=== PATIENT | female | born 1945 | race Caucasian/White ===

== ENCOUNTER → 2019-02-15 | Outpatient (CLI) | payer MEDICARE, OTHER ==
[~2019-02-15] MED LIST: ALLP300T PO; ALPR.5T PO; ASP81TEC PO; CHOL231P PO; CYCL10TA9 PO; FISH1CAP15 PO; IRB150T PO; LOSA1TAB20 PO; METO-272 PO; MULT-608 PO; NAPR-243 PO; OXYC-12 PO; PARO20TA4 PO; SIMV40TA4 PO; [UNRECOGNIZED DRUG - CODE] NSEACH
--- NOTE | 2019-02-15 09:51 | Diagnostic Imaging Report ---
INDICATION: Abdominal pain. COMPARISON: None. FINDINGS: KUB and upright views of the abdomen demonstrate moderate constipation without obstruction, ileus or free air. Osseous structures are age-appropriate. IMPRESSION: Moderate constipation. Dictated by: Dictated on workstation # [id number]
[2019-02-15 10:06] LABS: HEMATOCRIT 42 % (35-52); HEMOGLOBIN 13.5 G/DL (11.5-16.0); MEAN CORPUSCULAR HEMOGLOBIN 31 PG (25-34); MEAN CORPUSCULAR VOLUME 97 FL (80-99); WHITE BLOOD COUNT 6.9 10^3/uL (4.3-11.0)
[2019-02-15 10:07] LABS: BASOPHILS % (AUTO) 0 % (0-10); EOSINOPHILS # (AUTO) 0.2 10^3/uL (0.0-0.3); EOSINOPHILS % (AUTO) 2 % (0-10); LYMPHOCYTES # (AUTO) 1.6 X 10^3 (1.0-4.0); LYMPHOCYTES % (AUTO) 22 % (12-44); MEAN CORPUSCULAR HGB CONC 32 G/DL (32-36); MEAN PLATELET VOLUME 8.2 FL (7.4-10.4); MONOCYTES # (AUTO) 0.4 X 10^3 (0.0-1.0); MONOCYTES % (AUTO) 6 % (0-12); NEUTROPHILS # (AUTO) 4.7 X 10^3 (1.8-7.8); NEUTROPHILS % (AUTO) 68 % (42-75); PLATELET COUNT 221 10^3/uL (130-400); RED CELL DISTRIBUTION WIDTH 14.7 % (10.0-14.5)
[2019-02-15 10:27] LABS: BAND NEUTROPHILS 0 %; BASOPHILS % (MANUAL) 0 %; CHLORIDE 102 MMOL/L (98-107); EOSINOPHILS % (MANUAL) 2 %; LYMPHOCYTES % (MANUAL) 29 %; MONOCYTES % (MANUAL) 5 %; NEUTROPHILS % (MANUAL) 64 %; POTASSIUM 4.8 MMOL/L (3.6-5.0); SODIUM 142 MMOL/L (135-145)
[2019-02-15 10:28] LABS: ALANINE AMINOTRANSFERASE 20 U/L (0-55); ALKALINE PHOSPHATASE 104 U/L (40-136); BILIRUBIN,TOTAL 0.7 MG/DL (0.1-1.0); BUN/CREATININE RATIO 38; CALCIUM 9.1 MG/DL (8.5-10.1); CARBON DIOXIDE 26 MMOL/L (21-32); CREATININE SERUM 0.58 MG/DL (0.60-1.30); GFR ESTIMATED > 60; GLUCOSE 101 MG/DL (70-105); TOTAL PROTEIN 7.2 GM/DL (6.4-8.2)
== END ==
LOC: RAD FS 09:28
PROVIDERS: ATTEND Nurse Practitioner Family
DX: K59.00 Constipation, unspecified (principal)
CPT/HCPCS: 36415; 74019; 80053; 85007; 85027

== ENCOUNTER → 2019-10-06 | Outpatient (CLI) | payer MEDICARE, OTHER ==
[2019-10-06 14:57] LABS: BASOPHILS % (AUTO) 0 % (0-10); EOSINOPHILS # (AUTO) 0.1 10^3/uL (0.0-0.3); EOSINOPHILS % (AUTO) 2 % (0-10); HEMATOCRIT 42 % (35-52); HEMOGLOBIN 13.3 G/DL (11.5-16.0); LYMPHOCYTES # (AUTO) 1.7 X 10^3 (1.0-4.0); LYMPHOCYTES % (AUTO) 30 % (12-44); MEAN CORPUSCULAR HEMOGLOBIN 31 PG (25-34); MEAN CORPUSCULAR HGB CONC 32 G/DL (32-36); MEAN CORPUSCULAR VOLUME 98 FL (80-99); MEAN PLATELET VOLUME 8.2 FL (7.4-10.4); MONOCYTES # (AUTO) 0.4 X 10^3 (0.0-1.0); MONOCYTES % (AUTO) 6 % (0-12); NEUTROPHILS # (AUTO) 3.6 X 10^3 (1.8-7.8); NEUTROPHILS % (AUTO) 62 % (42-75); PLATELET COUNT 182 10^3/uL (130-400); RED CELL DISTRIBUTION WIDTH 15.2 % (10.0-14.5); WHITE BLOOD COUNT 5.8 10^3/uL (4.3-11.0)
== END ==
LOC: LAB FS 14:39
PROVIDERS: ATTEND Nurse Practitioner Family
DX: C56.9 Malignant neoplasm of unspecified ovary (principal)
CPT/HCPCS: 36415; 85025

== ENCOUNTER 2019-11-08 08:50 | Outpatient (CLI) | payer MEDICARE, OTHER ==
[~2019-11-08] VITALS: Ht 167.7 cm; Wt 127.3 kg
[2019-11-08] MEDS ORDERED: ASPI-983 PO (13:58)
[2019-11-08] MEDS ORDERED: DOCU100C37 PO (13:58)
[2019-11-08] MEDS ORDERED: SIMV40TA25 PO (13:58)
[2019-11-08] MEDS ORDERED: FISH1CAP15 PO (13:58)
[2019-11-08] MEDS ORDERED: CHOL239. PO (13:58)
[2019-11-08] MEDS ORDERED: MULT1TAB69 PO (13:58)
[2019-11-08] MEDS ORDERED: PARO20TA5 PO (13:58)
[2019-11-08] MEDS ORDERED: DILT120C88 PO (13:58)
[2019-11-08] MEDS ORDERED: RT-ALBUINH IH (13:58)
[2019-11-08] MEDS ORDERED: APIX5TAB PO (13:58)
[2019-11-08] MEDS ORDERED: CYCL10TA9 PO (13:58)
[2019-11-08] MEDS ORDERED: IRBE150T26 PO (13:58)
[2019-11-08] MEDS ORDERED: ALLO300T2 PO (13:58)
[2019-11-08] MEDS ORDERED: FAMO20TA3 PO (13:58)
[2019-11-08] MEDS ORDERED: ROPI1TAB2 PO (13:59)
[2019-11-08] MEDS ORDERED: POLY119P5 PO (13:59)
== END 2019-11-08 14:04 | disposition home or self-care (01) ==
LOC: PREOP 08:50
PROVIDERS: ATTEND Surgery
DX: Z01.818 Encounter for other preprocedural examination (principal)

== ENCOUNTER → 2019-12-01 | Outpatient (CLI) | payer MEDICARE, OTHER ==
[~2019-12-01] MED LIST changes: +ALLO300T2 PO; +APIX5TAB PO; +ASPI-983 PO; +CHOL239. PO; +DILT120C88 PO; +DOCU100C37 PO; +FAMO20TA3 PO; +HYDR-34 PO; +IRBE150T23 PO; +MULT1TAB69 PO; +PARO20TA5 PO; +POLY119P5 PO; +ROPI1TAB PO; +RT-ALBUINH IH; +SIMV40TA25 PO
[2019-12-01 11:03] LABS: BASOPHILS % (AUTO) 1 % (0-10); EOSINOPHILS # (AUTO) 0.1 10^3/uL (0.0-0.3); EOSINOPHILS % (AUTO) 4 % (0-10); HEMATOCRIT 34 % (35-52); HEMOGLOBIN 10.5 G/DL (11.5-16.0); LYMPHOCYTES # (AUTO) 1.1 X 10^3 (1.0-4.0); LYMPHOCYTES % (AUTO) 55 % (12-44); MEAN CORPUSCULAR HEMOGLOBIN 31 PG (25-34); MEAN CORPUSCULAR HGB CONC 31 G/DL (32-36); MEAN CORPUSCULAR VOLUME 99 FL (80-99); MEAN PLATELET VOLUME 8.6 FL (7.4-10.4); MONOCYTES # (AUTO) 0.6 X 10^3 (0.0-1.0); MONOCYTES % (AUTO) 28 % (0-12); NEUTROPHILS # (AUTO) 0.3 X 10^3 (1.8-7.8); NEUTROPHILS % (AUTO) 13 % (42-75); PLATELET COUNT 198 10^3/uL (130-400); RED CELL DISTRIBUTION WIDTH 15.4 % (10.0-14.5)
[2019-12-01 11:30] LABS: CHLORIDE 102 MMOL/L (98-107); POTASSIUM 4.5 MMOL/L (3.6-5.0); SODIUM 139 MMOL/L (135-145)
[2019-12-01 11:31] LABS: ALANINE AMINOTRANSFERASE 25 U/L (0-55); ALBUMIN 3.9 GM/DL (3.2-4.5); ALKALINE PHOSPHATASE 94 U/L (40-136); BILIRUBIN,TOTAL 0.6 MG/DL (0.1-1.0); BUN/CREATININE RATIO 27; CALCIUM 8.9 MG/DL (8.5-10.1); CARBON DIOXIDE 27 MMOL/L (21-32); CREATININE SERUM 0.59 MG/DL (0.60-1.30); GFR ESTIMATED > 60; GLUCOSE 102 MG/DL (70-105); TOTAL PROTEIN 6.6 GM/DL (6.4-8.2)
[2019-12-01 14:57] LABS: CHOLESTEROL 120 MG/DL (< 200); HDL CHOLESTEROL 53 MG/DL (40-60); TRIGLYCERIDES 57 MG/DL (<150); VLDL CHOLESTEROL 11 MG/DL (5-40)
== END ==
LOC: LAB FS 09:59
PROVIDERS: ATTEND Nurse Practitioner Family
DX: E78.2 Mixed hyperlipidemia (principal); I10 Essential (primary) hypertension; C56.9 Malignant neoplasm of unspecified ovary
CPT/HCPCS: 36415; 80053; 80061; 85025

== ENCOUNTER 2019-12-08 08:49 | Outpatient (RCR) | payer MEDICARE, OTHER ==
--- NOTE | 2019-11-03 11:16 | HISTORY AND PHYSICAL ---
DATE OF SERVICE: 11/03/2019 PROCEDURE DATE: 11/11/2019 ATTENDING PHYSICIAN: Dr. Knight and . HISTORY OF PRESENT ILLNESS: The patient is a 74-year-old female who was diagnosed with ovarian cancer back in 2017 and at that time did undergo completion of her hysterectomy. She reports that she then had a [place] port placed to undergo chemotherapy and reports that she did well and eventually her port removed. She reports that approximately one to two months ago, she did have some abnormal lab work at her regular oncology visit and reports that a CT scan was performed, which did show recurrence and metastasis of the ovarian cancer. She reports that she was then referred over to us in need of a [place] port to undergo chemotherapy once again. PAST MEDICAL HISTORY: Ovarian cancer in 2017, degenerative joint disease, obstructive sleep apnea, atrial fibrillation, asthma, gout, diarrhea, restless leg syndrome, hypercholesterolemia, gastroesophageal reflux disease, hypertension, anxiety, depression. PAST SURGICAL HISTORY: Partial hysterectomy with completion of hysterectomy in 2017, ventral abdominal hernia repair, right breast biopsy, which was negative, bilateral total knee replacement, open cholecystectomy. ALLERGIES: TAPE. MEDICATIONS: Albuterol sulfate 90 mcg, allopurinol 300 mg, Eliquis 5 mg, aspirin 81 mg, Debrox 6.5% Otic solution, cholestyramine p.r.n., cyclobenzaprine 10 mg, diltiazem 120 mg, docusate 100 mg, famotidine 20 mg, fish oil 1000 mg, fluticasone 50 mcg nasal spray, irbesartan 150 mg, nystatin 1000 mg, paroxetine 20 mg, MiraLax 17 grams, Requip 1 mg, simvastatin 40 mg, tramadol 50 mg and multivitamin. SOCIAL HISTORY: Negative for smoking, negative for alcohol. FAMILY HISTORY: Father, lung cancer. Sister, bladder cancer. Son, type 2 diabetes, hypertension and leukemia. VITAL SIGNS: Blood pressure is 156/106. Current weight is 285.2 at 5 feet 6 inches. REVIEW OF SYSTEMS: Well-nourished female, in no acute distress. She is not experiencing any shortness of breath or difficulty breathing. No chest pain, palpitations or diaphoresis. No nausea, vomiting or abdominal pain. She does report episodes of chronic diarrhea as well as occasional constipation. No red blood per rectum. No dark tarry stools. No fever or chills. No recent weight loss. All other review of systems negative. PHYSICAL EXAMINATION: CHEST: Clear. Good breath sounds bilaterally. HEART: Regular, no murmurs. EXTREMITIES: No lower extremity edema. Negative Homans sign. HEENT: No scleral icterus. NECK: No cervical lymphadenopathy. ABDOMEN: Soft, nontender, nondistended. No palpable masses. No organomegaly. SKIN: Warm, dry and pink. NEUROLOGIC: Awake, alert and oriented x3. ASSESSMENT AND PLAN: A 74-year-old female with a recurrent metastatic ovarian cancer. At this time, she will need a Gro[place] port to undergo chemotherapy. The risks and benefits of the procedure as well as the procedure and home care instructions were explained to the patient. The patient verbalized understanding of instructions and agrees to proceed as planned. At this time, we will proceed with scheduling the patient for placement of a [place] port. Job ID: [id number] DocumentID: [id number] Dictated Date: 11/03/2019 09:15:25 Film Mounter Date: 11/03/2019 11:16:11 Dictated By: CLARENCE CALLOWAY APRN
[2019-11-18 09:16] LABS: BASOPHILS % (AUTO) 0 % (0-10); EOSINOPHILS % (AUTO) 0 % (0-10); HEMATOCRIT 38 % (35-52); HEMOGLOBIN 12.1 G/DL (11.5-16.0); LYMPHOCYTES # (AUTO) 0.8 X 10^3 (1.0-4.0); LYMPHOCYTES % (AUTO) 14 % (12-44); MEAN CORPUSCULAR HEMOGLOBIN 31 PG (25-34); MEAN CORPUSCULAR HGB CONC 32 G/DL (32-36); MEAN CORPUSCULAR VOLUME 98 FL (80-99); MONOCYTES % (AUTO) 1 % (0-12); NEUTROPHILS # (AUTO) 4.9 X 10^3 (1.8-7.8); NEUTROPHILS % (AUTO) 85 % (42-75); PLATELET COUNT 234 10^3/uL (130-400); RED CELL DISTRIBUTION WIDTH 15.8 % (10.0-14.5); WHITE BLOOD COUNT 5.8 10^3/uL (4.3-11.0)
[2019-11-18 09:36] LABS: ALANINE AMINOTRANSFERASE 17 U/L (0-55); ALBUMIN 4.1 GM/DL (3.2-4.5); ALKALINE PHOSPHATASE 106 U/L (40-136); BILIRUBIN,TOTAL 0.5 MG/DL (0.1-1.0); BUN/CREATININE RATIO 21; CALCIUM 9.3 MG/DL (8.5-10.1); CARBON DIOXIDE 23 MMOL/L (21-32); CHLORIDE 105 MMOL/L (98-107); CREATININE SERUM 0.72 MG/DL (0.60-1.30); GFR ESTIMATED > 60; GLUCOSE 149 MG/DL (70-105); POTASSIUM 4.4 MMOL/L (3.6-5.0); SODIUM 139 MMOL/L (135-145); TOTAL PROTEIN 7.4 GM/DL (6.4-8.2)
[~2019-12-08] VITALS: Ht 167.6 cm; Wt 129.7 kg
[~2019-12-08 08:49] MED LIST changes: +CARBOPLATIN IV SCH; +D5W IV SCH; +FAMOTIDINE 20MG/2ML IV (CANCER CTR) IV SCH; +FOSAPREPITANT DIMEGLUMINE 150 MG in NS (IVPB) CANCER CENTER ONLY 150 ML IV SCH; +NORMAL SALINE IV SCH; +NS IV 1000 ML (CANCER CTR) IV SCH; +PACLITAXEL IV SCH; +PALONOSETRON HCL 0.25 MG, DEXAMETHASONE INJECTION 10 MG in NS (IVPB) CANCER CENTER 50 ML IV SCH; +diphenhydrAMINE 50 MG/ML INJ (CANCER CENTER) IV PRN
[2019-12-08 09:10] LABS: BASOPHILS % (AUTO) 0 % (0-10); EOSINOPHILS # (AUTO) 0.1 10^3/uL (0.0-0.3); EOSINOPHILS % (AUTO) 1 % (0-10); HEMATOCRIT 33 % (35-52); HEMOGLOBIN 10.4 G/DL (11.5-16.0); LYMPHOCYTES # (AUTO) 1.3 X 10^3 (1.0-4.0); LYMPHOCYTES % (AUTO) 21 % (12-44); MEAN CORPUSCULAR HEMOGLOBIN 31 PG (25-34); MEAN CORPUSCULAR HGB CONC 31 G/DL (32-36); MEAN CORPUSCULAR VOLUME 98 FL (80-99); MONOCYTES # (AUTO) 0.5 X 10^3 (0.0-1.0); MONOCYTES % (AUTO) 9 % (0-12); NEUTROPHILS # (AUTO) 4.3 X 10^3 (1.8-7.8); NEUTROPHILS % (AUTO) 70 % (42-75); PLATELET COUNT 207 10^3/uL (130-400); RED CELL DISTRIBUTION WIDTH 15.5 % (10.0-14.5); WHITE BLOOD COUNT 6.2 10^3/uL (4.3-11.0)
[2019-12-08] MEDS ORDERED: diphenhydrAMINE 25 MG TAB (BENADRYL) CANCER CENTER PO ONE (09:44)
[2019-12-08 09:46] LABS: ALANINE AMINOTRANSFERASE 22 U/L (0-55); ALBUMIN 3.6 GM/DL (3.2-4.5); ALKALINE PHOSPHATASE 102 U/L (40-136); BILIRUBIN,TOTAL 0.5 MG/DL (0.1-1.0); BUN/CREATININE RATIO 20; CARBON DIOXIDE 23 MMOL/L (21-32); CHLORIDE 106 MMOL/L (98-107); CREATININE SERUM 0.66 MG/DL (0.60-1.30); GFR ESTIMATED > 60; GLUCOSE 106 MG/DL (70-105); MAGNESIUM 1.7 MG/DL (1.6-2.4); POTASSIUM 3.9 MMOL/L (3.6-5.0); SODIUM 140 MMOL/L (135-145); TOTAL PROTEIN 6.4 GM/DL (6.4-8.2)
[2019-12-08] MEDS ORDERED: PALONOSETRON HCL 0.25 MG, DEXAMETHASONE INJECTION 20 MG in NS (IVPB) CANCER CENTER 50 ML IV ONE (10:11)
[2019-12-29 09:39] LABS: BASOPHILS % (AUTO) 0 % (0-10); EOSINOPHILS % (AUTO) 0 % (0-10); HEMATOCRIT 38 % (35-52); HEMOGLOBIN 11.8 G/DL (11.5-16.0); LYMPHOCYTES % (AUTO) 12 % (12-44); MEAN CORPUSCULAR HEMOGLOBIN 30 PG (25-34); MEAN CORPUSCULAR HGB CONC 31 G/DL (32-36); MEAN CORPUSCULAR VOLUME 96 FL (80-99); MEAN PLATELET VOLUME 8.2 FL (7.4-10.4); MONOCYTES # (AUTO) 0.1 X 10^3 (0.0-1.0); MONOCYTES % (AUTO) 1 % (0-12); NEUTROPHILS # (AUTO) 7.3 X 10^3 (1.8-7.8); NEUTROPHILS % (AUTO) 87 % (42-75); PLATELET COUNT 232 10^3/uL (130-400); RED CELL DISTRIBUTION WIDTH 16.1 % (10.0-14.5); WHITE BLOOD COUNT 8.4 10^3/uL (4.3-11.0)
[2019-12-29 09:58] LABS: ALANINE AMINOTRANSFERASE 24 U/L (0-55); ALKALINE PHOSPHATASE 98 U/L (40-136); BILIRUBIN,TOTAL 0.4 MG/DL (0.1-1.0); BUN/CREATININE RATIO 26; CALCIUM 9.1 MG/DL (8.5-10.1); CARBON DIOXIDE 18 MMOL/L (21-32); CHLORIDE 107 MMOL/L (98-107); CREATININE SERUM 0.77 MG/DL (0.60-1.30); GFR ESTIMATED > 60; GLUCOSE 172 MG/DL (70-105); MAGNESIUM 1.7 MG/DL (1.6-2.4); POTASSIUM 4.3 MMOL/L (3.6-5.0); SODIUM 140 MMOL/L (135-145); TOTAL PROTEIN 7.4 GM/DL (6.4-8.2)
== END 2019-12-29 09:23 | disposition home or self-care (01) ==
LOC: ONC 08:49
PROVIDERS: ATTEND Internal Medicine Hematology & Oncology
DX: Z51.11 Encounter for antineoplastic chemotherapy (principal); C56.1 Malignant neoplasm of right ovary; C77.2 Secondary and unspecified malignant neoplasm of intra-abdominal lymph nodes; I10 Essential (primary) hypertension; M19.91 Primary osteoarthritis, unspecified site; R17 Unspecified jaundice; Z87.01 Personal history of pneumonia (recurrent); Z87.442 Personal history of urinary calculi; Z80.3 Family history of malignant neoplasm of breast; Z80.1 Family history of malignant neoplasm of trachea, bronchus and lung; Z80.41 Family history of malignant neoplasm of ovary; Z80.52 Family history of malignant neoplasm of bladder
CPT/HCPCS: 36591; 80053; 83735; 85025; 96367; 96375; 96413; 96415; 96417; 99214

== ENCOUNTER 2020-01-26 09:50 | Outpatient (RCR) | payer MEDICARE, OTHER ==
[2019-11-24 11:56] LABS: BUN/CREATININE RATIO 24; CALCIUM 9.3 MG/DL (8.5-10.1); CARBON DIOXIDE 30 MMOL/L (21-32); CHLORIDE 99 MMOL/L (98-107); CREATININE SERUM 0.62 MG/DL (0.60-1.30); GFR ESTIMATED > 60; GLUCOSE 109 MG/DL (70-105); POTASSIUM 4.7 MMOL/L (3.6-5.0); SODIUM 140 MMOL/L (135-145)
[2019-11-24 11:57] LABS: HEMATOCRIT 36 % (35-52); HEMOGLOBIN 11.6 G/DL (11.5-16.0); LYMPHOCYTES % (AUTO) 26 % (12-44); MEAN CORPUSCULAR HEMOGLOBIN 31 PG (25-34); MEAN CORPUSCULAR HGB CONC 32 G/DL (32-36); MEAN CORPUSCULAR VOLUME 98 FL (80-99); MEAN PLATELET VOLUME 9.1 FL (7.4-10.4); MONOCYTES % (AUTO) 2 % (0-12); NEUTROPHILS % (AUTO) 69 % (42-75); PLATELET COUNT 210 10^3/uL (130-400); RED CELL DISTRIBUTION WIDTH 14.7 % (10.0-14.5); WHITE BLOOD COUNT 5.8 10^3/uL (4.3-11.0)
[2019-11-24 12:07] LABS: BASOPHILS % (AUTO) 1 % (0-10); EOSINOPHILS # (AUTO) 0.2 10^3/uL (0.0-0.3); EOSINOPHILS % (AUTO) 3 % (0-10); LYMPHOCYTES # (AUTO) 1.5 X 10^3 (1.0-4.0); MONOCYTES # (AUTO) 0.1 X 10^3 (0.0-1.0)
[2019-12-15 12:06] LABS: BUN/CREATININE RATIO 32; CALCIUM 8.9 MG/DL (8.5-10.1); CARBON DIOXIDE 28 MMOL/L (21-32); CHLORIDE 103 MMOL/L (98-107); GFR ESTIMATED > 60; GLUCOSE 101 MG/DL (70-105); POTASSIUM 4.5 MMOL/L (3.6-5.0); SODIUM 142 MMOL/L (135-145)
[2019-12-15 12:07] LABS: BASOPHILS % (AUTO) 1 % (0-10); EOSINOPHILS # (AUTO) 0.1 10^3/uL (0.0-0.3); EOSINOPHILS % (AUTO) 3 % (0-10); HEMATOCRIT 34 % (35-52); HEMOGLOBIN 10.7 G/DL (11.5-16.0); LYMPHOCYTES # (AUTO) 1.2 X 10^3 (1.0-4.0); LYMPHOCYTES % (AUTO) 28 % (12-44); MEAN CORPUSCULAR HEMOGLOBIN 31 PG (25-34); MEAN CORPUSCULAR HGB CONC 32 G/DL (32-36); MEAN CORPUSCULAR VOLUME 97 FL (80-99); MEAN PLATELET VOLUME 9.1 FL (7.4-10.4); MONOCYTES # (AUTO) 0.2 X 10^3 (0.0-1.0); MONOCYTES % (AUTO) 4 % (0-12); NEUTROPHILS # (AUTO) 2.8 X 10^3 (1.8-7.8); NEUTROPHILS % (AUTO) 64 % (42-75); PLATELET COUNT 188 10^3/uL (130-400); RED CELL DISTRIBUTION WIDTH 15.1 % (10.0-14.5); WHITE BLOOD COUNT 4.4 10^3/uL (4.3-11.0)
[2019-12-22 10:46] LABS: BASOPHILS % (AUTO) 1 % (0-10); EOSINOPHILS # (AUTO) 0.1 10^3/uL (0.0-0.3); EOSINOPHILS % (AUTO) 3 % (0-10); HEMATOCRIT 34 % (35-52); HEMOGLOBIN 10.7 G/DL (11.5-16.0); LYMPHOCYTES # (AUTO) 0.9 X 10^3 (1.0-4.0); LYMPHOCYTES % (AUTO) 45 % (12-44); MEAN CORPUSCULAR HEMOGLOBIN 31 PG (25-34); MEAN CORPUSCULAR HGB CONC 31 G/DL (32-36); MEAN CORPUSCULAR VOLUME 98 FL (80-99); MEAN PLATELET VOLUME 8.8 FL (7.4-10.4); MONOCYTES # (AUTO) 0.5 X 10^3 (0.0-1.0); MONOCYTES % (AUTO) 22 % (0-12); NEUTROPHILS # (AUTO) 0.6 X 10^3 (1.8-7.8); NEUTROPHILS % (AUTO) 28 % (42-75); PLATELET COUNT 207 10^3/uL (130-400); RED CELL DISTRIBUTION WIDTH 15.8 % (10.0-14.5); WHITE BLOOD COUNT 2.1 10^3/uL (4.3-11.0)
[2019-12-22 11:05] LABS: BUN/CREATININE RATIO 34; CALCIUM 8.9 MG/DL (8.5-10.1); CARBON DIOXIDE 24 MMOL/L (21-32); CHLORIDE 101 MMOL/L (98-107); CREATININE SERUM 0.61 MG/DL (0.60-1.30); GFR ESTIMATED > 60; GLUCOSE 107 MG/DL (70-105); POTASSIUM 4.5 MMOL/L (3.6-5.0); SODIUM 138 MMOL/L (135-145)
[2020-01-05 10:04] LABS: HEMATOCRIT 32 % (35-52); HEMOGLOBIN 9.9 G/DL (11.5-16.0); MEAN CORPUSCULAR HEMOGLOBIN 30 PG (25-34); MEAN CORPUSCULAR HGB CONC 31 G/DL (32-36); MEAN CORPUSCULAR VOLUME 97 FL (80-99); MEAN PLATELET VOLUME 9.1 FL (7.4-10.4); PLATELET COUNT 172 10^3/uL (130-400); RED CELL DISTRIBUTION WIDTH 15.5 % (10.0-14.5); WHITE BLOOD COUNT 3.3 10^3/uL (4.3-11.0)
[2020-01-05 10:05] LABS: BASOPHILS % (AUTO) 1 % (0-10); EOSINOPHILS # (AUTO) 0.1 10^3/uL (0.0-0.3); EOSINOPHILS % (AUTO) 3 % (0-10); LYMPHOCYTES # (AUTO) 0.9 X 10^3 (1.0-4.0); LYMPHOCYTES % (AUTO) 28 % (12-44); MONOCYTES # (AUTO) 0.1 X 10^3 (0.0-1.0); MONOCYTES % (AUTO) 3 % (0-12); NEUTROPHILS # (AUTO) 2.1 X 10^3 (1.8-7.8); NEUTROPHILS % (AUTO) 65 % (42-75)
[2020-01-05 10:37] LABS: CARBON DIOXIDE 28 MMOL/L (21-32); CHLORIDE 104 MMOL/L (98-107); POTASSIUM 4.6 MMOL/L (3.6-5.0); SODIUM 141 MMOL/L (135-145)
[2020-01-05 10:38] LABS: BUN/CREATININE RATIO 35; CALCIUM 8.7 MG/DL (8.5-10.1); CREATININE SERUM 0.54 MG/DL (0.60-1.30); GFR ESTIMATED > 60; GLUCOSE 99 MG/DL (70-105)
[2020-01-12 10:20] LABS: HEMATOCRIT 32 % (35-52); HEMOGLOBIN 9.9 G/DL (11.5-16.0); MEAN CORPUSCULAR HEMOGLOBIN 30 PG (25-34); MEAN CORPUSCULAR VOLUME 97 FL (80-99); WHITE BLOOD COUNT 1.7 10^3/uL (4.3-11.0)
[2020-01-12 10:21] LABS: BASOPHILS % (AUTO) 1 % (0-10); EOSINOPHILS # (AUTO) 0.1 10^3/uL (0.0-0.3); EOSINOPHILS % (AUTO) 3 % (0-10); LYMPHOCYTES # (AUTO) 0.9 X 10^3 (1.0-4.0); LYMPHOCYTES % (AUTO) 52 % (12-44); MEAN CORPUSCULAR HGB CONC 31 G/DL (32-36); MONOCYTES # (AUTO) 0.4 X 10^3 (0.0-1.0); MONOCYTES % (AUTO) 24 % (0-12); NEUTROPHILS # (AUTO) 0.3 X 10^3 (1.8-7.8); NEUTROPHILS % (AUTO) 19 % (42-75); PLATELET COUNT 189 10^3/uL (130-400); RED CELL DISTRIBUTION WIDTH 16.6 % (10.0-14.5)
[2020-01-12 10:53] LABS: CARBON DIOXIDE 28 MMOL/L (21-32); CHLORIDE 102 MMOL/L (98-107); POTASSIUM 4.2 MMOL/L (3.6-5.0); SODIUM 139 MMOL/L (135-145)
[2020-01-12 10:54] LABS: BUN/CREATININE RATIO 23; CALCIUM 8.9 MG/DL (8.5-10.1); CREATININE SERUM 0.57 MG/DL (0.60-1.30); GFR ESTIMATED > 60; GLUCOSE 100 MG/DL (70-105)
[~2020-01-26 09:50] MED LIST changes: -CARBOPLATIN IV SCH; -D5W IV SCH; -FAMOTIDINE 20MG/2ML IV (CANCER CTR) IV SCH; -FOSAPREPITANT DIMEGLUMINE 150 MG in NS (IVPB) CANCER CENTER ONLY 150 ML IV SCH; -NORMAL SALINE IV SCH; -NS IV 1000 ML (CANCER CTR) IV SCH; -PACLITAXEL IV SCH; -PALONOSETRON HCL 0.25 MG, DEXAMETHASONE INJECTION 10 MG in NS (IVPB) CANCER CENTER 50 ML IV SCH; -diphenhydrAMINE 50 MG/ML INJ (CANCER CENTER) IV PRN
[2020-01-26 10:45] LABS: BASOPHILS % (AUTO) 1 % (0-10); EOSINOPHILS % (AUTO) 3 % (0-10); HEMATOCRIT 33 % (35-52); HEMOGLOBIN 10.2 G/DL (11.5-16.0); MEAN CORPUSCULAR HEMOGLOBIN 30 PG (25-34); MEAN CORPUSCULAR HGB CONC 31 G/DL (32-36); MEAN CORPUSCULAR VOLUME 97 FL (80-99); MEAN PLATELET VOLUME 9.6 FL (7.4-10.4); MONOCYTES % (AUTO) 1 % (0-12); NEUTROPHILS % (AUTO) 68 % (42-75); PLATELET COUNT 166 10^3/uL (130-400); RED CELL DISTRIBUTION WIDTH 16.3 % (10.0-14.5); WHITE BLOOD COUNT 3.7 10^3/uL (4.3-11.0)
[2020-01-26 10:46] LABS: EOSINOPHILS # (AUTO) 0.1 10^3/uL (0.0-0.3); LYMPHOCYTES % (AUTO) 27 % (12-44); NEUTROPHILS # (AUTO) 2.5 X 10^3 (1.8-7.8)
[2020-01-26 10:51] LABS: BUN/CREATININE RATIO 36; CARBON DIOXIDE 28 MMOL/L (21-32); CHLORIDE 103 MMOL/L (98-107); CREATININE SERUM 0.61 MG/DL (0.60-1.30); GFR ESTIMATED > 60; GLUCOSE 115 MG/DL (70-105); POTASSIUM 4.1 MMOL/L (3.6-5.0); SODIUM 140 MMOL/L (135-145)
[2020-02-16 10:59] LABS: BUN/CREATININE RATIO 24; CALCIUM 9.3 MG/DL (8.5-10.1); CARBON DIOXIDE 31 MMOL/L (21-32); CHLORIDE 102 MMOL/L (98-107); CREATININE SERUM 0.55 MG/DL (0.60-1.30); GFR ESTIMATED > 60; GLUCOSE 111 MG/DL (70-105); POTASSIUM 4.7 MMOL/L (3.6-5.0); SODIUM 142 MMOL/L (135-145)
[2020-02-16 11:00] LABS: BASOPHILS % (AUTO) 0 % (0-10); EOSINOPHILS # (AUTO) 0.1 10^3/uL (0.0-0.3); EOSINOPHILS % (AUTO) 1 % (0-10); HEMATOCRIT 32 % (35-52); HEMOGLOBIN 9.8 G/DL (11.5-16.0); LYMPHOCYTES # (AUTO) 0.9 X 10^3 (1.0-4.0); LYMPHOCYTES % (AUTO) 20 % (12-44); MEAN CORPUSCULAR HEMOGLOBIN 30 PG (25-34); MEAN CORPUSCULAR HGB CONC 31 G/DL (32-36); MEAN CORPUSCULAR VOLUME 96 FL (80-99); MEAN PLATELET VOLUME 9.4 FL (7.4-10.4); MONOCYTES # (AUTO) 0.1 X 10^3 (0.0-1.0); MONOCYTES % (AUTO) 1 % (0-12); NEUTROPHILS # (AUTO) 3.3 X 10^3 (1.8-7.8); NEUTROPHILS % (AUTO) 78 % (42-75); PLATELET COUNT 144 10^3/uL (130-400); RED CELL DISTRIBUTION WIDTH 16.6 % (10.0-14.5); WHITE BLOOD COUNT 4.2 10^3/uL (4.3-11.0)
== END 2020-02-22 | disposition home or self-care (01) ==
LOC: LAB FS 09:50
PROVIDERS: ATTEND Internal Medicine Hematology & Oncology
DX: C56.1 Malignant neoplasm of right ovary (principal); I10 Essential (primary) hypertension; C77.2 Secondary and unspecified malignant neoplasm of intra-abdominal lymph nodes; Z80.3 Family history of malignant neoplasm of breast; Z80.1 Family history of malignant neoplasm of trachea, bronchus and lung; Z80.41 Family history of malignant neoplasm of ovary; Z80.52 Family history of malignant neoplasm of bladder
CPT/HCPCS: 36415; 80048; 85025

== ENCOUNTER 2020-02-10 09:49 | Outpatient (RCR) | payer MEDICARE, OTHER ==
[2020-01-19 09:04] LABS: BASOPHILS % (AUTO) 0 % (0-10); EOSINOPHILS % (AUTO) 0 % (0-10); HEMATOCRIT 38 % (35-52); HEMOGLOBIN 11.9 G/DL (11.5-16.0); LYMPHOCYTES % (AUTO) 13 % (12-44); MEAN CORPUSCULAR HEMOGLOBIN 30 PG (25-34); MEAN CORPUSCULAR HGB CONC 31 G/DL (32-36); MEAN CORPUSCULAR VOLUME 96 FL (80-99); MEAN PLATELET VOLUME 8.3 FL (7.4-10.4); MONOCYTES # (AUTO) 0.1 X 10^3 (0.0-1.0); MONOCYTES % (AUTO) 1 % (0-12); NEUTROPHILS # (AUTO) 6.5 X 10^3 (1.8-7.8); NEUTROPHILS % (AUTO) 86 % (42-75); PLATELET COUNT 219 10^3/uL (130-400); WHITE BLOOD COUNT 7.5 10^3/uL (4.3-11.0)
[2020-01-19 09:17] LABS: ALBUMIN 3.9 GM/DL (3.2-4.5)
[2020-01-19 09:18] LABS: CHLORIDE 106 MMOL/L (98-107); POTASSIUM 4.1 MMOL/L (3.6-5.0); SODIUM 140 MMOL/L (135-145)
[2020-01-19 09:19] LABS: CALCIUM 9.4 MG/DL (8.5-10.1)
[2020-01-19 09:20] LABS: GLUCOSE 158 MG/DL (70-105); TOTAL PROTEIN 7.4 GM/DL (6.4-8.2)
[2020-01-19 09:21] LABS: CARBON DIOXIDE 19 MMOL/L (21-32)
[2020-01-19 09:22] LABS: BILIRUBIN,TOTAL 0.4 MG/DL (0.1-1.0)
[2020-01-19 09:24] LABS: ALKALINE PHOSPHATASE 115 U/L (40-136); CREATININE SERUM 0.75 MG/DL (0.60-1.30); GFR ESTIMATED > 60
[2020-01-19 09:25] LABS: BUN/CREATININE RATIO 36
[2020-01-19 09:27] LABS: ALANINE AMINOTRANSFERASE 25 U/L (0-55)
[2020-01-19 09:28] LABS: MAGNESIUM 1.5 MG/DL (1.6-2.4)
[2020-02-02 10:35] LABS: BUN/CREATININE RATIO 22; CARBON DIOXIDE 28 MMOL/L (21-32); CHLORIDE 105 MMOL/L (98-107); CREATININE SERUM 0.58 MG/DL (0.60-1.30); GFR ESTIMATED > 60; GLUCOSE 108 MG/DL (70-105); POTASSIUM 4.2 MMOL/L (3.6-5.0); SODIUM 144 MMOL/L (135-145); WHITE BLOOD COUNT 1.7 10^3/uL (4.3-11.0)
[2020-02-02 10:36] LABS: BASOPHILS % (AUTO) 1 % (0-10); EOSINOPHILS # (AUTO) 0.1 10^3/uL (0.0-0.3); EOSINOPHILS % (AUTO) 3 % (0-10); HEMATOCRIT 32 % (35-52); HEMOGLOBIN 10.1 G/DL (11.5-16.0); LYMPHOCYTES # (AUTO) 0.8 X 10^3 (1.0-4.0); LYMPHOCYTES % (AUTO) 47 % (12-44); MEAN CORPUSCULAR HEMOGLOBIN 30 PG (25-34); MEAN CORPUSCULAR HGB CONC 31 G/DL (32-36); MEAN CORPUSCULAR VOLUME 96 FL (80-99); MEAN PLATELET VOLUME 8.5 FL (7.4-10.4); MONOCYTES # (AUTO) 0.4 X 10^3 (0.0-1.0); MONOCYTES % (AUTO) 26 % (0-12); NEUTROPHILS # (AUTO) 0.4 X 10^3 (1.8-7.8); NEUTROPHILS % (AUTO) 24 % (42-75); PLATELET COUNT 146 10^3/uL (130-400); RED CELL DISTRIBUTION WIDTH 16.9 % (10.0-14.5)
[~2020-02-10 09:49] MED LIST changes: +CARBOPLATIN IV SCH; +D5W IV SCH; +FAMOTIDINE 20MG/2ML IV (CANCER CTR) IV SCH; +FOSAPREPITANT (CANCER CENTER) 150 MG in NS (IVPB) CANCER CENTER ONLY 150 ML IV SCH; +MAGNESIUM SULFATE (CANCER CTR) 2 GM in NS (IVPB) CANCER CENTER 100 ML IV SCH; +NORMAL SALINE IV SCH; +NS IV 1000 ML (CANCER CTR) IV SCH; +PACLITAXEL IV SCH; +PALONOSETRON HCL 0.25 MG, DEXAMETHASONE INJECTION 10 MG in NS (IVPB) CANCER CENTER 50 ML IV SCH; +diphenhydrAMINE 25 MG TAB (BENADRYL) CANCER CENTER PO ONE; +diphenhydrAMINE 50 MG/ML INJ (CANCER CENTER) IV PRN
[2020-02-10 10:10] LABS: BASOPHILS % (AUTO) 0 % (0-10); EOSINOPHILS % (AUTO) 0 % (0-10); HEMATOCRIT 37 % (35-52); HEMOGLOBIN 11.9 G/DL (11.5-16.0); LYMPHOCYTES % (AUTO) 15 % (12-44); MEAN CORPUSCULAR HEMOGLOBIN 30 PG (25-34); MEAN CORPUSCULAR HGB CONC 32 G/DL (32-36); MEAN CORPUSCULAR VOLUME 95 FL (80-99); MEAN PLATELET VOLUME 8.2 FL (7.4-10.4); MONOCYTES % (AUTO) 1 % (0-12); NEUTROPHILS # (AUTO) 5.9 X 10^3 (1.8-7.8); NEUTROPHILS % (AUTO) 85 % (42-75); PLATELET COUNT 243 10^3/uL (130-400); RED CELL DISTRIBUTION WIDTH 17.6 % (10.0-14.5); WHITE BLOOD COUNT 6.9 10^3/uL (4.3-11.0)
[2020-02-10] MEDS ORDERED: diphenhydrAMINE 25 MG TAB (BENADRYL) CANCER CENTER PO ONE (10:27)
[2020-02-10 10:31] LABS: ALANINE AMINOTRANSFERASE 14 U/L (0-55); ALBUMIN 3.9 GM/DL (3.2-4.5); ALKALINE PHOSPHATASE 104 U/L (40-136); BILIRUBIN,TOTAL 0.5 MG/DL (0.1-1.0); BUN/CREATININE RATIO 22; CALCIUM 9.3 MG/DL (8.5-10.1); CARBON DIOXIDE 23 MMOL/L (21-32); CHLORIDE 106 MMOL/L (98-107); CREATININE SERUM 0.72 MG/DL (0.60-1.30); GFR ESTIMATED > 60; GLUCOSE 158 MG/DL (70-105); MAGNESIUM 1.4 MG/DL (1.6-2.4); POTASSIUM 4.2 MMOL/L (3.6-5.0); SODIUM 141 MMOL/L (135-145); TOTAL PROTEIN 7.2 GM/DL (6.4-8.2)
[2020-02-10] MEDS ORDERED: MAGNESIUM SULFATE (CANCER CTR) 2 GM in NS (IVPB) CANCER CENTER 100 ML IV ONE (10:51)
== END 2020-03-01 16:15 | disposition home or self-care (01) ==
LOC: ONC 09:49
PROVIDERS: ATTEND Internal Medicine Hematology & Oncology
DX: Z51.11 Encounter for antineoplastic chemotherapy (principal); C56.1 Malignant neoplasm of right ovary; C77.2 Secondary and unspecified malignant neoplasm of intra-abdominal lymph nodes; I10 Essential (primary) hypertension; M19.91 Primary osteoarthritis, unspecified site; R17 Unspecified jaundice; Z87.01 Personal history of pneumonia (recurrent); Z87.442 Personal history of urinary calculi; Z80.3 Family history of malignant neoplasm of breast; Z80.1 Family history of malignant neoplasm of trachea, bronchus and lung; Z80.41 Family history of malignant neoplasm of ovary; Z80.52 Family history of malignant neoplasm of bladder
CPT/HCPCS: 36591; 80048; 80053; 83735; 85025; 96367; 96375; 96413; 96415; 96417

== ENCOUNTER → 2020-02-14 | Outpatient (CLI) | payer MEDICARE, OTHER ==
[~2020-02-14] MED LIST changes: +BARIUM SUSPENSION 2.1% (VANILLA SILQ) 450 ML PO ONE; -CARBOPLATIN IV SCH; +CATHETER FLUSH 10 ML SYR IV PRN; -D5W IV SCH; -FAMOTIDINE 20MG/2ML IV (CANCER CTR) IV SCH; -FOSAPREPITANT (CANCER CENTER) 150 MG in NS (IVPB) CANCER CENTER ONLY 150 ML IV SCH; +HOLD METFORMIN - RECEIVED CONTRAST 20 ML VIAL IV SCH; +IOHEXOL 350 MG/ML 100 ML (OMNIPAQUE 350) VIAL IV ONE; -MAGNESIUM SULFATE (CANCER CTR) 2 GM in NS (IVPB) CANCER CENTER 100 ML IV SCH; -NORMAL SALINE IV SCH; +NS 100 ML (IVPB) BAG IV ONE; -NS IV 1000 ML (CANCER CTR) IV SCH; -PACLITAXEL IV SCH; -PALONOSETRON HCL 0.25 MG, DEXAMETHASONE INJECTION 10 MG in NS (IVPB) CANCER CENTER 50 ML IV SCH; -diphenhydrAMINE 25 MG TAB (BENADRYL) CANCER CENTER PO ONE; -diphenhydrAMINE 50 MG/ML INJ (CANCER CENTER) IV PRN
--- NOTE | 2020-02-14 14:26 | Diagnostic Imaging Report ---
PROCEDURE: CT chest, abdomen, and pelvis with contrast. TECHNIQUE: Multiple contiguous axial images were obtained through the chest, abdomen, and pelvis after the administration of intravenous contrast. Auto Exposure Controls were utilized during the CT exam to meet ALARA standards for radiation dose reduction. INDICATION: Shortness of breath and ovarian cancer. Past surgical history includes hysterectomy, cholecystectomy, appendectomy and hernia repair. FINDINGS: There are no discrete pulmonary nodules, masses or infiltrates. There is no pleural or pericardial fluid. There is no pneumothorax. There are coronary artery calcifications. There is no pathologically enlarged adenopathy in the chest. There are degenerative changes in the spine. Liver is normal in size. Gallbladder is surgically absent. There appears to be some mild biliary ductal dilatation. The spleen is normal. Pancreas and adrenal glands are unremarkable. There are cysts in both kidneys. Aorta is nonaneurysmal. Bowel gas pattern is nonspecific. There is no free air. There is no ascites. Bladder is normal. There is no obvious pelvic mass or adenopathy. The uterus is surgically absent. There are degenerative changes in the spine. IMPRESSION: Coronary artery calcification. Mild nonspecific biliary duct dilatation. Bilateral renal cysts. No obvious residual or recurrent mass in the pelvis. Dictated by: Dictated on workstation # [id number]
== END ==
LOC: RAD 12:39
PROVIDERS: ATTEND Internal Medicine Hematology & Oncology
DX: C78.6 Secondary malignant neoplasm of retroperitoneum and peritoneum (principal); C77.2 Secondary and unspecified malignant neoplasm of intra-abdominal lymph nodes; I25.10 Atherosclerotic heart disease of native coronary artery without angina pectoris; N28.1 Cyst of kidney, acquired
CPT/HCPCS: 71260; 74177

== ENCOUNTER → 2020-02-22 | Outpatient (CLI) | payer MEDICARE, OTHER ==
[~2020-02-22] MED LIST changes: -BARIUM SUSPENSION 2.1% (VANILLA SILQ) 450 ML PO ONE; -CATHETER FLUSH 10 ML SYR IV PRN; -HOLD METFORMIN - RECEIVED CONTRAST 20 ML VIAL IV SCH; -IOHEXOL 350 MG/ML 100 ML (OMNIPAQUE 350) VIAL IV ONE; -NS 100 ML (IVPB) BAG IV ONE
--- NOTE | 2020-02-22 12:17 | Diagnostic Imaging Report ---
INDICATION: Back pain with shortness of breath. COMPARISON: 11/11/2019. FINDINGS: Central line on the left remains unchanged in position with tip at the cavoatrial junction. The lungs remain well-aerated. No infiltrates have developed. No pneumothorax or pleural effusion. Heart is not enlarged. Atherosclerotic aortic changes are again noted. IMPRESSION: No acute changes have developed when compared with previous exam. Dictated by: Dictated on workstation # [id number]
== END ==
LOC: RAD FS 11:54
PROVIDERS: ATTEND Nurse Practitioner Family
DX: M54.9 Dorsalgia, unspecified (principal); R10.9 Unspecified abdominal pain; R06.02 Shortness of breath
CPT/HCPCS: 71046

== ENCOUNTER 2020-02-23 09:58 | Outpatient (RCR) | payer MEDICARE, OTHER ==
[~2020-02-23 09:58] MED LIST changes: +MULT-567 PO; -MULT1TAB69 PO
[2020-02-23 10:32] LABS: HEMATOCRIT 32 % (35-52); MEAN CORPUSCULAR HEMOGLOBIN 30 PG (25-34); MEAN CORPUSCULAR HGB CONC 32 G/DL (32-36); MEAN CORPUSCULAR VOLUME 96 FL (80-99)
[2020-02-23 10:33] LABS: BASOPHILS % (AUTO) 0 % (0-10); EOSINOPHILS % (AUTO) 0 % (0-10); LYMPHOCYTES # (AUTO) 0.6 X 10^3 (1.0-4.0); LYMPHOCYTES % (AUTO) 50 % (12-44); MEAN PLATELET VOLUME 8.7 FL (7.4-10.4); MONOCYTES # (AUTO) 0.3 X 10^3 (0.0-1.0); MONOCYTES % (AUTO) 24 % (0-12); NEUTROPHILS # (AUTO) 0.3 X 10^3 (1.8-7.8); NEUTROPHILS % (AUTO) 26 % (42-75); PLATELET COUNT 185 10^3/uL (130-400); RED CELL DISTRIBUTION WIDTH 16.8 % (10.0-14.5)
[2020-02-23 10:38] LABS: WHITE BLOOD COUNT 1.2 10^3/uL (4.3-11.0)
[2020-02-23 11:39] LABS: BUN/CREATININE RATIO 33; CARBON DIOXIDE 28 MMOL/L (21-32); CHLORIDE 105 MMOL/L (98-107); CREATININE SERUM 0.43 MG/DL (0.60-1.30); GFR ESTIMATED > 60; POTASSIUM 4.3 MMOL/L (3.6-5.0); SODIUM 142 MMOL/L (135-145)
[2020-02-23 11:40] LABS: CALCIUM 8.9 MG/DL (8.5-10.1); GLUCOSE 138 MG/DL (70-105)
[2020-03-01 11:04] LABS: EOSINOPHILS % (AUTO) 0 % (0-10); HEMATOCRIT 37 % (35-52); HEMOGLOBIN 11.3 G/DL (11.5-16.0); LYMPHOCYTES % (AUTO) 17 % (12-44); MEAN CORPUSCULAR HEMOGLOBIN 30 PG (25-34); MEAN CORPUSCULAR HGB CONC 31 G/DL (32-36); MEAN CORPUSCULAR VOLUME 97 FL (80-99); MEAN PLATELET VOLUME 8.4 FL (7.4-10.4); MONOCYTES % (AUTO) 8 % (0-12); PLATELET COUNT 184 10^3/uL (130-400); RED CELL DISTRIBUTION WIDTH 18.6 % (10.0-14.5); WHITE BLOOD COUNT 7.8 10^3/uL (4.3-11.0)
[2020-03-01 11:05] LABS: BASOPHILS % (AUTO) 0 % (0-10); LYMPHOCYTES # (AUTO) 1.3 X 10^3 (1.0-4.0); MONOCYTES # (AUTO) 0.6 X 10^3 (0.0-1.0); NEUTROPHILS # (AUTO) 5.7 X 10^3 (1.8-7.8); NEUTROPHILS % (AUTO) 74 % (42-75)
[2020-03-01 11:21] LABS: CHLORIDE 106 MMOL/L (98-107); POTASSIUM 4.4 MMOL/L (3.6-5.0); SODIUM 144 MMOL/L (135-145)
[2020-03-01 11:22] LABS: BUN/CREATININE RATIO 33; CALCIUM 9.1 MG/DL (8.5-10.1); CARBON DIOXIDE 30 MMOL/L (21-32); CREATININE SERUM 0.61 MG/DL (0.60-1.30); GFR ESTIMATED > 60; GLUCOSE 106 MG/DL (70-105)
[2020-03-15 11:02] LABS: BUN/CREATININE RATIO 24; CARBON DIOXIDE 28 MMOL/L (21-32); CHLORIDE 102 MMOL/L (98-107); CREATININE SERUM 0.54 MG/DL (0.60-1.30); GFR ESTIMATED > 60; GLUCOSE 106 MG/DL (70-105); POTASSIUM 4.3 MMOL/L (3.6-5.0); SODIUM 141 MMOL/L (135-145)
[2020-03-15 11:03] LABS: HEMATOCRIT 32 % (35-52); HEMOGLOBIN 10.2 G/DL (11.5-16.0); MEAN CORPUSCULAR HEMOGLOBIN 30 PG (25-34); MEAN CORPUSCULAR HGB CONC 32 G/DL (32-36); MEAN CORPUSCULAR VOLUME 96 FL (80-99); WHITE BLOOD COUNT 1.2 10^3/uL (4.3-11.0)
[2020-03-15 11:04] LABS: BASOPHILS % (AUTO) 1 % (0-10); EOSINOPHILS # (AUTO) 0.1 10^3/uL (0.0-0.3); EOSINOPHILS % (AUTO) 4 % (0-10); LYMPHOCYTES # (AUTO) 0.7 X 10^3 (1.0-4.0); LYMPHOCYTES % (AUTO) 58 % (12-44); MEAN PLATELET VOLUME 9.3 FL (7.4-10.4); MONOCYTES # (AUTO) 0.3 X 10^3 (0.0-1.0); MONOCYTES % (AUTO) 27 % (0-12); NEUTROPHILS # (AUTO) 0.1 X 10^3 (1.8-7.8); NEUTROPHILS % (AUTO) 10 % (42-75); PLATELET COUNT 166 10^3/uL (130-400); RED CELL DISTRIBUTION WIDTH 18.1 % (10.0-14.5)
[2020-04-20] MEDS ORDERED: IRBE150T50 PO (12:09)
[2020-05-03] MEDS ORDERED: CEFU250T80 PO (15:21)
[2020-05-03] MEDS ORDERED: HYDR-3870 PO (15:21)
== END 2020-05-23 | disposition home or self-care (01) ==
LOC: LAB FS 09:58
PROVIDERS: ATTEND Internal Medicine Hematology & Oncology
DX: C56.9 Malignant neoplasm of unspecified ovary (principal); I10 Essential (primary) hypertension
CPT/HCPCS: 36415; 80048; 85025

== ENCOUNTER 2020-04-12 10:11 | Outpatient (RCR) | payer MEDICARE, OTHER ==
[~2020-04-12 10:11] MED LIST changes: +ASPI-1238 PO; -ASPI-983 PO
[2020-04-12 10:26] LABS: BASOPHILS % (AUTO) 0 % (0-10); EOSINOPHILS # (AUTO) 0.1 10^3/uL (0.0-0.3); EOSINOPHILS % (AUTO) 1 % (0-10); HEMATOCRIT 34 % (35-52); HEMOGLOBIN 10.5 G/DL (11.5-16.0); LYMPHOCYTES # (AUTO) 0.9 X 10^3 (1.0-4.0); LYMPHOCYTES % (AUTO) 13 % (12-44); MEAN CORPUSCULAR HEMOGLOBIN 30 PG (25-34); MEAN CORPUSCULAR HGB CONC 31 G/DL (32-36); MEAN CORPUSCULAR VOLUME 96 FL (80-99); MEAN PLATELET VOLUME 8.3 FL (7.4-10.4); MONOCYTES # (AUTO) 0.5 X 10^3 (0.0-1.0); MONOCYTES % (AUTO) 7 % (0-12); NEUTROPHILS # (AUTO) 5.6 X 10^3 (1.8-7.8); NEUTROPHILS % (AUTO) 78 % (42-75); PLATELET COUNT 298 10^3/uL (130-400); WHITE BLOOD COUNT 7.2 10^3/uL (4.3-11.0)
[2020-04-12 10:49] LABS: BUN/CREATININE RATIO 22; CALCIUM 9.2 MG/DL (8.5-10.1); CARBON DIOXIDE 27 MMOL/L (21-32); CHLORIDE 104 MMOL/L (98-107); CREATININE SERUM 0.55 MG/DL (0.60-1.30); GFR ESTIMATED > 60; GLUCOSE 113 MG/DL (70-105); POTASSIUM 3.9 MMOL/L (3.6-5.0); SODIUM 142 MMOL/L (135-145)
[2020-04-20] MEDS ORDERED: IRBE150T50 PO (12:09)
[2020-05-03] MEDS ORDERED: HYDR-3870 PO (15:21)
[2020-05-03] MEDS ORDERED: CEFU250T80 PO (15:21)
== END 2020-07-11 | disposition home or self-care (01) ==
LOC: LAB FS 10:11
PROVIDERS: ATTEND Nurse Practitioner Family
DX: C56.9 Malignant neoplasm of unspecified ovary (principal); I10 Essential (primary) hypertension
CPT/HCPCS: 36415; 80048; 85025

== ENCOUNTER 2020-04-24 05:30 | Outpatient (RCR) | payer MEDICARE, OTHER ==
[~2020-04-24] VITALS: Ht 170 cm; Wt 129.0 kg
[~2020-04-24 05:30] MED LIST changes: -ASPI-1238 PO; +ASPI-983 PO; +IRBE150T50 PO
== END 2020-04-24 10:20 | disposition home or self-care (01) ==
LOC: PREOP 05:30
PROVIDERS: ATTEND Surgery
DX: Z01.812 Encounter for preprocedural laboratory examination (principal); R19.4 Change in bowel habit; Z20.828 Contact with and (suspected) exposure to other viral communicable diseases
CPT/HCPCS: 87635

== ENCOUNTER 2020-04-24 08:41 | Emergency (ER) | payer MEDICARE, OTHER ==
[~2020-04-24] VITALS: Ht 170 cm; Wt 129.0 kg
--- OUTSIDE RECORDS SUMMARY | 2020-04-24 08:56 | XMS REPORT | Continuity of Care Document ---
Author Organization Unknown Address Unknown Phone Unavailable Allergies Active Description Code Type Severity Reaction Onset Reported/Identified Relationship to Patient Clinical Status Yes adhesive tape [id number] Rock g Allergy Mild BLISTERS 04/20/2020 Yes No Known Allergies [id number] Drug Allergy Unknown N/A 04/20/2020 Medications There is no data. Problems Date Dx Coded Attending Type Code Diagnosis Diagnosed By MARIA D PADILLA MD, Ot 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 MARIA D PADILLA MD Ot C77.2 SECONDARY AND UNSP MALIGNANT NEOPLASM OF MARIA D PADILLA MD Ot I10 ESSENTIAL (PRIMARY) HYPERTENSION MARIA D PADILLA MD Ot M19.91 PRIMARY OSTEOARTHRITIS, UNSPECIFIED SITE MARIA D PADILLA MD Ot R17 UNSPECIFIED JAUNDICE MARIA D PADILLA MD Ot Z51.11 ENCOUNTER FOR ANTINEOPLASTIC CHEMOTHERAP MARIA D PADILLA MD Ot Z80.1 FAMILY HISTORY OF MALIG NEOPLASM OF [place] MARIA D PADILLA MD Ot Z80.3 FAMILY HISTORY OF MALIGNANT NEOPLASM OF MARIA D PADILLA MD Ot Z80.41 FAMILY HISTORY OF MALIGNANT NEOPLASM OF MARIA D PADILLA MD Ot Z80.52 FAMILY HISTORY OF MALIGNANT NEOPLASM OF MARIA D PADILLA MD Ot Z87.01 PERSONAL HISTORY OF PNEUMONIA (RECURRENT MARIA D PADILLA MD Ot Z87.442 PERSONAL HISTORY OF URINARY CALCULI 03/09/2019 STEPHEN JENSEN APRN Ot K59.00 CONSTIPATION, UNSPECIFIED 10/08/2019 HUY BALLESTEROS Ot C56.9 MALIGNANT NEOPLASM OF UNSPECIFIED OVARY 10/26/2019 HUY BALLESTEROS Ot C56.9 MALIGNANT NEOPLASM OF UNSPECIFIED OVARY 11/08/2019 CORINNE RDOAS MD Ot Z01.81 8 ENCOUNTER FOR OTHER PREPROCEDURAL EXAMIN 11/10/2019 STEPHEN JENSEN 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 Ot K59.00 CONSTIPATION, UNSPECIFIED 11/10/2019 HUY BALLESTEROS CHRISTIANO Ot C56.9 MALIGNANT NEOPLASM OF UNSPECIFIED OVARY 11/10/2019 MARIA D PADILLA MD Ot 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 11/10/2019 MARIA D PADILLA MD Ot C77.2 SECONDARY AND UNSP MALIGNANT NEOPLASM OF 11/10/2019 MARIA D PADILLA MD Ot I10 ESSENTIAL (PRIMARY) HYPERTENSION 11/10/2019 MARIA D PADILLA MD Ot M19.91 PRIMARY OSTEOARTHRITIS, UNSPECIFIED SITE 11/10/2019 MARIA D PADILLA MD Ot R17 UNSPECIFIED JAUNDICE 11/10/2019 MARIA D PADILLA MD Ot Z80.1 FAMILY HISTORY OF MALIG NEOPLASM OF [place] 11/10/2019 MARIA D PADILLA MD Ot Z80.3 FAMILY HISTORY OF MALIGNANT NEOPLASM OF 11/10/2019 MARIA D PADILLA MD Ot Z80.41 FAMILY HISTORY OF MALIGNANT NEOPLASM OF 11/10/2019 MARIA D PADILLA MD Ot Z80.52 FAMILY HISTORY OF MALIGNANT NEOPLASM OF 11/10/2019 MARIA D PADILLA MD Ot Z87.01 PERSONAL HISTORY OF PNEUMONIA (RECURRENT 11/10/2019 MARIA D PADILLA MD Ot Z87.442 PERSONAL HISTORY OF URINARY CALCULI 11/11/2019 CORINNE RODAS MD Ot C56.9 MALIGNANT NEOPLASM OF UNSPECIFIED OVARY 11/11/2019 CORINNE RODAS MD Ot E78.00 PURE HYPERCHOLESTEROLEMIA, UNSPECIFIED 11/11/2019 CORINNE RODAS MD, Ot E78.5 HYPERLIPIDEMIA, UNSPECIFIED 11/11/2019 CORINNE RODAS MD Ot F32.9 MAJOR DEPRESSIVE DISORDER, SINGLE EPISOD 11/11/2019 CORINNE RODAS MD, Ot F41.9 ANXIETY DISORDER, UNSPECIFIED 11/11/2019 CORINNE RODAS MD Ot G25.81 RESTLESS LEGS SYNDROME 11/11/2019 CORINNE RODAS MD, Ot G47.33 OBSTRUCTIVE SLEEP APNEA (ADULT) (PEDIATR 11/11/2019 CORINNE RODAS MD Ot I10 ESSENTIAL (PRIMARY) HYPERTENSION 11/11/2019 CORINNE RODAS MD Ot I48.91 UNSPECIFIED ATRIAL FIBRILLATION 11/11/2019 CORINNE RODAS MD, Ot J44.9 CHRONIC OBSTRUCTIVE PULMONARY DISEASE, U 11/11/2019 CORINNE RODAS MD, Ot K21.9 GASTRO-ESOPHAGEAL REFLUX DISEASE WITHOUT 11/11/2019 CORINNE RODAS MD, Ot M10.9 GOUT, UNSPECIFIED 11/11/2019 CORINNE RODAS MD, Ot M19.91 PRIMARY OSTEOARTHRITIS, UNSPECIFIED SITE 11/11/2019 CORINNE RODAS MD, Ot Z11.2 ENCOUNTER FOR SCREENING FOR OTHER BACTER 11/11/2019 CORINNE RODAS MD, Ot Z79.01 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 TAILLIGHT ASSEMBLER (CURRENT) USE OF ANTICOAGULANT 11/11/2019 CORINNE RODAS MD, Ot Z79.89 9 OTHER LONGTERM (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 THERAPY 11/11/2019 CORINNE RODAS MD, Ot Z92.21 PERSONAL HISTORY OF ANTINEOPLASTIC CHEMO 11/11/2019 CORINNE RODAS MD, Ot 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, BILAT 11/18/2019 MARIA D PADILLA MD Ot 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 11/18/2019 MARIA D PADILLA MD Ot C77.2 SECONDARY AND UNSP MALIGNANT NEOPLASM OF 11/18/2019 MARIA D PADILLA MD Ot I10 ESSENTIAL (PRIMARY) HYPERTENSION 11/18/2019 MARIA D PADILLA MD Ot M19.91 PRIMARY OSTEOARTHRITIS, UNSPECIFIED SITE 11/18/2019 MARIA D PADILLA MD Ot R17 UNSPECIFIED JAUNDICE 11/18/2019 MARIA D PADILLA MD Ot Z80.1 FAMILY HISTORY OF MALIG NEOPLASM OF [place] 11/18/2019 MARIA D PADILLA MD Ot Z80.3 FAMILY HISTORY OF MALIGNANT NEOPLASM OF 11/18/2019 MARIA D PADILLA MD Ot Z80.41 FAMILY HISTORY OF MALIGNANT NEOPLASM OF 11/18/2019 MARIA D PADILLA MD Ot Z80.52 FAMILY HISTORY OF MALIGNANT NEOPLASM OF 11/18/2019 MARIA D PADILLA MD Ot Z87.01 PERSONAL HISTORY OF PNEUMONIA (RECURRENT 11/18/2019 MARIA D PADILLA MD Ot Z87.442 PERSONAL HISTORY OF URINARY CALCULI 11/18/2019 CORINNE RODAS MD, Ot C56.9 MALIGNANT NEOPLASM OF UNSPECIFIED OVARY 11/18/2019 CORINNE RODAS MD Ot E78.00 PURE HYPERCHOLESTEROLEMIA, UNSPECIFIED 11/18/2019 CORINNE RODAS MD Ot E78.5 HYPERLIPIDEMIA, UNSPECIFIED 11/18/2019 CORINNE RODAS MD Ot F32.9 MAJOR DEPRESSIVE DISORDER, SINGLE EPISOD 11/18/2019 CORINNE RODAS MD, Ot F41.9 ANXIETY DISORDER, UNSPECIFIED 11/18/2019 CORINNE RODAS MD, Ot G25.81 RESTLESS LEGS SYNDROME 11/18/2019 CORINNE RODAS MD, Ot G47.33 OBSTRUCTIVE SLEEP APNEA (ADULT) (PEDIATR 11/18/2019 CORINNE RODAS MD, Ot I10 ESSENTIAL (PRIMARY) HYPERTENSION 11/18/2019 CORINNE RODAS MD, Ot I48.91 UNSPECIFIED ATRIAL FIBRILLATION 11/18/2019 CORINNE RODAS MD, Ot J44.9 CHRONIC OBSTRUCTIVE PULMONARY DISEASE, U 11/18/2019 CORINNE RODAS MD, Ot K21.9 GASTRO-ESOPHAGEAL REFLUX DISEASE WITHOUT 11/18/2019 CORINNE RODAS MD, Ot M10.9 GOUT, UNSPECIFIED 11/18/2019 CORINNE RODAS MD, Ot M19.91 PRIMARY OSTEOARTHRITIS, UNSPECIFIED SITE 11/18/2019 CORINNE RODAS MD, Ot Z11.2 ENCOUNTER FOR SCREENING FOR OTHER BACTER 11/18/2019 CORINNE RODAS MD, Ot Z79.01 LONGTERM (CURRENT) USE OF ANTICOAGULANT 11/18/2019 CORINNE RODAS MD, Ot Z79.89 9 OTHER AUTOMOBILE TAILLIGHT ASSEMBLER (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 THERAPY 11/18/2019 CORINNE RODSA MD, Ot Z92.21 PERSONAL HISTORY OF ANTINEOPLASTIC CHEMO 11/18/2019 CORINNE RODAS MD, Ot 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, BILAT 11/23/2019 MARIA D PADILLA MD Ot 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 11/23/2019 MARIA D PADILLA MD, Ot C77.2 SECONDARY AND UNSP MALIGNANT NEOPLASM OF 11/23/2019 MARIA D PADILLA MD, Ot I10 ESSENTIAL (PRIMARY) HYPERTENSION 11/23/2019 MARIA D PADILLA MD Ot M19.91 PRIMARY OSTEOARTHRITIS, UNSPECIFIED SITE 11/23/2019 MARIA D PADILLA MD Ot R17 UNSPECIFIED JAUNDICE 11/23/2019 MARIA D PADILLA MD Ot Z80.1 FAMILY HISTORY OF MALIG NEOPLASM OF [place] 11/23/2019 MARIA D PADILLA MD Ot Z80.3 FAMILY HISTORY OF MALIGNANT NEOPLASM OF 11/23/2019 MARIA D PADILLA MD Ot Z80.41 FAMILY HISTORY OF MALIGNANT NEOPLASM OF 11/23/2019 MARIA D PADILLA MD, Ot Z80.52 FAMILY HISTORY OF MALIGNANT NEOPLASM OF 11/23/2019 MARIA D PADILLA MD Ot Z87.01 PERSONAL HISTORY OF PNEUMONIA (RECURRENT 11/23/2019 MARIA D PADILLA MD Ot Z87.442 PERSONAL HISTORY OF URINARY CALCULI 11/24/2019 STEPHEN JENSEN S 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 Ot K59.00 CONSTIPATION, UNSPECIFIED 11/24/2019 FAVIAN, HUY FLIGHT KITCHEN MANAGER Ot C56.9 MALIGNANT NEOPLASM OF UNSPECIFIED OVARY 11/24/2019 MARIA D PADILLA MD Ot 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 11/24/2019 MARIA D PADILLA MD Ot C77.2 SECONDARY AND UNSP MALIGNANT NEOPLASM OF 11/24/2019 MARIA D PADILLA MD Ot I10 ESSENTIAL (PRIMARY) HYPERTENSION 11/24/2019 MARIA D PADILLA MD Ot M19.91 PRIMARY OSTEOARTHRITIS, UNSPECIFIED SITE 11/24/2019 MARIA D PADILLA MD Ot R17 UNSPECIFIED JAUNDICE 11/24/2019 MARIA D PADILLA MD Ot Z80.1 FAMILY HISTORY OF MALIG NEOPLASM OF [place]AC 11/24/2019 MARIA D PADILLA MD Ot Z80.3 FAMILY HISTORY OF MALIGNANT NEOPLASM OF 11/24/2019 MARIA D PADILLA MD Ot Z80.41 FAMILY HISTORY OF MALIGNANT NEOPLASM OF 11/24/2019 MARIA D PADILLA MD Ot Z80.52 FAMILY HISTORY OF MALIGNANT NEOPLASM OF 11/24/2019 MARAI D PADILLA MD Ot Z87.01 PERSONAL HISTORY OF PNEUMONIA (RECURRENT 11/24/2019 MARIA D PADILLA MD Ot Z87.442 PERSONAL HISTORY OF URINARY CALCULI 11/26/2019 CAMILASTEPHEN Carcamo 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 Ot K59.00 CONSTIPATION, UNSPECIFIED 11/26/2019 FAVIAN, HUY FLIGHT KITCHEN MANAGER Ot C56.9 MALIGNANT NEOPLASM OF UNSPECIFIED OVARY 11/26/2019 MARIA D PADILLA MD Ot 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 11/26/2019 MARIA D PADILLA MD Ot C77.2 SECONDARY AND UNSP MALIGNANT NEOPLASM OF 11/26/2019 MARIA D PADILLA MD Ot I10 ESSENTIAL (PRIMARY) HYPERTENSION 11/26/2019 MARIA D PADILLA MD Ot M19.91 PRIMARY OSTEOARTHRITIS, UNSPECIFIED SITE 11/26/2019 MARIA D PADILLA MD Ot R17 UNSPECIFIED JAUNDICE 11/26/2019 MARIA D PADILLA MD Ot Z80.1 FAMILY HISTORY OF MALIG NEOPLASM OF [place] 11/26/2019 MARIA D PADILLA MD Ot Z80.3 FAMILY HISTORY OF MALIGNANT NEOPLASM OF 11/26/2019 MARIA D PADILLA MD Ot Z80.41 FAMILY HISTORY OF MALIGNANT NEOPLASM OF 11/26/2019 MARIA D PADILLA MD Ot Z80.52 FAMILY HISTORY OF MALIGNANT NEOPLASM OF 11/26/2019 MARIA D PADILLA MD Ot Z87.01 PERSONAL HISTORY OF PNEUMONIA (RECURRENT 11/26/2019 MARIA D PADILLA MD Ot Z87.442 PERSONAL HISTORY OF URINARY CALCULI 11/26/2019 MARIA D PADILLA MD Ot C56.9 MALIGNANT NEOPLASM OF UNSPECIFIED OVARY 11/26/2019 MARIA D PADILLA MD Ot I10 ESSENTIAL (PRIMARY) HYPERTENSION 12/01/2019 CAMILA, STEPHEN S 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 Ot K59.00 CONSTIPATION, UNSPECIFIED 12/01/2019 HUY BALLESTEROS FLIGHT KITCHEN MANAGER Ot C56.9 MALIGNANT NEOPLASM OF UNSPECIFIED OVARY 12/01/2019 MARIA D PADILLA MD Ot 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 12/01/2019 MARIA D PADILLA MD Ot C77.2 SECONDARY AND UNSP MALIGNANT NEOPLASM OF 12/01/2019 MARIA D PADILLA MD Ot I10 ESSENTIAL (PRIMARY) HYPERTENSION 12/01/2019 MARIA D PADILLA MD Ot M19.91 PRIMARY OSTEOARTHRITIS, UNSPECIFIED SITE 12/01/2019 MARIA D PADILLA MD Ot R17 UNSPECIFIED JAUNDICE 12/01/2019 MARIA D PADILLA MD Ot Z80.1 FAMILY HISTORY OF MALIG NEOPLASM OF [place]AC 12/01/2019 MARIA D PADILLA MD Ot Z80.3 FAMILY HISTORY OF MALIGNANT NEOPLASM OF 12/01/2019 MARIA D PADILLA MD Ot Z80.41 FAMILY HISTORY OF MALIGNANT NEOPLASM OF 12/01/2019 MARIA D PADILLA MD Ot Z80.52 FAMILY HISTORY OF MALIGNANT NEOPLASM OF 12/01/2019 MARIA D PADILLA MD Ot Z87.01 PERSONAL HISTORY OF PNEUMONIA (RECURRENT 12/01/2019 MARIA D PADILLA MD Ot Z87.442 PERSONAL HISTORY OF URINARY CALCULI 12/01/2019 MARIA D PADILLA MD Ot C56.9 MALIGNANT NEOPLASM OF UNSPECIFIED OVARY 12/01/2019 MARIA D PADILLA MD Ot I10 ESSENTIAL (PRIMARY) HYPERTENSION 12/03/2019 CAMILA, STEPHEN S 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 Ot C56.9 MALIGNANT NEOPLASM OF UNSPECIFIED OVARY 12/03/2019 CAMILA STEPHEN S 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 Ot E78.2 MIXED HYPERLIPIDEMIA 12/03/2019 CAMILA, STEPHEN S 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 Ot I1 0 ESSENTIAL (PRIMARY) HYPERTENSION 12/17/2019 MARIA D PADILLA MD Ot C56.9 MALIGNANT NEOPLASM OF UNSPECIFIED OVARY 12/17/2019 MARIA D PADILLA MD Ot I10 ESSENTIAL (PRIMARY) HYPERTENSION 12/17/2019 CAMILA, STEPHEN S 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 Ot K59.00 CONSTIPATION, UNSPECIFIED 12/17/2019 FAVIAN, HUY FLIGHT KITCHEN MANAGER Ot C56.9 MALIGNANT NEOPLASM OF UNSPECIFIED OVARY 12/17/2019 MARIA D PADILLA MD Ot 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 12/17/2019 MARIA D PADILLA MD Ot C77.2 SECONDARY AND UNSP MALIGNANT NEOPLASM OF 12/17/2019 MARIA D PADILLA MD Ot I10 ESSENTIAL (PRIMARY) HYPERTENSION 12/17/2019 MARIA D PADILLA MD Ot M19.91 PRIMARY OSTEOARTHRITIS, UNSPECIFIED SITE 12/17/2019 MARIA D PADILLA MD Ot R17 UNSPECIFIED JAUNDICE 12/17/2019 MARIA D PADILLA MD Ot Z80.1 FAMILY HISTORY OF MALIG NEOPLASM OF [place] 12/17/2019 MARIA D PADILLA MD Ot Z80.3 FAMILY HISTORY OF MALIGNANT NEOPLASM OF 12/17/2019 MARIA D PADILLA MD Ot Z80.41 FAMILY HISTORY OF MALIGNANT NEOPLASM OF 12/17/2019 MARIA D PADILLA MD Ot Z80.52 FAMILY HISTORY OF MALIGNANT NEOPLASM OF 12/17/2019 MARIA D PADILLA MD Ot Z87.01 PERSONAL HISTORY OF PNEUMONIA (RECURRENT 12/17/2019 AMRIA D PADILLA MD Ot Z87.442 PERSONAL HISTORY OF URINARY CALCULI 12/17/2019 MARIA D PADILLA MD Ot C56.9 MALIGNANT NEOPLASM OF UNSPECIFIED OVARY 12/17/2019 MARIA D PADILLA MD Ot I10 ESSENTIAL (PRIMARY) HYPERTENSION 12/17/2019 CAMILA, STEPHEN S 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 Ot C56.9 MALIGNANT NEOPLASM OF UNSPECIFIED OVARY 12/17/2019 CAMILA, STEPHEN S 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 Ot E78.2 MIXED HYPERLIPIDEMIA 12/17/2019 CAMILA, STEPHEN S 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 Ot I1 0 ESSENTIAL (PRIMARY) HYPERTENSION 12/23/2019 CAMILA, STEPHEN S 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 Ot C56.9 MALIGNANT NEOPLASM OF UNSPECIFIED OVARY 12/23/2019 CAMILA, STEPHEN S 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 Ot E78.2 MIXED HYPERLIPIDEMIA 12/23/2019 CAMILA, STEPHEN S 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 Ot I1 0 ESSENTIAL (PRIMARY) HYPERTENSION 12/28/2019 MARIA D PADILLA MD Ot C56.9 MALIGNANT NEOPLASM OF UNSPECIFIED OVARY 12/28/2019 MARIA D PADILLA MD Ot I10 ESSENTIAL (PRIMARY) HYPERTENSION 12/28/2019 CAMILA, STEPHEN S 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 Ot K59.00 CONSTIPATION, UNSPECIFIED 12/28/2019 HUY BALLESTEROS FLIGHT KITCHEN MANAGER Ot C56.9 MALIGNANT NEOPLASM OF UNSPECIFIED OVARY 12/28/2019 MARIA D PADILLA MD Ot 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 12/28/2019 MARIA D PADILLA MD Ot C77.2 SECONDARY AND UNSP MALIGNANT NEOPLASM OF 12/28/2019 MARIA D PADILLA MD Ot I10 ESSENTIAL (PRIMARY) HYPERTENSION 12/28/2019 MARIA D PADILLA MD Ot M19.91 PRIMARY OSTEOARTHRITIS, UNSPECIFIED SITE 12/28/2019 MARIA D PADILLA MD Ot R17 UNSPECIFIED JAUNDICE 12/28/2019 MARIA D PADILLA MD Ot Z80.1 FAMILY HISTORY OF MALIG NEOPLASM OF [place]AC 12/28/2019 MARIA D PADILLA MD Ot Z80.3 FAMILY HISTORY OF MALIGNANT NEOPLASM OF 12/28/2019 MARIA D PADILLA MD Ot Z80.41 FAMILY HISTORY OF MALIGNANT NEOPLASM OF 12/28/2019 MARIA D PADILLA MD Ot Z80.52 FAMILY HISTORY OF MALIGNANT NEOPLASM OF 12/28/2019 MARIA D PADILLA MD Ot Z87.01 PERSONAL HISTORY OF PNEUMONIA (RECURRENT 12/28/2019 MARIA D PADILLA MD Ot Z87.442 PERSONAL HISTORY OF URINARY CALCULI 12/28/2019 MARIA D PADLILA MD Ot C56.9 MALIGNANT NEOPLASM OF UNSPECIFIED OVARY 12/28/2019 MARIA D PADILLA MD Ot I10 ESSENTIAL (PRIMARY) HYPERTENSION 12/28/2019 CAMILA, STEPHEN S 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 Ot C56.9 MALIGNANT NEOPLASM OF UNSPECIFIED OVARY 12/28/2019 CAMILA, STEPHEN S 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 Ot E78.2 MIXED HYPERLIPIDEMIA 12/28/2019 CAMILA, STEPHEN S 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 Ot I1 0 ESSENTIAL (PRIMARY) HYPERTENSION 12/29/2019 MARIA D PADILLA MD Ot 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 12/29/2019 MARIA D PADILLA MD Ot C77.2 SECONDARY AND UNSP MALIGNANT NEOPLASM OF 12/29/2019 MARIA D PADILLA MD Ot I10 ESSENTIAL (PRIMARY) HYPERTENSION 12/29/2019 MARIA D PADILLA MD Ot M19.91 PRIMARY OSTEOARTHRITIS, UNSPECIFIED SITE 12/29/2019 MARAI D PADILLA MD Ot R17 UNSPECIFIED JAUNDICE 12/29/2019 MARIA D PADILLA MD Ot Z51.11 ENCOUNTER FOR ANTINEOPLASTIC CHEMOTHERAP 12/29/2019 MARIA D PADILLA MD Ot Z80.1 FAMILY HISTORY OF MALIG NEOPLASM OF [place]AC 12/29/2019 MARIA D PADILLA MD Ot Z80.3 FAMILY HISTORY OF MALIGNANT NEOPLASM OF 12/29/2019 MARIA D PADILLA MD Ot Z80.41 FAMILY HISTORY OF MALIGNANT NEOPLASM OF 12/29/2019 MARIA D PADILLA MD Ot Z80.52 FAMILY HISTORY OF MALIGNANT NEOPLASM OF 12/29/2019 MARIA D PADILLA MD Ot Z87.01 PERSONAL HISTORY OF PNEUMONIA (RECURRENT 12/29/2019 MARIA D PADILLA MD Ot Z87.442 PERSONAL HISTORY OF URINARY CALCULI 12/29/2019 CAMILA STEPHEN S 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 Ot K59.00 CONSTIPATION, UNSPECIFIED 12/29/2019 HUY BALLESTEROS FLIGHT KITCHEN MANAGER Ot C56.9 MALIGNANT NEOPLASM OF UNSPECIFIED OVARY 12/29/2019 MARIA D PADILLA MD Ot C56.9 MALIGNANT NEOPLASM OF UNSPECIFIED OVARY 12/29/2019 MARIA D PADILLA MD Ot I10 ESSENTIAL (PRIMARY) HYPERTENSION 12/29/2019 CAMILA, STEPHEN S 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 Ot C56.9 MALIGNANT NEOPLASM OF UNSPECIFIED OVARY 12/29/2019 CAMILA STEPHEN S 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 Ot E78.2 MIXED HYPERLIPIDEMIA 12/29/2019 CAMILA, STEPHEN S 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 Ot I1 0 ESSENTIAL (PRIMARY) HYPERTENSION 12/29/2019 MARIA D PADILLA MD Ot 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 12/29/2019 MARIA D PADILLA MD Ot C77.2 SECONDARY AND UNSP MALIGNANT NEOPLASM OF 12/29/2019 MARIA D PADILLA MD Ot I10 ESSENTIAL (PRIMARY) HYPERTENSION 12/29/2019 MARIA D PADILLA MD Ot M19.91 PRIMARY OSTEOARTHRITIS, UNSPECIFIED SITE 12/29/2019 MARIA D PADILLA MD Ot R17 UNSPECIFIED JAUNDICE 12/29/2019 MARIA D PADILLA MD Ot Z80.1 FAMILY HISTORY OF MALIG NEOPLASM OF [place] 12/29/2019 MARIA D PADILLA MD Ot Z80.3 FAMILY HISTORY OF MALIGNANT NEOPLASM OF 12/29/2019 MARIA D PADILLA MD Ot Z80.41 FAMILY HISTORY OF MALIGNANT NEOPLASM OF 12/29/2019 MARIA D PADILLA MD Ot Z80.52 FAMILY HISTORY OF MALIGNANT NEOPLASM OF 12/29/2019 MARIA D PADILLA MD Ot Z87.01 PERSONAL HISTORY OF PNEUMONIA (RECURRENT 12/29/2019 MARIA D PADILLA MD Ot Z87.442 PERSONAL HISTORY OF URINARY CALCULI 12/29/2019 CAMILA, STEPHEN S 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 Ot K59.00 CONSTIPATION, UNSPECIFIED 12/29/2019 HUY BALLESTEROS FLIGHT KITCHEN MANAGER Ot C56.9 MALIGNANT NEOPLASM OF UNSPECIFIED OVARY 12/29/2019 MARIA D PADILLA MD Ot C56.9 MALIGNANT NEOPLASM OF UNSPECIFIED OVARY 12/29/2019 MARIA D PADILLA MD Ot I10 ESSENTIAL (PRIMARY) HYPERTENSION 12/29/2019 CAMILA, STEPHEN S 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 Ot C56.9 MALIGNANT NEOPLASM OF UNSPECIFIED OVARY 12/29/2019 CAMILA, STEPHEN S 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 Ot E78.2 MIXED HYPERLIPIDEMIA 12/29/2019 CAMILA, STEPHEN S 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 Ot I1 0 ESSENTIAL (PRIMARY) HYPERTENSION 12/29/2019 MARIA D PADILLA MD Ot 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 12/29/2019 MARIA D PADILLA MD Ot C77.2 SECONDARY AND UNSP MALIGNANT NEOPLASM OF 12/29/2019 MARIA D PADILLA MD Ot I10 ESSENTIAL (PRIMARY) HYPERTENSION 12/29/2019 MARIA D PADILLA MD Ot M19.91 PRIMARY OSTEOARTHRITIS, UNSPECIFIED SITE 12/29/2019 MARIA D PADILLA MD Ot R17 UNSPECIFIED JAUNDICE 12/29/2019 MARIA D PADILLA MD Ot Z80.1 FAMILY HISTORY OF MALIG NEOPLASM OF [place]AC 12/29/2019 MARIA D PADILLA MD Ot Z80.3 FAMILY HISTORY OF MALIGNANT NEOPLASM OF 12/29/2019 MARIA D PADILLA MD Ot Z80.41 FAMILY HISTORY OF MALIGNANT NEOPLASM OF 12/29/2019 MARIA D PADILLA MD Ot Z80.52 FAMILY HISTORY OF MALIGNANT NEOPLASM OF 12/29/2019 MARIA D PADILLA MD Ot Z87.01 PERSONAL HISTORY OF PNEUMONIA (RECURRENT 12/29/2019 MARIA D PADILLA MD Ot Z87.442 PERSONAL HISTORY OF URINARY CALCULI 12/29/2019 CAMILA, STEPHEN S 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 Ot K59.00 CONSTIPATION, UNSPECIFIED 12/29/2019 FAVIANHUY RAMIREZ FLIGHT KITCHEN MANAGER Ot C56.9 MALIGNANT NEOPLASM OF UNSPECIFIED OVARY 12/29/2019 MARIA D PADILLA MD Ot C56.9 MALIGNANT NEOPLASM OF UNSPECIFIED OVARY 12/29/2019 MARIA D PADILLA MD Ot I10 ESSENTIAL (PRIMARY) HYPERTENSION 12/29/2019 CAMILASTEPHEN Carcamo 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 Ot C56.9 MALIGNANT NEOPLASM OF UNSPECIFIED OVARY 12/29/2019 CAMILASTEPHEN Carcamo S 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 Ot E78.2 MIXED HYPERLIPIDEMIA 12/29/2019 CAMILASTEPHEN Carcamo S 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 Ot I1 0 ESSENTIAL (PRIMARY) HYPERTENSION 12/29/2019 MARIA D PADILLA MD Ot 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 12/29/2019 MARIA D PADILLA MD Ot C77.2 SECONDARY AND UNSP MALIGNANT NEOPLASM OF 12/29/2019 MARIA D PADILLA MD Ot I10 ESSENTIAL (PRIMARY) HYPERTENSION 12/29/2019 MARIA D PADILLA MD Ot M19.91 PRIMARY OSTEOARTHRITIS, UNSPECIFIED SITE 12/29/2019 MARIA D PADILLA MD Ot R17 UNSPECIFIED JAUNDICE 12/29/2019 MARIA D PADILLA MD Ot Z80.1 FAMILY HISTORY OF MALIG NEOPLASM OF TRAC 12/29/2019 MARIA D PADILLA MD Ot Z80.3 FAMILY HISTORY OF MALIGNANT NEOPLASM OF 12/29/2019 MARIA D PADILLA MD Ot Z80.41 FAMILY HISTORY OF MALIGNANT NEOPLASM OF 12/29/2019 MARIA D PADILLA MD Ot Z80.52 FAMILY HISTORY OF MALIGNANT NEOPLASM OF 12/29/2019 MARIA D PADILLA MD Ot Z87.01 PERSONAL HISTORY OF PNEUMONIA (RECURRENT 12/29/2019 MARIA D PADILLA MD Ot Z87.442 PERSONAL HISTORY OF URINARY CALCULI 01/05/2020 MARIA D PADILLA MD Ot C56.9 MALIGNANT NEOPLASM OF UNSPECIFIED OVARY 01/05/2020 MARIA D PADILLA MD Ot I10 ESSENTIAL (PRIMARY) HYPERTENSION 01/05/2020 MARIA D PADILLA MD Ot C56.9 MALIGNANT NEOPLASM OF UNSPECIFIED OVARY 01/05/2020 MARIA D PADILLA MD Ot I10 ESSENTIAL (PRIMARY) HYPERTENSION 01/05/2020 MARIA D PADILLA MD Ot 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 01/05/2020 MARIA D PADILLA MD Ot C77.2 SECONDARY AND UNSP MALIGNANT NEOPLASM OF 01/05/2020 MARIA D PADILLA MD Ot I10 ESSENTIAL (PRIMARY) HYPERTENSION 01/05/2020 MARIA D PADILLA MD Ot M19.91 PRIMARY OSTEOARTHRITIS, UNSPECIFIED SITE 01/05/2020 MARIA D PADILLA MD Ot R17 UNSPECIFIED JAUNDICE 01/05/2020 MARIA D PADILLA MD Ot Z80.1 FAMILY HISTORY OF MALIG NEOPLASM OF TRAC 01/05/2020 MARIA D PADILLA MD Ot Z80.3 FAMILY HISTORY OF MALIGNANT NEOPLASM OF 01/05/2020 MARIA D PADILLA MD Ot Z80.41 FAMILY HISTORY OF MALIGNANT NEOPLASM OF 01/05/2020 MARIA D PADILLA MD Ot Z80.52 FAMILY HISTORY OF MALIGNANT NEOPLASM OF 01/05/2020 MARIA D PADILLA MD Ot Z87.01 PERSONAL HISTORY OF PNEUMONIA (RECURRENT 01/05/2020 MARIA D PADILLA MD Ot Z87.442 PERSONAL HISTORY OF URINARY CALCULI 01/19/2020 CAMILA, STEPHEN S 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 Ot K59.00 CONSTIPATION, UNSPECIFIED 01/19/2020 FAVIAN, HUY FLIGHT KITCHEN MANAGER Ot C56.9 MALIGNANT NEOPLASM OF UNSPECIFIED OVARY 01/19/2020 MARIA D PADILLA MD Ot C56.9 MALIGNANT NEOPLASM OF UNSPECIFIED OVARY 01/19/2020 MARIA D PADILLA MD Ot I10 ESSENTIAL (PRIMARY) HYPERTENSION 01/19/2020 CAMILA, STEPHEN S 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 Ot C56.9 MALIGNANT NEOPLASM OF UNSPECIFIED OVARY 01/19/2020 CAMILA, STEPHEN S 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 Ot E78.2 MIXED HYPERLIPIDEMIA 01/19/2020 CAMILA, STEPHEN S 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 Ot I1 0 ESSENTIAL (PRIMARY) HYPERTENSION 01/19/2020 MARIA D PADILLA MD Ot 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 01/19/2020 MARIA D PADILLA MD Ot C77.2 SECONDARY AND UNSP MALIGNANT NEOPLASM OF 01/19/2020 MARIA D PADILLA MD Ot I10 ESSENTIAL (PRIMARY) HYPERTENSION 01/19/2020 MARIA D PADILLA MD Ot M19.91 PRIMARY OSTEOARTHRITIS, UNSPECIFIED SITE 01/19/2020 MARIA D PADILLA MD Ot R17 UNSPECIFIED JAUNDICE 01/19/2020 MARIA D PADILLA MD Ot Z51.11 ENCOUNTER FOR ANTINEOPLASTIC CHEMOTHERAP 01/19/2020 MARIA D PADILLA MD Ot Z80.1 FAMILY HISTORY OF MALIG NEOPLASM OF TRAC 01/19/2020 MARIA D PADILLA MD Ot Z80.3 FAMILY HISTORY OF MALIGNANT NEOPLASM OF 01/19/2020 MARIA D PADILLA MD Ot Z80.41 FAMILY HISTORY OF MALIGNANT NEOPLASM OF 01/19/2020 MARIA D PADILLA MD Ot Z80.52 FAMILY HISTORY OF MALIGNANT NEOPLASM OF 01/19/2020 MARIA D PADILLA MD Ot Z87.01 PERSONAL HISTORY OF PNEUMONIA (RECURRENT 01/19/2020 MARIA D PADILLA MD Ot Z87.442 PERSONAL HISTORY OF URINARY CALCULI 01/19/2020 MARIA D PADILLA MD Ot 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 01/19/2020 MARIA D PADILLA MD Ot C77.2 SECONDARY AND UNSP MALIGNANT NEOPLASM OF 01/19/2020 MARIA D PADILLA MD Ot I10 ESSENTIAL (PRIMARY) HYPERTENSION 01/19/2020 MARIA D PADILLA MD Ot M19.91 PRIMARY OSTEOARTHRITIS, UNSPECIFIED SITE 01/19/2020 MARIA D PADILLA MD Ot R17 UNSPECIFIED JAUNDICE 01/19/2020 MARIA D PADILLA MD Ot Z51.11 ENCOUNTER FOR ANTINEOPLASTIC CHEMOTHERAP 01/19/2020 MARIA D PADILLA MD Ot Z80.1 FAMILY HISTORY OF MALIG NEOPLASM OF TRAC 01/19/2020 MARIA D PADILLA MD Ot Z80.3 FAMILY HISTORY OF MALIGNANT NEOPLASM OF 01/19/2020 MARIA D PADILLA MD Ot Z80.41 FAMILY HISTORY OF MALIGNANT NEOPLASM OF 01/19/2020 MARIA D PADILLA MD Ot Z80.52 FAMILY HISTORY OF MALIGNANT NEOPLASM OF 01/19/2020 MARIA D PADILLA MD Ot Z87.01 PERSONAL HISTORY OF PNEUMONIA (RECURRENT 01/19/2020 MARIA D PADILLA MD Ot Z87.442 PERSONAL HISTORY OF URINARY CALCULI 01/20/2020 MARIA D PADILLA MD Ot C56.9 MALIGNANT NEOPLASM OF UNSPECIFIED OVARY 01/20/2020 MARIA D PADILLA MD Ot I10 ESSENTIAL (PRIMARY) HYPERTENSION 01/26/2020 MARIA D PADILLA MD Ot C56.9 MALIGNANT NEOPLASM OF UNSPECIFIED OVARY 01/26/2020 MARIA D PADILLA MD Ot I10 ESSENTIAL (PRIMARY) HYPERTENSION 01/26/2020 CAMILA, STEPHEN S 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 Ot K59.00 CONSTIPATION, UNSPECIFIED 01/26/2020 HUY BALLESTEROS Ot C56.9 MALIGNANT NEOPLASM OF UNSPECIFIED OVARY 01/26/2020 MARIA D PADILLA MD Ot C56.9 MALIGNANT NEOPLASM OF UNSPECIFIED OVARY 01/26/2020 MARIA D PADILLA MD Ot I10 ESSENTIAL (PRIMARY) HYPERTENSION 01/26/2020 CAMILA, STEPHEN S 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 Ot C56.9 MALIGNANT NEOPLASM OF UNSPECIFIED OVARY 01/26/2020 CAMILA, STEPHEN S 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 Ot E78.2 MIXED HYPERLIPIDEMIA 01/26/2020 CAMILA, STEPHEN S 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 Ot I1 0 ESSENTIAL (PRIMARY) HYPERTENSION 01/26/2020 MARIA D PADILLA MD Ot 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 01/26/2020 MARIA D PADILLA MD Ot C77.2 SECONDARY AND UNSP MALIGNANT NEOPLASM OF 01/26/2020 MARIA D PADILLA MD Ot I10 ESSENTIAL (PRIMARY) HYPERTENSION 01/26/2020 MARIA D PADILLA MD Ot M19.91 PRIMARY OSTEOARTHRITIS, UNSPECIFIED SITE 01/26/2020 MARIA D PADILLA MD Ot R17 UNSPECIFIED JAUNDICE 01/26/2020 MARIA D PADILLA MD Ot Z51.11 ENCOUNTER FOR ANTINEOPLASTIC CHEMOTHERAP 01/26/2020 MARIA D PADILLA MD Ot Z80.1 FAMILY HISTORY OF MALIG NEOPLASM OF [place] 01/26/2020 MARIA D PADILLA MD Ot Z80.3 FAMILY HISTORY OF MALIGNANT NEOPLASM OF 01/26/2020 MARIA D PADILLA MD Ot Z80.41 FAMILY HISTORY OF MALIGNANT NEOPLASM OF 01/26/2020 MARIA D PADILLA MD Ot Z80.52 FAMILY HISTORY OF MALIGNANT NEOPLASM OF 01/26/2020 MARIA D PADILLA MD Ot Z87.01 PERSONAL HISTORY OF PNEUMONIA (RECURRENT 01/26/2020 MARIA D PADILLA MD Ot Z87.442 PERSONAL HISTORY OF URINARY CALCULI 01/26/2020 CAMILA STEPHEN S 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 Ot K59.00 CONSTIPATION, UNSPECIFIED 01/26/2020 HUY BALLESTEROS FLIGHT KITCHEN MANAGER Ot C56.9 MALIGNANT NEOPLASM OF UNSPECIFIED OVARY 01/26/2020 MARIA D PADILLA MD Ot C56.9 MALIGNANT NEOPLASM OF UNSPECIFIED OVARY 01/26/2020 MARIA D PADILLA MD Ot I10 ESSENTIAL (PRIMARY) HYPERTENSION 01/26/2020 CAMILA STEPHEN S 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 Ot C56.9 MALIGNANT NEOPLASM OF UNSPECIFIED OVARY 01/26/2020 CAMILA STEPHEN S 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 Ot E78.2 MIXED HYPERLIPIDEMIA 01/26/2020 CAMILA, STEPHEN S 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 Ot I1 0 ESSENTIAL (PRIMARY) HYPERTENSION 01/26/2020 MARIA D PADILLA MD Ot 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 01/26/2020 MARIA D PADILLA MD Ot C77.2 SECONDARY AND UNSP MALIGNANT NEOPLASM OF 01/26/2020 MARIA D PADILLA MD Ot I10 ESSENTIAL (PRIMARY) HYPERTENSION 01/26/2020 MARIA D PADILLA MD Ot M19.91 PRIMARY OSTEOARTHRITIS, UNSPECIFIED SITE 01/26/2020 MARIA D PADILLA MD Ot R17 UNSPECIFIED JAUNDICE 01/26/2020 MARIA D PADILLA MD Ot Z51.11 ENCOUNTER FOR ANTINEOPLASTIC CHEMOTHERAP 01/26/2020 MARIA D PADILLA MD Ot Z80.1 FAMILY HISTORY OF MALIG NEOPLASM OF [place] 01/26/2020 MARIA D PADILLA MD Ot Z80.3 FAMILY HISTORY OF MALIGNANT NEOPLASM OF 01/26/2020 MARIA D PADILLA MD Ot Z80.41 FAMILY HISTORY OF MALIGNANT NEOPLASM OF 01/26/2020 MARIA D PADILLA MD Ot Z80.52 FAMILY HISTORY OF MALIGNANT NEOPLASM OF 01/26/2020 MARIA D PADILLA MD Ot Z87.01 PERSONAL HISTORY OF PNEUMONIA (RECURRENT 01/26/2020 MARIA D PADILLA MD Ot Z87.442 PERSONAL HISTORY OF URINARY CALCULI 01/27/2020 MARIA D PADILLA MD Ot C56.9 MALIGNANT NEOPLASM OF UNSPECIFIED OVARY 01/27/2020 MARIA D PADILLA MD Ot I10 ESSENTIAL (PRIMARY) HYPERTENSION 01/27/2020 CAMILA, STEPHEN S 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 Ot K59.00 CONSTIPATION, UNSPECIFIED 01/27/2020 FAVIAN, HUY FLIGHT KITCHEN MANAGER Ot C56.9 MALIGNANT NEOPLASM OF UNSPECIFIED OVARY 01/27/2020 MARIA D PADILLA MD Ot C56.9 MALIGNANT NEOPLASM OF UNSPECIFIED OVARY 01/27/2020 MARIA D PADILLA MD Ot I10 ESSENTIAL (PRIMARY) HYPERTENSION 01/27/2020 CAMILA, STEPHEN S 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 Ot C56.9 MALIGNANT NEOPLASM OF UNSPECIFIED OVARY 01/27/2020 CAMILA, STEPHEN S 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 Ot E78.2 MIXED HYPERLIPIDEMIA 01/27/2020 CAMILA, STEPHEN S 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 Ot I1 0 ESSENTIAL (PRIMARY) HYPERTENSION 01/27/2020 MARIA D PADILLA MD Ot 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 01/27/2020 MARIA D PADILLA MD Ot C77.2 SECONDARY AND UNSP MALIGNANT NEOPLASM OF 01/27/2020 MARIA D PADILLA MD Ot I10 ESSENTIAL (PRIMARY) HYPERTENSION 01/27/2020 MARIA D PADILLA MD Ot M19.91 PRIMARY OSTEOARTHRITIS, UNSPECIFIED SITE 01/27/2020 MARIA D PADILLA MD Ot R17 UNSPECIFIED JAUNDICE 01/27/2020 MARIA D PADILLA MD Ot Z51.11 ENCOUNTER FOR ANTINEOPLASTIC CHEMOTHERAP 01/27/2020 MARIA D PADILLA MD Ot Z80.1 FAMILY HISTORY OF MALIG NEOPLASM OF [place] 01/27/2020 MARIA D PADILLA MD Ot Z80.3 FAMILY HISTORY OF MALIGNANT NEOPLASM OF 01/27/2020 MARIA D PADLILA MD Ot Z80.41 FAMILY HISTORY OF MALIGNANT NEOPLASM OF 01/27/2020 MARIA D PADILLA MD Ot Z80.52 FAMILY HISTORY OF MALIGNANT NEOPLASM OF 01/27/2020 MARIA D PADILLA MD Ot Z87.01 PERSONAL HISTORY OF PNEUMONIA (RECURRENT 01/27/2020 MARIA D PADILLA MD Ot Z87.442 PERSONAL HISTORY OF URINARY CALCULI 01/31/2020 CAMILA, STEPHEN S 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 Ot K59.00 CONSTIPATION, UNSPECIFIED 01/31/2020 FAVIANHUY FLIGHT KITCHEN MANAGER Ot C56.9 MALIGNANT NEOPLASM OF UNSPECIFIED OVARY 01/31/2020 MARIA D PADILLA MD Ot C56.9 MALIGNANT NEOPLASM OF UNSPECIFIED OVARY 01/31/2020 MARIA D PADILLA MD Ot I10 ESSENTIAL (PRIMARY) HYPERTENSION 01/31/2020 CAMILA, STEPHEN S 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 Ot C56.9 MALIGNANT NEOPLASM OF UNSPECIFIED OVARY 01/31/2020 CAMILA, STEPHEN S 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 Ot E78.2 MIXED HYPERLIPIDEMIA 01/31/2020 CAMILA, STEPHEN S 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 Ot I1 0 ESSENTIAL (PRIMARY) HYPERTENSION 01/31/2020 MARIA D PADILLA MD Ot 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 01/31/2020 MARIA D PADILLA MD Ot C77.2 SECONDARY AND UNSP MALIGNANT NEOPLASM OF 01/31/2020 MARIA D PADILLA MD Ot I10 ESSENTIAL (PRIMARY) HYPERTENSION 01/31/2020 MARIA D PADILLA MD Ot M19.91 PRIMARY OSTEOARTHRITIS, UNSPECIFIED SITE 01/31/2020 MARIA D PADILLA MD Ot R17 UNSPECIFIED JAUNDICE 01/31/2020 MARIA D PADILLA MD Ot Z51.11 ENCOUNTER FOR ANTINEOPLASTIC CHEMOTHERAP 01/31/2020 MARIA D PADILLA MD Ot Z80.1 FAMILY HISTORY OF MALIG NEOPLASM OF [place] 01/31/2020 MARIA D PADILLA MD Ot Z80.3 FAMILY HISTORY OF MALIGNANT NEOPLASM OF 01/31/2020 MARIA D PADILLA MD Ot Z80.41 FAMILY HISTORY OF MALIGNANT NEOPLASM OF 01/31/2020 MARIA D PADILLA MD Ot Z80.52 FAMILY HISTORY OF MALIGNANT NEOPLASM OF 01/31/2020 MARIA D PADILLA MD Ot Z87.01 PERSONAL HISTORY OF PNEUMONIA (RECURRENT 01/31/2020 MARIA D PADILLA MD Ot Z87.442 PERSONAL HISTORY OF URINARY CALCULI 02/14/2020 CAMILA, STEPHEN S 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 Ot K59.00 CONSTIPATION, UNSPECIFIED 02/14/2020 FAVIANHUY FLIGHT KITCHEN MANAGER Ot C56.9 MALIGNANT NEOPLASM OF UNSPECIFIED OVARY 02/14/2020 MARIA D PADILLA MD Ot C56.9 MALIGNANT NEOPLASM OF UNSPECIFIED OVARY 02/14/2020 MARIA D PADILLA MD Ot I10 ESSENTIAL (PRIMARY) HYPERTENSION 02/14/2020 CAMILA, STEPHEN S 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 Ot C56.9 MALIGNANT NEOPLASM OF UNSPECIFIED OVARY 02/14/2020 CAMILA, STEPHEN S 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 Ot E78.2 MIXED HYPERLIPIDEMIA 02/14/2020 CAMILA, STEPHEN S 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 Ot I1 0 ESSENTIAL (PRIMARY) HYPERTENSION 02/14/2020 MARIA D PADILLA MD Ot 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 02/14/2020 MARIA D PADILLA MD Ot C77.2 SECONDARY AND UNSP MALIGNANT NEOPLASM OF 02/14/2020 MARIA D PADILLA MD Ot I10 ESSENTIAL (PRIMARY) HYPERTENSION 02/14/2020 MARIA D PADILLA MD Ot M19.91 PRIMARY OSTEOARTHRITIS, UNSPECIFIED SITE 02/14/2020 MARIA D PADILLA MD Ot R17 UNSPECIFIED JAUNDICE 02/14/2020 MARIA D PADILLA MD Ot Z51.11 ENCOUNTER FOR ANTINEOPLASTIC CHEMOTHERAP 02/14/2020 MARIA D PADILLA MD Ot Z80.1 FAMILY HISTORY OF MALIG NEOPLASM OF [place] 02/14/2020 MARIA D PADILLA MD Ot Z80.3 FAMILY HISTORY OF MALIGNANT NEOPLASM OF 02/14/2020 MARIA D PADILLA MD Ot Z80.41 FAMILY HISTORY OF MALIGNANT NEOPLASM OF 02/14/2020 MARIA D PADILLA MD Ot Z80.52 FAMILY HISTORY OF MALIGNANT NEOPLASM OF 02/14/2020 MARIA D PADILLA MD Ot Z87.01 PERSONAL HISTORY OF PNEUMONIA (RECURRENT 02/14/2020 MARIA D PADILLA MD Ot Z87.442 PERSONAL HISTORY OF URINARY CALCULI 02/15/2020 MARIA D PADILLA MD Ot C77.2 SECONDARY AND UNSP MALIGNANT NEOPLASM OF 02/15/2020 MARIA D PADILLA MD Ot 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 02/15/2020 MARIA D PADILLA MD Ot I25.10 ATHSCL HEART DISEASE OF [place] CORONARY 02/15/2020 MARIA D PADILLA MD Ot N28.1 CYST OF KIDNEY, ACQUIRED 02/16/2020 MARIA D PADILLA MD Ot C56.9 MALIGNANT NEOPLASM OF UNSPECIFIED OVARY 02/16/2020 MARIA D PADILLA MD Ot I10 ESSENTIAL (PRIMARY) HYPERTENSION 02/17/2020 MARIA D PADILLA MD Ot 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 02/17/2020 MARIA D PADILLA MD Ot C77.2 SECONDARY AND UNSP MALIGNANT NEOPLASM OF 02/17/2020 MARIA D PADILLA MD Ot I10 ESSENTIAL (PRIMARY) HYPERTENSION 02/17/2020 MARIA D PADILLA MD Ot M19.91 PRIMARY OSTEOARTHRITIS, UNSPECIFIED SITE 02/17/2020 MARIA D PADILLA MD Ot R17 UNSPECIFIED JAUNDICE 02/17/2020 MARIA D PADILLA MD Ot Z51.11 ENCOUNTER FOR ANTINEOPLASTIC CHEMOTHERAP 02/17/2020 MARIA D PADILLA MD Ot Z80.1 FAMILY HISTORY OF MALIG NEOPLASM OF [place] 02/17/2020 MARIA D PADILLA MD Ot Z80.3 FAMILY HISTORY OF MALIGNANT NEOPLASM OF 02/17/2020 MARIA D PADILLA MD Ot Z80.41 FAMILY HISTORY OF MALIGNANT NEOPLASM OF 02/17/2020 MARIA D PADILLA MD Ot Z80.52 FAMILY HISTORY OF MALIGNANT NEOPLASM OF 02/17/2020 MARIA D PADILLA MD Ot Z87.01 PERSONAL HISTORY OF PNEUMONIA (RECURRENT 02/17/2020 MARIA D PADILLA MD Ot Z87.442 PERSONAL HISTORY OF URINARY CALCULI 02/22/2020 MARIA D PADILLA MD Ot 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 02/22/2020 MARIA D PADILLA MD Ot C56.9 MALIGNANT NEOPLASM OF UNSPECIFIED OVARY 02/22/2020 MARIA D PADILLA MD Ot C77.2 SECONDARY AND UNSP MALIGNANT NEOPLASM OF 02/22/2020 MARIA D PADILLA MD Ot I10 ESSENTIAL (PRIMARY) HYPERTENSION 02/22/2020 MARIA D PADILLA MD Ot Z80.1 FAMILY HISTORY OF MALIG NEOPLASM OF [place] 02/22/2020 MARIA D PADILLA MD Ot Z80.3 FAMILY HISTORY OF MALIGNANT NEOPLASM OF 02/22/2020 MARIA D PADILLA MD Ot Z80.41 FAMILY HISTORY OF MALIGNANT NEOPLASM OF 02/22/2020 MARIA D PADILLA MD Ot Z80.52 FAMILY HISTORY OF MALIGNANT NEOPLASM OF 02/22/2020 STEPHEN JENSEN S 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 Ot K59.00 CONSTIPATION, UNSPECIFIED 02/22/2020 HUY BALLESTEROS Ot C56.9 MALIGNANT NEOPLASM OF UNSPECIFIED OVARY 02/22/2020 MARIA D PADILLA MD Ot C56.9 MALIGNANT NEOPLASM OF UNSPECIFIED OVARY 02/22/2020 MARIA D PADILLA MD Ot I10 ESSENTIAL (PRIMARY) HYPERTENSION 02/22/2020 STEPHEN JENSEN S 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 Ot C56.9 MALIGNANT NEOPLASM OF UNSPECIFIED OVARY 02/22/2020 CAMILA, STEPHEN S 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 Ot E78.2 MIXED HYPERLIPIDEMIA 02/22/2020 CAMILA, STEPHEN S 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 Ot I1 0 ESSENTIAL (PRIMARY) HYPERTENSION 02/22/2020 MARIA D PADILLA MD Ot 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 02/22/2020 MARIA D PADILLA MD, Ot C77.2 SECONDARY AND UNSP MALIGNANT NEOPLASM OF 02/22/2020 MARIA D PADILLA MD Ot I10 ESSENTIAL (PRIMARY) HYPERTENSION 02/22/2020 MARIA D PADILLA MD Ot M19.91 PRIMARY OSTEOARTHRITIS, UNSPECIFIED SITE 02/22/2020 MARIA D PADILLA MD Ot R17 UNSPECIFIED JAUNDICE 02/22/2020 MARIA D PADILLA MD Ot Z51.11 ENCOUNTER FOR ANTINEOPLASTIC CHEMOTHERAP 02/22/2020 MARIA D PADILLA MD Ot Z80.1 FAMILY HISTORY OF MALIG NEOPLASM OF [place] 02/22/2020 MARIA D PADILLA MD, Ot Z80.3 FAMILY HISTORY OF MALIGNANT NEOPLASM OF 02/22/2020 MARIA D PADILLA MD Ot Z80.41 FAMILY HISTORY OF MALIGNANT NEOPLASM OF 02/22/2020 MARIA D PADILLA MD Ot Z80.52 FAMILY HISTORY OF MALIGNANT NEOPLASM OF 02/22/2020 MARIA D PADILLA MD Ot Z87.01 PERSONAL HISTORY OF PNEUMONIA (RECURRENT 02/22/2020 MARIA D PADILLA MD Ot Z87.442 PERSONAL HISTORY OF URINARY CALCULI 02/22/2020 MARIA D PADILLA MD Ot C77.2 SECONDARY AND UNSP MALIGNANT NEOPLASM OF 02/22/2020 MARIA D PADILLA MD Ot 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 02/22/2020 MARIA D PADILLA MD Ot I25.10 ATHSCL HEART DISEASE OF [place] CORONARY 02/22/2020 MARIA D PADILLA MD Ot N28.1 CYST OF KIDNEY, ACQUIRED 02/23/2020 CAMILA, STEPHEN S 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 Ot K59.00 CONSTIPATION, UNSPECIFIED 02/23/2020 HUY BALLESTEROS Ot C56.9 MALIGNANT NEOPLASM OF UNSPECIFIED OVARY 02/23/2020 CAMILA, STEPHEN S 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 Ot C56.9 MALIGNANT NEOPLASM OF UNSPECIFIED OVARY 02/23/2020 CAMILA, STEPHEN S 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 Ot E78.2 MIXED HYPERLIPIDEMIA 02/23/2020 CAMILA, STEPHEN S 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 Ot I1 0 ESSENTIAL (PRIMARY) HYPERTENSION 02/23/2020 MARIA D PADILLA MD Ot 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 02/23/2020 MARIA D PADILLA MD Ot C77.2 SECONDARY AND UNSP MALIGNANT NEOPLASM OF 02/23/2020 MARIA D PADILLA MD Ot I10 ESSENTIAL (PRIMARY) HYPERTENSION 02/23/2020 MARIA D PADILLA MD Ot M19.91 PRIMARY OSTEOARTHRITIS, UNSPECIFIED SITE 02/23/2020 MARIA D PADILLA MD Ot R17 UNSPECIFIED JAUNDICE 02/23/2020 MARIA D PADILLA MD Ot Z51.11 ENCOUNTER FOR ANTINEOPLASTIC CHEMOTHERAP 02/23/2020 MARIA D PADILLA MD Ot Z80.1 FAMILY HISTORY OF MALIG NEOPLASM OF [place] 02/23/2020 MARIA D PADILLA MD Ot Z80.3 FAMILY HISTORY OF MALIGNANT NEOPLASM OF 02/23/2020 MARIA D PADILLA MD Ot Z80.41 FAMILY HISTORY OF MALIGNANT NEOPLASM OF 02/23/2020 MARIA D PADILLA MD Ot Z80.52 FAMILY HISTORY OF MALIGNANT NEOPLASM OF 02/23/2020 MARIA D PADILLA MD Ot Z87.01 PERSONAL HISTORY OF PNEUMONIA (RECURRENT 02/23/2020 MARIA D PADILLA MD Ot Z87.442 PERSONAL HISTORY OF URINARY CALCULI 02/23/2020 MARIA D PADILLA MD Ot C77.2 SECONDARY AND UNSP MALIGNANT NEOPLASM OF 02/23/2020 MARIA D PADILLA MD Ot 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 02/23/2020 MARIA D PADILLA MD Ot I25.10 ATHSCL HEART DISEASE OF [place] CORONARY 02/23/2020 MARIA D PADILLA MD Ot N28.1 CYST OF KIDNEY, ACQUIRED 02/23/2020 MARIA D PADILLA MD Ot C56.9 MALIGNANT NEOPLASM OF UNSPECIFIED OVARY 02/23/2020 MARIA D PADILLA MD Ot I10 ESSENTIAL (PRIMARY) HYPERTENSION 02/23/2020 CAMILA, STEPHEN S 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 Ot K59.00 CONSTIPATION, UNSPECIFIED 02/23/2020 FAVIANHUY RAMIREZ FLIGHT KITCHEN MANAGER Ot C56.9 MALIGNANT NEOPLASM OF UNSPECIFIED OVARY 02/23/2020 CAMILA, STEPHEN S 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 Ot C56.9 MALIGNANT NEOPLASM OF UNSPECIFIED OVARY 02/23/2020 CAMILA, STEPHEN S 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 Ot E78.2 MIXED HYPERLIPIDEMIA 02/23/2020 CAMILA STEPHNE S 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 Ot I1 0 ESSENTIAL (PRIMARY) HYPERTENSION 02/23/2020 MARIA D PADILLA MD Ot 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 02/23/2020 MARIA D PADILLA MD Ot C77.2 SECONDARY AND UNSP MALIGNANT NEOPLASM OF 02/23/2020 MARIA D PADILLA MD Ot I10 ESSENTIAL (PRIMARY) HYPERTENSION 02/23/2020 MARIA D PADILLA MD Ot M19.91 PRIMARY OSTEOARTHRITIS, UNSPECIFIED SITE 02/23/2020 MARIA D PADILLA MD Ot R17 UNSPECIFIED JAUNDICE 02/23/2020 MARIA D PADILLA MD Ot Z51.11 ENCOUNTER FOR ANTINEOPLASTIC CHEMOTHERAP 02/23/2020 MARIA D PADILLA MD Ot Z80.1 FAMILY HISTORY OF MALIG NEOPLASM OF [place] 02/23/2020 MARIA D PADILLA MD Ot Z80.3 FAMILY HISTORY OF MALIGNANT NEOPLASM OF 02/23/2020 MARIA D PADILLA MD Ot Z80.41 FAMILY HISTORY OF MALIGNANT NEOPLASM OF 02/23/2020 MARIA D PADILLA MD Ot Z80.52 FAMILY HISTORY OF MALIGNANT NEOPLASM OF 02/23/2020 MARIA D PADILLA MD Ot Z87.01 PERSONAL HISTORY OF PNEUMONIA (RECURRENT 02/23/2020 MARIA D PADILLA MD Ot Z87.442 PERSONAL HISTORY OF URINARY CALCULI 02/23/2020 MARIA D PADILLA MD Ot C77.2 SECONDARY AND UNSP MALIGNANT NEOPLASM OF 02/23/2020 MEGAN PADILLA MDNER Ot 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 02/23/2020 MEGAN PADILLA MDNER Ot I25.10 ATHSCL HEART DISEASE OF [place] CORONARY 02/23/2020 MARIA D PADILLA MD Ot N28.1 CYST OF KIDNEY, ACQUIRED 02/23/2020 MEGAN PADILLA MDNER Ot C56.9 MALIGNANT NEOPLASM OF UNSPECIFIED OVARY 02/23/2020 MEGAN PADILLA MDNER Ot I10 ESSENTIAL (PRIMARY) HYPERTENSION 02/23/2020 MARIA D PADILLA MD Ot 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 02/23/2020 MARIA D PADILLA MD Ot C77.2 SECONDARY AND UNSP MALIGNANT NEOPLASM OF 02/23/2020 MARIA D PADILLA MD Ot I10 ESSENTIAL (PRIMARY) HYPERTENSION 02/23/2020 MEGAN PADILLA MDNER Ot Z80.1 FAMILY HISTORY OF MALIG NEOPLASM OF [place] 02/23/2020 MARIA D PADILLA MD Ot Z80.3 FAMILY HISTORY OF MALIGNANT NEOPLASM OF 02/23/2020 MEGAN PADILLA MDNER Ot Z80.41 FAMILY HISTORY OF MALIGNANT NEOPLASM OF 02/23/2020 MEGAN PADILLA MDNER Ot Z80.52 FAMILY HISTORY OF MALIGNANT NEOPLASM OF 02/23/2020 MARIA D PADILLA MD Ot 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 02/23/2020 MARIA D PADILLA MD Ot C77.2 SECONDARY AND UNSP MALIGNANT NEOPLASM OF 02/23/2020 MARIA D PADILLA MD Ot I10 ESSENTIAL (PRIMARY) HYPERTENSION 02/23/2020 MARIA D PADILLA MD Ot Z80.1 FAMILY HISTORY OF MALIG NEOPLASM OF [place] 02/23/2020 MARIA D PADILLA MD Ot Z80.3 FAMILY HISTORY OF MALIGNANT NEOPLASM OF 02/23/2020 MARIA D PADILLA MD Ot Z80.41 FAMILY HISTORY OF MALIGNANT NEOPLASM OF 02/23/2020 MARIA D PADILLA MD Ot Z80.52 FAMILY HISTORY OF MALIGNANT NEOPLASM OF 02/24/2020 O'DELL, NAVEED K 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 Ot M54 .9 DORSALGIA, UNSPECIFIED 02/24/2020 O'DELL, NAVEED K 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 Ot R06.02 SHORTNESS OF BREATH 02/24/2020 O'DELL, NAVEED K 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 Ot R10 .9 UNSPECIFIED ABDOMINAL PAIN 02/24/2020 MARIA D PADILLA MD Ot C56.9 MALIGNANT NEOPLASM OF UNSPECIFIED OVARY 02/24/2020 MARIA D PADILLA MD Ot I10 ESSENTIAL (PRIMARY) HYPERTENSION 02/28/2020 CAMILA, STEPHEN S 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 Ot K59.00 CONSTIPATION, UNSPECIFIED 02/28/2020 HUY BALLESTEROS FLIGHT KITCHEN MANAGER Ot C56.9 MALIGNANT NEOPLASM OF UNSPECIFIED OVARY 02/28/2020 CAMILA, STEPHEN S 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 Ot C56.9 MALIGNANT NEOPLASM OF UNSPECIFIED OVARY 02/28/2020 CAMILA, STEPHEN S 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 Ot E78.2 MIXED HYPERLIPIDEMIA 02/28/2020 CAMILA, STEPHEN S 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 Ot I1 0 ESSENTIAL (PRIMARY) HYPERTENSION 02/28/2020 MARIA D PADILLA MD Ot 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 02/28/2020 MARIA D PADILLA MD Ot C77.2 SECONDARY AND UNSP MALIGNANT NEOPLASM OF 02/28/2020 MARIA D PADILLA MD Ot I10 ESSENTIAL (PRIMARY) HYPERTENSION 02/28/2020 MARIA D PADILLA MD Ot M19.91 PRIMARY OSTEOARTHRITIS, UNSPECIFIED SITE 02/28/2020 MARIA D PADILLA MD Ot R17 UNSPECIFIED JAUNDICE 02/28/2020 MARIA D PADILLA MD Ot Z51.11 ENCOUNTER FOR ANTINEOPLASTIC CHEMOTHERAP 02/28/2020 MARIA D PADILLA MD Ot Z80.1 FAMILY HISTORY OF MALIG NEOPLASM OF [place] 02/28/2020 MARIA D PADILLA MD, Ot Z80.3 FAMILY HISTORY OF MALIGNANT NEOPLASM OF 02/28/2020 MARIA D PADILLA MD, Ot Z80.41 FAMILY HISTORY OF MALIGNANT NEOPLASM OF 02/28/2020 MARIA D PADILLA MD, Ot Z80.52 FAMILY HISTORY OF MALIGNANT NEOPLASM OF 02/28/2020 MARIA D PADILLA MD Ot Z87.01 PERSONAL HISTORY OF PNEUMONIA (RECURRENT 02/28/2020 MARIA D PADILLA MD Ot Z87.442 PERSONAL HISTORY OF URINARY CALCULI 02/28/2020 MARIA D PADILLA MD Ot C77.2 SECONDARY AND UNSP MALIGNANT NEOPLASM OF 02/28/2020 MARIA D PADILLA MD Ot 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 02/28/2020 MARIA D PADILLA MD Ot I25.10 ATHSCL HEART DISEASE OF [place] CORONARY 02/28/2020 MARIA D PADILLA MD, Ot N28.1 CYST OF KIDNEY, ACQUIRED 02/28/2020 O'DELL, NAVEED K 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 Ot M54 .9 DORSALGIA, UNSPECIFIED 02/28/2020 O'DELL, NAVEED K 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 Ot R06.02 SHORTNESS OF BREATH 02/28/2020 O'DELL, NAVEED K 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 Ot R10 .9 UNSPECIFIED ABDOMINAL PAIN 02/28/2020 MARIA D PADILLA MD Ot C56.9 MALIGNANT NEOPLASM OF UNSPECIFIED OVARY 02/28/2020 MARIA D PADILLA MD Ot I10 ESSENTIAL (PRIMARY) HYPERTENSION 03/01/2020 CAMILA, STEPHEN S 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 Ot K59.00 CONSTIPATION, UNSPECIFIED 03/01/2020 HUY BALLESTEROS FLIGHT KITCHEN MANAGER Ot C56.9 MALIGNANT NEOPLASM OF UNSPECIFIED OVARY 03/01/2020 CAMILA, STEPHEN S 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 Ot C56.9 MALIGNANT NEOPLASM OF UNSPECIFIED OVARY 03/01/2020 CAMILA, STEPHEN S 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 Ot E78.2 MIXED HYPERLIPIDEMIA 03/01/2020 CAMILA, STEPHEN S 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 Ot I1 0 ESSENTIAL (PRIMARY) HYPERTENSION 03/01/2020 MARIA D PADILLA MD Ot 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 03/01/2020 MARIA D PADILLA MD, Ot C77.2 SECONDARY AND UNSP MALIGNANT NEOPLASM OF 03/01/2020 MARIA D PADILLA MD Ot I10 ESSENTIAL (PRIMARY) HYPERTENSION 03/01/2020 MARIA D PADILLA MD Ot M19.91 PRIMARY OSTEOARTHRITIS, UNSPECIFIED SITE 03/01/2020 MARIA D PADILLA MD Ot R17 UNSPECIFIED JAUNDICE 03/01/2020 MARIA D PADILLA MD Ot Z51.11 ENCOUNTER FOR ANTINEOPLASTIC CHEMOTHERAP 03/01/2020 MARIA D PADILLA MD Ot Z80.1 FAMILY HISTORY OF MALIG NEOPLASM OF [place] 03/01/2020 MARIA D PADILLA MD Ot Z80.3 FAMILY HISTORY OF MALIGNANT NEOPLASM OF 03/01/2020 MARIA D PADILLA MD Ot Z80.41 FAMILY HISTORY OF MALIGNANT NEOPLASM OF 03/01/2020 MARIA D PADILLA MD Ot Z80.52 FAMILY HISTORY OF MALIGNANT NEOPLASM OF 03/01/2020 MARIA D PADILLA MD Ot Z87.01 PERSONAL HISTORY OF PNEUMONIA (RECURRENT 03/01/2020 MARIA D PADILLA MD Ot Z87.442 PERSONAL HISTORY OF URINARY CALCULI 03/01/2020 MARIA D PADILLA MD, Ot C77.2 SECONDARY AND UNSP MALIGNANT NEOPLASM OF 03/01/2020 MARIA D PADILLA MD Ot 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 03/01/2020 MARIA D PADILLA MD Ot I25.10 ATHSCL HEART DISEASE OF [place] CORONARY 03/01/2020 MARIA D PADILLA MD Ot N28.1 CYST OF KIDNEY, ACQUIRED 03/01/2020 O'DELL, NAVEED K 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 Ot M54 .9 DORSALGIA, UNSPECIFIED 03/01/2020 O'DELL, NAVEED K 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 Ot R06.02 SHORTNESS OF BREATH 03/01/2020 O'DELL, NAVEED K 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 Ot R10 .9 UNSPECIFIED ABDOMINAL PAIN 03/01/2020 MARIA D PADILLA MD Ot C56.9 MALIGNANT NEOPLASM OF UNSPECIFIED OVARY 03/01/2020 MARIA D PADILLA MD Ot I10 ESSENTIAL (PRIMARY) HYPERTENSION 03/01/2020 MARIA D PADILLA MD Ot 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 03/01/2020 MARIA D PADILLA MD Ot C77.2 SECONDARY AND UNSP MALIGNANT NEOPLASM OF 03/01/2020 MARIA D PADILLA MD Ot I10 ESSENTIAL (PRIMARY) HYPERTENSION 03/01/2020 MARIA D PADILLA MD Ot M19.91 PRIMARY OSTEOARTHRITIS, UNSPECIFIED SITE 03/01/2020 MARIA D PADILLA MD Ot R17 UNSPECIFIED JAUNDICE 03/01/2020 MARIA D PADILLA MD Ot Z51.11 ENCOUNTER FOR ANTINEOPLASTIC CHEMOTHERAP 03/01/2020 MARIA D PADILLA MD Ot Z80.1 FAMILY HISTORY OF MALIG NEOPLASM OF [place] 03/01/2020 MARIA D PADILLA MD, Ot Z80.3 FAMILY HISTORY OF MALIGNANT NEOPLASM OF 03/01/2020 MARIA D PADILLA MD, Ot Z80.41 FAMILY HISTORY OF MALIGNANT NEOPLASM OF 03/01/2020 MARIA D PADILLA MD, Ot Z80.52 FAMILY HISTORY OF MALIGNANT NEOPLASM OF 03/01/2020 MARIA D PADILLA MD Ot Z87.01 PERSONAL HISTORY OF PNEUMONIA (RECURRENT 03/01/2020 MARIA D PADILLA MD, Ot Z87.442 PERSONAL HISTORY OF URINARY CALCULI 03/01/2020 ANNALISA JENSENANDA S 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 Ot K59.00 CONSTIPATION, UNSPECIFIED 03/01/2020 FAVIAN, HUY FLIGHT KITCHEN MANAGER Ot C56.9 MALIGNANT NEOPLASM OF UNSPECIFIED OVARY 03/01/2020 CAMILA STEPHEN S KATIE Ot C56.9 MALIGNANT NEOPLASM OF UNSPECIFIED OVARY 03/01/2020 CAMILA, STEPHEN S 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 Ot E78.2 MIXED HYPERLIPIDEMIA 03/01/2020 CAMILA, STEPHEN S 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 Ot I1 0 ESSENTIAL (PRIMARY) HYPERTENSION 03/01/2020 MARIA D PADILLA MD Ot C77.2 SECONDARY AND UNSP MALIGNANT NEOPLASM OF 03/01/2020 MARIA D PADILLA MD Ot 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 1 MALIGNANT NEOPLASM OF RIGHT OVARY 03/01/2020 YENIFER JOSEPH MD, Ot C77. 2 SECONDARY AND UNSP MALIGNANT NEOPLASM OF 03/01/2020 YENIFER JOSEPH MD Ot I10 ESSENTIAL (PRIMARY) HYPERTENSION 03/01/2020 YENIFER JOSEPH MD Ot M19. 91 PRIMARY OSTEOARTHRITIS, UNSPECIFIED SITE 03/01/2020 YENIFER JOSEPH MD Ot R17 UNSPECIFIED JAUNDICE 03/01/2020 YENIFER JOSEPH MD Ot Z51. 11 ENCOUNTER FOR ANTINEOPLASTIC CHEMOTHERAP 03/01/2020 YENIFER JOSEPH MD, Ot Z80. 1 FAMILY HISTORY OF MALIG NEOPLASM OF [place] 03/01/2020 YENIFER JOSEPH MD, Ot Z80. 3 FAMILY HISTORY OF MALIGNANT NEOPLASM OF 03/01/2020 YENIFER JOSEPH MD, Ot Z80. 41 FAMILY HISTORY OF MALIGNANT NEOPLASM OF 03/01/2020 YENIFER JOSEPH MD, Ot Z80. 52 FAMILY HISTORY OF MALIGNANT NEOPLASM OF 03/01/2020 YENIFER JOSEPH MD, Ot Z87. 01 PERSONAL HISTORY OF PNEUMONIA (RECURRENT 03/01/2020 YENIFER JOSEPH MD, Ot Z87.442 PERSONAL HISTORY OF URINARY CALCULI 03/01/2020 STEPHEN JENSEN S KATIE Ot K59.00 CONSTIPATION, UNSPECIFIED 03/01/2020 HUY BALLESTEROS Ot C56.9 MALIGNANT NEOPLASM OF UNSPECIFIED OVARY 03/01/2020 STEPHEN JENSEN S KATIE Ot C56.9 MALIGNANT NEOPLASM OF UNSPECIFIED OV[place] 03/01/2020 CAMILA STEPHEN S 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 Ot E78.2 MIXED HYPERLIPIDEMIA 03/01/2020 CAMILA STEPHEN S 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 Ot I1 0 ESSENTIAL (PRIMARY) HYPERTENSION 03/01/2020 MARIA D PADILLA MD Ot C77.2 SECONDARY AND UNSP MALIGNANT NEOPLASM OF 03/01/2020 MARIA D PADILLA MD Ot 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 03/01/2020 MARIA D PADILLA MD Ot I25.10 ATHSCL HEART DISEASE OF [place] CORONARY 03/01/2020 MARIA D PADILLA MD Ot N28.1 CYST OF KIDNEY, ACQUIRED 03/01/2020 O'DELL, NAVEED K KATIE Ot M54 .9 DORSALGIA, UNSPECIFIED 03/01/2020 O'DELL, NAVEED K KATIE Ot R06.02 SHORTNESS OF BREATH 03/01/2020 O'DELL, NAVEED K KATIE Ot R10 .9 UNSPECIFIED ABDOMINAL PAIN 03/01/2020 MARIA D PADILLA MD Ot C56.9 MALIGNANT NEOPLASM OF UNSPECIFIED OVARY 03/01/2020 MARIA D PADILLA MD Ot I10 ESSENTIAL (PRIMARY) HYPERTENSION 03/02/2020 STEPHEN JENSEN S 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 Ot K59.00 CONSTIPATION, UNSPECIFIED 03/02/2020 HUY BALLESTEROS FLIGHT KITCHEN MANAGER Ot C56.9 MALIGNANT NEOPLASM OF UNSPECIFIED OVARY 03/02/2020 CAMILA, STEPHEN S 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 Ot C56.9 MALIGNANT NEOPLASM OF UNSPECIFIED OVARY 03/02/2020 CAMILA, STEPHEN S 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 Ot E78.2 MIXED HYPERLIPIDEMIA 03/02/2020 CAMILA, STEPHEN S 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 Ot I1 0 ESSENTIAL (PRIMARY) HYPERTENSION 03/02/2020 MARIA D PADILLA MD Ot C77.2 SECONDARY AND UNSP MALIGNANT NEOPLASM OF 03/02/2020 MARIA D PADILLA MD Ot 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 03/02/2020 MARIA D PADILLA MD Ot I25.10 ATHSCL HEART DISEASE OF [place] CORONARY 03/02/2020 MARIA D PADILLA MD Ot N28.1 CYST OF KIDNEY, ACQUIRED 03/02/2020 O'DELL, NAVEED K 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 Ot M54 .9 DORSALGIA, UNSPECIFIED 03/02/2020 O'DELL, NAVEED K 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 Ot R06.02 SHORTNESS OF BREATH 03/02/2020 O'DELL, NAVEED K 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 Ot R10 .9 UNSPECIFIED ABDOMINAL PAIN 03/02/2020 MARIA D PADILLA MD Ot C56.9 MALIGNANT NEOPLASM OF UNSPECIFIED OVARY 03/02/2020 MARIA D PADILLA MD Ot I10 ESSENTIAL (PRIMARY) HYPERTENSION 03/08/2020 MARIA D PADILLA MD Ot C56.9 MALIGNANT NEOPLASM OF UNSPECIFIED OVARY 03/08/2020 MARIA D PADILLA MD Ot I10 ESSENTIAL (PRIMARY) HYPERTENSION 03/10/2020 MARIA D PADILLA MD Ot C77.2 SECONDARY AND UNSP MALIGNANT NEOPLASM OF 03/10/2020 MARIA D PADILLA MD Ot 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 03/10/2020 MARIA D PADILLA MD Ot I25.10 ATHSCL HEART DISEASE OF [place] CORONARY 03/10/2020 MARIA D PADILLA MD Ot N28.1 CYST OF KIDNEY, ACQUIRED 03/15/2020 MARIA D PADILLA MD Ot C56.9 MALIGNANT NEOPLASM OF UNSPECIFIED OVARY 03/15/2020 MARIA D PADILLA MD Ot I10 ESSENTIAL (PRIMARY) HYPERTENSION 03/22/2020 MARIA D PADILLA MD Ot C56.9 MALIGNANT NEOPLASM OF UNSPECIFIED OVARY 03/22/2020 MARIA D PADILLA MD Ot I10 ESSENTIAL (PRIMARY) HYPERTENSION 03/29/2020 MARIA D PADILLA MD Ot C56.9 MALIGNANT NEOPLASM OF UNSPECIFIED OVARY 03/29/2020 MARIA D PADILLA MD Ot I10 ESSENTIAL (PRIMARY) HYPERTENSION 04/12/2020 STEPHEN JENSEN S 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 Ot K59.00 CONSTIPATION, UNSPECIFIED 04/12/2020 FAVIAN, HUY FLIGHT KITCHEN MANAGER Ot C56.9 MALIGNANT NEOPLASM OF UNSPECIFIED OVARY 04/12/2020 CAMILA, STEPHEN S 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 Ot C56.9 MALIGNANT NEOPLASM OF UNSPECIFIED OVARY 04/12/2020 CAMILA, STEPHEN S 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 Ot E78.2 MIXED HYPERLIPIDEMIA 04/12/2020 CAMILA, STEPHEN S 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 Ot I1 0 ESSENTIAL (PRIMARY) HYPERTENSION 04/12/2020 MARIA D PADILLA MD Ot C77.2 SECONDARY AND UNSP MALIGNANT NEOPLASM OF 04/12/2020 MARIA D PADILLA MD Ot 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 04/12/2020 MARIA D PADILLA MD Ot I25.10 ATHSCL HEART DISEASE OF [place] CORONARY 04/12/2020 MARIA D PADILLA MD Ot N28.1 CYST OF KIDNEY, ACQUIRED 04/12/2020 O'DELL, NAVEED K 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 Ot M54 .9 DORSALGIA, UNSPECIFIED 04/12/2020 O'DELL, NAVEED K 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 Ot R06.02 SHORTNESS OF BREATH 04/12/2020 O'DELL, NAVEED K 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 Ot R10 .9 UNSPECIFIED ABDOMINAL PAIN 04/12/2020 MARIA D PADILLA MD Ot C56.9 MALIGNANT NEOPLASM OF UNSPECIFIED OVARY 04/12/2020 MARIA D PADILLA MD Ot I10 ESSENTIAL (PRIMARY) HYPERTENSION 04/12/2020 YENIFER JOSEPH MD Ot C56. 1 MALIGNANT NEOPLASM OF RIGHT OVARY 04/12/2020 YENIFER JOSEPH MD Ot C77. 2 SECONDARY AND UNSP MALIGNANT NEOPLASM OF 04/12/2020 YENIFER JOSEPH MD Ot C78. 6 SECONDARY MALIGNANT NEOPLASM OF [place] 04/12/2020 YENIFER JOSEPH MD Ot Z51. 11 ENCOUNTER FOR ANTINEOPLASTIC CHEMOTHERAP 04/12/2020 STEPHEN JENSEN S 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 Ot K59.00 CONSTIPATION, UNSPECIFIED 04/12/2020 FAVIAN, HYU FLIGHT KITCHEN MANAGER Ot C56.9 MALIGNANT NEOPLASM OF UNSPECIFIED OVARY 04/12/2020 CAMILA, STEPHEN S 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 Ot C56.9 MALIGNANT NEOPLASM OF UNSPECIFIED OVARY 04/12/2020 CAMILA, STEPHEN S 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 Ot E78.2 MIXED HYPERLIPIDEMIA 04/12/2020 CAMILA, STEPHEN S 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 Ot I1 0 ESSENTIAL (PRIMARY) HYPERTENSION 04/12/2020 MARIA D PADILLA MD, Ot C77.2 SECONDARY AND UNSP MALIGNANT NEOPLASM OF 04/12/2020 MARIA D PADILLA MD, Ot 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 04/12/2020 MARIA D PADILLA MD Ot I25.10 ATHSCL HEART DISEASE OF [place] CORONARY 04/12/2020 MARIA D PADILLA MD Ot N28.1 CYST OF KIDNEY, ACQUIRED 04/12/2020 O'DELL, NAVEED K 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 Ot M54 .9 DORSALGIA, UNSPECIFIED 04/12/2020 O'DELL, NAVEED K 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 Ot R06.02 SHORTNESS OF BREATH 04/12/2020 O'DELL, NAVEED Nico WILSON Ot R10 .9 UNSPECIFIED ABDOMINAL PAIN 04/12/2020 MARIA D PADILLA MD, Ot C56.9 MALIGNANT NEOPLASM OF UNSPECIFIED OVARY 04/12/2020 MARIA D PADILLA MD Ot I10 ESSENTIAL (PRIMARY) HYPERTENSION 04/12/2020 YENIFER JOSEPH MD Ot C56. 1 MALIGNANT NEOPLASM OF RIGHT OVARY 04/12/2020 YENIFER JOSEPH MD Ot C77. 2 SECONDARY AND UNSP MALIGNANT NEOPLASM OF 04/12/2020 YENIFER JOSEPH MD Ot C78. 6 SECONDARY MALIGNANT NEOPLASM OF [place] 04/12/2020 YENIFER JOSEPH MD Ot Z51. 11 ENCOUNTER FOR ANTINEOPLASTIC CHEMOTHERAP 04/13/2020 STEPHEN JENSEN S 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 Ot K59.00 CONSTIPATION, UNSPECIFIED 04/13/2020 FAVIAN, HUY FLIGHT KITCHEN MANAGER Ot C56.9 MALIGNANT NEOPLASM OF UNSPECIFIED OVARY 04/13/2020 CAMILA, STEPHEN S 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 Ot C56.9 MALIGNANT NEOPLASM OF UNSPECIFIED OVARY 04/13/2020 CAMILA, STEPHEN S 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 Ot E78.2 MIXED HYPERLIPIDEMIA 04/13/2020 CAMILA, STEPHEN S 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 Ot I1 0 ESSENTIAL (PRIMARY) HYPERTENSION 04/13/2020 MARIA D PADILLA MD, Ot C77.2 SECONDARY AND UNSP MALIGNANT NEOPLASM OF 04/13/2020 MARIA D PADILLA MD, Ot 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 04/13/2020 VALERIE MD, KILLIAN Ot I25.10 ATHSCL HEART DISEASE OF [place] CORONARY 04/13/2020 MARIA D PADILLA MD Ot N28.1 CYST OF KIDNEY, ACQUIRED 04/13/2020 O'DELL, NAVEED K KATIE Ot M54 .9 DORSALGIA, UNSPECIFIED 04/13/2020 O'DELL, NAVEED K 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 Ot R06.02 SHORTNESS OF BREATH 04/13/2020 O'DELL, NAVEED K 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 Ot R10 .9 UNSPECIFIED ABDOMINAL PAIN 04/13/2020 MARIA D PADILLA MD Ot C56.9 MALIGNANT NEOPLASM OF UNSPECIFIED OVARY 04/13/2020 MARIA D PADILLA MD Ot I10 ESSENTIAL (PRIMARY) HYPERTENSION 04/13/2020 YENIFER JOSEPH MD Ot C56. 1 MALIGNANT NEOPLASM OF RIGHT OVARY 04/13/2020 YENIFER JOSEPH MD Ot C77. 2 SECONDARY AND UNSP MALIGNANT NEOPLASM OF 04/13/2020 YENIFER JOSEPH MD Ot C78. 6 SECONDARY MALIGNANT NEOPLASM OF [place] 04/13/2020 YENIFER JOSEPH MD Ot Z51. 11 ENCOUNTER FOR ANTINEOPLASTIC CHEMOTHERAP 04/14/2020 CAMILA, STEPHEN S 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 Ot C56.9 MALIGNANT NEOPLASM OF UNSPECIFIED OVARY 04/14/2020 CAMILA, STEPHEN S 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 Ot I1 0 ESSENTIAL (PRIMARY) HYPERTENSION 04/19/2020 CAMILA, STEPHEN S 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 Ot K59.00 CONSTIPATION, UNSPECIFIED 04/19/2020 HUY BALLESTEROS FLIGHT KITCHEN MANAGER Ot C56.9 MALIGNANT NEOPLASM OF UNSPECIFIED OVARY 04/19/2020 CAMILA, STEPHEN S 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 Ot C56.9 MALIGNANT NEOPLASM OF UNSPECIFIED OVARY 04/19/2020 CAMILA, STEPHEN S 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 Ot E78.2 MIXED HYPERLIPIDEMIA 04/19/2020 CAMILA, STEPHEN S 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 Ot I1 0 ESSENTIAL (PRIMARY) HYPERTENSION 04/19/2020 MARIA D PADILLA MD Ot C77.2 SECONDARY AND UNSP MALIGNANT NEOPLASM OF 04/19/2020 MARIA D PADILLA MD, Ot 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 04/19/2020 MARIA D PADILLA MD Ot I25.10 ATHSCL HEART DISEASE OF [place] CORONARY 04/19/2020 MARIA D PADILLA MD Ot N28.1 CYST OF KIDNEY, ACQUIRED 04/19/2020 O'DELL, NAVEED K KATIE Ot M54 .9 DORSALGIA, UNSPECIFIED 04/19/2020 O'NAVEED BOYER APRN Ot R06.02 SHORTNESS OF BREATH 04/19/2020 O'NAVEED BOYER APRN Ot R10 .9 UNSPECIFIED ABDOMINAL PAIN 04/19/2020 MARIA D PADILLA MD Ot C56.9 MALIGNANT NEOPLASM OF UNSPECIFIED OVARY 04/19/2020 MARIA D PADILLA MD Ot I10 ESSENTIAL (PRIMARY) HYPERTENSION 04/19/2020 YENIFER JOSEPH MD, Ot C56. 1 MALIGNANT NEOPLASM OF RIGHT OVARY 04/19/2020 YENIFER JOSEPH MD, Ot C77. 2 SECONDARY AND UNSP MALIGNANT NEOPLASM OF 04/19/2020 YENIFER JOSEPH MD, Ot C78. 6 SECONDARY MALIGNANT NEOPLASM OF [place] 04/19/2020 YENIFER JOSEPH MD, Ot Z51. 11 ENCOUNTER FOR ANTINEOPLASTIC CHEMOTHERAP 04/19/2020 STEPHEN JENSEN APRN Ot C56.9 MALIGNANT NEOPLASM OF UNSPECIFIED OVARY 04/19/2020 STEPHEN JENSEN APRN Ot I1 0 ESSENTIAL (PRIMARY) HYPERTENSION 04/21/2020 MARIA D PADILLA MD, Ot C56.9 MALIGNANT NEOPLASM OF UNSPECIFIED OVARY 04/21/2020 MARIA D PADILLA MD Ot I10 ESSENTIAL (PRIMARY) HYPERTENSION 04/21/2020 YENIFER JOSEPH MD, Ot C56. 1 MALIGNANT NEOPLASM OF RIGHT OVARY 04/21/2020 YENIFER JOSEPH MD, Ot C77. 2 SECONDARY AND UNSP MALIGNANT NEOPLASM OF 04/21/2020 YENIFER JOSEPH MD, Ot C78. 6 SECONDARY MALIGNANT NEOPLASM OF [place] 04/21/2020 YENIFER JOSEPH MD, Ot Z51. 11 ENCOUNTER FOR ANTINEOPLASTIC CHEMOTHERAP Procedures There is no data. Results Test Result Range LIPID PANEL - 12/09/18 11:30 CHOLESTEROL, TOTAL 118 mg/dL <200 HDL CHOLESTEROL 53 mg/dL >50 TRIGLYCERIDES 72 mg/dL <150 LDL-CHOLESTEROL 50 mg/dL (calc) NRG CHOL/HDLC RATIO 2.2 (calc) <5.0 NON HDL CHOLESTEROL 65 mg/dL (calc) <130 CULTURE, URINE - 02/15/19 09:31 CULTURE, URINE, ROUTINE SEE NOTE NRG Blood CBC with ordered manual differenti al panel - 02/15/19 09:58 Blood leukocytes automated count (number/volume) 6.9 10*3/uL 4.3-11.0 Blood erythrocytes automated count (number/volume) 4.37 10*6/uL 4.35-5.85 Venous blood hemoglobin measurement (mass/volume) 13.5 g/dL 11.5-16.0 Blood hematocrit (volume fraction) 42 % 35-52 Automated erythrocyte mean corpuscular volume 97 [ foz_us] 80-99 Automated erythrocyte mean corpuscular h emoglobin (mass per erythrocyte) 31 pg 25-34 Automated erythrocyte mean corpuscular h emoglobin concentration measurement (mass/volume) 32 g/dL 32-36 Automated erythrocyte distribution width ratio 14. 7 % 10.0- 14.5 Automated blood platelet count (count/volume) 221 10*3/uL 130-400 Automated blood platelet mean volume measurement 8.2 [foz_us] 7.4-10.4 Automated blood neutrophils/100 leukocytes 68 % 42-75 Automated blood lymphocytes/100 leukocytes 22 % 12-44 Blood monocytes/100 leukocytes 5 % NRG Automated blood eosinophils/100 leukocytes 2 % 0-10 Automated blood basophils/100 leukocytes 0 % 0-10 Blood neutrophils automated count (number/volume) 4.7 10*3 1.8-7.8 Blood lymphocytes automated count (number/volume) 1.6 10*3 1.0-4.0 Blood monocytes automated count (number/volume) 0. 4 10*3 0.0-1.0 Automated eosinophil count 0.2 10*3/uL 0 .0-0.3 Automated blood basophil count (count/volume) 0.0 10*3/uL 0.0-0.1 Manual blood segmented neutrophils/100 leukocytes 64 % NRG Blood band neutrophils/100 leukocytes 0 % NRG Manual blood lymphocytes/100 leukocytes 29 % NRG Manual eosinophils/100 leukocytes in nose 2 % NRG Manual blood basophils/100 leukocytes 0 % NRG Comprehensive metabolic panel - 02/15/19 09:58 Serum or plasma sodium measurement (moles/volume) 142 mmol/L 135-145 Serum or plasma potassium measurement (moles/volume) 4.8 mmol/L 3.6-5.0 Serum or plasma chloride measurement (moles/volume) 102 mmol/L 98-107 Carbon dioxide 26 mmol/L 21-32 Serum or plasma anion gap determination (moles/volume) 14 mmol/L 5-14 Serum or plasma urea nitrogen measurement (mass/volume ) 22 mg/dL 7-18 Serum or plasma creatinine measurement (mass/volume) 0.58 mg/dL 0.60-1.30 Serum or plasma urea nitrogen/creatinine mass ratio 38 NRG Serum or plasma creatinine measurement w ith calculation of estimated glomerular filtration rate > NRG Serum or plasma glucose measurement (mass/volume) 101 mg/dL 70-105 Serum or plasma calcium measurement (mass/volume) 9.1 mg/dL 8.5-10.1 Serum or plasma total bilirubin measurement (mass/volu me) 0.7 mg/dL 0.1-1.0 Serum or plasma alkaline phosphatase doris surement (enzymatic activity/volume) 104 U/L 40-136 Serum or plasma aspartate aminotransfera se measurement (enzymatic activity/volume) 16 U/L 5-34 Serum or plasma alanine aminotransferase measurement (enzymatic activity/volume) 20 U/L 0-55 Serum or plasma protein measurement (mass/volume) 7.2 g/dL 6.4-8.2 Serum or plasma albumin measurement (mass/volume) 4.0 g/dL 3.2-4.5 CALCIUM CORRECTED 9.1 mg/dL 8.5-10.1 [facility] - 03/23/19 11:44 GLUCOSE 103 mg/dL 65-99 UREA NITROGEN (BUN) 15 mg/dL 7-25 CREATININE 0.58 mg/dL 0.60-0.93 eGFR NON-AFR. LUXEMBOURGER 90 mL/min/1.73m2 > OR = 60 eGFR 104 mL/min/1.73m2 > OR = 60 BUN/CREATININE RATIO 26 (calc) 6-22 SODIUM 140 mmol/L 135-146 POTASSIUM 4.3 mmol/L 3.5-5.3 CHLORIDE 105 mmol/L 98-110 CARBON DIOXIDE 27 mmol/L 20-32 CALCIUM 9.2 mg/dL 8.6-10.4 PROTEIN, TOTAL 6.8 g/dL 6.1-8.1 ALBUMIN 3.9 g/dL 3.6-5.1 GLOBULIN 2.9 g/dL (calc) 1.9-3.7 ALBUMIN/GLOBULIN RATIO 1.3 (calc) 1.0-2. 5 BILIRUBIN, TOTAL 0.9 mg/dL 0.2-1.2 ALKALINE PHOSPHATASE 94 U/L 33-130 AST 17 U/L 10-35 ALT 14 U/L 6-29 CBC - 06/25/19 11:44 WHITE BLOOD CELL COUNT 5.9 Thousand/uL 3 .8-10.8 RED BLOOD CELL COUNT 4.19 Million/uL 3.8 0-5.10 HEMOGLOBIN 13.2 g/dL 11.7-15.5 HEMATOCRIT 40.3 % 35.0-45.0 MCV 96.2 fL 80.0-100.0 MCH 31.5 pg 27.0-33.0 MCHC 32.8 g/dL 32.0-36.0 RDW 14.0 % 11.0-15.0 PLATELET COUNT 200 Thousand/uL 140-400 MPV 8.4 fL 7.5-12.5 ABSOLUTE NEUTROPHILS 3829 cells/uL 1500- 7800 ABSOLUTE LYMPHOCYTES 1510 cells/uL 850-3 900 ABSOLUTE MONOCYTES 372 cells/uL 200-950 ABSOLUTE EOSINOPHILS 159 cells/uL 15-500 ABSOLUTE BASOPHILS 30 cells/uL 0-200 NEUTROPHILS 64.9 % NRG LYMPHOCYTES 25.6 % NRG MONOCYTES 6.3 % NRG EOSINOPHILS 2.7 % NRG BASOPHILS 0.5 % NRG PT/INR - 03/23/19 11:44 INR 1.0 NRG PT 10.3 sec 9.0-11.5 ESR/SED RATE - 03/23/19 11:44 SED RATE BY MODIFIED WESTERGREN 22 mm/h < OR = 30 CMP - 07/28/19 11:52 GLUCOSE 99 mg/dL 65-99 UREA NITROGEN (BUN) 14 mg/dL 7-25 CREATININE 0.64 mg/dL 0.60-0.93 eGFR NON-AFR. LUXEMBOURGER 87 mL/min/1.73m2 > OR = 60 eGFR 101 mL/min/1.73m2 > OR = 60 BUN/CREATININE RATIO NOT APPLICABLE (calc) 6-22 SODIUM 142 mmol/L 135-146 POTASSIUM 4.5 mmol/L 3.5-5.3 CHLORIDE 105 mmol/L 98-110 CARBON DIOXIDE 29 mmol/L 20-32 CALCIUM 9.2 mg/dL 8.6-10.4 PROTEIN, TOTAL 6.9 g/dL 6.1-8.1 ALBUMIN 4.0 g/dL 3.6-5.1 GLOBULIN 2.9 g/dL (calc) 1.9-3.7 ALBUMIN/GLOBULIN RATIO 1.4 (calc) 1.0-2. 5 BILIRUBIN, TOTAL 0.7 mg/dL 0.2-1.2 ALKALINE PHOSPHATASE 121 U/L 33-130 AST 18 U/L 10-35 ALT 39 U/L 6-29 Complete blood count (CBC) with automate d white blood cell (WBC) differential - 10/06/19 14:29 Blood leukocytes automated count (number/volume) 5.8 10*3/uL 4.3-11.0 Blood erythrocytes automated count (number/volume) 4.32 10*6/uL 4.35-5.85 Venous blood hemoglobin measurement (mass/volume) 13.3 g/dL 11.5-16.0 Blood hematocrit (volume fraction) 42 % 35-52 Automated erythrocyte mean corpuscular volume 98 [ foz_us] 80-99 Automated erythrocyte mean corpuscular h emoglobin (mass per erythrocyte) 31 pg 25-34 Automated erythrocyte mean corpuscular h emoglobin concentration measurement (mass/volume) 32 g/dL 32-36 Automated erythrocyte distribution width ratio 15. 2 % 10.0- 14.5 Automated blood platelet count (count/volume) 182 10*3/uL 130-400 Automated blood platelet mean volume measurement 8.2 [foz_us] 7.4-10.4 Automated blood neutrophils/100 leukocytes 62 % 42-75 Automated blood lymphocytes/100 leukocytes 30 % 12-44 Blood monocytes/100 leukocytes 6 % 0-12 Automated blood eosinophils/100 leukocytes 2 % 0-10 Automated blood basophils/100 leukocytes 0 % 0-10 Blood neutrophils automated count (number/volume) 3.6 10*3 1.8-7.8 Blood lymphocytes automated count (number/volume) 1.7 10*3 1.0-4.0 Blood monocytes automated count (number/volume) 0. 4 10*3 0.0-1.0 Automated eosinophil count 0.1 10*3/uL 0 .0-0.3 Automated blood basophil count (count/volume) 0.0 10*3/uL 0.0-0.1 Methicillin resistant Staphylococcus aur eus (MRSA) screening culture - 11/11/19 09:30 Methicillin resistant Staphylococcus aureus (MRSA) scr eening culture NEG NRG Whole blood basic metabolic panel - 10/31 03/18 10:51 Serum or plasma sodium measurement (moles/volume) 140 mmol/L 135-145 Serum or plasma potassium measurement (moles/volume) 4.7 mmol/L 3.6-5.0 Serum or plasma chloride measurement (moles/volume) 99 mmol/L 98-107 Carbon dioxide 30 mmol/L 21-32 Serum or plasma anion gap determination (moles/volume) 11 mmol/L 5-14 Serum or plasma urea nitrogen measurement (mass/volume ) 15 mg/dL 7-18 Serum or plasma creatinine measurement (mass/volume) 0.62 mg/dL 0.60-1.30 Serum or plasma urea nitrogen/creatinine mass ratio 24 NRG Serum or plasma creatinine measurement w ith calculation of estimated glomerular filtration rate > NRG Serum or plasma glucose measurement (mass/volume) 109 mg/dL 70-105 Serum or plasma calcium measurement (mass/volume) 9.3 mg/dL 8.5-10.1 Complete blood count (CBC) with automate d white blood cell (WBC) differential - 11/24/19 10:51 Blood leukocytes automated count (number/volume) 5.8 10*3/uL 4.3-11.0 Blood erythrocytes automated count (number/volume) 3.72 10*6/uL 4.35-5.85 Venous blood hemoglobin measurement (mass/volume) 11.6 g/dL 11.5-16.0 Blood hematocrit (volume fraction) 36 % 35-52 Automated erythrocyte mean corpuscular volume 98 [ foz_us] 80-99 Automated erythrocyte mean corpuscular h emoglobin (mass per erythrocyte) 31 pg 25-34 Automated erythrocyte mean corpuscular h emoglobin concentration measurement (mass/volume) 32 g/dL 32-36 Automated erythrocyte distribution width ratio 14. 7 % 10.0- 14.5 Automated blood platelet count (count/volume) 210 10*3/uL 130-400 Automated blood platelet mean volume measurement 9.1 [foz_us] 7.4-10.4 Automated blood neutrophils/100 leukocytes 69 % 42-75 Automated blood lymphocytes/100 leukocytes 26 % 12-44 Blood monocytes/100 leukocytes 2 % 0-12 Automated blood eosinophils/100 leukocytes 3 % 0-10 Automated blood basophils/100 leukocytes 1 % 0-10 Blood neutrophils automated count (number/volume) 4.0 10*3 1.8-7.8 Blood lymphocytes automated count (number/volume) 1.5 10*3 1.0-4.0 Blood monocytes automated count (number/volume) 0. 1 10*3 0.0-1.0 Automated eosinophil count 0.2 10*3/uL 0 .0-0.3 Automated blood basophil count (count/volume) 0.0 10*3/uL 0.0-0.1 Complete blood count (CBC) with automate d white blood cell (WBC) differential - 12/01/19 10:53 Blood leukocytes automated count (number/volume) 2.0 10*3/uL 4.3-11.0 Blood erythrocytes automated count (number/volume) 3.39 10*6/uL 4.35-5.85 Venous blood hemoglobin measurement (mass/volume) 10.5 g/dL 11.5-16.0 Blood hematocrit (volume fraction) 34 % 35-52 Automated erythrocyte mean corpuscular volume 99 [ foz_us] 80-99 Automated erythrocyte mean corpuscular h emoglobin (mass per erythrocyte) 31 pg 25-34 Automated erythrocyte mean corpuscular h emoglobin concentration measurement (mass/volume) 31 g/dL 32-36 Automated erythrocyte distribution width ratio 15. 4 % 10.0- 14.5 Automated blood platelet count (count/volume) 198 10*3/uL 130-400 Automated blood platelet mean volume measurement 8.6 [foz_us] 7.4-10.4 Automated blood neutrophils/100 leukocytes 13 % 42-75 Automated blood lymphocytes/100 leukocytes 55 % 12-44 Blood monocytes/100 leukocytes 28 % 0-12 Automated blood eosinophils/100 leukocytes 4 % 0-10 Automated blood basophils/100 leukocytes 1 % 0-10 Blood neutrophils automated count (number/volume) 0.3 10*3 1.8-7.8 Blood lymphocytes automated count (number/volume) 1.1 10*3 1.0-4.0 Blood monocytes automated count (number/volume) 0. 6 10*3 0.0-1.0 Automated eosinophil count 0.1 10*3/uL 0 .0-0.3 Automated blood basophil count (count/volume) 0.0 10*3/uL 0.0-0.1 Comprehensive metabolic panel - 12/01/19 10:53 Serum or plasma sodium measurement (moles/volume) 139 mmol/L 135-145 Serum or plasma potassium measurement (moles/volume) 4.5 mmol/L 3.6-5.0 Serum or plasma chloride measurement (moles/volume) 102 mmol/L 98-107 Carbon dioxide 27 mmol/L 21-32 Serum or plasma anion gap determination (moles/volume) 10 mmol/L 5-14 Serum or plasma urea nitrogen measurement (mass/volume ) 16 mg/dL 7-18 Serum or plasma creatinine measurement (mass/volume) 0.59 mg/dL 0.60-1.30 Serum or plasma urea nitrogen/creatinine mass ratio 27 NRG Serum or plasma creatinine measurement w ith calculation of estimated glomerular filtration rate > NRG Serum or plasma glucose measurement (mass/volume) 102 mg/dL 70-105 Serum or plasma calcium measurement (mass/volume) 8.9 mg/dL 8.5-10.1 Serum or plasma total bilirubin measurement (mass/volu me) 0.6 mg/dL 0.1-1.0 Serum or plasma alkaline phosphatase doris surement (enzymatic activity/volume) 94 U/L 40-136 Serum or plasma aspartate aminotransfera se measurement (enzymatic activity/volume) 19 U/L 5-34 Serum or plasma alanine aminotransferase measurement (enzymatic activity/volume) 25 U/L 0-55 Serum or plasma protein measurement (mass/volume) 6.6 g/dL 6.4-8.2 Serum or plasma albumin measurement (mass/volume) 3.9 g/dL 3.2-4.5 CALCIUM CORRECTED 9.0 mg/dL 8.5-10.1 Lipid 1996 panel - 12/01/19 10:53 Serum or plasma triglyceride measurement (mass/volume) 57 mg/dL <150 Serum or plasma cholesterol measurement (mass/volume) 120 mg/dL < 200 Serum or plasma cholesterol in HDL measurement (mass/v olume) 53 mg/dL 40-60 Cholesterol in LDL [mass/volume] in serum or plasma by direct assay 60 mg/dL 1-129 Serum or plasma cholesterol in VLDL measurement (mass/ volume) 11 mg/dL 5-40 Whole blood basic metabolic panel - 11/27 05/18 10:37 Serum or plasma sodium measurement (moles/volume) 142 mmol/L 135-145 Serum or plasma potassium measurement (moles/volume) 4.5 mmol/L 3.6-5.0 Serum or plasma chloride measurement (moles/volume) 103 mmol/L 98-107 Carbon dioxide 28 mmol/L 21-32 Serum or plasma anion gap determination (moles/volume) 11 mmol/L 5-14 Serum or plasma urea nitrogen measurement (mass/volume ) 19 mg/dL 7-18 Serum or plasma creatinine measurement (mass/volume) 0.60 mg/dL 0.60-1.30 Serum or plasma urea nitrogen/creatinine mass ratio 32 NRG Serum or plasma creatinine measurement w ith calculation of estimated glomerular filtration rate > NRG Serum or plasma glucose measurement (mass/volume) 101 mg/dL 70-105 Serum or plasma calcium measurement (mass/volume) 8.9 mg/dL 8.5-10.1 Complete blood count (CBC) with automate d white blood cell (WBC) differential - 12/15/19 10:37 Blood leukocytes automated count (number/volume) 4.4 10*3/uL 4.3-11.0 Blood erythrocytes automated count (number/volume) 3.50 10*6/uL 4.35-5.85 Venous blood hemoglobin measurement (mass/volume) 10.7 g/dL 11.5-16.0 Blood hematocrit (volume fraction) 34 % 35-52 Automated erythrocyte mean corpuscular volume 97 [ foz_us] 80-99 Automated erythrocyte mean corpuscular h emoglobin (mass per erythrocyte) 31 pg 25-34 Automated erythrocyte mean corpuscular h emoglobin concentration measurement (mass/volume) 32 g/dL 32-36 Automated erythrocyte distribution width ratio 15. 1 % 10.0- 14.5 Automated blood platelet count (count/volume) 188 10*3/uL 130-400 Automated blood platelet mean volume measurement 9.1 [foz_us] 7.4-10.4 Automated blood neutrophils/100 leukocytes 64 % 42-75 Automated blood lymphocytes/100 leukocytes 28 % 12-44 Blood monocytes/100 leukocytes 4 % 0-12 Automated blood eosinophils/100 leukocytes 3 % 0-10 Automated blood basophils/100 leukocytes 1 % 0-10 Blood neutrophils automated count (number/volume) 2.8 10*3 1.8-7.8 Blood lymphocytes automated count (number/volume) 1.2 10*3 1.0-4.0 Blood monocytes automated count (number/volume) 0. 2 10*3 0.0-1.0 Automated eosinophil count 0.1 10*3/uL 0 .0-0.3 Automated blood basophil count (count/volume) 0.0 10*3/uL 0.0-0.1 Complete blood count (CBC) with automate d white blood cell (WBC) differential - 12/22/19 10:25 Blood leukocytes automated count (number/volume) 2.1 10*3/uL 4.3-11.0 Blood erythrocytes automated count (number/volume) 3.50 10*6/uL 4.35-5.85 Venous blood hemoglobin measurement (mass/volume) 10.7 g/dL 11.5-16.0 Blood hematocrit (volume fraction) 34 % 35-52 Automated erythrocyte mean corpuscular volume 98 [ foz_us] 80-99 Automated erythrocyte mean corpuscular h emoglobin (mass per erythrocyte) 31 pg 25-34 Automated erythrocyte mean corpuscular h emoglobin concentration measurement (mass/volume) 31 g/dL 32-36 Automated erythrocyte distribution width ratio 15. 8 % 10.0- 14.5 Automated blood platelet count (count/volume) 207 10*3/uL 130-400 Automated blood platelet mean volume measurement 8.8 [foz_us] 7.4-10.4 Automated blood neutrophils/100 leukocytes 28 % 42-75 Automated blood lymphocytes/100 leukocytes 45 % 12-44 Blood monocytes/100 leukocytes 22 % 0-12 Automated blood eosinophils/100 leukocytes 3 % 0-10 Automated blood basophils/100 leukocytes 1 % 0-10 Blood neutrophils automated count (number/volume) 0.6 10*3 1.8-7.8 Blood lymphocytes automated count (number/volume) 0.9 10*3 1.0-4.0 Blood monocytes automated count (number/volume) 0. 5 10*3 0.0-1.0 Automated eosinophil count 0.1 10*3/uL 0 .0-0.3 Automated blood basophil count (count/volume) 0.0 10*3/uL 0.0-0.1 Whole blood basic metabolic panel - 11/28 02/15 10:25 Serum or plasma sodium measurement (moles/volume) 138 mmol/L 135-145 Serum or plasma potassium measurement (moles/volume) 4.5 mmol/L 3.6-5.0 Serum or plasma chloride measurement (moles/volume) 101 mmol/L 98-107 Carbon dioxide 24 mmol/L 21-32 Serum or plasma anion gap determination (moles/volume) 13 mmol/L 5-14 Serum or plasma urea nitrogen measurement (mass/volume ) 21 mg/dL 7-18 Serum or plasma creatinine measurement (mass/volume) 0.61 mg/dL 0.60-1.30 Serum or plasma urea nitrogen/creatinine mass ratio 34 NRG Serum or plasma creatinine measurement w ith calculation of estimated glomerular filtration rate > NRG Serum or plasma glucose measurement (mass/volume) 107 mg/dL 70-105 Serum or plasma calcium measurement (mass/volume) 8.9 mg/dL 8.5-10.1 Complete blood count (CBC) with automate d white blood cell (WBC) differential - 01/05/20 09:45 Blood leukocytes automated count (number/volume) 3.3 10*3/uL 4.3-11.0 Blood erythrocytes automated count (number/volume) 3.26 10*6/uL 4.35-5.85 Venous blood hemoglobin measurement (mass/volume) 9.9 g/dL 11.5-16.0 Blood hematocrit (volume fraction) 32 % 35-52 Automated erythrocyte mean corpuscular volume 97 [ foz_us] 80-99 Automated erythrocyte mean corpuscular h emoglobin (mass per erythrocyte) 30 pg 25-34 Automated erythrocyte mean corpuscular h emoglobin concentration measurement (mass/volume) 31 g/dL 32-36 Automated erythrocyte distribution width ratio 15. 5 % 10.0- 14.5 Automated blood platelet count (count/volume) 172 10*3/uL 130-400 Automated blood platelet mean volume measurement 9.1 [foz_us] 7.4-10.4 Automated blood neutrophils/100 leukocytes 65 % 42-75 Automated blood lymphocytes/100 leukocytes 28 % 12-44 Blood monocytes/100 leukocytes 3 % 0-12 Automated blood eosinophils/100 leukocytes 3 % 0-10 Automated blood basophils/100 leukocytes 1 % 0-10 Blood neutrophils automated count (number/volume) 2.1 10*3 1.8-7.8 Blood lymphocytes automated count (number/volume) 0.9 10*3 1.0-4.0 Blood monocytes automated count (number/volume) 0. 1 10*3 0.0-1.0 Automated eosinophil count 0.1 10*3/uL 0 .0-0.3 Automated blood basophil count (count/volume) 0.0 10*3/uL 0.0-0.1 Whole blood basic metabolic panel - 05/18 09:45 Serum or plasma sodium measurement (moles/volume) 141 mmol/L 135-145 Serum or plasma potassium measurement (moles/volume) 4.6 mmol/L 3.6-5.0 Serum or plasma chloride measurement (moles/volume) 104 mmol/L 98-107 Carbon dioxide 28 mmol/L 21-32 Serum or plasma anion gap determination (moles/volume) 9 mmol/L 5-14 Serum or plasma urea nitrogen measurement (mass/volume ) 19 mg/dL 7-18 Serum or plasma creatinine measurement (mass/volume) 0.54 mg/dL 0.60-1.30 Serum or plasma urea nitrogen/creatinine mass ratio 35 NRG Serum or plasma creatinine measurement w ith calculation of estimated glomerular filtration rate > NRG Serum or plasma glucose measurement (mass/volume) 99 mg/dL 70-105 Serum or plasma calcium measurement (mass/volume) 8.7 mg/dL 8.5-10.1 Complete blood count (CBC) with automate d white blood cell (WBC) differential - 01/12/20 10:15 Blood leukocytes automated count (number/volume) 1.7 10*3/uL 4.3-11.0 Blood erythrocytes automated count (number/volume) 3.29 10*6/uL 4.35-5.85 Venous blood hemoglobin measurement (mass/volume) 9.9 g/dL 11.5-16.0 Blood hematocrit (volume fraction) 32 % 35-52 Automated erythrocyte mean corpuscular volume 97 [ foz_us] 80-99 Automated erythrocyte mean corpuscular h emoglobin (mass per erythrocyte) 30 pg 25-34 Automated erythrocyte mean corpuscular h emoglobin concentration measurement (mass/volume) 31 g/dL 32-36 Automated erythrocyte distribution width ratio 16. 6 % 10.0- 14.5 Automated blood platelet count (count/volume) 189 10*3/uL 130-400 Automated blood platelet mean volume measurement 9.0 [foz_us] 7.4-10.4 Automated blood neutrophils/100 leukocytes 19 % 42-75 Automated blood lymphocytes/100 leukocytes 52 % 12-44 Blood monocytes/100 leukocytes 24 % 0-12 Automated blood eosinophils/100 leukocytes 3 % 0-10 Automated blood basophils/100 leukocytes 1 % 0-10 Blood neutrophils automated count (number/volume) 0.3 10*3 1.8-7.8 Blood lymphocytes automated count (number/volume) 0.9 10*3 1.0-4.0 Blood monocytes automated count (number/volume) 0. 4 10*3 0.0-1.0 Automated eosinophil count 0.1 10*3/uL 0 .0-0.3 Automated blood basophil count (count/volume) 0.0 10*3/uL 0.0-0.1 Whole blood basic metabolic panel - 12/28 02/15 10:15 Serum or plasma sodium measurement (moles/volume) 139 mmol/L 135-145 Serum or plasma potassium measurement (moles/volume) 4.2 mmol/L 3.6-5.0 Serum or plasma chloride measurement (moles/volume) 102 mmol/L 98-107 Carbon dioxide 28 mmol/L 21-32 Serum or plasma anion gap determination (moles/volume) 9 mmol/L 5-14 Serum or plasma urea nitrogen measurement (mass/volume ) 13 mg/dL 7-18 Serum or plasma creatinine measurement (mass/volume) 0.57 mg/dL 0.60-1.30 Serum or plasma urea nitrogen/creatinine mass ratio 23 NRG Serum or plasma creatinine measurement w ith calculation of estimated glomerular filtration rate > NRG Serum or plasma glucose measurement (mass/volume) 100 mg/dL 70-105 Serum or plasma calcium measurement (mass/volume) 8.9 mg/dL 8.5-10.1 CULTURE, URINE - 02/22/20 11:36 CULTURE, URINE, ROUTINE SEE NOTE NR LIPID PANEL - 03/01/20 10:50 CHOLESTEROL, TOTAL 147 mg/dL <200 HDL CHOLESTEROL 60 mg/dL > OR = 50 TRIGLYCERIDES 108 mg/dL <150 LDL-CHOLESTEROL 68 mg/dL (calc) NRG CHOL/HDLC RATIO 2.5 (calc) <5.0 NON HDL CHOLESTEROL 87 mg/dL (calc) <130 Complete blood count (CBC) with automate d white blood cell (WBC) differential - 04/12/20 10:20 Blood leukocytes automated count (number/volume) 7.2 10*3/uL 4.3-11.0 Blood erythrocytes automated count (number/volume) 3.51 10*6/uL 4.35-5.85 Venous blood hemoglobin measurement (mass/volume) 10.5 g/dL 11.5-16.0 Blood hematocrit (volume fraction) 34 % 35-52 Automated erythrocyte mean corpuscular volume 96 [ foz_us] 80-99 Automated erythrocyte mean corpuscular h emoglobin (mass per erythrocyte) 30 pg 25-34 Automated erythrocyte mean corpuscular h emoglobin concentration measurement (mass/volume) 31 g/dL 32-36 Automated erythrocyte distribution width ratio 18. 1 % 10.0- 14.5 Automated blood platelet count (count/volume) 298 10*3/uL 130-400 Automated blood platelet mean volume measurement 8.3 [foz_us] 7.4-10.4 Automated blood neutrophils/100 leukocytes 78 % 42-75 Automated blood lymphocytes/100 leukocytes 13 % 12-44 Blood monocytes/100 leukocytes 7 % 0-12 Automated blood eosinophils/100 leukocytes 1 % 0-10 Automated blood basophils/100 leukocytes 0 % 0-10 Blood neutrophils automated count (number/volume) 5.6 10*3 1.8-7.8 Blood lymphocytes automated count (number/volume) 0.9 10*3 1.0-4.0 Blood monocytes automated count (number/volume) 0. 5 10*3 0.0-1.0 Automated eosinophil count 0.1 10*3/uL 0 .0-0.3 Automated blood basophil count (count/volume) 0.0 10*3/uL 0.0-0.1 Whole blood basic metabolic panel - 03/29 02/15 10:20 Serum or plasma sodium measurement (moles/volume) 142 mmol/L 135-145 Serum or plasma potassium measurement (moles/volume) 3.9 mmol/L 3.6-5.0 Serum or plasma chloride measurement (moles/volume) 104 mmol/L 98-107 Carbon dioxide 27 mmol/L 21-32 Serum or plasma anion gap determination (moles/volume) 11 mmol/L 5-14 Serum or plasma urea nitrogen measurement (mass/volume ) 12 mg/dL 7-18 Serum or plasma creatinine measurement (mass/volume) 0.55 mg/dL 0.60-1.30 Serum or plasma urea nitrogen/creatinine mass ratio 22 NRG Serum or plasma creatinine measurement w ith calculation of estimated glomerular filtration rate > NRG Serum or plasma glucose measurement (mass/volume) 113 mg/dL 70-105 Serum or plasma calcium measurement (mass/volume) 9.2 mg/dL 8.5-10.1 Encounters ACCT No. Visit Date/Time Discharge Status Pt. Type Provider Facility Loc./Unit Complaint [id number] 04/12/2020 10:00:00 04/12/2020 23:59: 59 CLS Outpatient STEPHEN JENSEN Charlene [facility] [id number] 03/01/2020 10:45:00 Document Registration [id number] 02/22/2020 11:20:00 Document Registration [id number] 07/28/2019 11:00:00 Document Registration [id number] 03/23/2019 10:20:00 Document Registration [id number] 02/15/2019 09:00:00 Document Registration [id number] 12/09/2018 10:40:00 Document Registration [id number] 04/20/2020 12:13:00 23:59:59 CLS Outpatient CORINNE RODAS MD [facility] PREOP COLONOSCOPY [id number] 04/13/2020 09:59:00 23:59:59 CLS Outpatient YENIFER JOSEPH MD [facility] ONC [id number] 04/12/2020 10:11:00 23:59:59 CLS Outpatient STEPHEN JENSEN KATIE [facility] LAB FS CBC AUTOMATED W/ AUTO DIFF,BMP [id number] 02/10/2020 09:49:00 16:15:00 DIS Outpatient MARIA D PADILLA MD [facility] ONC [id number] 02/23/2020 09:58:00 23:59:59 CLS Outpatient MARIA D PADILLA MD [facility] LAB FS CBC BMP [id number] 02/22/2020 11:54:00 23:59:59 CLS Outpatient NAVEED LOZANO 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 [facility] RAD FS FLANK PAIN,SHORTNESS OF BREATH [id number] 01/26/2020 09:50:00 00:01:00 DIS Outpatient VALERIE MD, KILLIAN [facility] LAB FS CBC BMP [id number] 02/14/2020 12:39:00 23:59:59 CLS Outpatient MARIA D PADILLA MD, V [facility] RAD PERITONEAL CARCINOMA [id number] 12/08/2019 08:49:00 09:23:00 DIS Outpatient MARIA D PADILLA MD, V [facility] ONC [id number] 12/01/2019 09:59:00 23:59:59 CLS Outpatient STEPHEN JENSEN 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 [facility] LAB FS C56.9 I10 E78.2 [id number] 11/11/2019 08:42:00 14:35:00 DIS Outpatient CORINNE RODAS MD [facility] SDC RECURRENT OVARIAN CANCE R [id number] 11/08/2019 08:50:00 14:04:00 DIS Outpatient CORINNE RODAS MD [facility] PREOP RECURRENT OVARIAN CANCE R [id number] 10/06/2019 14:39:00 23:59:59 CLS Outpatient HUY BALLESTEROS [facility] LAB FS C56.9 [id number] 02/15/2019 09:28:00 019 23:59:59 CLS Outpatient STEPHEN JENSEN S 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 [facility] RAD FS R10.32 [id number] 05/18/2020 10:15:00 P EN Preadmit YENIFER JOSEPH MD [facility] RAD PERITONEAL CARCINOMATOSIS [id number] 04/26/2020 11:00:00 P EN Preadmit CORINNE RODAS MD [facility] ENDO ABD PAIN/CHANGE IN BOWEL HAB ITS
[2020-04-24] MEDS ORDERED: fentaNYL INJECTION 100 MCG/2 ML AMP IVP ONE (09:30)
[2020-04-24 09:34] LABS: HEMOGLOBIN 9.6 G/DL (11.5-16.0); MEAN PLATELET VOLUME 8.4 FL (7.4-10.4); RED CELL DISTRIBUTION WIDTH 18.1 % (10.0-14.5); WHITE BLOOD COUNT 5.7 10^3/uL (4.3-11.0)
[2020-04-24 09:39] LABS: ALBUMIN 3.6 GM/DL (3.2-4.5); CHLORIDE 105 MMOL/L (98-107); POTASSIUM 3.7 MMOL/L (3.6-5.0); SODIUM 139 MMOL/L (135-145)
[2020-04-24 09:40] LABS: CALCIUM 9.1 MG/DL (8.5-10.1)
[2020-04-24 09:41] LABS: GLUCOSE 95 MG/DL (70-105); TOTAL PROTEIN 6.4 GM/DL (6.4-8.2)
[2020-04-24 09:42] LABS: CARBON DIOXIDE 22 MMOL/L (21-32)
[2020-04-24 09:43] LABS: BILIRUBIN,TOTAL 0.6 MG/DL (0.1-1.0)
[2020-04-24 09:44] LABS: ALKALINE PHOSPHATASE 91 U/L (40-136)
[2020-04-24 09:45] LABS: CREATININE SERUM 0.84 MG/DL (0.60-1.30); GFR ESTIMATED > 60
[2020-04-24 09:46] LABS: BUN/CREATININE RATIO 14
[2020-04-24 09:48] LABS: ALANINE AMINOTRANSFERASE 16 U/L (0-55)
[2020-04-24] MEDS ORDERED: KETOROLAC 30 MG/ML VIAL IVP STA (09:56)
--- NOTE | 2020-04-24 10:26 | ED General ---
General Chief Complaint: Lower Extremity Stated Complaint: FEET SWELLING Nursing Triage Note: PT TO ROOM 6 PER W/C PT CO OF SWELLING IN LOWER EXT FOR APPROX 2 WEEKS, PT IS A CANCER PT, PT LOWER EXT HAVE 3+ PEDAL EDMA CO OF PAIN /10. PT SL SOA AND HAS WEAKNESS Nursing Sepsis Screen: No Definite Risk Source of Information: Patient Exam Limitations: No Limitations History of Present Illness Date Seen by Provider: Apr 24, 2020 Time Seen by Provider: 09:53 Initial Comments Here with report of severe low back pain bilaterally area patient has history of ovarian cancer with metastasis and is currently under treatment. Sent here from the cancer center for evaluation for the pain. States that she also has significant bilateral but right greater than left leg swelling going on for a while. Patient does report she is weak and a little short of air. She has not really been taking her pain medicines because she has a colonoscopy set for Friday and did not want to be constipated. She has not been unable to sleep due to the pain. Timing/Duration: 1-2 Days Severity: Moderate, Severe Modifying Factors: improves with Movement Associated Systoms: No Chest Pain, No Cough, No Diaphoresis, No Fever/Chills; Nausea/Vomiting, Shortness of Air, Weakness Allergies and Home Medications Allergies Coded Allergies: adhesive tape (Verified Allergy, Mild, BLISTERS, 04/20/20) No Known Allergies (Unverified Allergy, Unknown, 04/20/20) Home Medications Albuterol Sulfate 1 Puff Puff, 2 PUFF IH Q4H PRN for WHEEZING, (Reported) 1 PUFF = 90 MCG Allopurinol 300 Mg Tablet, 300 MG PO DAILY, (Reported) Apixaban 5 Mg Tablet, 5 MG PO BID, (Reported) Aspirin 81 Mg Tablet.dr, 81 MG PO DAILY, (Reported) Cholestyramine/Aspartame 239.4 Gm Powder, 4 GM PO DAILY, (Reported) Cyclobenzaprine HCl 10 Mg Tablet, 10 MG PO DAILY, (Reported) Diltiazem HCl 120 Mg Cap.er.24h, 120 MG PO DAILY, (Reported) Docusate Sodium 100 Mg Capsule, 100 MG PO DAILY, (Reported) Famotidine 20 Mg Tablet, 20 MG PO DAILY, (Reported) Fish Oil/Dha/Epa 1 Each Capsule, 1 EACH PO BID, (Reported) Irbesartan 150 Mg Tablet, 150 MG PO DAILY, (Reported) Irbesartan 150 Mg Tablet, 150 MG PO DAILY, (Reported) Multivitamin 1 Each Tablet, 1 EACH PO DAILY, (Reported) Paroxetine HCl 20 Mg Tablet, 20 MG PO DAILY, (Reported) Polyethylene Glycol 3350 119 Gm Powder, 17 GM PO DAILY PRN for CONSTIPATION-1ST LINE, (Reported) Ropinirole HCl 1 Mg Tablet, 1 MG PO TID, (Reported) Simvastatin 40 Mg Tablet, 40 MG PO HS, (Reported) Patient Home Medication List Home Medication List Reviewed: Yes Review of Systems Review of Systems Constitutional: see HPI; No chills, No fever EENTM: no symptoms reported Respiratory: see HPI Cardiovascular: No chest pain; edema Gastrointestinal: No abdominal pain, No nausea, No vomiting Genitourinary: no symptoms reported Musculoskeletal: back pain, muscle pain Skin: no symptoms reported Psychiatric/Neurological: No Symptoms Reported Hematologic/Lymphatic: No Symptoms Reported All Other Systems Reviewed Negative Unless Noted: Yes Past Lxtqibv-[id number]-Wuaayq Hx Past Med/Social Hx: Reviewed Nursing Past Med/Soc Hx Patient Social History Alcohol Use: Denies Use Recreational Drug Use: No Smoking Status: Never a Smoker 2nd Hand Smoke Exposure: No Recent Foreign Travel: No Contact w/Someone Who Travel: No Recent Infectious Disease Expo: No Recent Hopitalizations: No Physical Abuse: No Sexual Abuse: No Immunizations Up To Date Date of Pneumonia Vaccine: Nov 03, 2009 Date of Influenza Vaccine: Jul 03, 2019 Seasonal Allergies Seasonal Allergies: Yes Past Medical History Surgeries: Yes (HEMORRHOIDECTOMY/FISTULECTOMY, d&c, bilat TKR, breast bx, hernia) Ear Surgery, Gallbladder, Hysterectomy, Joint Replacement, Oophorectomy, Tonsillectomy Respiratory: Yes Sleep Apnea Currently Using CPAP: Yes Cardiac: Yes Atrial Fibrillation, High Cholesterol, Hypertension Neurological: No Reproductive Disorders: 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 Sexually Transmitted Disease: No Genitourinary: Yes Kidney Stones Gastrointestinal: Yes Gastroesophageal Reflux, Chronic Constipation Musculoskeletal: Yes Degenerate Disk Disease, Arthritis, Gout Endocrine: No HEENT: Yes (GLASSES) Cataract Loss of Vision: Denies Hearing Impairment: Deaf Cancer: Yes Ovarian Did You Recieve Any Treatments: Yes What Type of Treatment Did You: Chemotherapy, Surgical Intervention Psychosocial: No Integumentary: No Blood Disorders: No Adverse Reaction/Blood Tranf: No (N/A) Family Medical History Reviewed Nursing Family Hx No Pertinent Family Hx Physical Exam Vital Signs Vital Signs - First Documented 04/24/20 08:50 Temp 36.9 Pulse 84 Resp 30 B/P (MAP) 172/103 (126) Pulse Ox 95 O2 Delivery Room Air Capillary Refill : Less Than 3 Seconds Height, Weight, BMI Height: '" Weight: lbs. oz. kg; 44.00 BMI Method: General Appearance: No Apparent Distress, WD/WN (Which were normal saline) HEENT: PERRL/EOMI, Pharynx Normal Neck: Non Tender, Supple (region) Respiratory: Lungs Clear, Normal Breath Sounds Cardiovascular: Regular Rate, Rhythm, No Murmur Gastrointestinal: Non Tender, Soft Back: No Vertebral Tenderness, Other (TTP to the bilateral lower back) Extremity: Normal Range of Motion, Non Tender Neurologic/Psychiatric: Alert, Oriented x3 Skin: Warm/Dry, Other (redness noted to right lower extremity) Progress/Results/Core Measures Suspected Sepsis Recent Fever Within 48 Hours: No Infection Criteria Present: None New/Unexplained Altered Menta: No Sepsis Screen: No Definite Risk SIRS Temperature: Pulse: 84 Respiratory Rate: 30 Laboratory Tests 04/24/20 09:10: White Blood Count 5.7 Blood Pressure 172 /103 Mean: 126 Laboratory Tests 04/24/20 09:10: Creatinine 0.84, Platelet Count 258, Total Bilirubin 0.6 Results/Orders Lab Results Laboratory Tests Test 04/24/20 09:10 Range/Units White Blood Count 5.7 4.3-11.0 10^3/uL Red Blood Count 3.22 L 4.35-5.85 10^6/uL Hemoglobin 9.6 L 11.5-16.0 G/DL Hematocrit 31 L 35-52 % Mean Corpuscular Volume 95 80-99 FL Mean Corpuscular Hemoglobin 30 25-34 PG Mean Corpuscular Hemoglobin Concent 31 L 32-36 G/DL Red Cell Distribution Width 18.1 H 10.0-14.5 % Platelet Count 258 130-400 10^3/uL Mean Platelet Volume 8.4 7.4-10.4 FL Sodium Level 139 135-145 MMOL/L Potassium Level 3.7 3.6-5.0 MMOL/L Chloride Level 105 98-107 MMOL/L Carbon Dioxide Level 22 21-32 MMOL/L Anion Gap 12 5-14 MMOL/L Blood Urea Nitrogen 12 7-18 MG/DL Creatinine 0.84 0.60-1.30 MG/DL Estimat Glomerular Filtration Rate > 60 BUN/Creatinine Ratio 14 Glucose Level 95 70-105 MG/DL Calcium Level 9.1 8.5-10.1 MG/DL Corrected Calcium 9.4 8.5-10.1 MG/DL Total Bilirubin 0.6 0.1-1.0 MG/DL Aspartate Amino Transf (AST/SGOT) 34 5-34 U/L Alanine Aminotransferase (ALT/SGPT) 16 0-55 U/L Alkaline Phosphatase 91 40-136 U/L Total Protein 6.4 6.4-8.2 GM/DL Albumin 3.6 3.2-4.5 GM/DL My Orders Orders - STEPHANIE NORRIS MD Cbc No Diff (04/24/20 09:24) Comprehensive Metabolic Panel (04/24/20 09:24) Fentanyl Injection (Sublimaze Injection (04/24/20 09:30) Ketorolac Injection (Toradol Injection) (04/24/20 09:56) Chest 1 View, Ap/Pa Only (04/24/20 11:07) Hydrocodone/Apap 10/325 Tablet (Lortab 1 (04/24/20 11:07) Furosemide Injection (Lasix Injection) (04/24/20 11:45) Medications Given in ED Current Medications Medications Dose Ordered Sig/Katheryn Route Start Time Stop Time Status Last Admin Dose Admin Fentanyl Citrate 50 mcg ONCE ONCE IVP 04/24/20 09:30 04/24/20 09:31 DC 04/24/20 09:35 50 MCG Vital Signs/I&O 04/24/20 04/24/20 08:50 11:16 Temp 36.9 36.9 Pulse 84 Resp 30 B/P (MAP) 172/103 (126) Pulse Ox 95 O2 Delivery Room Air Capillary Refill : Less Than 3 Seconds Blood Pressure Mean: 126 Progress Note : Progress Note Seen and evaluated. IV, labs, fentanyl and Toradol IV ordered. Monitor patient. 1211: Patient below better after pain medicine. Hydrocodone 10/325 one tab by mouth daily and this did help significantly. I did discuss with her regarding her edema. She is sleeping in a recliner currently with her feet down because of her back pain. I did discuss with her regarding dependent edema and she needs to get her feet up in the air to reduce the swelling. We will give Lasix 40 mg IV times one now. Discharged home with return precautions. Patient verbalize und erstanding instructions and agreement with plan. Departure Impression Primary Impression: Lower back pain Qualified Codes: M54.5 - Low back pain Additional Impression: Dependent edema Disposition: HOME, SELF-CARE Condition: Stable Departure-Patient Inst. Decision time for Depature: 12:13 Referrals: [facility] (PCP) Primary Care Physician STEPHEN JENSEN APRN (Family) Primary Care Physician Patient Instructions: Dependent Edema (DC), Low Back Pain (DC) Add. Discharge Instructions: All discharge instructions reviewed with patient and/or family. Voiced understanding. Follow-up with your Dr. in a few days for recheck and further evaluation. You may increase your hydrocodone's to 1-1/2 tablets every 6 hours as needed for pain. If you need to prevent constipation, you may increase her MiraLAX to 2 Falls daily. You may adjust the dose to keep her stools in normal range. Follow- up with the cancer center and discuss with them regarding her pain control. Return for worse pain, fever, vomiting, weakness, breathing problems or other concerns as needed. It is very important that you try to get your feet up above your heart couple times a day to reduce the swelling in your legs. If you're sleeping in the recliner, you need to make sure that your feet are elevated. Copy Copies To 1: GONZALO REECE TIMOTHY D MD Apr 24, 2020 10:25
[2020-04-24] MEDS ORDERED: HYDROcodone/APAP 10 MG/325 MG (LORTAB) TAB PO STA (11:07)
--- NOTE | 2020-04-24 11:33 | Diagnostic Imaging Report ---
INDICATION: Shortness of air and weakness. TIME OF EXAM: 11:30 AM Correlation is made prior chest from 02/22/2020. The heart size is stable. Right hemidiaphragm is chronically elevated. There is central congestion without overt without overt failure. Minimal infiltrate in the left base. The costophrenic angle cannot be entirely excluded. Otherwise lungs are clear. There is no effusion or pneumothorax. IMPRESSION: Central congestion. There is minimal infiltrate or atelectasis left base. Dictated by: Dictated on workstation # [id number]
[2020-04-24] MEDS ORDERED: FUROSEMIDE 40 MG/4 ML INJ (LASIX) IV STA (11:45)
[2020-04-24 12:40] VITALS: BP 149/103
== END 2020-04-24 12:40 | disposition home or self-care (01) ==
LOC: EDUNIT# 08:41 → ER 08:44
DX: M54.5 Low back pain (principal); R60.0 Localized edema; I10 Essential (primary) hypertension; E78.00 Pure hypercholesterolemia, unspecified; I48.91 Unspecified atrial fibrillation; K59.09 Other constipation; K21.9 Gastro-esophageal reflux disease without esophagitis; M10.9 Gout, unspecified; Z85.43 Personal history of malignant neoplasm of ovary; Z96.653 Presence of artificial knee joint, bilateral; Z88.8 Allergy status to other drugs, medicaments and biological substances; Z79.01 Long term (current) use of anticoagulants; Z79.82 Long term (current) use of aspirin
CPT/HCPCS: 36415; 71045; 80053; 85027

== ENCOUNTER 2020-04-26 10:10 | Observation (INO) | payer MEDICARE, OTHER ==
[2020-04-26] VITALS (16 sets, daily range): BP systolic 111–181; BP diastolic 57–110
[~2020-04-26] VITALS: Ht 170 cm; Wt 129.0 kg
[2020-04-26] MEDS ORDERED: LACTATED RINGERS 1,000 ML IV ONE (10:20)
--- NOTE | 2020-04-26 10:35 | Conscious Sedation/ASA ---
Conscious Sedation Pre-Proced Time 10:30 ASA Score 3 For ASA 3 and 4: Consider anesthesia and medical clearance. Also, for patients with a history of failed moderate sedation consider anesthesia. Airway Lungs Heart ASA score ASA 1: a normal healthy patient ASA 2: a patient with a mild systemic disease (mid diabetes, controlled hypertension, obesity ASA 3: a patient with a severe systemic disease that limits activity (angina, COPD, prior Myocardial infarction) ASA 4: a patient with an incapacitating disease that is a constant threat to life (CHF, renal failure) ASA 5: a moribund patient not expected to survive 24 hrs. (ruptured aneurysm) ASA 6: a declared brain- patient whose organs are being harvested. For emergent operations, add the letter E after the classification Mallampati Classification Grade 2 Sedation Plan Analgesia, Amnesia, Plan communicated to team members, Discussed options with patient/fam, Discussed risks with patient/fam The patient is an appropriate candidate to undergo the planned procedure, sedation, and anesthesia. The patient immediately re-assessed prior to indication. CORINNE RODAS MD Apr 26, 2020 10:35
--- NOTE | 2020-04-26 10:36 | Progress Note-Pre Operative ---
Pre-Operative Progress Note H&P Reviewed The H&P was reviewed, patient examined and no changes noted. Date Seen by Provider: Apr 26, 2020 Time Seen by Provider: : Date H&P Reviewed: Apr 26, 2020 Time H&P Reviewed: : Pre-Operative Diagnosis: change bowel habits with hx recurrent ovarian ca CORINNE RODAS MD Apr 26, 2020 10:36
--- NOTE | 2020-04-26 10:37 | Discharge Inst-Surgical ---
D/C Lap Instructions-CLARK Follow Up Activity as tolerated High Fiber Diet 25g or more per day Avoid Alcohol, Caffeine, Spicy Leaf and Acid foods. Drink 64 fluid oz or more of fluids per day. Symptoms to Report: Fever over 101 degree F, Nausea/Vomiting If any problems/questions: Contact your physician or go to Emergency Room CORINNE RODAS MD Apr 26, 2020 10:37
[2020-04-26] MEDS ORDERED: LACTATED RINGERS 1,000 ML IV STA (10:38)
[2020-04-26] MEDS ORDERED: PROPOFOL INJECTION 0 ML IV ONE (10:41)
[2020-04-26] MEDS ORDERED: LIDOCAINE JELLY 2% 6 ML SYRINGE MM PRN (10:45)
[2020-04-26] MEDS ORDERED: ACETAMINOPHEN 325 MG TABLET PO PRN (10:45)
[2020-04-26] MEDS ORDERED: morphine INJ 10 MG/ML 1ML (SYR OR VIAL) IVP PRN (10:45)
[2020-04-26] MEDS ORDERED: LIDOCAINE JELLY 2% 6 ML SYRINGE ONE (10:49)
[2020-04-26] MEDS ORDERED: MIDAZOLAM 2 MG/2 ML (VERSED) VIAL ONE (10:58)
[2020-04-26] MEDS ORDERED: PROPOFOL INJECTION 50 ML IV ONE ×2 (11:07→11:32)
--- OUTSIDE RECORDS SUMMARY | 2020-04-26 11:23 | XMS REPORT | Continuity of Care Document ---
Author Organization Unknown Address Unknown Phone Unavailable Allergies Active Description Code Type Severity Reaction Onset Reported/Identified Relationship to Patient Clinical Status Yes adhesive tape [id number] Rock g Allergy Mild BLISTERS 04/20/2020 Yes No Known Allergies [id number] Drug Allergy Unknown N/A 04/20/2020 Medications There [...] MALIGNANT NEOPLASM OF UNSPECIFIED OVARY 11/08/2019 CORINNE RODAS MD Ot Z01.81 8 ENCOUNTER FOR OTHER PREPROCEDURAL EXAMIN 11/10/2019 STEPHEN JENSEN SAS ANALYST Ot K59.00 CONSTIPATION, UNSPECIFIED 11/10/2019 HUY BALLESTEROS [...] MD, Ot E78.5 HYPERLIPIDEMIA, UNSPECIFIED 11/11/2019 CORINNE RDOAS MD Ot F32.9 MAJOR DEPRESSIVE DISORDER, SINGLE [...] BACTER 11/11/2019 CORINNE RODAS MD, Ot 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 11/11/2019 CORINNE RODAS MD, Ot Z79.89 9 OTHER [facility] (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 THERAPY 11/11/2019 CORINNE RODAS MD, [...] MD, Ot G25.81 RESTLESS LEGS SYNDROME 11/18/2019 COIRNNE RODAS MD, Ot G47.33 OBSTRUCTIVE SLEEP APNEA [...] BACTER 11/18/2019 CORINNE RODAS MD, Ot Z79.01 [facility] (CURRENT) USE OF ANTICOAGULANT 11/18/2019 CORINNE RODAS MD, Ot Z79.89 9 OTHER 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 SALES MANAGER (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 THERAPY 11/18/2019 CORINNE RODAS MD, Ot Z92.21 PERSONAL HISTORY [...] FAMILY HISTORY OF MALIGNANT NEOPLASM OF 11/23/2019 MRAIA D PADILLA MD Ot Z80.41 FAMILY HISTORY OF MALIGNANT NEOPLASM OF 11/23/2019 MARIA D PADILLA MD, Ot Z80.52 FAMILY HISTORY OF MALIGNANT NEOPLASM OF 11/23/2019 MARIA D PADILLA MD Ot Z87.01 PERSONAL HISTORY OF PNEUMONIA (RECURRENT 11/23/2019 MARIA D PADILLA MD Ot Z87.442 PERSONAL HISTORY OF URINARY CALCULI 11/24/2019 STEPHEN JENSEN S SAS ANALYST Ot K59.00 CONSTIPATION, UNSPECIFIED 11/24/2019 FAVIAN, HUY LABORER ORCHARD Ot C56.9 MALIGNANT NEOPLASM OF UNSPECIFIED OVARY [...] OF 11/24/2019 MARIA D PADILLA MD Ot Z87.01 PERSONAL HISTORY OF PNEUMONIA (RECURRENT 11/24/2019 MARIA D PADILLA MD Ot Z87.442 PERSONAL HISTORY OF URINARY CALCULI 11/26/2019 CAMILASTEPHEN Carcamo SAS ANALYST Ot K59.00 CONSTIPATION, UNSPECIFIED 11/26/2019 FAVIAN, HUY LABORER ORCHARD Ot C56.9 MALIGNANT NEOPLASM OF UNSPECIFIED OVARY [...] ESSENTIAL (PRIMARY) HYPERTENSION 12/01/2019 CAMILA, STEPHEN S SAS ANALYST Ot K59.00 CONSTIPATION, UNSPECIFIED 12/01/2019 HUY BALLESTEROS LABORER ORCHARD Ot C56.9 MALIGNANT NEOPLASM OF UNSPECIFIED OVARY [...] ESSENTIAL (PRIMARY) HYPERTENSION 12/03/2019 CAMILA, STEPHEN S SAS ANALYST Ot C56.9 MALIGNANT NEOPLASM OF UNSPECIFIED OVARY 12/03/2019 CAMILA STEPHEN S SAS ANALYST Ot E78.2 MIXED HYPERLIPIDEMIA 12/03/2019 CAMILA, STEPHEN S SAS ANALYST Ot I1 0 ESSENTIAL (PRIMARY) HYPERTENSION 12/17/2019 MARIA D PADILLA MD Ot C56.9 MALIGNANT NEOPLASM OF UNSPECIFIED OVARY 12/17/2019 MARIA D PADILLA MD Ot I10 ESSENTIAL (PRIMARY) HYPERTENSION 12/17/2019 CAMILA, STEPHEN S SAS ANALYST Ot K59.00 CONSTIPATION, UNSPECIFIED 12/17/2019 FAVIAN, HUY LABORER ORCHARD Ot C56.9 MALIGNANT NEOPLASM OF UNSPECIFIED OVARY [...] Z87.01 PERSONAL HISTORY OF PNEUMONIA (RECURRENT 12/17/2019 MARIA D PADILLA MD Ot Z87.442 PERSONAL HISTORY OF URINARY CALCULI 12/17/2019 MARIA D PADILLA MD Ot C56.9 MALIGNANT NEOPLASM OF UNSPECIFIED OVARY 12/17/2019 MARIA D PADILLA MD Ot I10 ESSENTIAL (PRIMARY) HYPERTENSION 12/17/2019 CAMILA, STEPHEN S SAS ANALYST Ot C56.9 MALIGNANT NEOPLASM OF UNSPECIFIED OVARY 12/17/2019 CAMILA, STEPHEN S SAS ANALYST Ot E78.2 MIXED HYPERLIPIDEMIA 12/17/2019 CAMILA, STEPHEN S SAS ANALYST Ot I1 0 ESSENTIAL (PRIMARY) HYPERTENSION 12/23/2019 CAMILA, STEPHEN S SAS ANALYST Ot C56.9 MALIGNANT NEOPLASM OF UNSPECIFIED OVARY 12/23/2019 CAMILA, STEPHEN S SAS ANALYST Ot E78.2 MIXED HYPERLIPIDEMIA 12/23/2019 CAMILA, STEPHEN S SAS ANALYST Ot I1 0 ESSENTIAL (PRIMARY) HYPERTENSION 12/28/2019 MARIA D PADILLA MD Ot C56.9 MALIGNANT NEOPLASM OF UNSPECIFIED OVARY 12/28/2019 MARIA D PADILLA MD Ot I10 ESSENTIAL (PRIMARY) HYPERTENSION 12/28/2019 CAMILA, STEPHEN S SAS ANALYST Ot K59.00 CONSTIPATION, UNSPECIFIED 12/28/2019 HUY BALLESTEROS LABORER ORCHARD Ot C56.9 MALIGNANT NEOPLASM OF UNSPECIFIED OVARY [...] HISTORY OF URINARY CALCULI 12/28/2019 MARIA D PADILLA MD Ot C56.9 MALIGNANT NEOPLASM OF UNSPECIFIED OVARY 12/28/2019 MARIA D PADILLA MD Ot I10 ESSENTIAL (PRIMARY) HYPERTENSION 12/28/2019 CAMILA, STEPHEN S SAS ANALYST Ot C56.9 MALIGNANT NEOPLASM OF UNSPECIFIED OV[place] 12/28/2019 CAMILA, STEPHEN S SAS ANALYST Ot E78.2 MIXED HYPERLIPIDEMIA 12/28/2019 CAMILA, STEPHEN S SAS ANALYST Ot I1 0 ESSENTIAL (PRIMARY) HYPERTENSION 12/29/2019 [...] OF URINARY CALCULI 12/29/2019 CAMILA STEPHEN S SAS ANALYST Ot K59.00 CONSTIPATION, UNSPECIFIED 12/29/2019 HUY BALLESTEROS LABORER ORCHARD Ot C56.9 MALIGNANT NEOPLASM OF UNSPECIFIED OV[place] 12/29/2019 MARIA D PADILLA MD Ot C56.9 MALIGNANT NEOPLASM OF UNSPECIFIED OVARY 12/29/2019 MARIA D PADILLA MD Ot I10 ESSENTIAL (PRIMARY) HYPERTENSION 12/29/2019 CAMILA, STEPHEN S SAS ANALYST Ot C56.9 MALIGNANT NEOPLASM OF UNSPECIFIED OV[place] 12/29/2019 CAMILA STEPHEN S SAS ANALYST Ot E78.2 MIXED HYPERLIPIDEMIA 12/29/2019 CAMILA, STEPHEN S SAS ANALYST Ot I1 0 ESSENTIAL (PRIMARY) HYPERTENSION 12/29/2019 [...] OF URINARY CALCULI 12/29/2019 CAMILA, STEPHEN S SAS ANALYST Ot K59.00 CONSTIPATION, UNSPECIFIED 12/29/2019 HUY BALLESTEROS LABORER ORCHARD Ot C56.9 MALIGNANT NEOPLASM OF UNSPECIFIED OV[place] 12/29/2019 MARIA D PADILLA MD Ot C56.9 MALIGNANT NEOPLASM OF UNSPECIFIED OVARY 12/29/2019 MARIA D PADILLA MD Ot I10 ESSENTIAL (PRIMARY) HYPERTENSION 12/29/2019 CAMILA, STEPHEN S SAS ANALYST Ot C56.9 MALIGNANT NEOPLASM OF UNSPECIFIED OVARY 12/29/2019 CAMILA, STEPHEN S SAS ANALYST Ot E78.2 MIXED HYPERLIPIDEMIA 12/29/2019 CAMILA, STEPHEN S SAS ANALYST Ot I1 0 ESSENTIAL (PRIMARY) HYPERTENSION 12/29/2019 [...] OF URINARY CALCULI 12/29/2019 CAMILA, STEPHEN S SAS ANALYST Ot K59.00 CONSTIPATION, UNSPECIFIED 12/29/2019 FAVIANHUY RAMIREZ LABORER ORCHARD Ot C56.9 MALIGNANT NEOPLASM OF UNSPECIFIED OVARY 12/29/2019 MARIA D PADILLA MD Ot C56.9 MALIGNANT NEOPLASM OF UNSPECIFIED OVARY 12/29/2019 MARIA D PADILLA MD Ot I10 ESSENTIAL (PRIMARY) HYPERTENSION 12/29/2019 CAMILASTEPHEN Carcamo SAS ANALYST Ot C56.9 MALIGNANT NEOPLASM OF UNSPECIFIED OVARY 12/29/2019 CAMILASTEPHEN Carcamo S SAS ANALYST Ot E78.2 MIXED HYPERLIPIDEMIA 12/29/2019 CAMILASTEPHEN Carcamo S SAS ANALYST Ot I1 0 ESSENTIAL (PRIMARY) HYPERTENSION 12/29/2019 [...] OF URINARY CALCULI 01/19/2020 CAMILA, STEPHEN S SAS ANALYST Ot K59.00 CONSTIPATION, UNSPECIFIED 01/19/2020 FAVIAN, HUY LABORER ORCHARD Ot C56.9 MALIGNANT NEOPLASM OF UNSPECIFIED OVARY 01/19/2020 MARIA D PADILLA MD Ot C56.9 MALIGNANT NEOPLASM OF UNSPECIFIED OVARY 01/19/2020 MARIA D PADILLA MD Ot I10 ESSENTIAL (PRIMARY) HYPERTENSION 01/19/2020 CAMILA, STEPHEN S SAS ANALYST Ot C56.9 MALIGNANT NEOPLASM OF UNSPECIFIED OVARY 01/19/2020 CAMILA, STEPHEN S SAS ANALYST Ot E78.2 MIXED HYPERLIPIDEMIA 01/19/2020 CAMILA, STEPHEN S SAS ANALYST Ot I1 0 ESSENTIAL (PRIMARY) HYPERTENSION 01/19/2020 [...] ESSENTIAL (PRIMARY) HYPERTENSION 01/26/2020 CAMILA, STEPHEN S SAS ANALYST Ot K59.00 CONSTIPATION, UNSPECIFIED 01/26/2020 HUY BALLESTEROS Ot C56.9 MALIGNANT NEOPLASM OF UNSPECIFIED OVARY 01/26/2020 MARIA D PADILLA MD Ot C56.9 MALIGNANT NEOPLASM OF UNSPECIFIED OVARY 01/26/2020 MARIA D PADILLA MD Ot I10 ESSENTIAL (PRIMARY) HYPERTENSION 01/26/2020 CAMILA, STEPHEN S SAS ANALYST Ot C56.9 MALIGNANT NEOPLASM OF UNSPECIFIED OVARY 01/26/2020 CAMILA, STEPHEN S SAS ANALYST Ot E78.2 MIXED HYPERLIPIDEMIA 01/26/2020 CAMILA, STEPHEN S SAS ANALYST Ot I1 0 ESSENTIAL (PRIMARY) HYPERTENSION 01/26/2020 [...] OF URINARY CALCULI 01/26/2020 CAMILA STEPHEN S SAS ANALYST Ot K59.00 CONSTIPATION, UNSPECIFIED 01/26/2020 HUY BALLESTEROS LABORER ORCHARD Ot C56.9 MALIGNANT NEOPLASM OF UNSPECIFIED OVARY 01/26/2020 MARIA D PADILLA MD Ot C56.9 MALIGNANT NEOPLASM OF UNSPECIFIED OVARY 01/26/2020 MARIA D PADILLA MD Ot I10 ESSENTIAL (PRIMARY) HYPERTENSION 01/26/2020 CAMILA STEPHEN S SAS ANALYST Ot C56.9 MALIGNANT NEOPLASM OF UNSPECIFIED OVARY 01/26/2020 CAMILA STEPHEN S SAS ANALYST Ot E78.2 MIXED HYPERLIPIDEMIA 01/26/2020 CAMILA, STEPHEN S SAS ANALYST Ot I1 0 ESSENTIAL (PRIMARY) HYPERTENSION 01/26/2020 [...] ESSENTIAL (PRIMARY) HYPERTENSION 01/27/2020 CAMILA, STEPHEN S SAS ANALYST Ot K59.00 CONSTIPATION, UNSPECIFIED 01/27/2020 FAVIAN, HUY LABORER ORCHARD Ot C56.9 MALIGNANT NEOPLASM OF UNSPECIFIED OVARY 01/27/2020 MARIA D PADILLA MD Ot C56.9 MALIGNANT NEOPLASM OF UNSPECIFIED OVARY 01/27/2020 MARIA D PADILLA MD Ot I10 ESSENTIAL (PRIMARY) HYPERTENSION 01/27/2020 CAMILA, STEPHEN S SAS ANALYST Ot C56.9 MALIGNANT NEOPLASM OF UNSPECIFIED OVARY 01/27/2020 CAMILA, STEPHEN S SAS ANALYST Ot E78.2 MIXED HYPERLIPIDEMIA 01/27/2020 CAMILA, STEPHEN S SAS ANALYST Ot I1 0 ESSENTIAL (PRIMARY) HYPERTENSION 01/27/2020 MARIA D PADILLA MD Ot 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 01/27/2020 MARIA D PDAILLA MD Ot C77.2 SECONDARY AND UNSP MALIGNANT [...] OF 01/27/2020 MARIA D PADILLA MD Ot Z80.41 FAMILY HISTORY OF MALIGNANT NEOPLASM OF 01/27/2020 MARIA D PADILLA MD Ot Z80.52 FAMILY HISTORY OF MALIGNANT NEOPLASM OF 01/27/2020 MARIA D PADILLA MD Ot Z87.01 PERSONAL HISTORY OF PNEUMONIA (RECURRENT 01/27/2020 MARIA D PADILLA MD Ot Z87.442 PERSONAL HISTORY OF URINARY CALCULI 01/31/2020 CAMILA, STEPHEN S SAS ANALYST Ot K59.00 CONSTIPATION, UNSPECIFIED 01/31/2020 FAVIANHUY LABORER ORCHARD Ot C56.9 MALIGNANT NEOPLASM OF UNSPECIFIED OVARY 01/31/2020 MARIA D PADILLA MD Ot C56.9 MALIGNANT NEOPLASM OF UNSPECIFIED OVARY 01/31/2020 MARIA D PADILLA MD Ot I10 ESSENTIAL (PRIMARY) HYPERTENSION 01/31/2020 CAMILA, STEPHEN S SAS ANALYST Ot C56.9 MALIGNANT NEOPLASM OF UNSPECIFIED OVARY 01/31/2020 CAMILA, STEPHEN S SAS ANALYST Ot E78.2 MIXED HYPERLIPIDEMIA 01/31/2020 CAMILA, STEPHEN S SAS ANALYST Ot I1 0 ESSENTIAL (PRIMARY) HYPERTENSION 01/31/2020 [...] OF URINARY CALCULI 02/14/2020 CAMILA, STEPHEN S SAS ANALYST Ot K59.00 CONSTIPATION, UNSPECIFIED 02/14/2020 FAVIANHUY LABORER ORCHARD Ot C56.9 MALIGNANT NEOPLASM OF UNSPECIFIED OVARY 02/14/2020 MARIA D PADILLA MD Ot C56.9 MALIGNANT NEOPLASM OF UNSPECIFIED OVARY 02/14/2020 MARIA D PADILLA MD Ot I10 ESSENTIAL (PRIMARY) HYPERTENSION 02/14/2020 CAMILA, STEPHEN S SAS ANALYST Ot C56.9 MALIGNANT NEOPLASM OF UNSPECIFIED OVARY 02/14/2020 CAMILA, STEPHEN S SAS ANALYST Ot E78.2 MIXED HYPERLIPIDEMIA 02/14/2020 CAMILA, STEPHEN S SAS ANALYST Ot I1 0 ESSENTIAL (PRIMARY) HYPERTENSION 02/14/2020 [...] MD Ot I25.10 ATHSCL HEART DISEASE OF [place] CORONARY 02/15/2020 MARIA D PADILLA MD Ot [...] MALIGNANT NEOPLASM OF 02/22/2020 STEPHEN JENSEN S SAS ANALYST Ot K59.00 CONSTIPATION, UNSPECIFIED 02/22/2020 HUY BALLESTEROS Ot C56.9 MALIGNANT NEOPLASM OF UNSPECIFIED OVARY 02/22/2020 MARIA D PADILLA MD Ot C56.9 MALIGNANT NEOPLASM OF UNSPECIFIED OVARY 02/22/2020 MARIA D PADILLA MD Ot I10 ESSENTIAL (PRIMARY) HYPERTENSION 02/22/2020 STEPHEN JENSEN S SAS ANALYST Ot C56.9 MALIGNANT NEOPLASM OF UNSPECIFIED OVARY 02/22/2020 CAMILA, STEPHEN S SAS ANALYST Ot E78.2 MIXED HYPERLIPIDEMIA 02/22/2020 CAMILA, STEPHEN S SAS ANALYST Ot I1 0 ESSENTIAL (PRIMARY) HYPERTENSION 02/22/2020 [...] MD Ot I25.10 ATHSCL HEART DISEASE OF [place] CORONARY 02/22/2020 MARIA D PADILLA MD Ot N28.1 CYST OF KIDNEY, ACQUIRED 02/23/2020 CAMILA, STEPHEN S SAS ANALYST Ot K59.00 CONSTIPATION, UNSPECIFIED 02/23/2020 HUY BALLESTEROS Ot C56.9 MALIGNANT NEOPLASM OF UNSPECIFIED OVARY 02/23/2020 CAMILA, STEPHEN S SAS ANALYST Ot C56.9 MALIGNANT NEOPLASM OF UNSPECIFIED OVARY 02/23/2020 CAMILA, STEPHEN S SAS ANALYST Ot E78.2 MIXED HYPERLIPIDEMIA 02/23/2020 CAMILA, STEPHEN S SAS ANALYST Ot I1 0 ESSENTIAL (PRIMARY) HYPERTENSION 02/23/2020 [...] MD Ot I25.10 ATHSCL HEART DISEASE OF [place] CORONARY 02/23/2020 MARIA D PADILLA MD Ot N28.1 CYST OF KIDNEY, ACQUIRED 02/23/2020 MARIA D PADILLA MD Ot C56.9 MALIGNANT NEOPLASM OF UNSPECIFIED OVARY 02/23/2020 MARIA D PADILLA MD Ot I10 ESSENTIAL (PRIMARY) HYPERTENSION 02/23/2020 CAMILA, STEPHEN S SAS ANALYST Ot K59.00 CONSTIPATION, UNSPECIFIED 02/23/2020 FAVIANHUY RAMIREZ LABORER ORCHARD Ot C56.9 MALIGNANT NEOPLASM OF UNSPECIFIED OVARY 02/23/2020 CAMILA, STEPHEN S SAS ANALYST Ot C56.9 MALIGNANT NEOPLASM OF UNSPECIFIED OVARY 02/23/2020 CAMILA, STEPHEN S SAS ANALYST Ot E78.2 MIXED HYPERLIPIDEMIA 02/23/2020 CAMILA STEPHEN S SAS ANALYST Ot I1 0 ESSENTIAL (PRIMARY) HYPERTENSION 02/23/2020 [...] MDNER Ot I25.10 ATHSCL HEART DISEASE OF [place] CORONARY 02/23/2020 MARIA D PADILLA MD Ot N28.1 CYST OF KIDNEY, ACQUIRED 02/23/2020 MEGAN PADILLA MDNER Ot C56.9 MALIGNANT NEOPLASM OF UNSPECIFIED OVARY 02/23/2020 MEAGN PADILLA MDNER Ot I10 ESSENTIAL (PRIMARY) HYPERTENSION [...] MALIGNANT NEOPLASM OF 02/24/2020 O'DELL, NAVEED K SAS ANALYST Ot M54 .9 DORSALGIA, UNSPECIFIED 02/24/2020 O'DELL, NAVEED K SAS ANALYST Ot R06.02 SHORTNESS OF BREATH 02/24/2020 O'DELL, NAVEED K SAS ANALYST Ot R10 .9 UNSPECIFIED ABDOMINAL PAIN 02/24/2020 MARIA D PADILLA MD Ot C56.9 MALIGNANT NEOPLASM OF UNSPECIFIED OVARY 02/24/2020 MARIA D PADILLA MD Ot I10 ESSENTIAL (PRIMARY) HYPERTENSION 02/28/2020 CAMILA, STEPHEN S SAS ANALYST Ot K59.00 CONSTIPATION, UNSPECIFIED 02/28/2020 HUY BALLESTEROS LABORER ORCHARD Ot C56.9 MALIGNANT NEOPLASM OF UNSPECIFIED OVARY 02/28/2020 CAMILA, STEPHEN S SAS ANALYST Ot C56.9 MALIGNANT NEOPLASM OF UNSPECIFIED OVARY 02/28/2020 CAMILA, STEPHEN S SAS ANALYST Ot E78.2 MIXED HYPERLIPIDEMIA 02/28/2020 CAMILA, STEPHEN S SAS ANALYST Ot I1 0 ESSENTIAL (PRIMARY) HYPERTENSION 02/28/2020 [...] MD Ot I25.10 ATHSCL HEART DISEASE OF [place] CORONARY 02/28/2020 MARIA D PADILLA MD, Ot N28.1 CYST OF KIDNEY, ACQUIRED 02/28/2020 O'DELL, NAVEED K SAS ANALYST Ot M54 .9 DORSALGIA, UNSPECIFIED 02/28/2020 O'DELL, NAVEED K SAS ANALYST Ot R06.02 SHORTNESS OF BREATH 02/28/2020 O'DELL, NAVEED K SAS ANALYST Ot R10 .9 UNSPECIFIED ABDOMINAL PAIN 02/28/2020 MARIA D PADILLA MD Ot C56.9 MALIGNANT NEOPLASM OF UNSPECIFIED OVARY 02/28/2020 MARIA D PADILLA MD Ot I10 ESSENTIAL (PRIMARY) HYPERTENSION 03/01/2020 CAMILA, STEPHEN S SAS ANALYST Ot K59.00 CONSTIPATION, UNSPECIFIED 03/01/2020 HUY BALLESTEROS LABORER ORCHARD Ot C56.9 MALIGNANT NEOPLASM OF UNSPECIFIED OVARY 03/01/2020 CAMILA, STEPHEN S SAS ANALYST Ot C56.9 MALIGNANT NEOPLASM OF UNSPECIFIED OVARY 03/01/2020 CAMILA, STEPHEN S SAS ANALYST Ot E78.2 MIXED HYPERLIPIDEMIA 03/01/2020 CAMILA, STEPHEN S SAS ANALYST Ot I1 0 ESSENTIAL (PRIMARY) HYPERTENSION 03/01/2020 [...] MD Ot I25.10 ATHSCL HEART DISEASE OF [place] CORONARY 03/01/2020 MARIA D PADILLA MD Ot N28.1 CYST OF KIDNEY, ACQUIRED 03/01/2020 O'DELL, NAVEED K SAS ANALYST Ot M54 .9 DORSALGIA, UNSPECIFIED 03/01/2020 O'DELL, NAVEED K SAS ANALYST Ot R06.02 SHORTNESS OF BREATH 03/01/2020 O'DELL, NAVEED K SAS ANALYST Ot R10 .9 UNSPECIFIED ABDOMINAL PAIN 03/01/2020 MRAIA D PADILLA MD Ot C56.9 MALIGNANT NEOPLASM [...] OF URINARY CALCULI 03/01/2020 ANNALISA JENSENANDA S SAS ANALYST Ot K59.00 CONSTIPATION, UNSPECIFIED 03/01/2020 FAVIAN, HUY LABORER ORCHARD Ot C56.9 MALIGNANT NEOPLASM OF UNSPECIFIED OVARY 03/01/2020 CAMILA STEPHEN S KATIE Ot C56.9 MALIGNANT NEOPLASM OF UNSPECIFIED OVARY 03/01/2020 CAMILA, STEPHEN S SAS ANALYST Ot E78.2 MIXED HYPERLIPIDEMIA 03/01/2020 CAMILA, STEPHEN S SAS ANALYST Ot I1 0 ESSENTIAL (PRIMARY) HYPERTENSION 03/01/2020 MARIA D PADILLA MD Ot C77.2 SECONDARY AND UNSP MALIGNANT NEOPLASM OF 03/01/2020 MARIA D PADILLA MD Ot 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 03/01/2020 MARIA D PADILLA MD Ot I25.10 ATHSCL HEART DISEASE OF [place] CORONARY 03/01/2020 MARIA D PADILLA MD Ot N28.1 CYST OF KIDNEY, ACQUIRED 03/01/2020 O'DELL, NAVEED K SAS ANALYST Ot M54 .9 DORSALGIA, UNSPECIFIED 03/01/2020 O'DELL, NAVEED K SAS ANALYST Ot R06.02 SHORTNESS OF BREATH 03/01/2020 O'DELL, NAVEED K SAS ANALYST Ot R10 .9 UNSPECIFIED ABDOMINAL PAIN 03/01/2020 [...] OF UNSPECIFIED OVARY 03/01/2020 CAMILA STEPHEN S SAS ANALYST Ot E78.2 MIXED HYPERLIPIDEMIA 03/01/2020 CAMILA STEPHEN S SAS ANALYST Ot I1 0 ESSENTIAL (PRIMARY) HYPERTENSION 03/01/2020 MARIA D PADILLA MD Ot C77.2 SECONDARY AND UNSP MALIGNANT NEOPLASM OF 03/01/2020 MARIA D PADILLA MD Ot 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 03/01/2020 MARIA D PADILLA MD Ot I25.10 ATHSCL HEART DISEASE OF [place] CORONARY 03/01/2020 MARIA D PADILLA MD Ot [...] ESSENTIAL (PRIMARY) HYPERTENSION 03/02/2020 STEPHEN JENSEN S SAS ANALYST Ot K59.00 CONSTIPATION, UNSPECIFIED 03/02/2020 HUY BALLESTEROS LABORER ORCHARD Ot C56.9 MALIGNANT NEOPLASM OF UNSPECIFIED OVARY 03/02/2020 CAMILA, STEPHEN S SAS ANALYST Ot C56.9 MALIGNANT NEOPLASM OF UNSPECIFIED OVARY 03/02/2020 CAMILA, STEPHEN S SAS ANALYST Ot E78.2 MIXED HYPERLIPIDEMIA 03/02/2020 CAMILA, STEPHEN S SAS ANALYST Ot I1 0 ESSENTIAL (PRIMARY) HYPERTENSION 03/02/2020 MARIA D PADILLA MD Ot C77.2 SECONDARY AND UNSP MALIGNANT NEOPLASM OF 03/02/2020 MARIA D PADILLA MD Ot 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 03/02/2020 MARIA D PADILLA MD Ot I25.10 ATHSCL HEART DISEASE OF [place] CORONARY 03/02/2020 MARIA D PADILLA MD Ot N28.1 CYST OF KIDNEY, ACQUIRED 03/02/2020 O'DELL, NAVEED K SAS ANALYST Ot M54 .9 DORSALGIA, UNSPECIFIED 03/02/2020 O'DELL, NAVEED K SAS ANALYST Ot R06.02 SHORTNESS OF BREATH 03/02/2020 O'DELL, NAVEED K SAS ANALYST Ot R10 .9 UNSPECIFIED ABDOMINAL PAIN 03/02/2020 [...] MD Ot I25.10 ATHSCL HEART DISEASE OF [place] CORONARY 03/10/2020 MARIA D PADILLA MD Ot [...] ESSENTIAL (PRIMARY) HYPERTENSION 04/12/2020 STEPHEN JENSEN S SAS ANALYST Ot K59.00 CONSTIPATION, UNSPECIFIED 04/12/2020 FAVIAN, HUY LABORER ORCHARD Ot C56.9 MALIGNANT NEOPLASM OF UNSPECIFIED OVARY 04/12/2020 CAMILA, STEPHEN S SAS ANALYST Ot C56.9 MALIGNANT NEOPLASM OF UNSPECIFIED OVARY 04/12/2020 CAMILA, STEPHEN S SAS ANALYST Ot E78.2 MIXED HYPERLIPIDEMIA 04/12/2020 CAMILA, STEPHEN S SAS ANALYST Ot I1 0 ESSENTIAL (PRIMARY) HYPERTENSION 04/12/2020 MARIA D PADILLA MD Ot C77.2 SECONDARY AND UNSP MALIGNANT NEOPLASM OF 04/12/2020 MARIA D PADILLA MD Ot 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 04/12/2020 MARIA D PADILLA MD Ot I25.10 ATHSCL HEART DISEASE OF [place] CORONARY 04/12/2020 MARIA D PADILLA MD Ot N28.1 CYST OF KIDNEY, ACQUIRED 04/12/2020 O'DELL, NAVEED K SAS ANALYST Ot M54 .9 DORSALGIA, UNSPECIFIED 04/12/2020 O'DELL, NAVEED K SAS ANALYST Ot R06.02 SHORTNESS OF BREATH 04/12/2020 O'DELL, NAVEED K SAS ANALYST Ot R10 .9 UNSPECIFIED ABDOMINAL PAIN 04/12/2020 [...] FOR ANTINEOPLASTIC CHEMOTHERAP 04/12/2020 STEPHEN JENSEN S SAS ANALYST Ot K59.00 CONSTIPATION, UNSPECIFIED 04/12/2020 FAVIAN, HUY LABORER ORCHARD Ot C56.9 MALIGNANT NEOPLASM OF UNSPECIFIED OVARY 04/12/2020 CAMILA, STEPHEN S SAS ANALYST Ot C56.9 MALIGNANT NEOPLASM OF UNSPECIFIED OVARY 04/12/2020 CAMILA, STEPHEN S SAS ANALYST Ot E78.2 MIXED HYPERLIPIDEMIA 04/12/2020 CAMILA, STEPHEN S SAS ANALYST Ot I1 0 ESSENTIAL (PRIMARY) HYPERTENSION 04/12/2020 MARIA D PADILLA MD, Ot C77.2 SECONDARY AND UNSP MALIGNANT NEOPLASM OF 04/12/2020 MARIA D PADILLA MD, Ot 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 04/12/2020 MARIA D PADILLA MD Ot I25.10 ATHSCL HEART DISEASE OF [place] CORONARY 04/12/2020 MARIA D PADILLA MD Ot N28.1 CYST OF KIDNEY, ACQUIRED 04/12/2020 O'DELL, NAVEED K SAS ANALYST Ot M54 .9 DORSALGIA, UNSPECIFIED 04/12/2020 O'DELL, NAVEED K SAS ANALYST Ot R06.02 SHORTNESS OF BREATH 04/12/2020 O'DELL, [...] FOR ANTINEOPLASTIC CHEMOTHERAP 04/13/2020 STEPHEN JENSEN S SAS ANALYST Ot K59.00 CONSTIPATION, UNSPECIFIED 04/13/2020 FAVIAN, HUY LABORER ORCHARD Ot C56.9 MALIGNANT NEOPLASM OF UNSPECIFIED OVARY 04/13/2020 CAMILA, STEPHEN S SAS ANALYST Ot C56.9 MALIGNANT NEOPLASM OF UNSPECIFIED OVARY 04/13/2020 CAMILA, STEPHEN S SAS ANALYST Ot E78.2 MIXED HYPERLIPIDEMIA 04/13/2020 CAMILA, STEPHEN S SAS ANALYST Ot I1 0 ESSENTIAL (PRIMARY) HYPERTENSION 04/13/2020 MARIA D PADILLA MD, Ot C77.2 SECONDARY AND UNSP MALIGNANT NEOPLASM OF 04/13/2020 MARIA D PADILLA MD, Ot 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 04/13/2020 VALERIE MD, KILLIAN Ot I25.10 ATHSCL HEART DISEASE OF [place] CORONARY 04/13/2020 MARIA D PADILLA MD Ot N28.1 CYST OF KIDNEY, ACQUIRED 04/13/2020 O'DELL, NAVEED K KATIE Ot M54 .9 DORSALGIA, UNSPECIFIED 04/13/2020 O'DELL, NAVEED K SAS ANALYST Ot R06.02 SHORTNESS OF BREATH 04/13/2020 O'DELL, NAVEED K SAS ANALYST Ot R10 .9 UNSPECIFIED ABDOMINAL PAIN 04/13/2020 [...] FOR ANTINEOPLASTIC CHEMOTHERAP 04/14/2020 CAMILA, STEPHEN S SAS ANALYST Ot C56.9 MALIGNANT NEOPLASM OF UNSPECIFIED OVARY 04/14/2020 CAMILA, STEPHEN S SAS ANALYST Ot I1 0 ESSENTIAL (PRIMARY) HYPERTENSION 04/19/2020 CAMILA, STEPHEN S SAS ANALYST Ot K59.00 CONSTIPATION, UNSPECIFIED 04/19/2020 HUY BALLESTEROS LABORER ORCHARD Ot C56.9 MALIGNANT NEOPLASM OF UNSPECIFIED OVARY 04/19/2020 CAMILA, STEPHEN S SAS ANALYST Ot C56.9 MALIGNANT NEOPLASM OF UNSPECIFIED OVARY 04/19/2020 CAMILA, STEPHEN S SAS ANALYST Ot E78.2 MIXED HYPERLIPIDEMIA 04/19/2020 CAMILA, STEPHEN S SAS ANALYST Ot I1 0 ESSENTIAL (PRIMARY) HYPERTENSION 04/19/2020 MARIA D PADILLA MD Ot C77.2 SECONDARY AND UNSP MALIGNANT NEOPLASM OF 04/19/2020 MARIA D PADILLA MD, Ot 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 04/19/2020 MARIA D PADILLA MD Ot I25.10 ATHSCL HEART DISEASE OF [place] CORONARY 04/19/2020 MARIA D PADILLA MD Ot N28.1 CYST OF KIDNEY, ACQUIRED 04/19/2020 O'DELL, NAVEED K KATIE Ot M54 .9 DORSALGIA, UNSPECIFIED 04/19/2020 O'NAVEED BOYER APRN Ot R06.02 SHORTNESS OF BREATH 04/19/2020 O'NAVEED BOYER APRN Ot R10 .9 UNSPECIFIED ABDOMINAL PAIN 04/19/2020 MARIA D PADILLA MD, Ot C56.9 MALIGNANT NEOPLASM OF UNSPECIFIED OVARY 04/19/2020 MARIA D PADILLA MD Ot I10 ESSENTIAL (PRIMARY) HYPERTENSION 04/19/2020 YENIFER JOSEPH MD Ot C56. 1 MALIGNANT NEOPLASM OF RIGHT OVARY 04/19/2020 YENIFER JOSEPH MD Ot C77. 2 SECONDARY AND UNSP MALIGNANT NEOPLASM OF 04/19/2020 YENIFER JOSEPH MD Ot C78. 6 SECONDARY [...] I10 ESSENTIAL (PRIMARY) HYPERTENSION 04/21/2020 YENIFER JOSEPH MD Ot C56. 1 MALIGNANT NEOPLASM OF RIGHT OVARY 04/21/2020 YENIFER JOSEPH MD Ot C77. 2 SECONDARY AND UNSP MALIGNANT NEOPLASM OF 04/21/2020 YENIFER JOSEPH MD, Ot C78. 6 SECONDARY MALIGNANT NEOPLASM OF [place] 04/21/2020 YENIFER JOSEPH MD, Ot Z51. 11 ENCOUNTER FOR ANTINEOPLASTIC CHEMOTHERAP 04/24/2020 STEPHEN JENSEN S SAS ANALYST Ot K59.00 CONSTIPATION, UNSPECIFIED 04/24/2020 FAVIANHUY RAMIREZ Ot C56.9 MALIGNANT NEOPLASM OF UNSPECIFIED OVARY 04/24/2020 STEPHEN JENSEN S SAS ANALYST Ot C56.9 MALIGNANT NEOPLASM OF UNSPECIFIED OVARY 04/24/2020 STEPHEN JENSEN S SAS ANALYST Ot E78.2 MIXED HYPERLIPIDEMIA 04/24/2020 STEPHEN JENSEN S SAS ANALYST Ot I1 0 ESSENTIAL (PRIMARY) HYPERTENSION 04/24/2020 MARIA D PADILLA MD, Ot C77.2 SECONDARY AND UNSP MALIGNANT NEOPLASM OF 04/24/2020 MARIA D PADILLA MD, Ot 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 04/24/2020 MARIA D PADILLA MD Ot I25.10 ATHSCL HEART DISEASE OF [place] CORONARY 04/24/2020 MARIA D PADILLA MD, Ot N28.1 CYST OF KIDNEY, ACQUIRED 04/24/2020 O'DELL, NAVEED K SAS ANALYST Ot M54 .9 DORSALGIA, UNSPECIFIED 04/24/2020 O'DELL, NAVEED K SAS ANALYST Ot R06.02 SHORTNESS OF BREATH 04/24/2020 O'DELL, NAVEED K KATIE Ot R10 .9 UNSPECIFIED ABDOMINAL PAIN 04/24/2020 MARIA D PADILLA MD, Ot C56.9 MALIGNANT NEOPLASM OF UNSPECIFIED OVARY 04/24/2020 MARIA D PADILLA MD Ot I10 ESSENTIAL (PRIMARY) HYPERTENSION 04/24/2020 YENIFER JOSEPH MD, Ot C56. 1 MALIGNANT NEOPLASM OF RIGHT OVARY 04/24/2020 YENIFER JOSEPH MD, Ot C77. 2 SECONDARY AND UNSP MALIGNANT NEOPLASM OF 04/24/2020 YENIFER JOSEPH MD, Ot C78. 6 SECONDARY MALIGNANT NEOPLASM OF [place] 04/24/2020 YENIFER JOSEPH MD Ot Z51. 11 ENCOUNTER FOR ANTINEOPLASTIC CHEMOTHERAP 04/24/2020 CAMILA, STEPHEN S SAS ANALYST Ot C56.9 MALIGNANT NEOPLASM OF UNSPECIFIED OVARY 04/24/2020 CAMILA, STEPHEN S SAS ANALYST Ot I1 0 ESSENTIAL (PRIMARY) HYPERTENSION 04/24/2020 CAMILA, STEPHEN S SAS ANALYST Ot K59.00 CONSTIPATION, UNSPECIFIED 04/24/2020 HUY BALLESTEROS LABORER ORCHARD Ot C56.9 MALIGNANT NEOPLASM OF UNSPECIFIED OVARY 04/24/2020 CAMILA, STEPHEN S SAS ANALYST Ot C56.9 MALIGNANT NEOPLASM OF UNSPECIFIED OVARY 04/24/2020 CAMILA, STEPHEN S SAS ANALYST Ot E78.2 MIXED HYPERLIPIDEMIA 04/24/2020 CAMILA, STEPHEN S SAS ANALYST Ot I1 0 ESSENTIAL (PRIMARY) HYPERTENSION 04/24/2020 MARIA D PADILLA MD, Ot C77.2 SECONDARY AND UNSP MALIGNANT NEOPLASM OF 04/24/2020 MARIA D PADILLA MD, Ot 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 04/24/2020 MARIA D PADILLA MD Ot I25.10 ATHSCL HEART DISEASE OF [place] CORONARY 04/24/2020 MARIA D PADILLA MD, Ot N28.1 CYST OF KIDNEY, ACQUIRED 04/24/2020 O'NAVEED BOYER APRN Ot M54 .9 DORSALGIA, UNSPECIFIED 04/24/2020 O'NAVEED BOYER APRN Ot R06.02 SHORTNESS OF BREATH 04/24/2020 O'NAVEED BOYER APRN Ot R10 .9 UNSPECIFIED ABDOMINAL PAIN 04/24/2020 MARIA D PADILLA MD, Ot C56.9 MALIGNANT NEOPLASM OF UNSPECIFIED OVARY 04/24/2020 MARIA D PADILLA MD Ot I10 ESSENTIAL (PRIMARY) HYPERTENSION 04/24/2020 YENIFER JOSEPH MD, Ot C56. 1 MALIGNANT NEOPLASM OF RIGHT OVARY 04/24/2020 YENIFER JOSEPH MD, Ot C77. 2 SECONDARY AND UNSP MALIGNANT NEOPLASM OF 04/24/2020 YENIFER JOSEPH MD, Ot C78. 6 SECONDARY MALIGNANT NEOPLASM OF RETROPER 04/24/2020 YENIFER JOSEPH MD, Ot Z51. 11 ENCOUNTER FOR ANTINEOPLASTIC CHEMOTHERAP 04/24/2020 STEPHEN JENSEN APRN, Ot C56.9 MALIGNANT NEOPLASM OF UNSPECIFIED OVARY 04/24/2020 STEPHEN JENSEN APRN, Ot I1 0 ESSENTIAL (PRIMARY) HYPERTENSION Procedures There is no data. Results Test [...] NRG Manual blood basophils/100 leukocytes 0 % NR Comprehensive metabolic panel - 02/15/19 09:58 Serum [...] g/dL 3.2-4.5 CALCIUM CORRECTED 9.1 mg/dL 8.5-10.1 CMP - 03/23/19 11:44 GLUCOSE 103 mg/dL 65-99 UREA NITROGEN (BUN) 15 mg/dL 7-25 CREATININE 0.58 mg/dL 0.60-0.93 eGFR NON-AFR. BAHRAINI 90 mL/min/1.73m2 > OR = 60 eGFR [...] 10-35 ALT 14 U/L 6-29 CBC - 03/23/19 11:44 WHITE BLOOD CELL COUNT 5.9 Thousand/uL [...] 7-25 CREATININE 0.64 mg/dL 0.60-0.93 eGFR NON-AFR. BAHRAINI 87 mL/min/1.73m2 > OR = 60 eGFR [...] 108 mg/dL <150 LDL-CHOLESTEROL 68 mg/dL (calc) NR CHOL/HDLC RATIO 2.5 (calc) <5.0 NON HDL [...] plasma calcium measurement (mass/volume) 9.2 mg/dL 8.5-10.1 Automated blood complete blood count (he mogram) panel - 04/24/20 09:10 Blood leukocytes automated count (number/volume) 5.7 10*3/uL 4.3-11.0 Blood erythrocytes automated count (number/volume) 3.22 10*6/uL 4.35-5.85 Venous blood hemoglobin measurement (mass/volume) 9.6 g/dL 11.5-16.0 Blood hematocrit (volume fraction) 31 % 35-52 Automated erythrocyte mean corpuscular volume 95 [ foz_us] 80-99 Automated erythrocyte mean corpuscular h emoglobin (mass per erythrocyte) 30 pg 25-34 Automated erythrocyte mean corpuscular h emoglobin concentration measurement (mass/volume) 31 g/dL 32-36 Automated erythrocyte distribution width ratio 18. 1 % 10.0- 14.5 Automated blood platelet count (count/volume) 258 10*3/uL 130-400 Automated blood platelet mean volume measurement 8.4 [foz_us] 7.4-10.4 Comprehensive metabolic panel - 04/24/20 09:10 Serum or plasma sodium measurement (moles/volume) 139 mmol/L 135-145 Serum or plasma potassium measurement (moles/volume) 3.7 mmol/L 3.6-5.0 Serum or plasma chloride measurement (moles/volume) 105 mmol/L 98-107 Carbon dioxide 22 mmol/L 21-32 Serum or plasma anion gap determination (moles/volume) 12 mmol/L 5-14 Serum or plasma urea nitrogen measurement (mass/volume ) 12 mg/dL 7-18 Serum or plasma creatinine measurement (mass/volume) 0.84 mg/dL 0.60-1.30 Serum or plasma urea nitrogen/creatinine mass ratio 14 NRG Serum or plasma creatinine measurement w ith calculation of estimated glomerular filtration rate > NRG Serum or plasma glucose measurement (mass/volume) 95 mg/dL 70-105 Serum or plasma calcium measurement (mass/volume) 9.1 mg/dL 8.5-10.1 Serum or plasma total bilirubin measurement (mass/volu me) 0.6 mg/dL 0.1-1.0 Serum or plasma alkaline phosphatase doris surement (enzymatic activity/volume) 91 U/L 40-136 Serum or plasma aspartate aminotransfera se measurement (enzymatic activity/volume) 34 U/L 5-34 Serum or plasma alanine aminotransferase measurement (enzymatic activity/volume) 16 U/L 0-55 Serum or plasma protein measurement (mass/volume) 6.4 g/dL 6.4-8.2 Serum or plasma albumin measurement (mass/volume) 3.6 g/dL 3.2-4.5 CALCIUM CORRECTED 9.4 mg/dL 8.5-10.1 Encounters ACCT No. Visit Date/Time Discharge Status Pt. Type Provider Facility Loc./Unit Complaint [id number] 04/12/2020 10:00:00 04/12/2020 23:59: 59 CLS Outpatient STEPHEN JENSEN [facility] [id number] 03/01/2020 10:45:00 Document Registration [id number] 02/22/2020 11:20:00 Document Registration [id number] 07/28/2019 11:00:00 Document Registration [id number] 03/23/2019 10:20:00 Document Registration [id number] 02/15/2019 09:00:00 Document Registration [id number] 12/09/2018 10:40:00 Document Registration [id number] 04/24/2020 08:44:00 12:40:00 DIS Emergency STEPHANIE NORRIS MD [facility] ER FEET SWELLING [id number] 04/24/2020 05:30:00 10:20:00 DIS Outpatient CORINNE RODAS MD [facility] PREOP COLONOSCOPY [id number] 04/13/2020 09:59:00 23:59:59 CLS Outpatient YENIFER JOSEPH MD [facility] ONC [id number] 04/12/2020 10:11:00 23:59:59 CLS Outpatient STEPHEN JENSEN [employer] [facility] LAB FS CBC AUTOMATED W/ AUTO DIFF,BMP [id number] 02/10/2020 09:49:00 16:15:00 DIS Outpatient MARIA D PADILLA MD [facility] ONC [id number] 02/23/2020 09:58:00 23:59:59 CLS Outpatient MARIA D PADILLA MD [facility] LAB FS CBC BMP [id number] 02/22/2020 11:54:00 23:59:59 CLS Outpatient NAVEED LOZANO [employer] [facility] RAD FS FLANK PAIN,SHORTNESS OF BREATH [id number] 01/26/2020 09:50:00 00:01:00 DIS Outpatient MARIA D PADILLA MD, [facility] LAB FS CBC BMP [id number] 02/14/2020 12:39:00 23:59:59 CLS Outpatient MARIA D PADILLA MD, [facility] RAD PERITONEAL CARCINOMA [id number] 12/08/2019 08:49:00 09:23:00 DIS Outpatient MARIA D PADILLA MD, [facility] ONC [id number] 12/01/2019 09:59:00 23:59:59 CLS Outpatient STEPHEN JENSEN S [employer] ANA[employer] [facility] LAB FS C56.9 I10 E78.2 [id number] 11/11/2019 08:42:00 14:35:00 DIS Outpatient CORINNE RODAS MD [facility] SDC RECURRENT OVARIAN CANCE R [id number] 11/08/2019 08:50:00 14:04:00 DIS Outpatient CORINNE RODAS MD [facility] PREOP RECURRENT OVARIAN CANCE R [id number] 10/06/2019 14:39:00 23:59:59 CLS Outpatient HUY BALLESTEROS [facility] LAB FS C56.9 [id number] 02/15/2019 09:28:00 23:59:59 CLS Outpatient ANNALISA JENSENANDA S [employer] A[employer] [facility] RAD FS R10.32 [id number] 05/18/2020 10:15:00 P EN Preadmit YENIFER JOSEPH MD [facility] RAD PERITONEAL CARCINOMATOSIS [id number] 04/26/2020 11:00:00 P EN Preadmit CORINNE RODAS MD [facility] [place] ENDO ABD PAIN/CHANGE IN BOWEL HAB ITS
[2020-04-26] MEDS ORDERED: morphine INJ 10 MG/ML 1ML (SYR OR VIAL) ONE (12:08)
[2020-04-26] MEDS ORDERED: MIDAZOLAM 5 MG/5 ML (VERSED) VIAL ONE (12:08)
--- NOTE | 2020-04-26 12:08 | Progress Note-Post Operative ---
Post-Operative Progess Note Surgeon (s)/Chocolate Molder (s) Surgeon CORINNE RODAS MD Chocolate Molder: none Pre-Operative Diagnosis change bowel habits with hx recurrent ovarian ca Post-Operative Diagnosis chronic stage 3 ext and int hemorrhoids, rectosigmoid mass. Procedure & Operative Findings Date of Procedure 04/26/20 Procedure Performed/Findings sigmoidoscopy with bx. Anesthesia Type mac Estimated Blood Loss Estimated blood loss (mL): minimal Specimens/Packing Specimens Removed rectosigmoid mass CORINNE RODAS MD Apr 26, 2020 12:08
[2020-04-26] MEDS: morphine INJ 10 MG/ML 1ML (SYR OR VIAL) IVP PRN ×2 (12:10→12:15)
[2020-04-26] MEDS ORDERED: fentaNYL INJECTION 100 MCG/2 ML AMP ONE ×2 (12:20→12:24)
[2020-04-26] MEDS: fentaNYL INJECTION 100 MCG/2 ML AMP IVP PRN ×2 (12:21→12:25)
--- NOTE | 2020-04-26 12:57 | Anesthesia-General Post-Op ---
MAC Patient Condition Mental Status/LOC: Same as Preop Cardiovascular: Satisfactory Nausea/Vomiting: Absent Respiratory: Satisfactory Pain: Controlled Complications: Absent Post Op Complications Complications None Follow Up Care/Instructions Patient Instructions None needed. Anesthesiology Discharge Order Discharge Order Patient is doing well, no complaints, stable vital signs, no apparent adverse anesthesia problems. No complications reported per nursing. NADIA GORDON CRNA Apr 26, 2020 12:57
[2020-04-26] MEDS ORDERED: HYDROmorphone 2 MG/ML VIAL (DILAUDID) IV PRN (13:15)
[2020-04-26] MEDS ORDERED: LORazepam INJ 2 MG/ML (ATIVAN) VIAL IVP PRN (13:15)
--- NOTE | 2020-04-26 13:29 | Diagnostic Imaging Report ---
EXAMINATION: Portable erect AP chest at 12:51 PM. INDICATION: Abdominal distention. FINDINGS: There is a shallow inspiration. Allowing for this technical factor, the heart is similar in size to the prior exam of 04/24/2020. In the interval since the previous exam, however, an alveolar/interstitial infiltrate has developed along the periphery of the left mid lung near the left heart border. This does suggest mild pneumonia/atelectasis. The left upper lung and right lung are generally clear. The mediastinum is not widened. The osseous structures are intact. The left-sided Port-A-Cath seen previously is again evident and no different. Reportedly, the patient did undergo colonoscopy earlier today. There is no sign of a pneumoperitoneum. IMPRESSION: 1. The appearance of the chest has worsened since the prior study as mild pneumonia/atelectasis has developed along the periphery of the left lung base. A followup exam would be recommended for continued evaluation. 2. There is no evidence for a pneumoperitoneum. Dictated by: Dictated on workstation # [id number]
--- NOTE | 2020-04-26 13:30 | NUR ---
RECEIVED PT ON FLOOR AND REPORT FROM JOCELIN FONTANEZ
--- NOTE | 2020-04-26 13:51 | Diagnostic Imaging Report ---
EXAMINATION: Abdomen supine at 12:54 PM. INDICATION: Abdominal pain. FINDINGS: By history, the patient underwent colonoscopy earlier today. There is a considerable amount of gas throughout the colon. There is some gas in the small bowel as well. There is no obvious pneumoperitoneum identified and there is no sign of a pneumoperitoneum on the chest exam performed in conjunction with this study either. There is no mass or organomegaly noted. Surgical clips are noted in the right upper quadrant, consistent with prior cholecystectomy. IMPRESSION: There is considerable distention of the colon by gas. This would be consistent with the patient's history of colonoscopy earlier today. There is no acute abnormality identified, however. Dictated by: Dictated on workstation # [id number]
--- NOTE | 2020-04-26 14:15 | Progress Note ---
Standard Progress Note Progress Notes/Assess & Plan Date Seen by a Provider: Apr 26, 2020 Time Seen by a Provider: 13:00 Progress/Assessment & Plan As far as anesthesia, the patient had no complications. However, the patient experienced severe abdominal pain upon awakening. KUB was ordered by Jessica. Patient wishes to be admitted for pain control. We will be available for further consultation as needed. NADIA GORDON CRNA Apr 26, 2020 14:15
[2020-04-26] MEDS: HYDROcodone/APAP 5 MG/325 MG (LORTAB) TAB PO PRN (16:11)
[2020-04-26] MEDS: PIPERACILLIN/TAZOBACTAM (BULK) 4.5 GM in NS (IVPB) 100 ML IV SCH (16:12)
[2020-04-26] MEDS ORDERED: RT-ALBUTEROL SULF 2.5 MG/3 ML PRE-MIX VIAL IH PRN (18:30)
[2020-04-26] MEDS ORDERED: polyethylene glycoL Bowel Prep(MIRALAX) 238 GM PO PRN (18:30)
[2020-04-26] MEDS ORDERED: polyethylene glycoL POWDER 17 GM (MIRALAX) PACK PO PRN (19:00)
[2020-04-26] MEDS: rOPINIRole 1 MG (REQUIP) TABLET PO SCH (20:13)
[2020-04-26] MEDS: OMEGA 3 (FISH OIL) 1000 MG CAP PO SCH (20:13)
[2020-04-26] MEDS ORDERED: NON-FORMULARY MEDICATION 1 EA EA (Fish Oil/Dha/Epa (Fish Oil 1,200 mg Fish Oil) 1 EACH) PO SCH (21:00)
[2020-04-26] MEDS ORDERED: SIMvastatin 40 MG (ZOCOR) TAB PO SCH (21:00)
[2020-04-26] MEDS: ONDANSETRON 4 MG/2 ML (SDV) Z0FRAN IVP PRN (21:18)
--- NOTE | 2020-04-26 22:14 | OPERATIVE REPORT ---
DATE OF SERVICE: 04/26/2020 ATTENDING SENIOR COUNSEL COMMERCIAL: Mayra Mcfarlane APRN PREOPERATIVE DIAGNOSIS: History of recurrent ovarian cancer with change in bowel habits. POSTOPERATIVE DIAGNOSIS: Sigmoid mass approximately 15 cm from the anal verge, which may indicate a primary neoplasm versus a metastatic neoplasm. Due to the lesion, I was unable to advance the colonoscope and only a gastroscope was able to pass through this region and we proceeded with a sigmoidoscopy with biopsy. PROCEDURE PERFORMED: Sigmoidoscopy with biopsy. SURGEON: Corinne Rodas MD ANESTHESIA: Monitored anesthesia care. ESTIMATED BLOOD LOSS: Minimal. FINDINGS: Sigmoid mass approximately 15 cm from the anal verge, which may indicate a primary neoplasm versus a metastatic neoplasm. Due to the lesion, I was unable to advance the colonoscope and only a gastroscope was able to pass through this region and we proceeded with a sigmoidoscopy with biopsy. DISPOSITION: The patient tolerated the procedure well. INDICATIONS FOR PROCEDURE: The patient is a 75-year-old female, who was diagnosed with ovarian cancer in 2017 and underwent a total hysterectomy as well as chemotherapy. She underwent normal followup and there was abnormal lab work and a CT scan was performed, which did show recurrence of ovarian cancer. She was seen by her oncologist. It was decided to proceed with salvage chemotherapy and then a [place] implantable catheter was placed on 11/11/2019. During chemotherapy, she has had issues with rectal pain and a pressure sensation in the lower abdomen. She reports that her last colonoscopy was approximately three years ago. DESCRIPTION OF PROCEDURE: The patient was brought to the endoscopy suite and laid in the left lateral decubitus position. After adequate IV pain and sedative medications and monitored anesthesia care, a digital rectal examination was performed. Chronic between stage II and III external and internal hemorrhoids were identified, which were not actively edematous nor inflamed and no bleeding. Normal sphincter tone was felt and there were no palpable masses. The endoscope was then intubated and anus and rectum gently insufflated. The endoscope was then advanced through the valves of [place] of the rectum. At the rectosigmoid junction at approximately 15 cm from the anal verge, a narrowing as well as a mucosal exophytic mass was identified. Attempts were made to advance the colonoscope; however, unable to. We then switched to a gastroscope and biopsies were taken of the mass. We were able to proceed past this lesion into the sigmoid colon, where a moderate sigmoid diverticulosis was identified. The endoscope was then slowly withdrawn while taking a second look and suctioning of residual air with no additional findings. The patient tolerated the procedure well. At this time, it appears that she does have either a metastatic lesion to the colon or primary. Due to her current state of recurrent ovarian cancer and her other medical comorbidities, she may not be a candidate for a significant surgery; however, if this lesion continues to grow, it likely will cause colonic obstruction and she may need a palliative loop colostomy. We will await the biopsy results for now. Job ID: [id number] DocumentID: [id number] Dictated Date: 04/26/2020 11:55:53 C D Reactor Operator Date: 04/26/2020 16:46:54 Dictated By: CORINNE RODAS MD MTDD
[2020-04-27] MEDS: METOCLOPRAMIDE INJ 10 MG/2 ML (REGLAN) IVP PRN ×2 (00:13→09:16)
[2020-04-27 00:20] VITALS: BP 107/69
[2020-04-27] MEDS: PIPERACILLIN/TAZOBACTAM (BULK) 4.5 GM in NS (IVPB) 100 ML IV SCH ×2 (00:21→06:46)
--- NOTE | 2020-04-27 00:29 | NUR ---
THIS RN APPLIED 2 1/2 L NC TO KEEP THIS PT'S SATS ABOVE 94%. WILL CONTINUE TO MONITOR.
--- NOTE | 2020-04-27 01:02 | NUR ---
This RN called Dr. Lopez at 1258 in regards to this patient. At 2100 on the , this pt had active bowel sounds with a firm- non tender abdomen with some epigastric pain. Pt then had a bile emesis of 5 mL at 2109. I administered zofran and continued to monitor her status. At 0000(midnight), this pt had a green liquid BM and complained of abdomen discomfort. Once back in bed from using the commode, her bowel sounds were hypoactive and faint (3-4 min between each occurence). Her abdomen at this time was rigid and had upper/lower epigastric fullness. I administered Reglan at 0013 and continued to monitor. Her Spo2 was at 89% as evidenced by fatigue and SOB after using the commode, and I applied 2.5 LPM NC to keep her sats above 94%. Dr. Lopez requested I consult Dr. Lopez in the AM for this patient TORBV.
--- NOTE | 2020-04-27 02:56 | NUR ---
At 0200, this RN aided this pt as she was having another bile emesis. PT also got up to use the bedside commode and was having more abdominal discomfort and uppergastric pain. On the commode, the pt was experiencing SOB and feeling sweaty, but she was not visibly sweating. PT also stated, " I don't know if I can stand up or I think I might pass out." Vitals were immediately taked at 0210 and were: BP (112/79), HR (90-130), SPo2 (90-94% on 2.5 LPM), R (22), T (97.2 F), and Bloodsugar (105). PT got back into bed x2 assist and this RN called Dr Lopez at 0244. This RN gave report to , and requested to order AM labs, Tele, and an NG tube insertion. Patient will continue to be monitored and TORBV.
--- NOTE | 2020-04-27 03:58 | NUR ---
placed ng tube to left nare, verified placement by auscultation and ph verified. patient tolerated procedure well. return of dark green fluid. will continue to monitor
[2020-04-27 04:00] VITALS: BP 112/79
[2020-04-27 05:21] LABS: BASOPHILS % (AUTO) 0 % (0-10); EOSINOPHILS % (AUTO) 0 % (0-10); HEMATOCRIT 35 % (35-52); HEMOGLOBIN 10.8 G/DL (11.5-16.0); LYMPHOCYTES # (AUTO) 0.8 X 10^3 (1.0-4.0); LYMPHOCYTES % (AUTO) 7 % (12-44); MEAN CORPUSCULAR HEMOGLOBIN 30 PG (25-34); MEAN CORPUSCULAR HGB CONC 31 G/DL (32-36); MEAN CORPUSCULAR VOLUME 95 FL (80-99); MEAN PLATELET VOLUME 8.1 FL (7.4-10.4); MONOCYTES # (AUTO) 0.8 X 10^3 (0.0-1.0); MONOCYTES % (AUTO) 7 % (0-12); NEUTROPHILS # (AUTO) 9.7 X 10^3 (1.8-7.8); NEUTROPHILS % (AUTO) 86 % (42-75); PLATELET COUNT 319 10^3/uL (130-400); WHITE BLOOD COUNT 11.3 10^3/uL (4.3-11.0)
[2020-04-27 05:40] LABS: ANISOCYTOSIS SLIGHT; BAND NEUTROPHILS 7 %; LYMPHOCYTES % (MANUAL) 10 %; MONOCYTES % (MANUAL) 9 %; NEUTROPHILS % (MANUAL) 74 %; POLYCHROMASIA SLIGHT
[2020-04-27 05:45] LABS: ALBUMIN 3.5 GM/DL (3.2-4.5); BILIRUBIN,TOTAL 0.9 MG/DL (0.1-1.0); CALCIUM 9.5 MG/DL (8.5-10.1); CREATININE SERUM 1.57 MG/DL (0.60-1.30); POTASSIUM 3.9 MMOL/L (3.6-5.0); TOTAL PROTEIN 6.5 GM/DL (6.4-8.2)
[2020-04-27] MEDS: MULTIVIT W/MINERALS TAB (THERAGRAN M) PO SCH (06:19)
[2020-04-27 08:00] VITALS: BP 113/70
--- NOTE | 2020-04-27 08:23 | NUR ---
DR. RODAS NOTIIED THAT PT IS VOMITING BILE WITH NG TUBE IN PLACE AND SUCTION ORDERD.
[2020-04-27] MEDS: ONDANSETRON 4 MG/2 ML (SDV) Z0FRAN IVP PRN (08:32)
--- NOTE | 2020-04-27 08:41 | NUR ---
pt nauseated and has 100 mls of bile emesis. zophran given will reassess.
[2020-04-27] MEDS ORDERED: IRBESARTAN 150 MG (AVAPRO) TAB PO SCH (09:00)
[2020-04-27] MEDS: PARoxetine 20 MG (PAXIL) TAB PO SCH (10:07)
[2020-04-27] MEDS: dilTIAZem120 MG (CARDIZEM CD) CAP PO SCH (10:07)
[2020-04-27] MEDS: LOSARTAN 50 MG (COZAAR) TAB PO SCH (10:07)
[2020-04-27] MEDS: CYCLOBENZAPRINE 10 MG (FLEXERIL) TAB PO SCH (10:07)
[2020-04-27] MEDS: rOPINIRole 1 MG (REQUIP) TABLET PO SCH ×3 (10:07→20:21)
[2020-04-27] MEDS: ASPIRIN E.C. 81 MG (ECOTRIN) TAB PO SCH (10:08)
[2020-04-27] MEDS: FAMOTIDINE 20 MG (PEPCID) TABLET PO SCH (10:08)
[2020-04-27] MEDS: OMEGA 3 (FISH OIL) 1000 MG CAP PO SCH ×2 (10:08→20:21)
[2020-04-27] MEDS: ALLOPURINOL 300 MG (ZYLOPRIM) TAB PO SCH (10:08)
[2020-04-27] MEDS: DOCUSATE SODIUM 100 MG (COLACE) CAP PO SCH (10:09)
--- NOTE | 2020-04-27 10:21 | NUR ---
PT MEDS GIVEN 1018 DUE TO NAUSEA
--- NOTE | 2020-04-27 11:44 | NUR ---
PER DR. RODAS, PT'S NG TUBE NOT IN STOMACH BUT COILED IN ESOPHAGUS. PLEASE REPLACE THEN ORDER CHEST XRAY TO CONFIRM POSITION
--- NOTE | 2020-04-27 13:35 | Diagnostic Imaging Report ---
INDICATION: NG tube placement. FINDINGS: NG tube is present tip extends into the body of the stomach. Stomach is not distended. There are dilated loops of small bowel and colon. IMPRESSION: Satisfactory NG tube placement into the stomach. Dictated by: Dictated on workstation # [id number]
--- NOTE | 2020-04-27 13:42 | NUR ---
"RD ASSESSMENT PMHx: HTN; afib; hypercholesterolemia; GERD; chronic constipation; CA(ovarian) PT INTERACTION: Pt was awake and pleasant during nutrition assessment. Pt states current appetite is poor, and has been this way for about 2days. Note avg PO intake 25-50% x2meal, per chart review. Pt states following a regular diet at home, and has no issues with chewing/swallowing food. Pt states some recent issues with nausea and vomiting. Pt states no recent issues with constipation or diarrhea, and that her last BM was 04/27. Note pt currently on bowel regimen of colace qd, per chart review. Pt states unsure of recent wt changes. Note recent 4# wt gain x5mon, per chart review. ABNORMAL NUTRITION-RELATED LAB VALUES LOW: HIGH: cr 1.54; glu 121; AST 39 Est. kcal needs: 1925 kcal | 15 kcal/kg Est. Pro needs: 103 g Pro | 0.8 g Pro/kg PES STATEMENT: Inadequate oral intake (NI-2.1) related to loss of appetite | nausea | vomiting as evidenced by pt interview | avg PO intake 25-50% x2meal INTERVENTION: Continue with current diet order of Clear Liquid diet. Pt may benefit from nutrition supplementation if PO intake remains low. Will continue to follow and reassess as pt needs, intake, and status change. MONITOR/EVALUATE: PO Intake; Plan of Care; Hydration Status; Weight Status; Lab Values Viky Conner, MS, RD, LD"
--- NOTE | 2020-04-27 15:02 | NUR ---
PT DISLODGED NG TUBE. NEW ONE PLACED 10 GREEK
--- NOTE | 2020-04-27 15:40 | NUR ---
Pastoral care visit, visit w/pts .
[2020-04-27 16:00] VITALS: BP 128/64
--- NOTE | 2020-04-27 16:01 | Diagnostic Imaging Report ---
INDICATION: NG line placement. EXAMINATION: Portable erect AP chest at 3:16 p.m. FINDINGS: In the interval since the prior chest exam performed earlier today at 1:12 p.m., a new NG line has been inserted. The tip of the new NG line overlies the gastric body and seems to be in good position. The overall appearance of the chest, itself, has not changed significantly. There is still a small amount of atelectasis/infiltrate and fluid in the left lung base. IMPRESSION: The newly inserted NG line tip overlies the gastric body and appears to be in good position. Dictated by: Dictated on workstation # [id number]
--- NOTE | 2020-04-27 17:23 | Oncology Consultation ---
Visit Information Visit Information Date of Admission Attending Physician Noris Lopez MD Admitting Physician [place] Chief Complaint Abdominal pain after colonoscopy. Interval History Ms. 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 She had colonoscopy yesterday by Dr Lopez and had sever abdominal pain and admitted to the hospital for observation and pain control. X-ray showed considerable distention of the colon by gas. This would be consistent with the patient's history of colonoscopy earlier today. There was no acute abnormality identified, however. She had NG tube placed since admission. Her pain has improved considerably and she is able to eat clear liquid so far. No fever. I consulted the patient on: 04/27/20 17:18 Time Seen by Provider: 15:00 Review of Systems Constitutional: see HPI EENTM: no symptoms reported Respiratory: no symptoms reported Cardiovascular: no symptoms reported Gastrointestinal: see HPI Genitourinary: no symptoms reported Health Status Allergies Coded Allergies: adhesive tape (Verified Allergy, Mild, BLISTERS, 04/20/20) No Known Allergies (Unverified Allergy, Unknown, 04/20/20) Home Medications Albuterol Sulfate (Proair Hfa) 1 Puff Puff, 2 PUFF IH Q4H PRN for WHEEZING, (Reported) 1 PUFF = 90 MCG Allopurinol (Allopurinol) 300 Mg Tablet, 300 MG PO DAILY, (Reported) Apixaban (Eliquis) 5 Mg Tablet, 5 MG PO BID, (Reported) Aspirin (Aspirin EC) 81 Mg Tablet.dr, 81 MG PO DAILY, (Reported) Cyclobenzaprine HCl (Cyclobenzaprine HCl) 10 Mg Tablet, 10 MG PO DAILY, (Reported) Diltiazem HCl (Diltiazem 24Hr Cd) 120 Mg Cap.er.24h, 120 MG PO DAILY, (Reported) Docusate Sodium (Docusate Sodium) 100 Mg Capsule, 100 MG PO DAILY, (Reported) Famotidine (Acid Coal Equipment Operator (FAMOTIDINE)) 20 Mg Tablet, 20 MG PO DAILY, (Reported) Fish Oil/Dha/Epa (Fish Oil 1,200 mg Fish Oil) 1 Each Capsule, 1 EACH PO BID, (Reported) Irbesartan (Irbesartan) 150 Mg Tablet, 150 MG PO DAILY, (Reported) Multivitamin (Multivitamins) 1 Each Tablet, 1 EACH PO DAILY, (Reported) Paroxetine HCl (Paroxetine HCl) 20 Mg Tablet, 20 MG PO DAILY, (Reported) Polyethylene Glycol 3350 (Miralax) 119 Gm Powder, 17 GM PO DAILY PRN for CONSTIPATION-1ST LINE, (Reported) Ropinirole HCl (Ropinirole HCl) 1 Mg Tablet, 1 MG PO TID, (Reported) Simvastatin (Simvastatin) 40 Mg Tablet, 40 MG PO HS, (Reported) XGA-Kcarov-Pkhopu Hx Patient Social History Alcohol Use: Denies Use Recreational Drug Use: No Smoking Status: Never a Smoker 2nd Hand Smoke Exposure: No Recent Foreign Travel: No Contact w/other who traveled: No Recent Hopitalizations: No Immunizations Up To Date Date of Pneumonia Vaccine: Nov 03, 2009 Date of Influenza Vaccine: Jul 03, 2019 Family Medical History Significant Family History: No Pertinent Family Hx Physical Exam Vital Signs Vital Signs - First Documented 04/26/20 04/26/20 11:13 11:50 Temp 37.3 Pulse 88 Resp 18 B/P (MAP) 139/99 (112) Pulse Ox 96 O2 Delivery Room Air O2 Flow Rate 5 Capillary Refill : Less Than 3 SecondsGreater Than 3 Seconds Height, Weight, BMI Height: '" Weight: lbs. oz. kg; 44.63 BMI Method: General Appearance: No Apparent Distress, Obese, Other (on NG tube) HEENT: PERRL/EOMI Respiratory: No Accessory Muscle Use, No Respiratory Distress Gastrointestinal: Soft, Distended Extremity: Non Tender, No Calf Tenderness, Pedal Edema Neurologic/Psychiatric: Alert, Oriented x3 Data Review Labs Laboratory Tests 04/27/20 02:35: 04/27/20 05:14: White Blood Count 11.3H, Red Blood Count 3.65L, Hemoglobin 10.8L, Mean Corpuscular Hemoglobin Concent 31L, Red Cell Distribution Width 18.0H, Neutrophils (%) (Auto) 86H, Lymphocytes (%) (Auto) 7L, Neutrophils # (Auto) 9.7H , Lymphocytes # (Auto) 0.8L, Anion Gap 15H, Creatinine 1.57H, Glucose Level 121H , Aspartate Amino Transf (AST/SGOT) 39H Impression & Plan Impression & Plan IMP: 1. Abdominal pain after colonoscopy, on NG tube with improvement 2. 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 Last chemo Carbo+Taxol a month ago. 3 h/o CAD and CHF 4. Morbid obese Plan: 1. Conservative management of abdominal pain 2. I will see patient on 05/08/2020 for possible resume chemotherapy if she is stable enough. 3. DVT prophylaxis per protocol. 4. Dr Lopez to decide hospital course and discharge plan. YENIFER JOSEPH MD Apr 27, 2020 17:23
--- NOTE | 2020-04-27 17:36 | Diagnostic Imaging Report ---
EXAMINATION: Abdomen supine and erect at 11:33 a.m. INDICATION: Nausea and vomiting. FINDINGS: Reportedly, the patient underwent colonoscopy yesterday. The prior exam did reveal distention of much of the colon by gas. On this study, there is still a considerable amount of gas throughout the colon. There are also now a few dilated gas-filled segments of small bowel present. There is still no sign of a pneumoperitoneum. There is a prominent air-fluid level within the stomach. Also, an NG line has been inserted, but the line is coiled on itself in the mid esophagus. Reportedly, the line has been removed and a new NG tube is to be inserted. There is no mass or organomegaly identified. The osseous structures are intact. IMPRESSION: 1. There is persistent dilatation of the colon by gas. A few dilated gas-filled segments of small bowel have also developed. These findings are most likely due to an ileus. There is still no sign of a pneumoperitoneum. 2. There is a prominent air-fluid level within the stomach. Reportedly, a new NG tube is to be inserted. 3. These results were called to the patient's nursing station at the time of this exam. Dictated by: Dictated on workstation # [id number]
[2020-04-27 20:00] VITALS: BP 112/62
[2020-04-28] VITALS (7 sets, daily range): BP systolic 103–132; BP diastolic 65–78
[2020-04-28] MEDS: MULTIVIT W/MINERALS TAB (THERAGRAN M) PO SCH (06:46)
[2020-04-28] MEDS: PARoxetine 20 MG (PAXIL) TAB PO SCH (09:50)
[2020-04-28] MEDS: FAMOTIDINE 20 MG (PEPCID) TABLET PO SCH (09:50)
[2020-04-28] MEDS: ALLOPURINOL 300 MG (ZYLOPRIM) TAB PO SCH (09:50)
[2020-04-28] MEDS: dilTIAZem120 MG (CARDIZEM CD) CAP PO SCH (09:51)
[2020-04-28] MEDS: ASPIRIN E.C. 81 MG (ECOTRIN) TAB PO SCH (09:51)
[2020-04-28] MEDS: CYCLOBENZAPRINE 10 MG (FLEXERIL) TAB PO SCH (09:51)
[2020-04-28] MEDS: rOPINIRole 1 MG (REQUIP) TABLET PO SCH ×3 (09:51→21:04)
[2020-04-28] MEDS: DOCUSATE SODIUM 100 MG (COLACE) CAP PO SCH (09:51)
[2020-04-28] MEDS: LOSARTAN 50 MG (COZAAR) TAB PO SCH (09:51)
[2020-04-28] MEDS: OMEGA 3 (FISH OIL) 1000 MG CAP PO SCH ×2 (09:56→21:01)
--- NOTE | 2020-04-28 10:30 | Progress Note ---
Subjective Date Seen by a Provider: Apr 27, 2020 Time Seen by a Provider: 15:00 Subjective/Events-last exam doing better with NGT in place. having bowel fxn. abdominal distention improving. Objective Exam Vital Signs Date Time Temp Pulse Resp B/P (MAP) Pulse Ox O2 Delivery O2 Flow Rate FiO2 04/28/20 10:20 Nasal Cannula 2.50 04/28/20 08:00 36.0 100 16 116/68 (84) 92 Nasal Cannula 2.50 04/28/20 06:35 107 04/28/20 03:52 36.0 87 17 103/65 (78) 97 Nasal Cannula 2.50 04/28/20 01:00 120 04/28/20 00:02 36.1 89 20 126/70 (88) 96 Nasal Cannula 2.50 04/27/20 20:25 Nasal Cannula 2.50 04/27/20 20:00 36.6 107 18 112/62 (79) 95 Nasal Cannula 2.50 04/27/20 19:24 96 Nasal Cannula 2.50 04/27/20 19:00 85 04/27/20 16:00 36.5 111 18 128/64 (85) 96 Nasal Cannula 2.50 04/27/20 12:21 114 I & O 04/28/20 07:00 Intake Total 1660 ml Output Total 1750 ml Balance -90 ml Capillary Refill : Less Than 3 SecondsLess Than 3 Seconds General Appearance: No Apparent Distress HEENT: PERRL/EOMI Neck: Full Range of Motion Respiratory: Chest Non Tender, Decreased Breath Sounds Cardiovascular: Regular Rate, Rhythm Gastrointestinal: normal bowel sounds, non tender, soft Extremity: Normal Capillary Refill Neurologic/Psychiatric: Alert, Oriented x3 Skin: Normal Color Lymphatic: No Adenopathy Assessment/Plan Assessment/Plan Assess & Plan/Chief Complaint ileus s/p colonoscopy with rectosigmoid colonic lesion. ambulate. pain control. Clinical Quality Measures DVT/VTE Risk/Contraindication: Risk Factor Score Per Nursin RFS Level Per Nursing on Admit: 4+=Very High CORINNE RODAS MD Apr 28, 2020 10:30
--- NOTE | 2020-04-28 10:32 | Progress Note ---
Subjective Date Seen by a Provider: Apr 28, 2020 Time Seen by a Provider: 10:00 Subjective/Events-last exam doing better today. much less abd distention. has had multiple bowel movements. Objective Exam Vital Signs Date Time Temp Pulse Resp B/P (MAP) Pulse Ox O2 Delivery O2 Flow Rate FiO2 04/28/20 10:20 Nasal Cannula 2.50 04/28/20 08:00 36.0 100 16 116/68 (84) 92 Nasal Cannula 2.50 04/28/20 06:35 107 04/28/20 03:52 36.0 87 17 103/65 (78) 97 Nasal Cannula 2.50 04/28/20 01:00 120 04/28/20 00:02 36.1 89 20 126/70 (88) 96 Nasal Cannula 2.50 04/27/20 20:25 Nasal Cannula 2.50 04/27/20 20:00 36.6 107 18 112/62 (79) 95 Nasal Cannula 2.50 04/27/20 19:24 96 Nasal Cannula 2.50 04/27/20 19:00 85 04/27/20 16:00 36.5 111 18 128/64 (85) 96 Nasal Cannula 2.50 04/27/20 12:21 114 I & O 04/28/20 07:00 Intake Total 1660 ml Output Total 1750 ml Balance -90 ml Capillary Refill : Less Than 3 SecondsLess Than 3 Seconds General Appearance: No Apparent Distress HEENT: PERRL/EOMI Neck: Full Range of Motion Respiratory: Chest Non Tender, Lungs Clear, Normal Breath Sounds, Decreased Breath Sounds Cardiovascular: Regular Rate, Rhythm Gastrointestinal: normal bowel sounds, non tender, soft Extremity: Normal Capillary Refill Neurologic/Psychiatric: Alert, Oriented x3 Skin: Normal Color Lymphatic: No Adenopathy Assessment/Plan Assessment/Plan Assess & Plan/Chief Complaint ileus s/p colonoscopy with rectosigmoid colonic lesion. ambulate. pain control. remove ngt and start dys3 diet. Clinical Quality Measures DVT/VTE Risk/Contraindication: Risk Factor Score Per Nursin RFS Level Per Nursing on Admit: 4+=Very High CORINNE RODAS MD Apr 28, 2020 10:32
--- NOTE | 2020-04-28 11:16 | Oncology Progress Note ---
Subjective Date Seen by a Provider: Apr 28, 2020 Time Seen by a Provider: 11:13 Subjective/Events-last exam No new event Pt is doing better. Have bowl movement this morning. Still on NG tube so far. Data Review Labs Laboratory Tests 04/27/20 02:35: 04/27/20 05:14: White Blood Count 11.3H, Red Blood Count 3.65L, Hemoglobin 10.8L, Mean Corpuscular Hemoglobin Concent 31L, Red Cell Distribution Width 18.0H, Neutrophils (%) (Auto) 86H, Lymphocytes (%) (Auto) 7L, Neutrophils # (Auto) 9.7H , Lymphocytes # (Auto) 0.8L, Anion Gap 15H, Creatinine 1.57H, Glucose Level 121H , Aspartate Amino Transf (AST/SGOT) 39H Physical Exam Vital Signs Vital Signs - First Documented 04/26/20 04/26/20 11:13 11:50 Temp 37.3 Pulse 88 Resp 18 B/P (MAP) 139/99 (112) Pulse Ox 96 O2 Delivery Room Air O2 Flow Rate 5 Capillary Refill : Less Than 3 SecondsLess Than 3 Seconds Height, Weight, BMI Height: '" Weight: lbs. oz. kg; 44.63 BMI Method: General Appearance: No Apparent Distress Respiratory: No Accessory Muscle Use, No Respiratory Distress Neurologic/Psychiatric: Alert, Oriented x3 Impression & Plan Impression & Plan IMP: 1. Abdominal pain after colonoscopy, on NG tube with improvement 2. 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 Last chemo Carb o+Taxol a month ago. 3 h/o CAD and CHF 4. Morbid obese Plan: 1. Conservative management of abdominal pain 2. I will see patient on 05/08/2020 for possible resume chemotherapy if she is stable enough. 3. DVT prophylaxis per protocol. 4. Dr Lopez to decide hospital course and discharge plan. Clinical Quality Measures DVT/VTE Risk/Contraindication: Risk Factor Score Per Nursin RFS Level Per Nursing on Admit: 4+=Very High YENIFER JOSEPH MD Apr 28, 2020 11:16
--- OUTSIDE RECORDS SUMMARY | 2020-04-28 19:55 | XMS REPORT | Continuity of Care Document ---
Author Organization Unknown Address Unknown Phone Unavailable Allergies Active Description Code Type Severity Reaction Onset Reported/Identified Relationship to Patient Clinical Status Yes adhesive tape [id number] Rock g Allergy Mild BLISTERS 04/20/2020 Yes No Known Allergies [id number] Drug Allergy Unknown N/A 04/20/2020 Medications There [...] FOR OTHER PREPROCEDURAL EXAMIN 11/10/2019 STEPHEN JENSEN BRINE MAKER Ot K59.00 CONSTIPATION, UNSPECIFIED 11/10/2019 HUY BALLESTEROS [...] BACTER 11/11/2019 CORINNE RODAS MD, Ot Z79.01 COURT ADMINISTRATOR (CURRENT) USE OF ANTICOAGULANT 11/11/2019 CORINNE RODAS MD, Ot Z79.89 9 OTHER HALF-WAY (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 THERAPY 11/11/2019 CORINNE RODAS MD, [...] CHRONIC OBSTRUCTIVE PULMONARY DISEASE, U 11/18/2019 CORINNE RDOAS MD, Ot K21.9 GASTRO-ESOPHAGEAL REFLUX DISEASE WITHOUT 11/18/2019 CORINNE RODAS MD, Ot M10.9 GOUT, UNSPECIFIED 11/18/2019 CORINNE RODAS MD, Ot M19.91 PRIMARY OSTEOARTHRITIS, UNSPECIFIED SITE 11/18/2019 CORINNE RODAS MD, Ot Z11.2 ENCOUNTER FOR SCREENING FOR OTHER BACTER 11/18/2019 CORINNE RODAS MD, Ot Z79.01 HALF-WAY (CURRENT) USE OF ANTICOAGULANT 11/18/2019 CORINNE RODAS MD, Ot Z79.[address] ADMINISTRATOR (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 THERAPY 11/18/2019 CORINNE RODAS MD, [...] OF URINARY CALCULI 11/24/2019 STEPHEN JENSEN S BRINE MAKER Ot K59.00 CONSTIPATION, UNSPECIFIED 11/24/2019 FAVIAN, HUY OIL DELIVERER Ot C56.9 MALIGNANT NEOPLASM OF UNSPECIFIED OVARY [...] HISTORY OF URINARY CALCULI 11/26/2019 CAMILASTEPHEN Carcamo BRINE MAKER Ot K59.00 CONSTIPATION, UNSPECIFIED 11/26/2019 FAVIAN, HUY OIL DELIVERER Ot C56.9 MALIGNANT NEOPLASM OF UNSPECIFIED OVARY [...] ESSENTIAL (PRIMARY) HYPERTENSION 12/01/2019 CAMILA, STEPHEN S BRINE MAKER Ot K59.00 CONSTIPATION, UNSPECIFIED 12/01/2019 HUY BALLESTEROS OIL DELIVERER Ot C56.9 MALIGNANT NEOPLASM OF UNSPECIFIED OVARY [...] ESSENTIAL (PRIMARY) HYPERTENSION 12/03/2019 CAMILA, STEPHEN S BRINE MAKER Ot C56.9 MALIGNANT NEOPLASM OF UNSPECIFIED OVARY 12/03/2019 CAMILA STEPHEN S BRINE MAKER Ot E78.2 MIXED HYPERLIPIDEMIA 12/03/2019 CAMILA, STEPHEN S BRINE MAKER Ot I1 0 ESSENTIAL (PRIMARY) HYPERTENSION 12/17/2019 MARIA D PADILLA MD Ot C56.9 MALIGNANT NEOPLASM OF UNSPECIFIED OVARY 12/17/2019 MARIA D PADILLA MD Ot I10 ESSENTIAL (PRIMARY) HYPERTENSION 12/17/2019 CAMILA, STEPHEN S BRINE MAKER Ot K59.00 CONSTIPATION, UNSPECIFIED 12/17/2019 FAVIAN, HUY OIL DELIVERER Ot C56.9 MALIGNANT NEOPLASM OF UNSPECIFIED OVARY [...] ESSENTIAL (PRIMARY) HYPERTENSION 12/17/2019 CAMILA, STEPHEN S BRINE MAKER Ot C56.9 MALIGNANT NEOPLASM OF UNSPECIFIED OVARY 12/17/2019 CAMILA, STEPHEN S BRINE MAKER Ot E78.2 MIXED HYPERLIPIDEMIA 12/17/2019 CAMILA, STEPHEN S BRINE MAKER Ot I1 0 ESSENTIAL (PRIMARY) HYPERTENSION 12/23/2019 CAMILA, STEPHEN S BRINE MAKER Ot C56.9 MALIGNANT NEOPLASM OF UNSPECIFIED OVARY 12/23/2019 CAMILA, STEPHEN S BRINE MAKER Ot E78.2 MIXED HYPERLIPIDEMIA 12/23/2019 CAMILA, STEPHEN S BRINE MAKER Ot I1 0 ESSENTIAL (PRIMARY) HYPERTENSION 12/28/2019 MARIA D PADILLA MD Ot C56.9 MALIGNANT NEOPLASM OF UNSPECIFIED OVARY 12/28/2019 MARIA D PADILLA MD Ot I10 ESSENTIAL (PRIMARY) HYPERTENSION 12/28/2019 CAMILA, STEPHEN S BRINE MAKER Ot K59.00 CONSTIPATION, UNSPECIFIED 12/28/2019 HUY BALLESTEROS OIL DELIVERER Ot C56.9 MALIGNANT NEOPLASM OF UNSPECIFIED OVARY [...] ESSENTIAL (PRIMARY) HYPERTENSION 12/28/2019 CAMILA, STEPHEN S BRINE MAKER Ot C56.9 MALIGNANT NEOPLASM OF UNSPECIFIED OVARY 12/28/2019 CAMILA, STEPHEN S BRINE MAKER Ot E78.2 MIXED HYPERLIPIDEMIA 12/28/2019 CAMILA, STEPHEN S BRINE MAKER Ot I1 0 ESSENTIAL (PRIMARY) HYPERTENSION 12/29/2019 [...] OF URINARY CALCULI 12/29/2019 CAMILA STEPHEN S BRINE MAKER Ot K59.00 CONSTIPATION, UNSPECIFIED 12/29/2019 HUY BALLESTEROS OIL DELIVERER Ot C56.9 MALIGNANT NEOPLASM OF UNSPECIFIED OVARY 12/29/2019 MARIA D PADILLA MD Ot C56.9 MALIGNANT NEOPLASM OF UNSPECIFIED OVARY 12/29/2019 MARIA D PADILLA MD Ot I10 ESSENTIAL (PRIMARY) HYPERTENSION 12/29/2019 CAMILA, STEPHEN S BRINE MAKER Ot C56.9 MALIGNANT NEOPLASM OF UNSPECIFIED OVARY 12/29/2019 CAMILA STEPHEN S BRINE MAKER Ot E78.2 MIXED HYPERLIPIDEMIA 12/29/2019 CAMILA, STEPHEN S BRINE MAKER Ot I1 0 ESSENTIAL (PRIMARY) HYPERTENSION 12/29/2019 MARIA D PADILLA MD Ot 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 12/29/2019 MARAI D PADILLA MD Ot C77.2 SECONDARY AND [...] OF URINARY CALCULI 12/29/2019 CAMILA, STEPHEN S BRINE MAKER Ot K59.00 CONSTIPATION, UNSPECIFIED 12/29/2019 HUY BALLESTEROS OIL DELIVERER Ot C56.9 MALIGNANT NEOPLASM OF UNSPECIFIED OVARY 12/29/2019 MARIA D PADILLA MD Ot C56.9 MALIGNANT NEOPLASM OF UNSPECIFIED OVARY 12/29/2019 MARIA D PADILLA MD Ot I10 ESSENTIAL (PRIMARY) HYPERTENSION 12/29/2019 CAMILA, STEPHEN S BRINE MAKER Ot C56.9 MALIGNANT NEOPLASM OF UNSPECIFIED OVARY 12/29/2019 CAMILA, STEPHEN S BRINE MAKER Ot E78.2 MIXED HYPERLIPIDEMIA 12/29/2019 CAMILA, STEPHEN S BRINE MAKER Ot I1 0 ESSENTIAL (PRIMARY) HYPERTENSION 12/29/2019 [...] OF URINARY CALCULI 12/29/2019 CAMILA, STEPHEN S BRINE MAKER Ot K59.00 CONSTIPATION, UNSPECIFIED 12/29/2019 FAVIANHUY RAMIREZ OIL DELIVERER Ot C56.9 MALIGNANT NEOPLASM OF UNSPECIFIED OVARY 12/29/2019 MARIA D PADILLA MD Ot C56.9 MALIGNANT NEOPLASM OF UNSPECIFIED OVARY 12/29/2019 MARIA D PADILLA MD Ot I10 ESSENTIAL (PRIMARY) HYPERTENSION 12/29/2019 CAMILASTEPHEN Carcamo BRINE MAKER Ot C56.9 MALIGNANT NEOPLASM OF UNSPECIFIED OVARY 12/29/2019 CAMILASTEPHEN Carcamo S BRINE MAKER Ot E78.2 MIXED HYPERLIPIDEMIA 12/29/2019 CAMILASTEPHEN Carcamo S BRINE MAKER Ot I1 0 ESSENTIAL (PRIMARY) HYPERTENSION 12/29/2019 [...] OF URINARY CALCULI 01/19/2020 CAMILA, STEPHEN S BRINE MAKER Ot K59.00 CONSTIPATION, UNSPECIFIED 01/19/2020 FAVIAN, HUY OIL DELIVERER Ot C56.9 MALIGNANT NEOPLASM OF UNSPECIFIED OVARY 01/19/2020 MARIA D PADILLA MD Ot C56.9 MALIGNANT NEOPLASM OF UNSPECIFIED OVARY 01/19/2020 MARIA D PADILLA MD Ot I10 ESSENTIAL (PRIMARY) HYPERTENSION 01/19/2020 CAMILA, STEPHEN S BRINE MAKER Ot C56.9 MALIGNANT NEOPLASM OF UNSPECIFIED OVARY 01/19/2020 CAMILA, STEPHEN S BRINE MAKER Ot E78.2 MIXED HYPERLIPIDEMIA 01/19/2020 CAMILA, STEPHEN S BRINE MAKER Ot I1 0 ESSENTIAL (PRIMARY) HYPERTENSION 01/19/2020 [...] ESSENTIAL (PRIMARY) HYPERTENSION 01/26/2020 CAMILA, STEPHEN S BRINE MAKER Ot K59.00 CONSTIPATION, UNSPECIFIED 01/26/2020 HUY BALLESTEROS Ot C56.9 MALIGNANT NEOPLASM OF UNSPECIFIED OVARY 01/26/2020 MARIA D PADILLA MD Ot C56.9 MALIGNANT NEOPLASM OF UNSPECIFIED OVARY 01/26/2020 MARIA D PADILLA MD Ot I10 ESSENTIAL (PRIMARY) HYPERTENSION 01/26/2020 CAMILA, STEPHEN S BRINE MAKER Ot C56.9 MALIGNANT NEOPLASM OF UNSPECIFIED OVARY 01/26/2020 CAMILA, STEPHEN S BRINE MAKER Ot E78.2 MIXED HYPERLIPIDEMIA 01/26/2020 CAMILA, STEPHEN S BRINE MAKER Ot I1 0 ESSENTIAL (PRIMARY) HYPERTENSION 01/26/2020 [...] HISTORY OF PNEUMONIA (RECURRENT 01/26/2020 MARIA D PAIDLLA MD Ot Z87.442 PERSONAL HISTORY OF URINARY CALCULI 01/26/2020 CAMILA STEPHEN S BRINE MAKER Ot K59.00 CONSTIPATION, UNSPECIFIED 01/26/2020 HUY BALLESTEROS OIL DELIVERER Ot C56.9 MALIGNANT NEOPLASM OF UNSPECIFIED OVARY 01/26/2020 MARIA D PADILLA MD Ot C56.9 MALIGNANT NEOPLASM OF UNSPECIFIED OVARY 01/26/2020 MARIA D PADILLA MD Ot I10 ESSENTIAL (PRIMARY) HYPERTENSION 01/26/2020 CAMILA STEPHEN S BRINE MAKER Ot C56.9 MALIGNANT NEOPLASM OF UNSPECIFIED OVARY 01/26/2020 CAMILA STEPHEN S BRINE MAKER Ot E78.2 MIXED HYPERLIPIDEMIA 01/26/2020 CAMILA, STEPHEN S BRINE MAKER Ot I1 0 ESSENTIAL (PRIMARY) HYPERTENSION 01/26/2020 [...] MD Ot I10 ESSENTIAL (PRIMARY) HYPERTENSION 01/27/2020 CAMIAL, STEPHEN S BRINE MAKER Ot K59.00 CONSTIPATION, UNSPECIFIED 01/27/2020 FAVIAN, HUY OIL DELIVERER Ot C56.9 MALIGNANT NEOPLASM OF UNSPECIFIED OVARY 01/27/2020 MARIA D PADILLA MD Ot C56.9 MALIGNANT NEOPLASM OF UNSPECIFIED OVARY 01/27/2020 MARIA D PADILLA MD Ot I10 ESSENTIAL (PRIMARY) HYPERTENSION 01/27/2020 CAMILA, STEPHEN S BRINE MAKER Ot C56.9 MALIGNANT NEOPLASM OF UNSPECIFIED OVARY 01/27/2020 CAMILA, STEPHEN S BRINE MAKER Ot E78.2 MIXED HYPERLIPIDEMIA 01/27/2020 CAMILA, STEPHEN S BRINE MAKER Ot I1 0 ESSENTIAL (PRIMARY) HYPERTENSION 01/27/2020 [...] OF URINARY CALCULI 01/31/2020 CAMILA, STEPHEN S BRINE MAKER Ot K59.00 CONSTIPATION, UNSPECIFIED 01/31/2020 FAVIANHUY OIL DELIVERER Ot C56.9 MALIGNANT NEOPLASM OF UNSPECIFIED OVARY 01/31/2020 MARIA D PADILLA MD Ot C56.9 MALIGNANT NEOPLASM OF UNSPECIFIED OVARY 01/31/2020 MARIA D PADILLA MD Ot I10 ESSENTIAL (PRIMARY) HYPERTENSION 01/31/2020 CAMILA, STEPHEN S BRINE MAKER Ot C56.9 MALIGNANT NEOPLASM OF UNSPECIFIED OVARY 01/31/2020 CAMILA, STEPHEN S BRINE MAKER Ot E78.2 MIXED HYPERLIPIDEMIA 01/31/2020 CAMILA, STEPHEN S BRINE MAKER Ot I1 0 ESSENTIAL (PRIMARY) HYPERTENSION 01/31/2020 [...] OF URINARY CALCULI 02/14/2020 CAMILA, STEPHEN S BRINE MAKER Ot K59.00 CONSTIPATION, UNSPECIFIED 02/14/2020 FAVIANHUY OIL DELIVERER Ot C56.9 MALIGNANT NEOPLASM OF UNSPECIFIED OVARY 02/14/2020 MARIA D PADILLA MD Ot C56.9 MALIGNANT NEOPLASM OF UNSPECIFIED OVARY 02/14/2020 MARIA D PADILLA MD Ot I10 ESSENTIAL (PRIMARY) HYPERTENSION 02/14/2020 CAMILA, STEPHEN S BRINE MAKER Ot C56.9 MALIGNANT NEOPLASM OF UNSPECIFIED OVARY 02/14/2020 CAMILA, STEPHEN S BRINE MAKER Ot E78.2 MIXED HYPERLIPIDEMIA 02/14/2020 CAMILA, STEPHEN S BRINE MAKER Ot I1 0 ESSENTIAL (PRIMARY) HYPERTENSION 02/14/2020 [...] MD Ot I25.10 ATHSCL HEART DISEASE OF [place] CORONARY 02/15/2020 MARIA D PADILLA MD Ot [...] MALIGNANT NEOPLASM OF 02/22/2020 STEPHEN JENSEN S BRINE MAKER Ot K59.00 CONSTIPATION, UNSPECIFIED 02/22/2020 HUY BALLESTEROS Ot C56.9 MALIGNANT NEOPLASM OF UNSPECIFIED OVARY 02/22/2020 MARIA D PADILLA MD Ot C56.9 MALIGNANT NEOPLASM OF UNSPECIFIED OVARY 02/22/2020 MARIA D PADILLA MD Ot I10 ESSENTIAL (PRIMARY) HYPERTENSION 02/22/2020 STEPHEN JENSEN S BRINE MAKER Ot C56.9 MALIGNANT NEOPLASM OF UNSPECIFIED OVARY 02/22/2020 CAMILA, STEPHEN S BRINE MAKER Ot E78.2 MIXED HYPERLIPIDEMIA 02/22/2020 CAMILA, STEPHEN S BRINE MAKER Ot I1 0 ESSENTIAL (PRIMARY) HYPERTENSION 02/22/2020 [...] MD Ot I25.10 ATHSCL HEART DISEASE OF [place] CORONARY 02/22/2020 MARIA D PADILLA MD Ot N28.1 CYST OF KIDNEY, ACQUIRED 02/23/2020 CAMILA, STEPHEN S BRINE MAKER Ot K59.00 CONSTIPATION, UNSPECIFIED 02/23/2020 HUY BALLESTEROS Ot C56.9 MALIGNANT NEOPLASM OF UNSPECIFIED OVARY 02/23/2020 CAMILA, STEPHEN S BRINE MAKER Ot C56.9 MALIGNANT NEOPLASM OF UNSPECIFIED OVARY 02/23/2020 CAMILA, STEPHEN S BRINE MAKER Ot E78.2 MIXED HYPERLIPIDEMIA 02/23/2020 CAMILA, STEPHEN S BRINE MAKER Ot I1 0 ESSENTIAL (PRIMARY) HYPERTENSION 02/23/2020 [...] MD Ot I25.10 ATHSCL HEART DISEASE OF [place] CORONARY 02/23/2020 MARIA D PADILLA MD Ot N28.1 CYST OF KIDNEY, ACQUIRED 02/23/2020 MARIA D PADILLA MD Ot C56.9 MALIGNANT NEOPLASM OF UNSPECIFIED OVARY 02/23/2020 MARIA D PADILLA MD Ot I10 ESSENTIAL (PRIMARY) HYPERTENSION 02/23/2020 CAMILA, STEPHEN S BRINE MAKER Ot K59.00 CONSTIPATION, UNSPECIFIED 02/23/2020 FAVIANHUY RAMIREZ OIL DELIVERER Ot C56.9 MALIGNANT NEOPLASM OF UNSPECIFIED OVARY 02/23/2020 CAMILA, STEPHEN S BRINE MAKER Ot C56.9 MALIGNANT NEOPLASM OF UNSPECIFIED OVARY 02/23/2020 CAMILA, STEPHEN S BRINE MAKER Ot E78.2 MIXED HYPERLIPIDEMIA 02/23/2020 CAMILA STEPHEN S BRINE MAKER Ot I1 0 ESSENTIAL (PRIMARY) HYPERTENSION 02/23/2020 [...] MDNER Ot I25.10 ATHSCL HEART DISEASE OF [place] CORONARY 02/23/2020 MARIA D PADILLA MD Ot [...] MALIGNANT NEOPLASM OF 02/24/2020 O'DELL, NAVEED K BRINE MAKER Ot M54 .9 DORSALGIA, UNSPECIFIED 02/24/2020 O'DELL, NAVEED K BRINE MAKER Ot R06.02 SHORTNESS OF BREATH 02/24/2020 O'DELL, NAVEED K BRINE MAKER Ot R10 .9 UNSPECIFIED ABDOMINAL PAIN 02/24/2020 MARIA D PADILLA MD Ot C56.9 MALIGNANT NEOPLASM OF UNSPECIFIED OVARY 02/24/2020 MARIA D PADILLA MD Ot I10 ESSENTIAL (PRIMARY) HYPERTENSION 02/28/2020 CAMILA, STEPHEN S BRINE MAKER Ot K59.00 CONSTIPATION, UNSPECIFIED 02/28/2020 HUY BALLESTEROS OIL DELIVERER Ot C56.9 MALIGNANT NEOPLASM OF UNSPECIFIED OVARY 02/28/2020 CAMILA, STEPHEN S BRINE MAKER Ot C56.9 MALIGNANT NEOPLASM OF UNSPECIFIED OVARY 02/28/2020 CAMILA, STEPHEN S BRINE MAKER Ot E78.2 MIXED HYPERLIPIDEMIA 02/28/2020 CAMILA, STEPHEN S BRINE MAKER Ot I1 0 ESSENTIAL (PRIMARY) HYPERTENSION 02/28/2020 [...] MD Ot I25.10 ATHSCL HEART DISEASE OF [place] CORONARY 02/28/2020 MARIA D PADILLA MD, Ot N28.1 CYST OF KIDNEY, ACQUIRED 02/28/2020 O'DELL, NAVEED K BRINE MAKER Ot M54 .9 DORSALGIA, UNSPECIFIED 02/28/2020 O'DELL, NAVEED K BRINE MAKER Ot R06.02 SHORTNESS OF BREATH 02/28/2020 O'DELL, NAVEED K BRINE MAKER Ot R10 .9 UNSPECIFIED ABDOMINAL PAIN 02/28/2020 MARIA D PADILLA MD Ot C56.9 MALIGNANT NEOPLASM OF UNSPECIFIED OVARY 02/28/2020 MARIA D PADILLA MD Ot I10 ESSENTIAL (PRIMARY) HYPERTENSION 03/01/2020 CAMILA, STEPHEN S BRINE MAKER Ot K59.00 CONSTIPATION, UNSPECIFIED 03/01/2020 HUY BALLESTEROS OIL DELIVERER Ot C56.9 MALIGNANT NEOPLASM OF UNSPECIFIED OVARY 03/01/2020 CAMILA, STEPHEN S BRINE MAKER Ot C56.9 MALIGNANT NEOPLASM OF UNSPECIFIED OVARY 03/01/2020 CAMILA, STEPHEN S BRINE MAKER Ot E78.2 MIXED HYPERLIPIDEMIA 03/01/2020 CAMILA, STEPHEN S BRINE MAKER Ot I1 0 ESSENTIAL (PRIMARY) HYPERTENSION 03/01/2020 [...] MD Ot I25.10 ATHSCL HEART DISEASE OF [place] CORONARY 03/01/2020 MARIA D PADILLA MD Ot N28.1 CYST OF KIDNEY, ACQUIRED 03/01/2020 O'DELL, NAVEED K BRINE MAKER Ot M54 .9 DORSALGIA, UNSPECIFIED 03/01/2020 O'DELL, NAVEED K BRINE MAKER Ot R06.02 SHORTNESS OF BREATH 03/01/2020 O'DELL, NAVEED K BRINE MAKER Ot R10 .9 UNSPECIFIED ABDOMINAL PAIN 03/01/2020 [...] OF URINARY CALCULI 03/01/2020 ANNALISA JENSENANDA S BRINE MAKER Ot K59.00 CONSTIPATION, UNSPECIFIED 03/01/2020 FAVIAN, HUY OIL DELIVERER Ot C56.9 MALIGNANT NEOPLASM OF UNSPECIFIED OVARY 03/01/2020 CAMILA STEPHEN S KATIE Ot C56.9 MALIGNANT NEOPLASM OF UNSPECIFIED OVARY 03/01/2020 CAMILA, STEPHEN S BRINE MAKER Ot E78.2 MIXED HYPERLIPIDEMIA 03/01/2020 CAMILA, STEPHEN S BRINE MAKER Ot I1 0 ESSENTIAL (PRIMARY) HYPERTENSION 03/01/2020 MARIA D PADILLA MD Ot C77.2 SECONDARY AND UNSP MALIGNANT NEOPLASM OF 03/01/2020 MARIA D PADILLA MD Ot 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 03/01/2020 MARIA D PADILLA MD Ot I25.10 ATHSCL HEART DISEASE OF [place] CORONARY 03/01/2020 MARIA D PADILLA MD Ot N28.1 CYST OF KIDNEY, ACQUIRED 03/01/2020 O'DELL, NAVEED K BRINE MAKER Ot M54 .9 DORSALGIA, UNSPECIFIED 03/01/2020 O'DELL, NAVEED K BRINE MAKER Ot R06.02 SHORTNESS OF BREATH 03/01/2020 O'DELL, NAVEED K BRINE MAKER Ot R10 .9 UNSPECIFIED ABDOMINAL PAIN 03/01/2020 [...] OF URINARY CALCULI 03/01/2020 STEPHEN JENSEN S KTAIE Ot K59.00 CONSTIPATION, UNSPECIFIED 03/01/2020 HUY BALLESTEROS Ot C56.9 MALIGNANT NEOPLASM OF UNSPECIFIED OVARY 03/01/2020 STEPHEN JENSEN S KATIE Ot C56.9 MALIGNANT NEOPLASM OF UNSPECIFIED OVARY 03/01/2020 CAMILA STEPHEN S BRINE MAKER Ot E78.2 MIXED HYPERLIPIDEMIA 03/01/2020 CAMILA STEPHEN S BRINE MAKER Ot I1 0 ESSENTIAL (PRIMARY) HYPERTENSION 03/01/2020 MARIA D PADILLA MD Ot C77.2 SECONDARY AND UNSP MALIGNANT NEOPLASM OF 03/01/2020 MARIA D PADILLA MD Ot 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 03/01/2020 MARIA D PADILLA MD Ot I25.10 ATHSCL HEART DISEASE OF [place] CORONARY 03/01/2020 MARIA D PADILLA MD Ot [...] ESSENTIAL (PRIMARY) HYPERTENSION 03/02/2020 STEPHEN JENSEN S BRINE MAKER Ot K59.00 CONSTIPATION, UNSPECIFIED 03/02/2020 HUY BALLESTEROS OIL DELIVERER Ot C56.9 MALIGNANT NEOPLASM OF UNSPECIFIED OVARY 03/02/2020 CAMILA, STEPHEN S BRINE MAKER Ot C56.9 MALIGNANT NEOPLASM OF UNSPECIFIED OVARY 03/02/2020 CAMILA, STEPHEN S BRINE MAKER Ot E78.2 MIXED HYPERLIPIDEMIA 03/02/2020 CAMILA, STEPHEN S BRINE MAKER Ot I1 0 ESSENTIAL (PRIMARY) HYPERTENSION 03/02/2020 MARIA D PADILLA MD Ot C77.2 SECONDARY AND UNSP MALIGNANT NEOPLASM OF 03/02/2020 MARIA D PADILLA MD Ot 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 03/02/2020 MARIA D PADILLA MD Ot I25.10 ATHSCL HEART DISEASE OF [place] CORONARY 03/02/2020 MARIA D PADILLA MD Ot N28.1 CYST OF KIDNEY, ACQUIRED 03/02/2020 O'DELL, NAVEED K BRINE MAKER Ot M54 .9 DORSALGIA, UNSPECIFIED 03/02/2020 O'DELL, NAVEED K BRINE MAKER Ot R06.02 SHORTNESS OF BREATH 03/02/2020 O'DELL, NAVEED K BRINE MAKER Ot R10 .9 UNSPECIFIED ABDOMINAL PAIN 03/02/2020 [...] MD Ot I25.10 ATHSCL HEART DISEASE OF [place] CORONARY 03/10/2020 MARIA D PADILLA MD Ot [...] ESSENTIAL (PRIMARY) HYPERTENSION 04/12/2020 STEPHEN JENSEN S BRINE MAKER Ot K59.00 CONSTIPATION, UNSPECIFIED 04/12/2020 FAVIAN, HUY OIL DELIVERER Ot C56.9 MALIGNANT NEOPLASM OF UNSPECIFIED OVARY 04/12/2020 CAMILA, STEPHEN S BRINE MAKER Ot C56.9 MALIGNANT NEOPLASM OF UNSPECIFIED OVARY 04/12/2020 CAMILA, STEPHEN S BRINE MAKER Ot E78.2 MIXED HYPERLIPIDEMIA 04/12/2020 CAMILA, STEPHEN S BRINE MAKER Ot I1 0 ESSENTIAL (PRIMARY) HYPERTENSION 04/12/2020 MARIA D PADILLA MD Ot C77.2 SECONDARY AND UNSP MALIGNANT NEOPLASM OF 04/12/2020 MARIA D PADILLA MD Ot 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 04/12/2020 MARIA D PADILLA MD Ot I25.10 ATHSCL HEART DISEASE OF [place] CORONARY 04/12/2020 MARAI D PADILLA MD Ot N28.1 CYST OF KIDNEY, ACQUIRED 04/12/2020 O'DELL, NAVEED K BRINE MAKER Ot M54 .9 DORSALGIA, UNSPECIFIED 04/12/2020 O'DELL, NAVEED K BRINE MAKER Ot R06.02 SHORTNESS OF BREATH 04/12/2020 O'DELL, NAVEED K BRINE MAKER Ot R10 .9 UNSPECIFIED ABDOMINAL PAIN 04/12/2020 MARIA D PDAILLA MD Ot C56.9 MALIGNANT NEOPLASM OF UNSPECIFIED [...] FOR ANTINEOPLASTIC CHEMOTHERAP 04/12/2020 STEPHEN JENSEN S BRINE MAKER Ot K59.00 CONSTIPATION, UNSPECIFIED 04/12/2020 FAVIAN, HUY OIL DELIVERER Ot C56.9 MALIGNANT NEOPLASM OF UNSPECIFIED OVARY 04/12/2020 CAMILA, STEPHEN S BRINE MAKER Ot C56.9 MALIGNANT NEOPLASM OF UNSPECIFIED OVARY 04/12/2020 CAMILA, STEPHEN S BRINE MAKER Ot E78.2 MIXED HYPERLIPIDEMIA 04/12/2020 CAMILA, STEPHEN S BRINE MAKER Ot I1 0 ESSENTIAL (PRIMARY) HYPERTENSION 04/12/2020 MARIA D PADILLA MD, Ot C77.2 SECONDARY AND UNSP MALIGNANT NEOPLASM OF 04/12/2020 MARIA D PADILLA MD, Ot 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 04/12/2020 MARIA D PADILLA MD Ot I25.10 ATHSCL HEART DISEASE OF [place] CORONARY 04/12/2020 MARIA D PADILLA MD Ot N28.1 CYST OF KIDNEY, ACQUIRED 04/12/2020 O'DELL, NAVEED K BRINE MAKER Ot M54 .9 DORSALGIA, UNSPECIFIED 04/12/2020 O'DELL, NAVEED K BRINE MAKER Ot R06.02 SHORTNESS OF BREATH 04/12/2020 O'DELL, [...] FOR ANTINEOPLASTIC CHEMOTHERAP 04/13/2020 STEPHEN JENSEN S BRINE MAKER Ot K59.00 CONSTIPATION, UNSPECIFIED 04/13/2020 FAVIAN, HUY OIL DELIVERER Ot C56.9 MALIGNANT NEOPLASM OF UNSPECIFIED OVARY 04/13/2020 CAMILA, STEPHEN S BRINE MAKER Ot C56.9 MALIGNANT NEOPLASM OF UNSPECIFIED OVARY 04/13/2020 CAMILA, STEPHEN S BRINE MAKER Ot E78.2 MIXED HYPERLIPIDEMIA 04/13/2020 CAMILA, STEPHEN S BRINE MAKER Ot I1 0 ESSENTIAL (PRIMARY) HYPERTENSION 04/13/2020 MARIA D PADILLA MD, Ot C77.2 SECONDARY AND UNSP MALIGNANT NEOPLASM OF 04/13/2020 MARIA D PADILLA MD, Ot 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 04/13/2020 VALERIE MD, KILLIAN Ot I25.10 ATHSCL HEART DISEASE OF [place] CORONARY 04/13/2020 MARIA D PADILLA MD Ot N28.1 CYST OF KIDNEY, ACQUIRED 04/13/2020 O'DELL, NAVEED K KATIE Ot M54 .9 DORSALGIA, UNSPECIFIED 04/13/2020 O'DELL, NAVEED K BRINE MAKER Ot R06.02 SHORTNESS OF BREATH 04/13/2020 O'DELL, NAVEED K BRINE MAKER Ot R10 .9 UNSPECIFIED ABDOMINAL PAIN 04/13/2020 [...] FOR ANTINEOPLASTIC CHEMOTHERAP 04/14/2020 CAMILA, STEPHEN S BRINE MAKER Ot C56.9 MALIGNANT NEOPLASM OF UNSPECIFIED OVARY 04/14/2020 CAMILA, STEPHEN S BRINE MAKER Ot I1 0 ESSENTIAL (PRIMARY) HYPERTENSION 04/19/2020 CAMILA, STEPHEN S BRINE MAKER Ot K59.00 CONSTIPATION, UNSPECIFIED 04/19/2020 HUY BALLESTEROS OIL DELIVERER Ot C56.9 MALIGNANT NEOPLASM OF UNSPECIFIED OVARY 04/19/2020 CAMILA, STEPHEN S BRINE MAKER Ot C56.9 MALIGNANT NEOPLASM OF UNSPECIFIED OVARY 04/19/2020 CAMILA, STEPHEN S BRINE MAKER Ot E78.2 MIXED HYPERLIPIDEMIA 04/19/2020 CAMILA, STEPHEN S BRINE MAKER Ot I1 0 ESSENTIAL (PRIMARY) HYPERTENSION 04/19/2020 MARIA D PADILLA MD Ot C77.2 SECONDARY AND UNSP MALIGNANT NEOPLASM OF 04/19/2020 MARIA D PADILLA MD, Ot 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 04/19/2020 MARIA D PADILLA MD Ot I25.10 ATHSCL HEART DISEASE OF [place] CORONARY 04/19/2020 MARIA D PADILLA MD Ot [...] FOR ANTINEOPLASTIC CHEMOTHERAP 04/24/2020 STEPHEN JENSEN S BRINE MAKER Ot K59.00 CONSTIPATION, UNSPECIFIED 04/24/2020 FAVIANHUY RAMIREZ Ot C56.9 MALIGNANT NEOPLASM OF UNSPECIFIED OVARY 04/24/2020 STEPHEN JENSEN S BRINE MAKER Ot C56.9 MALIGNANT NEOPLASM OF UNSPECIFIED OVARY 04/24/2020 STEPHEN JENSEN S BRINE MAKER Ot E78.2 MIXED HYPERLIPIDEMIA 04/24/2020 STEPHEN JENSEN S BRINE MAKER Ot I1 0 ESSENTIAL (PRIMARY) HYPERTENSION 04/24/2020 MARIA D PADILLA MD, Ot C77.2 SECONDARY AND UNSP MALIGNANT NEOPLASM OF 04/24/2020 MARIA D PADILLA MD, Ot 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 04/24/2020 MARIA D PADILLA MD Ot I25.10 ATHSCL HEART DISEASE OF [place] CORONARY 04/24/2020 MARIA D PADILLA MD, Ot N28.1 CYST OF KIDNEY, ACQUIRED 04/24/2020 O'DELL, NAVEED K BRINE MAKER Ot M54 .9 DORSALGIA, UNSPECIFIED 04/24/2020 O'DELL, NAVEED K BRINE MAKER Ot R06.02 SHORTNESS OF BREATH 04/24/2020 O'DELL, [...] FOR ANTINEOPLASTIC CHEMOTHERAP 04/24/2020 CAMILA, STEPHEN S BRINE MAKER Ot C56.9 MALIGNANT NEOPLASM OF UNSPECIFIED OVARY 04/24/2020 CAMILA, STEPHEN S BRINE MAKER Ot I1 0 ESSENTIAL (PRIMARY) HYPERTENSION 04/24/2020 CAMILA, TSEPHEN S BRINE MAKER Ot K59.00 CONSTIPATION, UNSPECIFIED 04/24/2020 HUY BALLESTEROS OIL DELIVERER Ot C56.9 MALIGNANT NEOPLASM OF UNSPECIFIED OVARY 04/24/2020 CAMILA, STEPHEN S BRINE MAKER Ot C56.9 MALIGNANT NEOPLASM OF UNSPECIFIED OVARY 04/24/2020 CAMILA, STEPHEN S BRINE MAKER Ot E78.2 MIXED HYPERLIPIDEMIA 04/24/2020 CAMILA, STEPHEN S BRINE MAKER Ot I1 0 ESSENTIAL (PRIMARY) HYPERTENSION 04/24/2020 MARIA D PADILLA MD, Ot C77.2 SECONDARY AND UNSP MALIGNANT NEOPLASM OF 04/24/2020 MARIA D PADILLA MD, Ot 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 04/24/2020 MARIA D PADILLA MD Ot I25.10 ATHSCL HEART DISEASE OF [place] CORONARY 04/24/2020 MARIA D PADILLA MD, Ot N28.1 CYST OF KIDNEY, ACQUIRED 04/24/2020 O'DELL, NAVEED Nico WILSON Ot M54 .9 DORSALGIA, UNSPECIFIED 04/24/2020 O'DELL, NAVEED Nico WILSON Ot R06.02 SHORTNESS OF BREATH 04/24/2020 O'DELL, NAVEEDNaz Walsh APRN Ot R10 .9 UNSPECIFIED ABDOMINAL PAIN 04/24/2020 MARIA D PADILLA MD Ot C56.9 MALIGNANT NEOPLASM OF UNSPECIFIED OVARY 04/24/2020 MARIA D PADILLA MD Ot I10 ESSENTIAL (PRIMARY) HYPERTENSION 04/24/2020 YENIFER JOSEPH MD, Ot C56. 1 MALIGNANT NEOPLASM OF RIGHT OVARY 04/24/2020 YENIFER JOSEPH MD Ot C77. 2 SECONDARY AND UNSP MALIGNANT NEOPLASM OF 04/24/2020 YENIFER JOSEPH MD, Ot C78. 6 SECONDARY MALIGNANT NEOPLASM OF [place] 04/24/2020 YENIFER JOSEPH MD Ot Z51. 11 ENCOUNTER FOR ANTINEOPLASTIC CHEMOTHERAP 04/24/2020 CAMILA STEPHEN S BRINE MAKER Ot C56.9 MALIGNANT NEOPLASM OF UNSPECIFIED OVARY 04/24/2020 CAMILA, STEPHEN S BRINE MAKER Ot I1 0 ESSENTIAL (PRIMARY) HYPERTENSION 04/25/2020 CAMILA, STEPHEN S BRINE MAKER Ot K59.00 CONSTIPATION, UNSPECIFIED 04/25/2020 HUY BALLESTEROS Ot C56.9 MALIGNANT NEOPLASM OF UNSPECIFIED OVARY 04/25/2020 CAMILA, STEPHEN S BRINE MAKER Ot C56.9 MALIGNANT NEOPLASM OF UNSPECIFIED OVARY 04/25/2020 CAMILA, STEPHEN S BRINE MAKER Ot E78.2 MIXED HYPERLIPIDEMIA 04/25/2020 CAMILA, STEPHEN S BRINE MAKER Ot I1 0 ESSENTIAL (PRIMARY) HYPERTENSION 04/25/2020 MARIA D PADILLA MD Ot C77.2 SECONDARY AND UNSP MALIGNANT NEOPLASM OF 04/25/2020 MARIA D PADILLA MD Ot 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 04/25/2020 MARIA D PADILLA MD Ot I25.10 ATHSCL HEART DISEASE OF [place] CORONARY 04/25/2020 MARIA D PADILLA MD Ot N28.1 CYST OF KIDNEY, ACQUIRED 04/25/2020 O'DELL, NAVEED Nico WILSON Ot M54 .9 DORSALGIA, UNSPECIFIED 04/25/2020 O'DELL, NAVEED Nico WILSON Ot R06.02 SHORTNESS OF BREATH 04/25/2020 ONAVEED NORTON APRN Ot R10 .9 UNSPECIFIED ABDOMINAL PAIN 04/25/2020 MARIA D PADILLA MD Ot C56.9 MALIGNANT NEOPLASM OF UNSPECIFIED OVARY 04/25/2020 MARIA D PADILLA MD Ot I10 ESSENTIAL (PRIMARY) HYPERTENSION 04/25/2020 YENIFER JOSEPH MD Ot C56. 1 MALIGNANT NEOPLASM OF RIGHT OVARY 04/25/2020 YENIFER JOSEPH MD Ot C77. 2 SECONDARY AND UNSP MALIGNANT NEOPLASM OF 04/25/2020 YENIFER JOSEPH MD Ot C78. 6 SECONDARY MALIGNANT NEOPLASM OF [place] 04/25/2020 YENIFER JOSEPH MD Ot Z51. 11 ENCOUNTER FOR ANTINEOPLASTIC CHEMOTHERAP 04/25/2020 STEPHEN JENSEN APRN Ot C56.9 MALIGNANT NEOPLASM OF UNSPECIFIED OVARY 04/25/2020 STEPHEN JENSEN APRN Ot I1 0 ESSENTIAL (PRIMARY) HYPERTENSION 04/26/2020 STEPHANIE NORRIS MD, Ot E78.00 PURE HYPERCHOLESTEROLEMIA, UNSPECIFIED 04/26/2020 STEPHANIE NORRIS MD, Ot I10 ESSENTIAL (PRIMARY) HYPERTENSION 04/26/2020 STEPHANIE NORRIS MD Ot I48.91 UNSPECIFIED ATRIAL FIBRILLATION 04/26/2020 STEPHANIE NORRIS MD, Ot K21.9 GASTRO-ESOPHAGEAL REFLUX DISEASE WITHOUT 04/26/2020 STEPHANIE NORRIS MD, Ot K59.09 OTHER CONSTIPATION 04/26/2020 STEPHANIE NORRIS MD, Ot M10.9 GOUT, UNSPECIFIED 04/26/2020 STEPHANIE NORRIS MD, Ot M54.5 LOW BACK PAIN 04/26/2020 STEPHANIE NORRIS MD, Ot R60.0 LOCALIZED EDEMA 04/26/2020 STEPHANIE NORRIS MD, Ot Z79.01 HALF-WAY (CURRENT) USE OF ANTICOAGULANT 04/26/2020 STEPHANIE NORRIS MD Ot Z79.82 HALF-WAY (CURRENT) USE OF ASPIRIN 04/26/2020 STEPHANIE NORRIS MD, Ot Z85.43 PERSONAL HISTORY OF MALIGNANT NEOPLASM O 04/26/2020 STEPHANIE NORRIS MD, Ot Z88.8 ALLERGY STATUS TO OTH DRUG/MEDS/BIOL SUB 04/26/2020 STEPHANIE NORRIS MD, Ot Z96.653 PRESENCE OF ARTIFICIAL KNEE JOINT, BILAT Procedures There is no data. Results Test [...] NRG Manual blood lymphocytes/100 leukocytes 29 % NR Manual eosinophils/100 leukocytes in nose 2 % NR Manual blood basophils/100 leukocytes 0 % [facility] Comprehensive metabolic panel - 02/15/19 09:58 Serum [...] 7-25 CREATININE 0.58 mg/dL 0.60-0.93 eGFR NON-AFR. CYMRAES 90 mL/min/1.73m2 > OR = 60 eGFR [...] 7-25 CREATININE 0.64 mg/dL 0.60-0.93 eGFR NON-AFR. CYMRAES 87 mL/min/1.73m2 > OR = 60 eGFR [...] 02/22/20 11:36 CULTURE, URINE, ROUTINE SEE NOTE NRG LIPID PANEL - 03/01/20 10:50 CHOLESTEROL, TOTAL [...] g/dL 3.2-4.5 CALCIUM CORRECTED 9.4 mg/dL 8.5-10.1 Capillary blood glucose measurement by g lucometer (mass/volume) - 04/27/20 02:35 Capillary blood glucose measurement by glucometer (mas s/volume) 105 mg/dL 70-110 Complete blood count (CBC) with automate d white blood cell (WBC) differential - 04/27/20 05:14 Blood leukocytes automated count (number/volume) 11.3 10*3/uL 4.3-11.0 Blood erythrocytes automated count (number/volume) 3.65 10*6/uL 4.35-5.85 Venous blood hemoglobin measurement (mass/volume) 10.8 g/dL 11.5-16.0 Blood hematocrit (volume fraction) 35 % 35-52 Automated erythrocyte mean corpuscular volume 95 [ foz_us] 80-99 Automated erythrocyte mean corpuscular h emoglobin (mass per erythrocyte) 30 pg 25-34 Automated erythrocyte mean corpuscular h emoglobin concentration measurement (mass/volume) 31 g/dL 32-36 Automated erythrocyte distribution width ratio 18. 0 % 10.0- 14.5 Automated blood platelet count (count/volume) 319 10*3/uL 130-400 Automated blood platelet mean volume measurement 8.1 [foz_us] 7.4-10.4 Automated blood neutrophils/100 leukocytes 86 % 42-75 Automated blood lymphocytes/100 leukocytes 7 % 12-44 Blood monocytes/100 leukocytes 7 % 0-12 Automated blood eosinophils/100 leukocytes 0 % 0-10 Automated blood basophils/100 leukocytes 0 % 0-10 Blood neutrophils automated count (number/volume) 9.7 10*3 1.8-7.8 Blood lymphocytes automated count (number/volume) 0.8 10*3 1.0-4.0 Blood monocytes automated count (number/volume) 0. 8 10*3 0.0-1.0 Automated eosinophil count 0.0 10*3/uL 0 .0-0.3 Automated blood basophil count (count/volume) 0.0 10*3/uL 0.0-0.1 Manual absolute plasma cell count - 03/31 05:14 Blood monocytes/100 leukocytes 9 % NRG Manual blood segmented neutrophils/100 leukocytes 74 % NRG Blood band neutrophils/100 leukocytes 7 % NRG Manual blood lymphocytes/100 leukocytes 10 % NRG Blood polychromasia detection by light microscopy SLIGHT NRG Blood anisocytosis detection by light microscopy S LIGHT NRG Comprehensive metabolic panel - 04/27/20 05:14 Serum or plasma sodium measurement (moles/volume) 139 mmol/L 135-145 Serum or plasma potassium measurement (moles/volume) 3.9 mmol/L 3.6-5.0 Serum or plasma chloride measurement (moles/volume) 99 mmol/L 98-107 Carbon dioxide 25 mmol/L 21-32 Serum or plasma anion gap determination (moles/volume) 15 mmol/L 5-14 Serum or plasma urea nitrogen measurement (mass/volume ) 18 mg/dL 7-18 Serum or plasma creatinine measurement (mass/volume) 1.57 mg/dL 0.60-1.30 Serum or plasma urea nitrogen/creatinine mass ratio 11 NRG Serum or plasma creatinine measurement w ith calculation of estimated glomerular filtration rate 32 NRG Serum or plasma glucose measurement (mass/volume) 121 mg/dL 70-105 Serum or plasma calcium measurement (mass/volume) 9.5 mg/dL 8.5-10.1 Serum or plasma total bilirubin measurement (mass/volu me) 0.9 mg/dL 0.1-1.0 Serum or plasma alkaline phosphatase doris surement (enzymatic activity/volume) 102 U/L 40-136 Serum or plasma aspartate aminotransfera se measurement (enzymatic activity/volume) 39 U/L 5-34 Serum or plasma alanine aminotransferase measurement (enzymatic activity/volume) 25 U/L 0-55 Serum or plasma protein measurement (mass/volume) 6.5 g/dL 6.4-8.2 Serum or plasma albumin measurement (mass/volume) 3.5 g/dL 3.2-4.5 CALCIUM CORRECTED 9.9 mg/dL 8.5-10.1 Encounters ACCT No. Visit Date/Time Discharge Status Pt. Type Provider Facility Loc./Unit Complaint [id number] 04/12/2020 10:00:00 04/12/2020 23:59: 59 CLS Outpatient STEPHEN JENSEN [facility] [id number] 03/01/2020 10:45:00 Document Registration [id number] 02/22/2020 11:20:00 Document Registration [id number] 07/28/2019 11:00:00 Document Registration [id number] 03/23/2019 10:20:00 Document Registration [id number] 02/15/2019 09:00:00 Document Registration [id number] 12/09/2018 10:40:00 Document Registration [id number] 04/24/2020 08:44:00 12:40:00 DIS Outpatient STEPHANIE NORRIS MD [facility] ER FEET SWELLING [id number] 04/24/2020 05:30:00 10:20:00 DIS Outpatient CORINNE RODAS MD [facility] PREOP COLONOSCOPY [id number] 04/13/2020 09:59:00 23:59:59 CLS Outpatient YENIFER JOSEPH MD [facility] ONC [id number] 04/12/2020 10:11:00 23:59:59 CLS Outpatient STEPHEN JENSEN APRN [facility] LAB FS CBC AUTOMATED W/ AUTO DIFF,BMP [id number] 02/10/2020 09:49:00 16:15:00 DIS Outpatient VALERIE CASTLE, MARIA D jones [facility] ONC [id number] 02/23/2020 09:58:00 23:59:59 CLS Outpatient MARIA D PADILLA MD, [facility] LAB FS CBC BMP [id number] 02/22/2020 11:54:00 23:59:59 CLS Outpatient NAVEED LOZANO [employer] [facility] RAD FS FLANK PAIN,SHORTNESS OF BREATH [id number] 01/26/2020 09:50:00 00:01:00 DIS Outpatient MARIA D PADILLA MD, [facility] LAB FS CBC BMP [id number] 02/14/2020 12:39:00 23:59:59 CLS Outpatient MARIA D PADILLA MD, [facility] RAD PERITONEAL CARCINOMA [id number] 12/08/2019 08:49:00 09:23:00 DIS Outpatient MARIA D PADILLA MD, [facility] ONC [id number] 12/01/2019 09:59:00 23:59:59 CLS Outpatient STEPHEN JENSEN [employer] [facility] LAB FS C56.9 I10 E78.2 [id number] 11/11/2019 08:42:00 14:35:00 DIS Outpatient CORINNE RODAS MD [facility] SDC RECURRENT OVARIAN CANCE R [id number] 11/08/2019 08:50:00 14:04:00 DIS Outpatient CORINNE RODAS MD [facility] PREOP RECURRENT OVARIAN CANCE R [id number] 10/06/2019 14:39:00 23:59:59 CLS Outpatient HUY BALLESTEROS [facility] LAB FS C56.9 [id number] 02/15/2019 09:28:00 23:59:59 CLS Outpatient CAMILA, STEPHEN S [employer] [facility] RAD FS R10.32 [id number] 05/18/2020 10:15:00 P EN Preadmit OPAL CASTLE, YENIFER [facility] RAD PERITONEAL CARCINOMATOSIS [id number] 04/26/2020 13:12:[address] Inpatient CLARK CASTLE, CORINNE [facility] 4TH ABD PAIN/CHANGE IN BOWEL HAB ITS
[2020-04-29 04:00] VITALS: BP 130/89
[2020-04-29] MEDS: HYDROcodone/APAP 5 MG/325 MG (LORTAB) TAB PO PRN ×2 (05:28→09:39)
[2020-04-29] MEDS: fentaNYL INJECTION 100 MCG/2 ML AMP IVP PRN (06:13)
[2020-04-29] MEDS: MULTIVIT W/MINERALS TAB (THERAGRAN M) PO SCH (06:18)
[2020-04-29 08:00] VITALS: BP 126/75
[2020-04-29] MEDS: OMEGA 3 (FISH OIL) 1000 MG CAP PO SCH (09:38)
[2020-04-29] MEDS: ALLOPURINOL 300 MG (ZYLOPRIM) TAB PO SCH (09:39)
[2020-04-29] MEDS: CYCLOBENZAPRINE 10 MG (FLEXERIL) TAB PO SCH (09:39)
[2020-04-29] MEDS: LOSARTAN 50 MG (COZAAR) TAB PO SCH (09:39)
[2020-04-29] MEDS: ASPIRIN E.C. 81 MG (ECOTRIN) TAB PO SCH (09:39)
[2020-04-29] MEDS: dilTIAZem120 MG (CARDIZEM CD) CAP PO SCH (09:39)
[2020-04-29] MEDS: DOCUSATE SODIUM 100 MG (COLACE) CAP PO SCH (09:39)
[2020-04-29] MEDS: rOPINIRole 1 MG (REQUIP) TABLET PO SCH ×2 (09:39→13:02)
[2020-04-29] MEDS: PARoxetine 20 MG (PAXIL) TAB PO SCH (09:39)
[2020-04-29] MEDS: FAMOTIDINE 20 MG (PEPCID) TABLET PO SCH (09:39)
[2020-04-29 12:00] VITALS: BP 103/59
--- NOTE | 2020-04-29 12:04 | Progress Note ---
Subjective Date Seen by a Provider: Apr 29, 2020 Time Seen by a Provider: 11:50 Subjective/Events-last exam Patient seen with Dr. Lopez. Patient reports doing well. Denies any abdominal pain as well as no N/V. Having BMs and tolerating diet. Ambulating. Objective Exam Vital Signs Date Time Temp Pulse Resp B/P (MAP) Pulse Ox O2 Delivery O2 Flow Rate FiO2 04/29/20 11:37 Nasal Cannula 2.50 04/29/20 10:10 36.1 04/29/20 09:00 98 Nasal Cannula 2.50 04/29/20 08:00 36.1 70 18 126/75 (92) 98 Nasal Cannula 2.50 04/29/20 07:00 88 04/29/20 04:00 36.6 95 20 130/89 (103) 96 Nasal Cannula 2.50 04/29/20 01:00 80 04/28/20 23:53 36.2 96 20 124/76 (92) 98 Nasal Cannula 2.50 04/28/20 21:00 98 Nasal Cannula 2.50 04/28/20 19:55 36.4 80 16 117/67 (84) 91 Nasal Cannula 2.50 04/28/20 19:00 78 04/28/20 15:30 36.3 86 20 118/67 (84) 92 Nasal Cannula 2.50 04/28/20 12:30 96 I & O 04/29/20 07:00 Intake Total 1290 ml Output Total 200 ml Balance 1090 ml Capillary Refill : Less Than 3 SecondsGreater Than 3 Seconds General Appearance: No Apparent Distress, WD/WN, Obese Neck: Normal Inspection, Non Tender, Supple Respiratory: Normal Breath Sounds, No Accessory Muscle Use, No Respiratory Distress Cardiovascular: Regular Rate, Rhythm, No Edema Gastrointestinal: normal bowel sounds, non tender, soft Extremity: Normal Inspection, Normal Range of Motion Neurologic/Psychiatric: Alert, Oriented x3 Skin: Normal Color, Warm/Dry Assessment/Plan Assessment/Plan Assess & Plan/Chief Complaint ileus s/p colonoscopy with rectosigmoid colonic lesion. ambulate. pain control. Tolerating diet. Will DC home and have patient follow up with oncology. Clinical Quality Measures DVT/VTE Risk/Contraindication: Risk Factor Score Per Nursin RFS Level Per Nursing on Admit: 4+=Very High CLARENCE CALLOWAY [employer] Apr 29, 2020 12:04
[2020-04-29 12:45] VITALS: BP 126/75
--- OUTSIDE RECORDS SUMMARY | 2020-05-02 12:32 | XMS REPORT | Continuity of Care Document ---
Author Organization Unknown Address Unknown Phone Unavailable Allergies Active Description Code Type Severity Reaction Onset Reported/Identified Relationship to Patient Clinical Status Yes adhesive tape [id number] Rock g Allergy Mild BLISTERS 04/20/2020 Yes No Known Allergies [id number] Drug Allergy Unknown N/A 04/20/2020 Medications There is no data. Problems Date Dx Coded Attending Type Code Diagnosis Diagnosed By MARIA D PADILLA MD, Ot 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 MARIA D PADILLA MD, Ot C77.2 SECONDARY [...] Ot Z87.442 PERSONAL HISTORY OF URINARY CALCULI 08/28/1019 CORINNE RODAS MD Ot R19.4 CHANGE IN BOWEL HABIT 08/28/1019 CORINNE RODAS MD Ot Z01.81 2 ENCOUNTER FOR PREPROCEDURAL LABORATORY E 08/28/1019 CORINNE RODAS MD Ot Z20.82 8 CONTACT W AND EXPOSURE TO OTH VIRAL COMM 03/09/2019 CAMILA, STEPHEN S INDUSTRIAL ORGANIZATION MANAGER Ot K59.00 CONSTIPATION, UNSPECIFIED 10/08/2019 FAVIAN, HUY USABILITY ARCHITECT Ot C56.9 MALIGNANT NEOPLASM OF UNSPECIFIED OVARY 10/26/2019 FAVIAN, HUY USABILITY ARCHITECT Ot C56.9 MALIGNANT NEOPLASM OF UNSPECIFIED OVARY 11/08/2019 CORINNE RODAS MD, Ot Z01.81 8 ENCOUNTER FOR OTHER PREPROCEDURAL EXAMIN 11/10/2019 STEPHEN JENSEN INDUSTRIAL ORGANIZATION MANAGER Ot K59.00 CONSTIPATION, UNSPECIFIED 11/10/2019 FAVIAN, HUY USABILITY ARCHITECT Ot C56.9 MALIGNANT NEOPLASM OF UNSPECIFIED OVARY [...] E78.00 PURE HYPERCHOLESTEROLEMIA, UNSPECIFIED 11/11/2019 CORINNE RODAS MD Ot E78.5 HYPERLIPIDEMIA, UNSPECIFIED 11/11/2019 CORINNE RODAS MD Ot F32.9 MAJOR DEPRESSIVE DISORDER, SINGLE EPISOD 11/11/2019 CORINNE RODAS MD Ot F41.9 ANXIETY DISORDER, UNSPECIFIED 11/11/2019 CORINNE RODAS MD Ot G25.81 RESTLESS LEGS SYNDROME 11/11/2019 CORINNE RODAS MD, Ot G47.33 OBSTRUCTIVE SLEEP APNEA (ADULT) (PEDIATR 11/11/2019 CORINNE RODAS MD, Ot I10 ESSENTIAL (PRIMARY) HYPERTENSION 11/11/2019 CORINNE RODAS MD, Ot I48.91 UNSPECIFIED ATRIAL FIBRILLATION 11/11/2019 CORINNE RODAS MD, Ot J44.9 CHRONIC OBSTRUCTIVE PULMONARY DISEASE, U 11/11/2019 CORINNE RODAS MD, Ot K21.9 GASTRO-ESOPHAGEAL REFLUX DISEASE WITHOUT 11/11/2019 CORINNE RODAS MD, Ot M10.9 GOUT, UNSPECIFIED 11/11/2019 CORINNE RODAS MD, Ot M19.91 PRIMARY OSTEOARTHRITIS, UNSPECIFIED SITE 11/11/2019 CORINNE RODAS MD, Ot Z11.2 ENCOUNTER FOR SCREENING FOR OTHER BACTER 11/11/2019 CORINNE RODAS MD, Ot Z79.01 PENITENTIARY (CURRENT) USE OF ANTICOAGULANT 11/11/2019 CORINNE RODAS MD, Ot Z79.89 9 OTHER PENITENTIARY (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 THERAPY 11/11/2019 CORINNE RODAS MD, [...] FAMILY HISTORY OF MALIGNANT NEOPLASM OF 11/18/2019 AMRIA D PADILLA MD Ot Z87.01 PERSONAL HISTORY OF PNEUMONIA (RECURRENT 11/18/2019 MARIA D PADILLA MD Ot Z87.442 PERSONAL HISTORY OF URINARY CALCULI 11/18/2019 CORINNE RODAS MD, Ot C56.9 MALIGNANT NEOPLASM OF UNSPECIFIED OVARY 11/18/2019 CORINNE RODAS MD, Ot E78.00 PURE HYPERCHOLESTEROLEMIA, UNSPECIFIED 11/18/2019 CORINNE RODAS MD, Ot E78.5 HYPERLIPIDEMIA, UNSPECIFIED 11/18/2019 CORINNE RODAS MD, Ot F32.9 MAJOR DEPRESSIVE DISORDER, SINGLE EPISOD 11/18/2019 CORINNE RODAS MD, Ot F41.9 ANXIETY DISORDER, UNSPECIFIED 11/18/2019 CORINNE ROADS MD, Ot G25.81 RESTLESS LEGS SYNDROME 11/18/2019 [...] BACTER 11/18/2019 CORINNE RODAS MD, Ot Z79.01 PENITENTIARY (CURRENT) USE OF ANTICOAGULANT 11/18/2019 CORINNE RODAS MD, Ot Z79.89 9 OTHER NEWS SPECIALIST (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 THERAPY 11/18/2019 CORINNE RODAS MD, Ot Z92.21 PERSONAL HISTORY OF ANTINEOPLASTIC CHEMO 11/18/2019 CORINNE RODAS MD, Ot 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, BILAT 11/23/2019 MARIA D PADILLA MD, Ot 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 11/23/2019 MARIA D PADILLA MD, Ot C77.2 SECONDARY AND UNSP MALIGNANT NEOPLASM OF 11/23/2019 MARIA D PADILLA MD Ot I10 ESSENTIAL (PRIMARY) HYPERTENSION 11/23/2019 MARIA [...] OF 11/23/2019 MARIA D PADILLA MD Ot Z80.52 FAMILY HISTORY OF MALIGNANT NEOPLASM OF 11/23/2019 MARIA D PADILLA MD Ot Z87.01 PERSONAL HISTORY OF PNEUMONIA (RECURRENT 11/23/2019 MARIA D PADILLA MD Ot Z87.442 PERSONAL HISTORY OF URINARY CALCULI 11/24/2019 CAMILA, STEPHEN S INDUSTRIAL ORGANIZATION MANAGER Ot K59.00 CONSTIPATION, UNSPECIFIED 11/24/2019 FAVIAN, HUY USABILITY ARCHITECT Ot C56.9 MALIGNANT NEOPLASM OF UNSPECIFIED OVARY [...] Z87.442 PERSONAL HISTORY OF URINARY CALCULI 11/26/2019 CAMILA, STEPHEN S INDUSTRIAL ORGANIZATION MANAGER Ot K59.00 CONSTIPATION, UNSPECIFIED 11/26/2019 FAVIAN, HUY USABILITY ARCHITECT Ot C56.9 MALIGNANT NEOPLASM OF UNSPECIFIED OVARY [...] MD Ot I10 ESSENTIAL (PRIMARY) HYPERTENSION 12/01/2019 STEPHEN JENSEN INDUSTRIAL ORGANIZATION MANAGER Ot K59.00 CONSTIPATION, UNSPECIFIED 12/01/2019 FAVIANHUY RAMIREZ USABILITY ARCHITECT Ot C56.9 MALIGNANT NEOPLASM OF UNSPECIFIED OVARY [...] ESSENTIAL (PRIMARY) HYPERTENSION 12/03/2019 CAMILA, STEPHEN S INDUSTRIAL ORGANIZATION MANAGER Ot C56.9 MALIGNANT NEOPLASM OF UNSPECIFIED OVARY 12/03/2019 CAMILA, STEPHEN S INDUSTRIAL ORGANIZATION MANAGER Ot E78.2 MIXED HYPERLIPIDEMIA 12/03/2019 CAMILA, STEPHEN S INDUSTRIAL ORGANIZATION MANAGER Ot I1 0 ESSENTIAL (PRIMARY) HYPERTENSION 12/17/2019 MARIA D PADILLA MD Ot C56.9 MALIGNANT NEOPLASM OF UNSPECIFIED OVARY 12/17/2019 MARIA D PADILLA MD Ot I10 ESSENTIAL (PRIMARY) HYPERTENSION 12/17/2019 CAMILA, STEPHEN S INDUSTRIAL ORGANIZATION MANAGER Ot K59.00 CONSTIPATION, UNSPECIFIED 12/17/2019 FAVIANHUY Ot C56.9 MALIGNANT NEOPLASM OF UNSPECIFIED OVARY [...] ESSENTIAL (PRIMARY) HYPERTENSION 12/17/2019 CAMILA, STEPHEN S INDUSTRIAL ORGANIZATION MANAGER Ot C56.9 MALIGNANT NEOPLASM OF UNSPECIFIED OVARY 12/17/2019 CAMILA, STEPHEN S INDUSTRIAL ORGANIZATION MANAGER Ot E78.2 MIXED HYPERLIPIDEMIA 12/17/2019 CAMILA, STEPHEN S INDUSTRIAL ORGANIZATION MANAGER Ot I1 0 ESSENTIAL (PRIMARY) HYPERTENSION 12/23/2019 CAMILA, STEPHEN S INDUSTRIAL ORGANIZATION MANAGER Ot C56.9 MALIGNANT NEOPLASM OF UNSPECIFIED OVARY 12/23/2019 CAMILA, STEPHEN S INDUSTRIAL ORGANIZATION MANAGER Ot E78.2 MIXED HYPERLIPIDEMIA 12/23/2019 CAMILA, STEPHEN S INDUSTRIAL ORGANIZATION MANAGER Ot I1 0 ESSENTIAL (PRIMARY) HYPERTENSION 12/28/2019 MARIA D PADILLA MD Ot C56.9 MALIGNANT NEOPLASM OF UNSPECIFIED OVARY 12/28/2019 MARIA D PADILLA MD Ot I10 ESSENTIAL (PRIMARY) HYPERTENSION 12/28/2019 CAMILA, STEPHEN S INDUSTRIAL ORGANIZATION MANAGER Ot K59.00 CONSTIPATION, UNSPECIFIED 12/28/2019 FAVIAN, HUY USABILITY ARCHITECT Ot C56.9 MALIGNANT NEOPLASM OF UNSPECIFIED OVARY 12/28/2019 MARIA D PADILLA MD, Ot C56.1 MALIGNANT [...] ESSENTIAL (PRIMARY) HYPERTENSION 12/28/2019 CAMILA, STEPHEN S INDUSTRIAL ORGANIZATION MANAGER Ot C56.9 MALIGNANT NEOPLASM OF UNSPECIFIED OVARY 12/28/2019 CAMILA, STEPHEN S INDUSTRIAL ORGANIZATION MANAGER Ot E78.2 MIXED HYPERLIPIDEMIA 12/28/2019 CAMILA, STEPHEN S INDUSTRIAL ORGANIZATION MANAGER Ot I1 0 ESSENTIAL (PRIMARY) HYPERTENSION 12/29/2019 [...] OF URINARY CALCULI 12/29/2019 CAMILA, STEPHEN S INDUSTRIAL ORGANIZATION MANAGER Ot K59.00 CONSTIPATION, UNSPECIFIED 12/29/2019 HUY BALLESTEROS USABILITY ARCHITECT Ot C56.9 MALIGNANT NEOPLASM OF UNSPECIFIED OVARY 12/29/2019 MARIA D PADILLA MD, Ot C56.9 MALIGNANT NEOPLASM OF UNSPECIFIED OVARY 12/29/2019 MARIA D PADILLA MD Ot I10 ESSENTIAL (PRIMARY) HYPERTENSION 12/29/2019 CAMILA, STEPHEN S INDUSTRIAL ORGANIZATION MANAGER Ot C56.9 MALIGNANT NEOPLASM OF UNSPECIFIED OVARY 12/29/2019 CAMILA, STEPHEN S INDUSTRIAL ORGANIZATION MANAGER Ot E78.2 MIXED HYPERLIPIDEMIA 12/29/2019 CAMILA, STEPHEN S INDUSTRIAL ORGANIZATION MANAGER Ot I1 0 ESSENTIAL (PRIMARY) HYPERTENSION 12/29/2019 [...] OF URINARY CALCULI 12/29/2019 CAMILA, STEPHEN S INDUSTRIAL ORGANIZATION MANAGER Ot K59.00 CONSTIPATION, UNSPECIFIED 12/29/2019 FAVIAN, HUY USABILITY ARCHITECT Ot C56.9 MALIGNANT NEOPLASM OF UNSPECIFIED OVARY 12/29/2019 MARIA D PADILLA MD Ot C56.9 MALIGNANT NEOPLASM OF UNSPECIFIED OVARY 12/29/2019 MARIA D PADILLA MD Ot I10 ESSENTIAL (PRIMARY) HYPERTENSION 12/29/2019 CAMILA, STEPHEN S INDUSTRIAL ORGANIZATION MANAGER Ot C56.9 MALIGNANT NEOPLASM OF UNSPECIFIED OVARY 12/29/2019 CAMILA, STEPHEN S INDUSTRIAL ORGANIZATION MANAGER Ot E78.2 MIXED HYPERLIPIDEMIA 12/29/2019 CAMILA, STEPHEN S INDUSTRIAL ORGANIZATION MANAGER Ot I1 0 ESSENTIAL (PRIMARY) HYPERTENSION 12/29/2019 [...] OF URINARY CALCULI 12/29/2019 CAMILA, STEPHEN S INDUSTRIAL ORGANIZATION MANAGER Ot K59.00 CONSTIPATION, UNSPECIFIED 12/29/2019 HUY BALLESTEROS USABILITY ARCHITECT Ot C56.9 MALIGNANT NEOPLASM OF UNSPECIFIED OVARY 12/29/2019 MARIA D PADILLA MD Ot C56.9 MALIGNANT NEOPLASM OF UNSPECIFIED OVARY 12/29/2019 MARIA D PADILLA MD Ot I10 ESSENTIAL (PRIMARY) HYPERTENSION 12/29/2019 CAMILASTEPHEN Carcamo S INDUSTRIAL ORGANIZATION MANAGER Ot C56.9 MALIGNANT NEOPLASM OF UNSPECIFIED OVARY 12/29/2019 CAMILA, STEPHEN S INDUSTRIAL ORGANIZATION MANAGER Ot E78.2 MIXED HYPERLIPIDEMIA 12/29/2019 CAMILA, STEPHEN S INDUSTRIAL ORGANIZATION MANAGER Ot I1 0 ESSENTIAL (PRIMARY) HYPERTENSION 12/29/2019 [...] OF MALIGNANT NEOPLASM OF 01/05/2020 MARIA D PAIDLLA MD Ot Z80.41 FAMILY HISTORY OF MALIGNANT NEOPLASM OF 01/05/2020 MARIA D PADILLA MD Ot Z80.52 FAMILY HISTORY OF MALIGNANT NEOPLASM OF 01/05/2020 MARIA D PADILLA MD Ot Z87.01 PERSONAL HISTORY OF PNEUMONIA (RECURRENT 01/05/2020 MARIA D PADILLA MD Ot Z87.442 PERSONAL HISTORY OF URINARY CALCULI 01/19/2020 CAMILA, STEPHEN S INDUSTRIAL ORGANIZATION MANAGER Ot K59.00 CONSTIPATION, UNSPECIFIED 01/19/2020 FAVIANHUY RAMIREZ USABILITY ARCHITECT Ot C56.9 MALIGNANT NEOPLASM OF UNSPECIFIED OVARY 01/19/2020 MARIA D PADILLA MD Ot C56.9 MALIGNANT NEOPLASM OF UNSPECIFIED OVARY 01/19/2020 MARIA D PADILLA MD Ot I10 ESSENTIAL (PRIMARY) HYPERTENSION 01/19/2020 CAMILA, STEPHEN S INDUSTRIAL ORGANIZATION MANAGER Ot C56.9 MALIGNANT NEOPLASM OF UNSPECIFIED OVARY 01/19/2020 CAMILA, STEPHEN S INDUSTRIAL ORGANIZATION MANAGER Ot E78.2 MIXED HYPERLIPIDEMIA 01/19/2020 CAMILA, STEPHEN S INDUSTRIAL ORGANIZATION MANAGER Ot I1 0 ESSENTIAL (PRIMARY) HYPERTENSION 01/19/2020 [...] MD Ot I10 ESSENTIAL (PRIMARY) HYPERTENSION 01/26/2020 STEPHEN JENSEN INDUSTRIAL ORGANIZATION MANAGER Ot K59.00 CONSTIPATION, UNSPECIFIED 01/26/2020 HUY BALLESTEROS Ot C56.9 MALIGNANT NEOPLASM OF UNSPECIFIED OVARY 01/26/2020 MARIA D PADILLA MD Ot C56.9 MALIGNANT NEOPLASM OF UNSPECIFIED OVARY 01/26/2020 MARIA D PADILLA MD Ot I10 ESSENTIAL (PRIMARY) HYPERTENSION 01/26/2020 STEPHEN JENSEN INDUSTRIAL ORGANIZATION MANAGER Ot C56.9 MALIGNANT NEOPLASM OF UNSPECIFIED OVARY 01/26/2020 CAMILA, STEPHEN S INDUSTRIAL ORGANIZATION MANAGER Ot E78.2 MIXED HYPERLIPIDEMIA 01/26/2020 CAMILA, STEPHEN S INDUSTRIAL ORGANIZATION MANAGER Ot I1 0 ESSENTIAL (PRIMARY) HYPERTENSION 01/26/2020 [...] Z87.442 PERSONAL HISTORY OF URINARY CALCULI 01/26/2020 CAMILA, STEPHEN S INDUSTRIAL ORGANIZATION MANAGER Ot K59.00 CONSTIPATION, UNSPECIFIED 01/26/2020 HUY BALLESTEROS Ot C56.9 MALIGNANT NEOPLASM OF UNSPECIFIED OVARY 01/26/2020 MARIA D PADILLA MD Ot C56.9 MALIGNANT NEOPLASM OF UNSPECIFIED OVARY 01/26/2020 MARIA D PADILLA MD Ot I10 ESSENTIAL (PRIMARY) HYPERTENSION 01/26/2020 CAMILA, STEPHEN S INDUSTRIAL ORGANIZATION MANAGER Ot C56.9 MALIGNANT NEOPLASM OF UNSPECIFIED OVARY 01/26/2020 CAMILA, STEPHEN S INDUSTRIAL ORGANIZATION MANAGER Ot E78.2 MIXED HYPERLIPIDEMIA 01/26/2020 CAMILA, STEPHEN S INDUSTRIAL ORGANIZATION MANAGER Ot I1 0 ESSENTIAL (PRIMARY) HYPERTENSION 01/26/2020 [...] ESSENTIAL (PRIMARY) HYPERTENSION 01/27/2020 CAMILA, STEPHEN S INDUSTRIAL ORGANIZATION MANAGER Ot K59.00 CONSTIPATION, UNSPECIFIED 01/27/2020 FAVIAN, HUY USABILITY ARCHITECT Ot C56.9 MALIGNANT NEOPLASM OF UNSPECIFIED OVARY 01/27/2020 MARIA D PADILLA MD Ot C56.9 MALIGNANT NEOPLASM OF UNSPECIFIED OVARY 01/27/2020 MARIA D PADILLA MD Ot I10 ESSENTIAL (PRIMARY) HYPERTENSION 01/27/2020 CAMILA, STEPHEN S INDUSTRIAL ORGANIZATION MANAGER Ot C56.9 MALIGNANT NEOPLASM OF UNSPECIFIED OVARY 01/27/2020 CAMILA, STEPHEN S INDUSTRIAL ORGANIZATION MANAGER Ot E78.2 MIXED HYPERLIPIDEMIA 01/27/2020 CAMILA, STEPHEN S INDUSTRIAL ORGANIZATION MANAGER Ot I1 0 ESSENTIAL (PRIMARY) HYPERTENSION 01/27/2020 [...] OF URINARY CALCULI 01/31/2020 CAMILA, STEPHEN S INDUSTRIAL ORGANIZATION MANAGER Ot K59.00 CONSTIPATION, UNSPECIFIED 01/31/2020 HUY BALLESTEROS Ot C56.9 MALIGNANT NEOPLASM OF UNSPECIFIED OVARY 01/31/2020 MARIA D PADILLA MD Ot C56.9 MALIGNANT NEOPLASM OF UNSPECIFIED OVARY 01/31/2020 MARIA D PADILLA MD Ot I10 ESSENTIAL (PRIMARY) HYPERTENSION 01/31/2020 CAMILA, STEPHEN S INDUSTRIAL ORGANIZATION MANAGER Ot C56.9 MALIGNANT NEOPLASM OF UNSPECIFIED OVARY 01/31/2020 CAMILA, STEPHEN S INDUSTRIAL ORGANIZATION MANAGER Ot E78.2 MIXED HYPERLIPIDEMIA 01/31/2020 CAMILA, STEPHEN S INDUSTRIAL ORGANIZATION MANAGER Ot I1 0 ESSENTIAL (PRIMARY) HYPERTENSION 01/31/2020 [...] Z87.442 PERSONAL HISTORY OF URINARY CALCULI 02/14/2020 ACMILA, STEPHEN S INDUSTRIAL ORGANIZATION MANAGER Ot K59.00 CONSTIPATION, UNSPECIFIED 02/14/2020 HUY BALLESTEROS USABILITY ARCHITECT Ot C56.9 MALIGNANT NEOPLASM OF UNSPECIFIED OVARY 02/14/2020 MARIA D PADILLA MD Ot C56.9 MALIGNANT NEOPLASM OF UNSPECIFIED OVARY 02/14/2020 MARIA D PADILLA MD Ot I10 ESSENTIAL (PRIMARY) HYPERTENSION 02/14/2020 CAMILA, STEPHEN S INDUSTRIAL ORGANIZATION MANAGER Ot C56.9 MALIGNANT NEOPLASM OF UNSPECIFIED OVARY 02/14/2020 CAMILA, STEPHEN S INDUSTRIAL ORGANIZATION MANAGER Ot E78.2 MIXED HYPERLIPIDEMIA 02/14/2020 CAMILA, STEPHEN S INDUSTRIAL ORGANIZATION MANAGER Ot I1 0 ESSENTIAL (PRIMARY) HYPERTENSION 02/14/2020 [...] MD Ot I25.10 ATHSCL HEART DISEASE OF [place] CORONARY 02/15/2020 MARIA D PADILLA MD Ot N28.1 CYST OF KIDNEY, ACQUIRED 02/16/2020 MARIA D PAIDLLA MD Ot C56.9 MALIGNANT NEOPLASM OF UNSPECIFIED [...] HISTORY OF URINARY CALCULI 02/22/2020 MARIA D APDILLA MD Ot C56.1 MALIGNANT NEOPLASM OF RIGHT [...] OF MALIGNANT NEOPLASM OF 02/22/2020 STEPHEN JENSEN INDUSTRIAL ORGANIZATION MANAGER Ot K59.00 CONSTIPATION, UNSPECIFIED 02/22/2020 FAVIAN, HUY USABILITY ARCHITECT Ot C56.9 MALIGNANT NEOPLASM OF UNSPECIFIED OVARY 02/22/2020 MARIA D PADILLA MD Ot C56.9 MALIGNANT NEOPLASM OF UNSPECIFIED OVARY 02/22/2020 MARIA D PADILLA MD Ot I10 ESSENTIAL (PRIMARY) HYPERTENSION 02/22/2020 CAMILA, STEPHEN S INDUSTRIAL ORGANIZATION MANAGER Ot C56.9 MALIGNANT NEOPLASM OF UNSPECIFIED OVARY 02/22/2020 CAMILA, STEPHEN S INDUSTRIAL ORGANIZATION MANAGER Ot E78.2 MIXED HYPERLIPIDEMIA 02/22/2020 CAMILA, STEPHEN S INDUSTRIAL ORGANIZATION MANAGER Ot I1 0 ESSENTIAL (PRIMARY) HYPERTENSION 02/22/2020 [...] MD Ot I25.10 ATHSCL HEART DISEASE OF [place] CORONARY 02/22/2020 MARIA D PADILLA MD Ot N28.1 CYST OF KIDNEY, ACQUIRED 02/23/2020 CAMILA, STEPHEN S INDUSTRIAL ORGANIZATION MANAGER Ot K59.00 CONSTIPATION, UNSPECIFIED 02/23/2020 HUY BALLESTEROS Ot C56.9 MALIGNANT NEOPLASM OF UNSPECIFIED OVARY 02/23/2020 CAMILA, STEPHEN S INDUSTRIAL ORGANIZATION MANAGER Ot C56.9 MALIGNANT NEOPLASM OF UNSPECIFIED OVARY 02/23/2020 CAMILA, STEPHEN S INDUSTRIAL ORGANIZATION MANAGER Ot E78.2 MIXED HYPERLIPIDEMIA 02/23/2020 CAMILA, STEPHEN S INDUSTRIAL ORGANIZATION MANAGER Ot I1 0 ESSENTIAL (PRIMARY) HYPERTENSION 02/23/2020 [...] MD Ot I25.10 ATHSCL HEART DISEASE OF [place] CORONARY 02/23/2020 MARIA D PADILLA MD Ot N28.1 CYST OF KIDNEY, ACQUIRED 02/23/2020 MARIA D PADILLA MD Ot C56.9 MALIGNANT NEOPLASM OF UNSPECIFIED OVARY 02/23/2020 MARIA D PADILLA MD Ot I10 ESSENTIAL (PRIMARY) HYPERTENSION 02/23/2020 CAMILA STEPHEN S INDUSTRIAL ORGANIZATION MANAGER Ot K59.00 CONSTIPATION, UNSPECIFIED 02/23/2020 HUY BALLESTEROS Ot C56.9 MALIGNANT NEOPLASM OF UNSPECIFIED OVARY 02/23/2020 CAMILA, STEPHEN S INDUSTRIAL ORGANIZATION MANAGER Ot C56.9 MALIGNANT NEOPLASM OF UNSPECIFIED OVARY 02/23/2020 CAMILASTEPHEN Carcamo S INDUSTRIAL ORGANIZATION MANAGER Ot E78.2 MIXED HYPERLIPIDEMIA 02/23/2020 CAMILASTEPHEN Carcamo S INDUSTRIAL ORGANIZATION MANAGER Ot I1 0 ESSENTIAL (PRIMARY) HYPERTENSION 02/23/2020 [...] MD Ot I25.10 ATHSCL HEART DISEASE OF [place] CORONARY 02/23/2020 MARIA D PADILLA MD Ot [...] MALIGNANT NEOPLASM OF 02/24/2020 O'DELL, NAVEED K INDUSTRIAL ORGANIZATION MANAGER Ot M54 .9 DORSALGIA, UNSPECIFIED 02/24/2020 O'DELL, NAVEED K INDUSTRIAL ORGANIZATION MANAGER Ot R06.02 SHORTNESS OF BREATH 02/24/2020 O'DELL, NAVEED K INDUSTRIAL ORGANIZATION MANAGER Ot R10 .9 UNSPECIFIED ABDOMINAL PAIN 02/24/2020 MARIA D PADILLA MD Ot C56.9 MALIGNANT NEOPLASM OF UNSPECIFIED OVARY 02/24/2020 MARIA D PADILLA MD Ot I10 ESSENTIAL (PRIMARY) HYPERTENSION 02/28/2020 CAMILA, STEPHEN S INDUSTRIAL ORGANIZATION MANAGER Ot K59.00 CONSTIPATION, UNSPECIFIED 02/28/2020 HUY BALLESTEROS USABILITY ARCHITECT Ot C56.9 MALIGNANT NEOPLASM OF UNSPECIFIED OVARY 02/28/2020 CAMILA, STEPHEN S INDUSTRIAL ORGANIZATION MANAGER Ot C56.9 MALIGNANT NEOPLASM OF UNSPECIFIED OVARY 02/28/2020 ACMILA, STEPHEN S INDUSTRIAL ORGANIZATION MANAGER Ot E78.2 MIXED HYPERLIPIDEMIA 02/28/2020 CAMILA, STEPHEN S INDUSTRIAL ORGANIZATION MANAGER Ot I1 0 ESSENTIAL (PRIMARY) HYPERTENSION 02/28/2020 [...] NEOPLASM OF [place] 02/28/2020 MARIA D PADILLA MD Ot Z80.3 FAMILY HISTORY OF MALIGNANT NEOPLASM OF 02/28/2020 MARIA D PADILLA MD Ot Z80.41 FAMILY HISTORY OF MALIGNANT NEOPLASM OF 02/28/2020 MARIA D PADILLA MD Ot Z80.52 FAMILY HISTORY OF MALIGNANT NEOPLASM OF 02/28/2020 MARIA D PADILLA MD Ot Z87.01 PERSONAL HISTORY OF PNEUMONIA (RECURRENT 02/28/2020 MARIA D PADILLA MD, Ot Z87.442 PERSONAL HISTORY OF URINARY CALCULI 02/28/2020 MARIA D PADILLA MD Ot C77.2 SECONDARY AND UNSP MALIGNANT NEOPLASM OF 02/28/2020 MARIA D PADILLA MD Ot 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 02/28/2020 MARIA D PADILLA MD Ot I25.10 ATHSCL HEART DISEASE OF [place] CORONARY 02/28/2020 MARIA D PADILLA MD Ot N28.1 CYST OF KIDNEY, ACQUIRED 02/28/2020 O'DELL, NAVEED K INDUSTRIAL ORGANIZATION MANAGER Ot M54 .9 DORSALGIA, UNSPECIFIED 02/28/2020 O'DELL, NAVEED K INDUSTRIAL ORGANIZATION MANAGER Ot R06.02 SHORTNESS OF BREATH 02/28/2020 O'DELL, NAVEED K INDUSTRIAL ORGANIZATION MANAGER Ot R10 .9 UNSPECIFIED ABDOMINAL PAIN 02/28/2020 MARIA D PADILLA MD Ot C56.9 MALIGNANT NEOPLASM OF UNSPECIFIED OVARY 02/28/2020 MARIA D PADILLA MD Ot I10 ESSENTIAL (PRIMARY) HYPERTENSION 03/01/2020 CAMILA, STEPHEN S INDUSTRIAL ORGANIZATION MANAGER Ot K59.00 CONSTIPATION, UNSPECIFIED 03/01/2020 HUY BALLESTEROS Ot C56.9 MALIGNANT NEOPLASM OF UNSPECIFIED OVARY 03/01/2020 CAMILA, STEPHEN S INDUSTRIAL ORGANIZATION MANAGER Ot C56.9 MALIGNANT NEOPLASM OF UNSPECIFIED OVARY 03/01/2020 CAMILA, STEPHEN S INDUSTRIAL ORGANIZATION MANAGER Ot E78.2 MIXED HYPERLIPIDEMIA 03/01/2020 CAMILA, STEPHEN S INDUSTRIAL ORGANIZATION MANAGER Ot I1 0 ESSENTIAL (PRIMARY) HYPERTENSION 03/01/2020 [...] Z87.01 PERSONAL HISTORY OF PNEUMONIA (RECURRENT 03/01/2020 MAIRA D PADILLA MD Ot Z87.442 PERSONAL HISTORY OF URINARY CALCULI 03/01/2020 MARIA D PADILLA MD Ot C77.2 SECONDARY AND UNSP MALIGNANT NEOPLASM OF 03/01/2020 MARIA D PADILLA MD Ot 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 03/01/2020 MARIA D PADILLA MD Ot I25.10 ATHSCL HEART DISEASE OF [place] CORONARY 03/01/2020 MARIA D PADILLA MD Ot N28.1 CYST OF KIDNEY, ACQUIRED 03/01/2020 O'DELL, NAVEED K INDUSTRIAL ORGANIZATION MANAGER Ot M54 .9 DORSALGIA, UNSPECIFIED 03/01/2020 O'DELL, NAVEED K INDUSTRIAL ORGANIZATION MANAGER Ot R06.02 SHORTNESS OF BREATH 03/01/2020 O'DELL, NAVEED K INDUSTRIAL ORGANIZATION MANAGER Ot R10 .9 UNSPECIFIED ABDOMINAL PAIN 03/01/2020 [...] MD Ot I10 ESSENTIAL (PRIMARY) HYPERTENSION 03/01/2020 VALERIE MD, KILLIAN Ot M19.91 PRIMARY OSTEOARTHRITIS, UNSPECIFIED SITE 03/01/2020 [...] OF URINARY CALCULI 03/01/2020 STEPHEN JENSEN S INDUSTRIAL ORGANIZATION MANAGER Ot K59.00 CONSTIPATION, UNSPECIFIED 03/01/2020 HUY BALLESTEROS Ot C56.9 MALIGNANT NEOPLASM OF UNSPECIFIED OVARY 03/01/2020 CAMILA, STEPHEN S INDUSTRIAL ORGANIZATION MANAGER Ot C56.9 MALIGNANT NEOPLASM OF UNSPECIFIED OVARY 03/01/2020 CAMILA, STEPHEN S INDUSTRIAL ORGANIZATION MANAGER Ot E78.2 MIXED HYPERLIPIDEMIA 03/01/2020 CAMILA, STEPHEN S INDUSTRIAL ORGANIZATION MANAGER Ot I1 0 ESSENTIAL (PRIMARY) HYPERTENSION 03/01/2020 MARIA D PADILLA MD Ot C77.2 SECONDARY AND UNSP MALIGNANT NEOPLASM OF 03/01/2020 MARIA D PADILLA MD Ot 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 03/01/2020 MARIA D PADILLA MD Ot I25.10 ATHSCL HEART DISEASE OF [place] CORONARY 03/01/2020 MARIA D PADILLA MD Ot N28.1 CYST OF KIDNEY, ACQUIRED 03/01/2020 O'DELL, NAVEED K INDUSTRIAL ORGANIZATION MANAGER Ot M54 .9 DORSALGIA, UNSPECIFIED 03/01/2020 O'DELL, NAVEED K INDUSTRIAL ORGANIZATION MANAGER Ot R06.02 SHORTNESS OF BREATH 03/01/2020 O'DELL, NAVEED K KATIE Ot R10 .9 UNSPECIFIED ABDOMINAL PAIN 03/01/2020 MARIA D PADILLA MD Ot C56.9 MALIGNANT NEOPLASM OF UNSPECIFIED OVARY 03/01/2020 MARIA D PADILLA MD Ot I10 ESSENTIAL (PRIMARY) HYPERTENSION 03/01/2020 XUYENIFER Quijano MD, Ot C56. 1 MALIGNANT NEOPLASM OF RIGHT OVARY 03/01/2020 YENIFER JOSEPH MD, Ot C77. 2 SECONDARY AND UNSP MALIGNANT NEOPLASM OF 03/01/2020 YENIFER JOSEPH MD Ot I10 ESSENTIAL (PRIMARY) HYPERTENSION 03/01/2020 YENIFER JOSEPH MD, Ot M19. 91 PRIMARY OSTEOARTHRITIS, UNSPECIFIED SITE 03/01/2020 YENIFER JOSEPH MD Ot R17 UNSPECIFIED JAUNDICE 03/01/2020 YENIFER JOSEPH MD, Ot Z51. 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 03/01/2020 MARIA D PADILLA MD Ot I25.10 ATHSCL HEART DISEASE OF [place] CORONARY 03/01/2020 MARIA D PADILLA MD Ot N28.1 CYST OF KIDNEY, ACQUIRED 03/01/2020 O'DELL, NAVEED Nico WILSON Ot M54 .9 DORSALGIA, UNSPECIFIED 03/01/2020 O'DELL, NAVEED K INDUSTRIAL ORGANIZATION MANAGER Ot R06.02 SHORTNESS OF BREATH 03/01/2020 O'DELL, NAVEED K INDUSTRIAL ORGANIZATION MANAGER Ot R10 .9 UNSPECIFIED ABDOMINAL PAIN 03/01/2020 MARIA D PADILLA MD Ot C56.9 MALIGNANT NEOPLASM OF UNSPECIFIED OVARY 03/01/2020 MARIA D PADILLA MD Ot I10 ESSENTIAL (PRIMARY) HYPERTENSION 03/02/2020 CAMILA, STEPHEN S INDUSTRIAL ORGANIZATION MANAGER Ot K59.00 CONSTIPATION, UNSPECIFIED 03/02/2020 FAVIAN, HUY USABILITY ARCHITECT Ot C56.9 MALIGNANT NEOPLASM OF UNSPECIFIED OVARY 03/02/2020 CAMILA, STEPHEN S INDUSTRIAL ORGANIZATION MANAGER Ot C56.9 MALIGNANT NEOPLASM OF UNSPECIFIED OVARY 03/02/2020 CAMILA, STEPHEN S INDUSTRIAL ORGANIZATION MANAGER Ot E78.2 MIXED HYPERLIPIDEMIA 03/02/2020 CAMILA, STEPHEN S INDUSTRIAL ORGANIZATION MANAGER Ot I1 0 ESSENTIAL (PRIMARY) HYPERTENSION 03/02/2020 MARIA D PADILLA MD Ot C77.2 SECONDARY AND UNSP MALIGNANT NEOPLASM OF 03/02/2020 MARIA D PADILLA MD Ot 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 03/02/2020 MARIA D PADILLA MD Ot I25.10 ATHSCL HEART DISEASE OF [place] CORONARY 03/02/2020 MARIA D PADILLA MD Ot N28.1 CYST OF KIDNEY, ACQUIRED 03/02/2020 O'DELL, NAVEED K INDUSTRIAL ORGANIZATION MANAGER Ot M54 .9 DORSALGIA, UNSPECIFIED 03/02/2020 O'DELL, NAVEED K INDUSTRIAL ORGANIZATION MANAGER Ot R06.02 SHORTNESS OF BREATH 03/02/2020 O'DELL, NAVEED K INDUSTRIAL ORGANIZATION MANAGER Ot R10 .9 UNSPECIFIED ABDOMINAL PAIN 03/02/2020 [...] MD Ot I25.10 ATHSCL HEART DISEASE OF [place] CORONARY 03/10/2020 MARIA D PADILLA MD Ot N28.1 CYST OF KIDNEY, ACQUIRED 03/15/2020 MARIA D PADILLA MD Ot C56.9 MALIGNANT NEOPLASM OF UNSPECIFIED OVARY 03/15/2020 MARIA D PADILLA MD Ot I10 ESSENTIAL (PRIMARY) HYPERTENSION 03/22/2020 MARIA D PADILLA MD, Ot C56.9 MALIGNANT NEOPLASM OF UNSPECIFIED OVARY 03/22/2020 MARIA D PADILLA MD Ot I10 ESSENTIAL (PRIMARY) HYPERTENSION 03/29/2020 MARIA D PADLILA MD Ot C56.9 MALIGNANT NEOPLASM OF UNSPECIFIED OVARY 03/29/2020 MARIA D PADILLA MD Ot I10 ESSENTIAL (PRIMARY) HYPERTENSION 04/12/2020 CAMILA, STEPHEN S INDUSTRIAL ORGANIZATION MANAGER Ot K59.00 CONSTIPATION, UNSPECIFIED 04/12/2020 FAVIAN, HUY USABILITY ARCHITECT Ot C56.9 MALIGNANT NEOPLASM OF UNSPECIFIED OVARY 04/12/2020 CAMILA, STEPHEN S INDUSTRIAL ORGANIZATION MANAGER Ot C56.9 MALIGNANT NEOPLASM OF UNSPECIFIED OVARY 04/12/2020 CAMILA, STEPHEN S INDUSTRIAL ORGANIZATION MANAGER Ot E78.2 MIXED HYPERLIPIDEMIA 04/12/2020 CAMILA, STEPHEN S INDUSTRIAL ORGANIZATION MANAGER Ot I1 0 ESSENTIAL (PRIMARY) HYPERTENSION 04/12/2020 MARIA D PADILLA MD Ot C77.2 SECONDARY AND UNSP MALIGNANT NEOPLASM OF 04/12/2020 MARIA D PADILLA MD Ot 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 11 ENCOUNTER FOR ANTINEOPLASTIC CHEMOTHERAP 04/12/2020 STEPHEN JENSEN S INDUSTRIAL ORGANIZATION MANAGER Ot K59.00 CONSTIPATION, UNSPECIFIED 04/12/2020 FAVIAN, HUY CHRISTIANO Ot C56.9 MALIGNANT NEOPLASM OF UNSPECIFIED OVARY 04/12/2020 CAMILA, STEPHEN S INDUSTRIAL ORGANIZATION MANAGER Ot C56.9 MALIGNANT NEOPLASM OF UNSPECIFIED OVARY 04/12/2020 CAMILA, STEPHEN S INDUSTRIAL ORGANIZATION MANAGER Ot E78.2 MIXED HYPERLIPIDEMIA 04/12/2020 CAMILA, STEPHEN S INDUSTRIAL ORGANIZATION MANAGER Ot I1 0 ESSENTIAL (PRIMARY) HYPERTENSION 04/12/2020 MARIA D PADILLA MD Ot C77.2 SECONDARY AND UNSP MALIGNANT NEOPLASM OF 04/12/2020 MARIA D PADILLA MD Ot 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 11 ENCOUNTER FOR ANTINEOPLASTIC CHEMOTHERAP 04/13/2020 CAMILA, STEPHEN S INDUSTRIAL ORGANIZATION MANAGER Ot K59.00 CONSTIPATION, UNSPECIFIED 04/13/2020 FAVIAN, HUY CHRISTIANO Ot C56.9 MALIGNANT NEOPLASM OF UNSPECIFIED OVARY 04/13/2020 CAMILA, STEPHEN S INDUSTRIAL ORGANIZATION MANAGER Ot C56.9 MALIGNANT NEOPLASM OF UNSPECIFIED OVARY 04/13/2020 CAMILA, STEPHEN S INDUSTRIAL ORGANIZATION MANAGER Ot E78.2 MIXED HYPERLIPIDEMIA 04/13/2020 CAMILA STEPHEN S INDUSTRIAL ORGANIZATION MANAGER Ot I1 0 ESSENTIAL (PRIMARY) HYPERTENSION 04/13/2020 MARIA D PADILLA MD Ot C77.2 SECONDARY AND UNSP MALIGNANT NEOPLASM OF 04/13/2020 MARIA D PADILLA MD Ot 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 11 ENCOUNTER FOR ANTINEOPLASTIC CHEMOTHERAP 04/14/2020 CAMILA STEPHEN S INDUSTRIAL ORGANIZATION MANAGER Ot C56.9 MALIGNANT NEOPLASM OF UNSPECIFIED OVARY 04/14/2020 CAMILAANNALISASTEPHEN S INDUSTRIAL ORGANIZATION MANAGER Ot I1 0 ESSENTIAL (PRIMARY) HYPERTENSION 04/19/2020 CAMILA STEPHEN S INDUSTRIAL ORGANIZATION MANAGER Ot K59.00 CONSTIPATION, UNSPECIFIED 04/19/2020 FAVIAN, HUY USABILITY ARCHITECT Ot C56.9 MALIGNANT NEOPLASM OF UNSPECIFIED OVARY 04/19/2020 CAMILA, STEPHEN S INDUSTRIAL ORGANIZATION MANAGER Ot C56.9 MALIGNANT NEOPLASM OF UNSPECIFIED OVARY 04/19/2020 CAMILA, STEPHEN S INDUSTRIAL ORGANIZATION MANAGER Ot E78.2 MIXED HYPERLIPIDEMIA 04/19/2020 CAMILA STEPHEN S INDUSTRIAL ORGANIZATION MANAGER Ot I1 0 ESSENTIAL (PRIMARY) HYPERTENSION 04/19/2020 MARIA D PADILLA MD Ot C77.2 SECONDARY AND UNSP MALIGNANT NEOPLASM OF 04/19/2020 MARIA D PADILLA MD, Ot 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 11 ENCOUNTER [...] UNSP MALIGNANT NEOPLASM OF 04/21/2020 YENIFER JOSEPH MD Ot C78. 6 SECONDARY MALIGNANT NEOPLASM OF RETROPER 04/21/2020 YENIFER JOSEPH MD Ot Z51. 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 1 MALIGNANT NEOPLASM OF RIGHT OVARY 04/24/2020 YENIFER JOSEPH MD Ot C77. 2 SECONDARY AND UNSP MALIGNANT NEOPLASM OF 04/24/2020 YENIFER JOSEPH MD Ot C78. 6 SECONDARY MALIGNANT NEOPLASM OF RETROPER 04/24/2020 YENIFER JOSEPH MD Ot Z51. 11 ENCOUNTER FOR ANTINEOPLASTIC CHEMOTHERAP 04/24/2020 CAMILA, STEPHEN S INDUSTRIAL ORGANIZATION MANAGER Ot C56.9 MALIGNANT NEOPLASM OF UNSPECIFIED OVARY 04/24/2020 CAMILA, STEPHEN S INDUSTRIAL ORGANIZATION MANAGER Ot I1 0 ESSENTIAL (PRIMARY) HYPERTENSION 04/24/2020 CAMILA STEPHEN S INDUSTRIAL ORGANIZATION MANAGER Ot K59.00 CONSTIPATION, UNSPECIFIED 04/24/2020 HUY BALLESTEROS Ot C56.9 MALIGNANT NEOPLASM OF UNSPECIFIED OVARY 04/24/2020 CAMILA STEPHEN S INDUSTRIAL ORGANIZATION MANAGER Ot C56.9 MALIGNANT NEOPLASM OF UNSPECIFIED OVARY 04/24/2020 CAMILA STEPHEN S INDUSTRIAL ORGANIZATION MANAGER Ot E78.2 MIXED HYPERLIPIDEMIA 04/24/2020 CAMILA, STEPHEN S INDUSTRIAL ORGANIZATION MANAGER Ot I1 0 ESSENTIAL (PRIMARY) HYPERTENSION 04/24/2020 VALERIE MD, KILLIAN Ot C77.2 SECONDARY AND UNSP MALIGNANT NEOPLASM OF 04/24/2020 MARIA D PADILLA MD Ot 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 04/24/2020 MARIA D PADILLA MD Ot I25.10 ATHSCL HEART DISEASE OF [place] CORONARY 04/24/2020 MARIA D PADILLA MD Ot N28.1 CYST OF KIDNEY, ACQUIRED 04/24/2020 O'DELL, NAVEED K INDUSTRIAL ORGANIZATION MANAGER Ot M54 .9 DORSALGIA, UNSPECIFIED 04/24/2020 O'DELL, NAVEED K INDUSTRIAL ORGANIZATION MANAGER Ot R06.02 SHORTNESS OF BREATH 04/24/2020 O'DELL, NAVEED K INDUSTRIAL ORGANIZATION MANAGER Ot R10 .9 UNSPECIFIED ABDOMINAL PAIN 04/24/2020 MARIA D PADILLA MD Ot C56.9 MALIGNANT NEOPLASM OF UNSPECIFIED OVARY 04/24/2020 MARIA D PADILLA MD Ot I10 ESSENTIAL (PRIMARY) HYPERTENSION 04/24/2020 YENIFER JOSEPH MD Ot C56. 1 MALIGNANT NEOPLASM OF RIGHT OVARY 04/24/2020 YENIFER JOSEPH MD Ot C77. 2 SECONDARY AND UNSP MALIGNANT NEOPLASM OF 04/24/2020 YENIFER JOSEPH MD Ot C78. 6 SECONDARY MALIGNANT NEOPLASM OF RETROPER 04/24/2020 YENIFER JOSEPH MD Ot Z51. 11 ENCOUNTER FOR ANTINEOPLASTIC CHEMOTHERAP 04/24/2020 CAMILA STEPHEN S INDUSTRIAL ORGANIZATION MANAGER Ot C56.9 MALIGNANT NEOPLASM OF UNSPECIFIED OVARY 04/24/2020 CAMILA, STEPHEN S INDUSTRIAL ORGANIZATION MANAGER Ot I1 0 ESSENTIAL (PRIMARY) HYPERTENSION 04/25/2020 CAMILA STEPHEN S INDUSTRIAL ORGANIZATION MANAGER Ot K59.00 CONSTIPATION, UNSPECIFIED 04/25/2020 HUY BALLESTEROS Ot C56.9 MALIGNANT NEOPLASM OF UNSPECIFIED OVARY 04/25/2020 CAMILA, STEPHEN S INDUSTRIAL ORGANIZATION MANAGER Ot C56.9 MALIGNANT NEOPLASM OF UNSPECIFIED OVARY 04/25/2020 CAMILA, STEPHEN S INDUSTRIAL ORGANIZATION MANAGER Ot E78.2 MIXED HYPERLIPIDEMIA 04/25/2020 CAMILA, STEPHEN S INDUSTRIAL ORGANIZATION MANAGER Ot I1 0 ESSENTIAL (PRIMARY) HYPERTENSION 04/25/2020 MARIA D PADILLA MD, Ot C77.2 SECONDARY AND UNSP MALIGNANT NEOPLASM OF 04/25/2020 MARIA D PADILLA MD, Ot 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 1 MALIGNANT NEOPLASM OF RIGHT OVARY 04/25/2020 YENIFER JOSEPH MD, Ot C77. 2 SECONDARY [...] I10 ESSENTIAL (PRIMARY) HYPERTENSION 04/26/2020 STEPHANIE NORRIS MD, Ot I48.91 UNSPECIFIED ATRIAL FIBRILLATION 04/26/2020 STEPHANIE NORRIS MD, Ot K21.9 GASTRO-ESOPHAGEAL REFLUX DISEASE WITHOUT 04/26/2020 STEPHANIE NORRIS MD, Ot K59.09 OTHER CONSTIPATION 04/26/2020 STEPHANIE NORRIS MD, Ot M10.9 GOUT, UNSPECIFIED 04/26/2020 STEPHANIE NORRIS MD, Ot M54.5 LOW BACK PAIN 04/26/2020 STEPHANIE NORRIS MD, Ot R60.0 LOCALIZED EDEMA 04/26/2020 STEPHANIE NORRIS MD, Ot Z79.01 PENITENTIARY (CURRENT) USE OF ANTICOAGULANT 04/26/2020 STEPHANIE NORRIS MD, Ot Z79.82 PENITENTIARY (CURRENT) USE OF ASPIRIN 04/26/2020 STEPHANIE NORRIS MD, Ot Z85.43 PERSONAL HISTORY OF MALIGNANT NEOPLASM O 04/26/2020 STEPHANIE NORRIS MD, Ot Z88.8 ALLERGY STATUS TO OTH DRUG/MEDS/BIOL SUB 04/26/2020 STEPHANIE NORRIS MD, Ot Z96.653 PRESENCE OF ARTIFICIAL KNEE JOINT, BILAT 04/29/2020 CORINNE RODAS MD, Ot C56.9 MALIGNANT NEOPLASM OF UNSPECIFIED OVARY 04/29/2020 CORINNE RODAS MD, Ot E66.01 MORBID (SEVERE) OBESITY DUE TO EXCESS CA 04/29/2020 CORINNE RODAS MD, Ot E78.00 PURE HYPERCHOLESTEROLEMIA, UNSPECIFIED 04/29/2020 CORINNE RODAS MD, Ot E78.5 HYPERLIPIDEMIA, UNSPECIFIED 04/29/2020 CORINNE RODAS MD, Ot F32.9 MAJOR DEPRESSIVE DISORDER, SINGLE EPISOD 04/29/2020 CORINNE RODAS MD, Ot F41.9 ANXIETY DISORDER, UNSPECIFIED 04/29/2020 CORINNE RODAS MD, Ot G25.81 RESTLESS LEGS SYNDROME 04/29/2020 CORINNE RODAS MD, Ot G47.33 OBSTRUCTIVE SLEEP APNEA (ADULT) (PEDIATR 04/29/2020 CORINNE RODAS MD, Ot H91.90 UNSPECIFIED HEARING LOSS, UNSPECIFIED EA 04/29/2020 CORINNE RODAS MD, Ot I10 ESSENTIAL (PRIMARY) HYPERTENSION 04/29/2020 CORINNE RODAS MD, Ot I48.91 UNSPECIFIED ATRIAL FIBRILLATION 04/29/2020 CORINNE RODAS MD, Ot J45.90 9 UNSPECIFIED ASTHMA, UNCOMPLICATED 04/29/2020 CORINNE RODAS MD, Ot K21.9 GASTRO-ESOPHAGEAL REFLUX DISEASE WITHOUT 04/29/2020 CORINNE RODAS MD, Ot K57.30 DVRTCLOS OF LG INT W/O PERFORATION OR AB 04/29/2020 CORINNE RODAS MD, Ot K59.09 OTHER CONSTIPATION 04/29/2020 CORINNE RODAS MD, Ot K64.2 THIRD DEGREE HEMORRHOIDS 04/29/2020 CORINNE RODAS MD, Ot M06.9 RHEUMATOID ARTHRITIS, UNSPECIFIED 04/29/2020 CORINNE RODAS MD, Ot M10.9 GOUT, UNSPECIFIED 04/29/2020 CORINNE RODAS MD, Ot Z68.41 BODY MASS INDEX (BMI) 40.0-44.9, ADULT 04/29/2020 CORINNE RODAS MD, Ot Z79.01 PENITENTIARY (CURRENT) USE OF ANTICOAGULANT 04/29/2020 CORINNE RODAS MD, Ot Z79.82 PENITENTIARY (CURRENT) USE OF ASPIRIN 04/29/2020 CORINNE RODAS MD, Ot Z79.89 9 OTHER PENITENTIARY (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 THERAPY 04/29/2020 CORINNE RODAS MD, Ot Z80.0 FAMILY HISTORY OF MALIGNANT NEOPLASM OF 04/29/2020 CORINNE RODAS MD, Ot Z86.01 0 PERSONAL HISTORY OF COLONIC POLYPS 04/29/2020 CORINNE RODAS MD, Ot Z90.79 ACQUIRED ABSENCE OF OTHER GENITAL ORGAN( 04/29/2020 CORINNE RODAS MD, Ot Z92.21 PERSONAL HISTORY OF ANTINEOPLASTIC CHEMO 04/29/2020 CORINNE RODAS MD, Ot 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, BILAT Procedures [...] 7-25 CREATININE 0.58 mg/dL 0.60-0.93 eGFR NON-AFR. HONDURAN 90 mL/min/1.73m2 > OR = 60 eGFR [...] 7-25 CREATININE 0.64 mg/dL 0.60-0.93 eGFR NON-AFR. HONDURAN 87 mL/min/1.73m2 > OR = 60 eGFR [...] plasma calcium measurement (mass/volume) 9.2 mg/dL 8.5-10.1 Coronavirus SARS-CoV-2 SO 2019 - 0 07:43 Coronavirus Ab [Units/volume] in Serum Negative Negative Automated blood complete blood count (he mogram) [...] Status Pt. Type Provider Facility Loc./Unit Complaint [id number] 04/12/2020 10:00:00 04/12/2020 23:59: [facility] Outpatient STEPHEN JENSEN [facility] [id number] 03/01/2020 10:45:00 Document Registration [id number] 02/22/2020 11:20:00 Document Registration [id number] 07/28/2019 11:00:00 Document Registration [id number] 03/23/2019 10:20:00 Document Registration [id number] 02/15/2019 09:00:00 Document Registration [id number] 12/09/2018 10:40:00 Document Registration [id number] 04/26/2020 13:12:00 12:04:00 DIS Inpatient CORINNE RODAS MD, [facility] 4TH ABD PAIN/CHANGE IN ALVIN L HABITS [id number] 04/24/2020 08:44:00 12:40:00 DIS Outpatient STEPHANIE NORRIS MD [facility] ER FEET SWELLING [id number] 04/24/2020 05:30:00 10:20:00 DIS Outpatient CORINNE RODAS MD [facility] PREOP COLONOSCOPY [id number] 04/13/2020 09:59:00 23:59:59 CLS Outpatient YENIFER JOSEPH MD [facility] ONC [id number] 04/12/2020 10:11:00 23:59:59 CLS Outpatient STEPHEN JENSEN S INDUSTRIAL ORGANIZATION MANAGER [facility] LAB FS CBC AUTOMATED W/ AUTO DIFF,BMP [id number] 02/10/2020 09:49:00 16:15:00 DIS Outpatient MARIA D PADILLA MD, [facility] ONC [id number] 02/23/2020 09:58:00 23:59:59 CLS Outpatient MARIA D PADILLA MD [facility] LAB FS CBC BMP [id number] 02/22/2020 11:54:00 23:59:59 CLS Outpatient NAVEED LOZANO INDUSTRIAL ORGANIZATION MANAGER [facility] RAD FS FLANK PAIN,SHORTNESS OF BREATH [id number] 01/26/2020 09:50:00 00:01:00 DIS Outpatient MARIA D PADILLA MD, [facility] LAB FS CBC BMP [id number] 02/14/2020 12:39:00 23:59:59 CLS Outpatient MARIA D PADILLA MD [facility] RAD PERITONEAL CARCINOMA [id number] 12/08/2019 08:49:00 09:23:00 DIS Outpatient VALERIE CASTLE, MARIA D [place] [facility] ONC [id number] 12/01/2019 09:59:00 23:59:59 CLS Outpatient STEPHEN JENSEN INDUSTRIAL ORGANIZATION MANAGER [facility] LAB FS C56.9 I10 E78.2 [id number] 11/11/2019 08:42:00 14:35:00 DIS Outpatient CORINNE RODAS MD [facility] SDC RECURRENT OVARIAN CANCE R [id number] 11/08/2019 08:50:00 14:04:00 DIS Outpatient CORINNE RODAS MD [facility] PREOP RECURRENT OVARIAN CANCE R [id number] 10/06/2019 14:39:00 23:59:59 CLS Outpatient HUY BALLESTEROS [facility] LAB FS C56.9 [id number] 02/15/2019 09:28:00 019 23:59:59 CLS Outpatient STEPHEN JENSEN INDUSTRIAL ORGANIZATION MANAGER [facility] RAD FS R10.32 [id number] 05/18/2020 10:15:00 P DOROTEO JOSEPH MD, YENIFER [facility] RAD PERITONEAL CARCINOMATOSIS
== END 2020-04-29 12:04 | disposition home or self-care (01) ==
LOC: ENDO 10:10 → 4TH 13:12 → UNDOADMOB 13:12 → 4TH 13:28 → UNDODISOB 04-29 13:25 → 4TH 04-29 13:25
PROVIDERS: ADMIT Surgery; ATTEND Surgery
DX: C78.5 Secondary malignant neoplasm of large intestine and rectum (principal); C78.6 Secondary malignant neoplasm of retroperitoneum and peritoneum; C56.1 Malignant neoplasm of right ovary; C77.2 Secondary and unspecified malignant neoplasm of intra-abdominal lymph nodes; K64.2 Third degree hemorrhoids; K57.30 Diverticulosis of large intestine without perforation or abscess without bleeding; K59.09 Other constipation; E78.5 Hyperlipidemia, unspecified; I48.91 Unspecified atrial fibrillation; G47.33 Obstructive sleep apnea (adult) (pediatric); M06.9 Rheumatoid arthritis, unspecified; M10.9 Gout, unspecified; J45.909 Unspecified asthma, uncomplicated; K21.9 Gastro-esophageal reflux disease without esophagitis; E66.01 Morbid (severe) obesity due to excess calories; H91.90 Unspecified hearing loss, unspecified ear; G25.81 Restless legs syndrome; E78.00 Pure hypercholesterolemia, unspecified; I11.0 Hypertensive heart disease with heart failure; I50.9 Heart failure, unspecified; I25.10 Atherosclerotic heart disease of native coronary artery without angina pectoris; F41.9 Anxiety disorder, unspecified; F32.9 Major depressive disorder, single episode, unspecified; Z79.899 Other long term (current) drug therapy; Z79.82 Long term (current) use of aspirin; Z79.01 Long term (current) use of anticoagulants; Z96.653 Presence of artificial knee joint, bilateral; Z92.21 Personal history of antineoplastic chemotherapy; Z68.41 Body mass index [BMI] 40.0-44.9, adult; Z90.79 Acquired absence of other genital organ(s); Z80.0 Family history of malignant neoplasm of digestive organs; Z86.010 Personal history of colon polyps; K56.7 Ileus, unspecified
CPT/HCPCS: 45331; 71045 ×2; 74018; 74019; G0378; G0379; 99211

== ENCOUNTER 2020-05-03 13:18 | Emergency (ER) | payer MEDICARE, OTHER ==
[~2020-05-03] VITALS: Ht 170.1 cm; Wt 129.5 kg
--- OUTSIDE RECORDS SUMMARY | 2020-05-03 14:31 | XMS REPORT | Continuity of Care Document ---
Author Organization Unknown Address Unknown Phone Unavailable Allergies Active Description Code Type Severity Reaction Onset Reported/Identified Relationship to Patient Clinical Status Yes adhesive tape [id number] Rock g Allergy Mild BLISTERS 04/20/2020 Yes No Known Allergies [id number] Drug Allergy Unknown N/A 04/20/2020 Medications There [...] OTH VIRAL COMM 03/09/2019 CAMILA, STEPHEN S TRUCK ENGINE ASSEMBLER Ot K59.00 CONSTIPATION, UNSPECIFIED 10/08/2019 FAVIAN, HUY FREIGHT AND PASSENGER AGENT Ot C56.9 MALIGNANT NEOPLASM OF UNSPECIFIED OVARY 10/26/2019 FAVIAN, HUY FREIGHT AND PASSENGER AGENT Ot C56.9 MALIGNANT NEOPLASM OF UNSPECIFIED OVARY 11/08/2019 CORINNE RODAS MD, Ot Z01.81 8 ENCOUNTER FOR OTHER PREPROCEDURAL EXAMIN 11/10/2019 STEPHEN JENSEN TRUCK ENGINE ASSEMBLER Ot K59.00 CONSTIPATION, UNSPECIFIED 11/10/2019 FAVIAN, HUY FREIGHT AND PASSENGER AGENT Ot C56.9 MALIGNANT NEOPLASM OF UNSPECIFIED OVARY [...] BACTER 11/11/2019 CORINNE RODAS MD, Ot Z79.01 [facility] (CURRENT) USE OF ANTICOAGULANT 11/11/2019 CORINNE RODAS MD, Ot Z79.89 9 OTHER [facility] (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 THERAPY 11/11/2019 CORINNE RODAS MD, [...] BACTER 11/18/2019 CORINNE RODAS MD, Ot Z79.01 [facility] (CURRENT) USE OF ANTICOAGULANT 11/18/2019 CORINNE RODAS MD, Ot Z79.89 9 OTHER [place] EXAMINER (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 THERAPY 11/18/2019 CORINNE RODAS MD, [...] OF URINARY CALCULI 11/24/2019 CAMILA, STEPHEN S TRUCK ENGINE ASSEMBLER Ot K59.00 CONSTIPATION, UNSPECIFIED 11/24/2019 FAVIAN, HUY FREIGHT AND PASSENGER AGENT Ot C56.9 MALIGNANT NEOPLASM OF UNSPECIFIED OVARY [...] OF URINARY CALCULI 11/26/2019 CAMILA, STEPHEN S TRUCK ENGINE ASSEMBLER Ot K59.00 CONSTIPATION, UNSPECIFIED 11/26/2019 FAVIAN, HUY FREIGHT AND PASSENGER AGENT Ot C56.9 MALIGNANT NEOPLASM OF UNSPECIFIED OVARY [...] I10 ESSENTIAL (PRIMARY) HYPERTENSION 12/01/2019 STEPHEN JENSEN TRUCK ENGINE ASSEMBLER Ot K59.00 CONSTIPATION, UNSPECIFIED 12/01/2019 FAVIANHUY RAMIREZ FREIGHT AND PASSENGER AGENT Ot C56.9 MALIGNANT NEOPLASM OF UNSPECIFIED OVARY [...] ESSENTIAL (PRIMARY) HYPERTENSION 12/03/2019 CAMILA, STEPHEN S TRUCK ENGINE ASSEMBLER Ot C56.9 MALIGNANT NEOPLASM OF UNSPECIFIED OVARY 12/03/2019 CAMILA, STEPHEN S TRUCK ENGINE ASSEMBLER Ot E78.2 MIXED HYPERLIPIDEMIA 12/03/2019 CAMILA, STEPHEN S TRUCK ENGINE ASSEMBLER Ot I1 0 ESSENTIAL (PRIMARY) HYPERTENSION 12/17/2019 MARIA D PADILLA MD Ot C56.9 MALIGNANT NEOPLASM OF UNSPECIFIED OVARY 12/17/2019 MARIA D PADILLA MD Ot I10 ESSENTIAL (PRIMARY) HYPERTENSION 12/17/2019 CAMILA, STEPHEN S TRUCK ENGINE ASSEMBLER Ot K59.00 CONSTIPATION, UNSPECIFIED 12/17/2019 FAVIANHUY Ot [...] C56.9 MALIGNANT NEOPLASM OF UNSPECIFIED OVARY 12/17/2019 MRAIA D PADILLA MD Ot I10 ESSENTIAL (PRIMARY) HYPERTENSION 12/17/2019 CAMILA, STEPHEN S TRUCK ENGINE ASSEMBLER Ot C56.9 MALIGNANT NEOPLASM OF UNSPECIFIED OVARY 12/17/2019 CAMILA, STEPHEN S TRUCK ENGINE ASSEMBLER Ot E78.2 MIXED HYPERLIPIDEMIA 12/17/2019 CAMILA, STEPHEN S TRUCK ENGINE ASSEMBLER Ot I1 0 ESSENTIAL (PRIMARY) HYPERTENSION 12/23/2019 CAMILA, STEPHEN S TRUCK ENGINE ASSEMBLER Ot C56.9 MALIGNANT NEOPLASM OF UNSPECIFIED OVARY 12/23/2019 CAMILA, STEPHEN S TRUCK ENGINE ASSEMBLER Ot E78.2 MIXED HYPERLIPIDEMIA 12/23/2019 CAMILA, STEPHEN S TRUCK ENGINE ASSEMBLER Ot I1 0 ESSENTIAL (PRIMARY) HYPERTENSION 12/28/2019 MARIA D PADILLA MD Ot C56.9 MALIGNANT NEOPLASM OF UNSPECIFIED OVARY 12/28/2019 MARIA D PADILLA MD Ot I10 ESSENTIAL (PRIMARY) HYPERTENSION 12/28/2019 CAMILA, STEPHEN S TRUCK ENGINE ASSEMBLER Ot K59.00 CONSTIPATION, UNSPECIFIED 12/28/2019 FAVIAN, HUY FREIGHT AND PASSENGER AGENT Ot C56.9 MALIGNANT NEOPLASM OF UNSPECIFIED OVARY [...] ESSENTIAL (PRIMARY) HYPERTENSION 12/28/2019 CAMILA, STEPHEN S TRUCK ENGINE ASSEMBLER Ot C56.9 MALIGNANT NEOPLASM OF UNSPECIFIED OVARY 12/28/2019 CAMILA, STEPHEN S TRUCK ENGINE ASSEMBLER Ot E78.2 MIXED HYPERLIPIDEMIA 12/28/2019 CAMILA, STEPHEN S TRUCK ENGINE ASSEMBLER Ot I1 0 ESSENTIAL (PRIMARY) HYPERTENSION 12/29/2019 [...] OF URINARY CALCULI 12/29/2019 CAMILA, STEPHEN S TRUCK ENGINE ASSEMBLER Ot K59.00 CONSTIPATION, UNSPECIFIED 12/29/2019 HUY BALLESTEROS FREIGHT AND PASSENGER AGENT Ot C56.9 MALIGNANT NEOPLASM OF UNSPECIFIED OVARY 12/29/2019 MARIA D PADILLA MD, Ot C56.9 MALIGNANT NEOPLASM OF UNSPECIFIED OVARY 12/29/2019 MARIA D PADILLA MD Ot I10 ESSENTIAL (PRIMARY) HYPERTENSION 12/29/2019 CAMILA, STEPHEN S TRUCK ENGINE ASSEMBLER Ot C56.9 MALIGNANT NEOPLASM OF UNSPECIFIED OVARY 12/29/2019 CAMILA, STEPHEN S TRUCK ENGINE ASSEMBLER Ot E78.2 MIXED HYPERLIPIDEMIA 12/29/2019 CAMILA, STEPHEN S TRUCK ENGINE ASSEMBLER Ot I1 0 ESSENTIAL (PRIMARY) HYPERTENSION 12/29/2019 [...] OF URINARY CALCULI 12/29/2019 CAMILA, STEPHEN S TRUCK ENGINE ASSEMBLER Ot K59.00 CONSTIPATION, UNSPECIFIED 12/29/2019 FAVIAN, HUY FREIGHT AND PASSENGER AGENT Ot C56.9 MALIGNANT NEOPLASM OF UNSPECIFIED OVARY 12/29/2019 MARIA D PADILLA MD Ot C56.9 MALIGNANT NEOPLASM OF UNSPECIFIED OVARY 12/29/2019 MARIA D PADILLA MD Ot I10 ESSENTIAL (PRIMARY) HYPERTENSION 12/29/2019 CAMILA, STEPHEN S TRUCK ENGINE ASSEMBLER Ot C56.9 MALIGNANT NEOPLASM OF UNSPECIFIED OVARY 12/29/2019 CAMILA, STEPHEN S TRUCK ENGINE ASSEMBLER Ot E78.2 MIXED HYPERLIPIDEMIA 12/29/2019 CAMILA, STEPHEN S TRUCK ENGINE ASSEMBLER Ot I1 0 ESSENTIAL (PRIMARY) HYPERTENSION 12/29/2019 [...] OF URINARY CALCULI 12/29/2019 CAMILA, STEPHEN S TRUCK ENGINE ASSEMBLER Ot K59.00 CONSTIPATION, UNSPECIFIED 12/29/2019 HUY BALLESTEROS FREIGHT AND PASSENGER AGENT Ot C56.9 MALIGNANT NEOPLASM OF UNSPECIFIED OVARY 12/29/2019 MARIA D PADILLA MD Ot C56.9 MALIGNANT NEOPLASM OF UNSPECIFIED OVARY 12/29/2019 MARIA D PADILLA MD Ot I10 ESSENTIAL (PRIMARY) HYPERTENSION 12/29/2019 CAMILASTEPHEN Carcamo S TRUCK ENGINE ASSEMBLER Ot C56.9 MALIGNANT NEOPLASM OF UNSPECIFIED OVARY 12/29/2019 CAMILA, STEPHEN S TRUCK ENGINE ASSEMBLER Ot E78.2 MIXED HYPERLIPIDEMIA 12/29/2019 CAMILA, STEPHEN S TRUCK ENGINE ASSEMBLER Ot I1 0 ESSENTIAL (PRIMARY) HYPERTENSION 12/29/2019 [...] OF URINARY CALCULI 01/19/2020 CAMILA, STEPHEN S TRUCK ENGINE ASSEMBLER Ot K59.00 CONSTIPATION, UNSPECIFIED 01/19/2020 FAVIANHUY RAMIREZ FREIGHT AND PASSENGER AGENT Ot C56.9 MALIGNANT NEOPLASM OF UNSPECIFIED OVARY 01/19/2020 MARIA D PADILLA MD Ot C56.9 MALIGNANT NEOPLASM OF UNSPECIFIED OVARY 01/19/2020 MARIA D PADILLA MD Ot I10 ESSENTIAL (PRIMARY) HYPERTENSION 01/19/2020 CAMILA, STEPHEN S TRUCK ENGINE ASSEMBLER Ot C56.9 MALIGNANT NEOPLASM OF UNSPECIFIED OVARY 01/19/2020 CAMILA, STEPHEN S TRUCK ENGINE ASSEMBLER Ot E78.2 MIXED HYPERLIPIDEMIA 01/19/2020 CAMILA, STEPHEN S TRUCK ENGINE ASSEMBLER Ot I1 0 ESSENTIAL (PRIMARY) HYPERTENSION 01/19/2020 [...] I10 ESSENTIAL (PRIMARY) HYPERTENSION 01/26/2020 STEPHEN JENSEN TRUCK ENGINE ASSEMBLER Ot K59.00 CONSTIPATION, UNSPECIFIED 01/26/2020 HUY BALLESTEROS Ot C56.9 MALIGNANT NEOPLASM OF UNSPECIFIED OVARY 01/26/2020 MARIA D PADILLA MD Ot C56.9 MALIGNANT NEOPLASM OF UNSPECIFIED OVARY 01/26/2020 MARIA D PADILLA MD Ot I10 ESSENTIAL (PRIMARY) HYPERTENSION 01/26/2020 STEPHEN JENSEN TRUCK ENGINE ASSEMBLER Ot C56.9 MALIGNANT NEOPLASM OF UNSPECIFIED OVARY 01/26/2020 CAMILA, STEPHEN S TRUCK ENGINE ASSEMBLER Ot E78.2 MIXED HYPERLIPIDEMIA 01/26/2020 CAMILA, STEPHEN S TRUCK ENGINE ASSEMBLER Ot I1 0 ESSENTIAL (PRIMARY) HYPERTENSION 01/26/2020 [...] OF URINARY CALCULI 01/26/2020 CAMILA, STEPHEN S TRUCK ENGINE ASSEMBLER Ot K59.00 CONSTIPATION, UNSPECIFIED 01/26/2020 HUY BALLESTEROS Ot C56.9 MALIGNANT NEOPLASM OF UNSPECIFIED OVARY 01/26/2020 MARIA D PADILLA MD Ot C56.9 MALIGNANT NEOPLASM OF UNSPECIFIED OVARY 01/26/2020 MARIA D PADILLA MD Ot I10 ESSENTIAL (PRIMARY) HYPERTENSION 01/26/2020 CAMILA, STEPHEN S TRUCK ENGINE ASSEMBLER Ot C56.9 MALIGNANT NEOPLASM OF UNSPECIFIED OVARY 01/26/2020 CAMILA, STEPHEN S TRUCK ENGINE ASSEMBLER Ot E78.2 MIXED HYPERLIPIDEMIA 01/26/2020 CAMILA, STEPHEN S TRUCK ENGINE ASSEMBLER Ot I1 0 ESSENTIAL (PRIMARY) HYPERTENSION 01/26/2020 [...] ESSENTIAL (PRIMARY) HYPERTENSION 01/27/2020 CAMILA, STEPHEN S TRUCK ENGINE ASSEMBLER Ot K59.00 CONSTIPATION, UNSPECIFIED 01/27/2020 FAVIAN, HUY FREIGHT AND PASSENGER AGENT Ot C56.9 MALIGNANT NEOPLASM OF UNSPECIFIED OVARY 01/27/2020 MARIA D PADILLA MD Ot C56.9 MALIGNANT NEOPLASM OF UNSPECIFIED OVARY 01/27/2020 MARIA D PADILLA MD Ot I10 ESSENTIAL (PRIMARY) HYPERTENSION 01/27/2020 CAMILA, STEPHEN S TRUCK ENGINE ASSEMBLER Ot C56.9 MALIGNANT NEOPLASM OF UNSPECIFIED OVARY 01/27/2020 CAMILA, STEPHEN S TRUCK ENGINE ASSEMBLER Ot E78.2 MIXED HYPERLIPIDEMIA 01/27/2020 CAMILA, STEPHEN S TRUCK ENGINE ASSEMBLER Ot I1 0 ESSENTIAL (PRIMARY) HYPERTENSION 01/27/2020 [...] OF URINARY CALCULI 01/31/2020 CAMILA, STEPHEN S TRUCK ENGINE ASSEMBLER Ot K59.00 CONSTIPATION, UNSPECIFIED 01/31/2020 HUY BALLESTEROS Ot C56.9 MALIGNANT NEOPLASM OF UNSPECIFIED OVARY 01/31/2020 MARIA D PADILLA MD Ot C56.9 MALIGNANT NEOPLASM OF UNSPECIFIED OVARY 01/31/2020 MARIA D PADILLA MD Ot I10 ESSENTIAL (PRIMARY) HYPERTENSION 01/31/2020 CAMILA, STEPHEN S TRUCK ENGINE ASSEMBLER Ot C56.9 MALIGNANT NEOPLASM OF UNSPECIFIED OVARY 01/31/2020 CAMILA, STEPHEN S TRUCK ENGINE ASSEMBLER Ot E78.2 MIXED HYPERLIPIDEMIA 01/31/2020 CAMILA, STEPHEN S TRUCK ENGINE ASSEMBLER Ot I1 0 ESSENTIAL (PRIMARY) HYPERTENSION 01/31/2020 [...] OF URINARY CALCULI 02/14/2020 CAMILA, STEPHEN S TRUCK ENGINE ASSEMBLER Ot K59.00 CONSTIPATION, UNSPECIFIED 02/14/2020 HUY BALLESTEROS FREIGHT AND PASSENGER AGENT Ot C56.9 MALIGNANT NEOPLASM OF UNSPECIFIED OVARY 02/14/2020 MARIA D PADILLA MD Ot C56.9 MALIGNANT NEOPLASM OF UNSPECIFIED OVARY 02/14/2020 MARIA D PADILLA MD Ot I10 ESSENTIAL (PRIMARY) HYPERTENSION 02/14/2020 CAMILA, STEPHEN S TRUCK ENGINE ASSEMBLER Ot C56.9 MALIGNANT NEOPLASM OF UNSPECIFIED OVARY 02/14/2020 CAMILA, STEPHEN S TRUCK ENGINE ASSEMBLER Ot E78.2 MIXED HYPERLIPIDEMIA 02/14/2020 CAMILA, STEPHEN S TRUCK ENGINE ASSEMBLER Ot I1 0 ESSENTIAL (PRIMARY) HYPERTENSION 02/14/2020 [...] MD Ot I25.10 ATHSCL HEART DISEASE OF [place] CORONARY 02/15/2020 MARIA D PADILLA MD Ot [...] OF MALIGNANT NEOPLASM OF 02/22/2020 STEPHEN JENSEN TRUCK ENGINE ASSEMBLER Ot K59.00 CONSTIPATION, UNSPECIFIED 02/22/2020 FAVIAN, HUY FREIGHT AND PASSENGER AGENT Ot C56.9 MALIGNANT NEOPLASM OF UNSPECIFIED OVARY 02/22/2020 MARIA D PADILLA MD Ot C56.9 MALIGNANT NEOPLASM OF UNSPECIFIED OVARY 02/22/2020 MARIA D PADILLA MD Ot I10 ESSENTIAL (PRIMARY) HYPERTENSION 02/22/2020 CAMILA, STEPHEN S TRUCK ENGINE ASSEMBLER Ot C56.9 MALIGNANT NEOPLASM OF UNSPECIFIED OVARY 02/22/2020 CAMILA, STEPHEN S TRUCK ENGINE ASSEMBLER Ot E78.2 MIXED HYPERLIPIDEMIA 02/22/2020 CAMILA, STEPHEN S TRUCK ENGINE ASSEMBLER Ot I1 0 ESSENTIAL (PRIMARY) HYPERTENSION 02/22/2020 [...] MD Ot I25.10 ATHSCL HEART DISEASE OF [place] CORONARY 02/22/2020 MARIA D PADILLA MD Ot N28.1 CYST OF KIDNEY, ACQUIRED 02/23/2020 CAMILA, STEPHEN S TRUCK ENGINE ASSEMBLER Ot K59.00 CONSTIPATION, UNSPECIFIED 02/23/2020 HUY BALLESTEROS Ot C56.9 MALIGNANT NEOPLASM OF UNSPECIFIED OVARY 02/23/2020 CAMILA, STEPHEN S TRUCK ENGINE ASSEMBLER Ot C56.9 MALIGNANT NEOPLASM OF UNSPECIFIED OVARY 02/23/2020 CAMILA, STEPHEN S TRUCK ENGINE ASSEMBLER Ot E78.2 MIXED HYPERLIPIDEMIA 02/23/2020 CAMILA, STEPHEN S TRUCK ENGINE ASSEMBLER Ot I1 0 ESSENTIAL (PRIMARY) HYPERTENSION 02/23/2020 [...] MD Ot I25.10 ATHSCL HEART DISEASE OF [place] CORONARY 02/23/2020 MARIA D PADILLA MD Ot N28.1 CYST OF KIDNEY, ACQUIRED 02/23/2020 MARIA D PADILLA MD Ot C56.9 MALIGNANT NEOPLASM OF UNSPECIFIED OVARY 02/23/2020 MARIA D PADILLA MD Ot I10 ESSENTIAL (PRIMARY) HYPERTENSION 02/23/2020 CAMILA STEPHEN S TRUCK ENGINE ASSEMBLER Ot K59.00 CONSTIPATION, UNSPECIFIED 02/23/2020 HUY BALLESTEROS Ot C56.9 MALIGNANT NEOPLASM OF UNSPECIFIED OVARY 02/23/2020 CAMILA, STEPHEN S TRUCK ENGINE ASSEMBLER Ot C56.9 MALIGNANT NEOPLASM OF UNSPECIFIED OVARY 02/23/2020 CAMILASTEPHEN Carcamo S TRUCK ENGINE ASSEMBLER Ot E78.2 MIXED HYPERLIPIDEMIA 02/23/2020 CAMILASTEPHEN Carcamo S TRUCK ENGINE ASSEMBLER Ot I1 0 ESSENTIAL (PRIMARY) HYPERTENSION 02/23/2020 [...] MD Ot I25.10 ATHSCL HEART DISEASE OF [place] CORONARY 02/23/2020 MARIA D PADILLA MD Ot [...] MALIGNANT NEOPLASM OF 02/24/2020 O'DELL, NAVEED K TRUCK ENGINE ASSEMBLER Ot M54 .9 DORSALGIA, UNSPECIFIED 02/24/2020 O'DELL, NAVEED K TRUCK ENGINE ASSEMBLER Ot R06.02 SHORTNESS OF BREATH 02/24/2020 O'DELL, NAVEED K TRUCK ENGINE ASSEMBLER Ot R10 .9 UNSPECIFIED ABDOMINAL PAIN 02/24/2020 MARIA D PADILLA MD Ot C56.9 MALIGNANT NEOPLASM OF UNSPECIFIED OVARY 02/24/2020 MARIA D PADILLA MD Ot I10 ESSENTIAL (PRIMARY) HYPERTENSION 02/28/2020 CAMILA, STEHPEN S TRUCK ENGINE ASSEMBLER Ot K59.00 CONSTIPATION, UNSPECIFIED 02/28/2020 HUY BALLESTEROS FREIGHT AND PASSENGER AGENT Ot C56.9 MALIGNANT NEOPLASM OF UNSPECIFIED OVARY 02/28/2020 ACMILA, STEPHEN S TRUCK ENGINE ASSEMBLER Ot C56.9 MALIGNANT NEOPLASM OF UNSPECIFIED OVARY 02/28/2020 CAMILA, STEPHEN S TRUCK ENGINE ASSEMBLER Ot E78.2 MIXED HYPERLIPIDEMIA 02/28/2020 CAMILA, STEPHEN S TRUCK ENGINE ASSEMBLER Ot I1 0 ESSENTIAL (PRIMARY) HYPERTENSION 02/28/2020 [...] MD Ot I25.10 ATHSCL HEART DISEASE OF [place] CORONARY 02/28/2020 MARIA D PADILLA MD Ot N28.1 CYST OF KIDNEY, ACQUIRED 02/28/2020 O'DELL, NAVEED K TRUCK ENGINE ASSEMBLER Ot M54 .9 DORSALGIA, UNSPECIFIED 02/28/2020 O'DELL, NAVEED K TRUCK ENGINE ASSEMBLER Ot R06.02 SHORTNESS OF BREATH 02/28/2020 O'DELL, NAVEED K TRUCK ENGINE ASSEMBLER Ot R10 .9 UNSPECIFIED ABDOMINAL PAIN 02/28/2020 MARIA D PADILLA MD Ot C56.9 MALIGNANT NEOPLASM OF UNSPECIFIED OVARY 02/28/2020 MARIA D PADILLA MD Ot I10 ESSENTIAL (PRIMARY) HYPERTENSION 03/01/2020 CAMILA, STEPHEN S TRUCK ENGINE ASSEMBLER Ot K59.00 CONSTIPATION, UNSPECIFIED 03/01/2020 HUY BALLESTEROS Ot C56.9 MALIGNANT NEOPLASM OF UNSPECIFIED OVARY 03/01/2020 CAMILA, STEPHEN S TRUCK ENGINE ASSEMBLER Ot C56.9 MALIGNANT NEOPLASM OF UNSPECIFIED OVARY 03/01/2020 CAMILA, STEPHEN S TRUCK ENGINE ASSEMBLER Ot E78.2 MIXED HYPERLIPIDEMIA 03/01/2020 CAMILA, STEPHEN S TRUCK ENGINE ASSEMBLER Ot I1 0 ESSENTIAL (PRIMARY) HYPERTENSION 03/01/2020 [...] MD Ot I25.10 ATHSCL HEART DISEASE OF [place] CORONARY 03/01/2020 MARIA D PADILLA MD Ot N28.1 CYST OF KIDNEY, ACQUIRED 03/01/2020 O'DELL, NAVEED K TRUCK ENGINE ASSEMBLER Ot M54 .9 DORSALGIA, UNSPECIFIED 03/01/2020 O'DELL, NAVEED K TRUCK ENGINE ASSEMBLER Ot R06.02 SHORTNESS OF BREATH 03/01/2020 O'DELL, NAVEED K TRUCK ENGINE ASSEMBLER Ot R10 .9 UNSPECIFIED ABDOMINAL PAIN 03/01/2020 [...] OF URINARY CALCULI 03/01/2020 STEPHEN JENSEN S TRUCK ENGINE ASSEMBLER Ot K59.00 CONSTIPATION, UNSPECIFIED 03/01/2020 HUY BALLESTEROS Ot C56.9 MALIGNANT NEOPLASM OF UNSPECIFIED OVARY 03/01/2020 CAMILA, STEPHEN S TRUCK ENGINE ASSEMBLER Ot C56.9 MALIGNANT NEOPLASM OF UNSPECIFIED OVARY 03/01/2020 CAMILA, STEPHEN S TRUCK ENGINE ASSEMBLER Ot E78.2 MIXED HYPERLIPIDEMIA 03/01/2020 CAMILA, STEPHEN S TRUCK ENGINE ASSEMBLER Ot I1 0 ESSENTIAL (PRIMARY) HYPERTENSION 03/01/2020 MARIA D PADILLA MD Ot C77.2 SECONDARY AND UNSP MALIGNANT NEOPLASM OF 03/01/2020 MARIA D PADILLA MD Ot 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 1 MALIGNANT NEOPLASM OF RIGHT OVARY 03/01/2020 YENIFER OJSEPH MD, Ot C77. 2 SECONDARY AND UNSP [...] MD Ot I25.10 ATHSCL HEART DISEASE OF [place] CORONARY 03/01/2020 MARIA D PADILLA MD Ot N28.1 CYST OF KIDNEY, ACQUIRED 03/01/2020 O'DELL, NAVEED Nico WILSON Ot M54 .9 DORSALGIA, UNSPECIFIED 03/01/2020 O'DELL, NAVEED K TRUCK ENGINE ASSEMBLER Ot R06.02 SHORTNESS OF BREATH 03/01/2020 O'DELL, NAVEED K TRUCK ENGINE ASSEMBLER Ot R10 .9 UNSPECIFIED ABDOMINAL PAIN 03/01/2020 MARIA D PADILLA MD Ot C56.9 MALIGNANT NEOPLASM OF UNSPECIFIED OVARY 03/01/2020 MARIA D PADILLA MD Ot I10 ESSENTIAL (PRIMARY) HYPERTENSION 03/02/2020 CAMILA, STEPHEN S TRUCK ENGINE ASSEMBLER Ot K59.00 CONSTIPATION, UNSPECIFIED 03/02/2020 FAVIAN, HUY FREIGHT AND PASSENGER AGENT Ot C56.9 MALIGNANT NEOPLASM OF UNSPECIFIED OVARY 03/02/2020 CAMILA, STEPHEN S TRUCK ENGINE ASSEMBLER Ot C56.9 MALIGNANT NEOPLASM OF UNSPECIFIED OVARY 03/02/2020 CAMILA, STEPHEN S TRUCK ENGINE ASSEMBLER Ot E78.2 MIXED HYPERLIPIDEMIA 03/02/2020 CAMILA, STEPHEN S TRUCK ENGINE ASSEMBLER Ot I1 0 ESSENTIAL (PRIMARY) HYPERTENSION 03/02/2020 MARIA D PADILLA MD Ot C77.2 SECONDARY AND UNSP MALIGNANT NEOPLASM OF 03/02/2020 MARIA D PADILLA MD Ot 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 03/02/2020 MARIA D PADILLA MD Ot I25.10 ATHSCL HEART DISEASE OF [place] CORONARY 03/02/2020 MARIA D PADILLA MD Ot N28.1 CYST OF KIDNEY, ACQUIRED 03/02/2020 O'DELL, NAVEED K TRUCK ENGINE ASSEMBLER Ot M54 .9 DORSALGIA, UNSPECIFIED 03/02/2020 O'DELL, NAVEED K TRUCK ENGINE ASSEMBLER Ot R06.02 SHORTNESS OF BREATH 03/02/2020 O'DELL, NAVEED K TRUCK ENGINE ASSEMBLER Ot R10 .9 UNSPECIFIED ABDOMINAL PAIN 03/02/2020 [...] MD Ot I25.10 ATHSCL HEART DISEASE OF [place] CORONARY 03/10/2020 MARIA D PADILLA MD Ot [...] ESSENTIAL (PRIMARY) HYPERTENSION 04/12/2020 CAMILA, STEPHEN S TRUCK ENGINE ASSEMBLER Ot K59.00 CONSTIPATION, UNSPECIFIED 04/12/2020 FAVIAN, HUY FREIGHT AND PASSENGER AGENT Ot C56.9 MALIGNANT NEOPLASM OF UNSPECIFIED OVARY 04/12/2020 CAMILA, STEPHEN S TRUCK ENGINE ASSEMBLER Ot C56.9 MALIGNANT NEOPLASM OF UNSPECIFIED OVARY 04/12/2020 CAMILA, STEPHEN S TRUCK ENGINE ASSEMBLER Ot E78.2 MIXED HYPERLIPIDEMIA 04/12/2020 CAMILA, STEPHEN S TRUCK ENGINE ASSEMBLER Ot I1 0 ESSENTIAL (PRIMARY) HYPERTENSION 04/12/2020 MARIA D PADILLA MD Ot C77.2 SECONDARY AND UNSP MALIGNANT NEOPLASM OF 04/12/2020 MARIA D PADILLA MD Ot 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 04/12/2020 MARIA D PADILLA MD Ot I25.10 ATHSCL HEART DISEASE OF [place] CORONARY 04/12/2020 MARIA D PADILLA MD Ot N28.1 CYST OF KIDNEY, ACQUIRED 04/12/2020 O'DELL, NAVEED K TRUCK ENGINE ASSEMBLER Ot M54 .9 DORSALGIA, UNSPECIFIED 04/12/2020 O'DELL, NAVEED K TRUCK ENGINE ASSEMBLER Ot R06.02 SHORTNESS OF BREATH 04/12/2020 O'DELL, NAVEED K TRUCK ENGINE ASSEMBLER Ot R10 .9 UNSPECIFIED ABDOMINAL PAIN 04/12/2020 [...] FOR ANTINEOPLASTIC CHEMOTHERAP 04/12/2020 STEPHEN JENSEN S TRUCK ENGINE ASSEMBLER Ot K59.00 CONSTIPATION, UNSPECIFIED 04/12/2020 FAVIAN, HUY CHRISTIANO Ot C56.9 MALIGNANT NEOPLASM OF UNSPECIFIED OVARY 04/12/2020 CAMILA, STEPHEN S TRUCK ENGINE ASSEMBLER Ot C56.9 MALIGNANT NEOPLASM OF UNSPECIFIED OVARY 04/12/2020 CAMILA, STEPHEN S TRUCK ENGINE ASSEMBLER Ot E78.2 MIXED HYPERLIPIDEMIA 04/12/2020 CAMILA, STEPHEN S TRUCK ENGINE ASSEMBLER Ot I1 0 ESSENTIAL (PRIMARY) HYPERTENSION 04/12/2020 MARIA D PADILLA MD Ot C77.2 SECONDARY AND UNSP MALIGNANT NEOPLASM OF 04/12/2020 MARIA D PADILLA MD Ot 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 04/12/2020 MARIA D PADILLA MD Ot I25.10 ATHSCL HEART DISEASE OF [place] CORONARY 04/12/2020 MARIA D PADILLA MD Ot N28.1 CYST OF KIDNEY, ACQUIRED 04/12/2020 O'DELL, NAVEED K TRUCK ENGINE ASSEMBLER Ot M54 .9 DORSALGIA, UNSPECIFIED 04/12/2020 O'DELL, NAVEED K TRUCK ENGINE ASSEMBLER Ot R06.02 SHORTNESS OF BREATH 04/12/2020 O'DELL, NAVEED K TRUCK ENGINE ASSEMBLER Ot R10 .9 UNSPECIFIED ABDOMINAL PAIN 04/12/2020 [...] FOR ANTINEOPLASTIC CHEMOTHERAP 04/13/2020 CAMILA, STEPHEN S TRUCK ENGINE ASSEMBLER Ot K59.00 CONSTIPATION, UNSPECIFIED 04/13/2020 FAVIAN, HUY CHRISTIANO Ot C56.9 MALIGNANT NEOPLASM OF UNSPECIFIED OVARY 04/13/2020 CAMILA, STEPHEN S TRUCK ENGINE ASSEMBLER Ot C56.9 MALIGNANT NEOPLASM OF UNSPECIFIED OVARY 04/13/2020 CAMILA, STEPHEN S TRUCK ENGINE ASSEMBLER Ot E78.2 MIXED HYPERLIPIDEMIA 04/13/2020 CAMILA STEPHEN S TRUCK ENGINE ASSEMBLER Ot I1 0 ESSENTIAL (PRIMARY) HYPERTENSION 04/13/2020 MARIA D PADILLA MD Ot C77.2 SECONDARY AND UNSP MALIGNANT NEOPLASM OF 04/13/2020 MARIA D PADILLA MD Ot 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 04/13/2020 MARIA D PADILLA MD Ot I25.10 ATHSCL HEART DISEASE OF [place] CORONARY 04/13/2020 MARIA D PADILLA MD Ot N28.1 CYST OF KIDNEY, ACQUIRED 04/13/2020 O'DELL, NAVEED Nico TRUCK ENGINE ASSEMBLER Ot M54 .9 DORSALGIA, UNSPECIFIED 04/13/2020 O'DELL, NAVEED K TRUCK ENGINE ASSEMBLER Ot R06.02 SHORTNESS OF BREATH 04/13/2020 O'DELL, [...] FOR ANTINEOPLASTIC CHEMOTHERAP 04/14/2020 CAMILA STEPHEN S TRUCK ENGINE ASSEMBLER Ot C56.9 MALIGNANT NEOPLASM OF UNSPECIFIED OVARY 04/14/2020 CAMILAANNALISASTEPHEN S TRUCK ENGINE ASSEMBLER Ot I1 0 ESSENTIAL (PRIMARY) HYPERTENSION 04/19/2020 CAMILA STEPHEN S TRUCK ENGINE ASSEMBLER Ot K59.00 CONSTIPATION, UNSPECIFIED 04/19/2020 FAVIAN, HUY FREIGHT AND PASSENGER AGENT Ot C56.9 MALIGNANT NEOPLASM OF UNSPECIFIED OVARY 04/19/2020 CAMILA, STEPHEN S TRUCK ENGINE ASSEMBLER Ot C56.9 MALIGNANT NEOPLASM OF UNSPECIFIED OVARY 04/19/2020 CAMILA, STEPHEN S TRUCK ENGINE ASSEMBLER Ot E78.2 MIXED HYPERLIPIDEMIA 04/19/2020 CAMILA STEPHEN S TRUCK ENGINE ASSEMBLER Ot I1 0 ESSENTIAL (PRIMARY) HYPERTENSION 04/19/2020 MARIA D PADILLA MD Ot C77.2 SECONDARY AND UNSP MALIGNANT NEOPLASM OF 04/19/2020 MARIA D PADILLA MD, Ot 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 04/19/2020 MARIA D PADILLA MD Ot I25.10 ATHSCL HEART DISEASE OF [place] CORONARY 04/19/2020 MARIA D PADILLA MD Ot N28.1 CYST OF KIDNEY, ACQUIRED 04/19/2020 O'DELL, NAVEED K TRUCK ENGINE ASSEMBLER Ot M54 .9 DORSALGIA, UNSPECIFIED 04/19/2020 O'DELL, NAVEED K TRUCK ENGINE ASSEMBLER Ot R06.02 SHORTNESS OF BREATH 04/19/2020 O'DELL, [...] OF UNSPECIFIED OVARY 04/24/2020 CAMILA STEPHEN S TRUCK ENGINE ASSEMBLER Ot E78.2 MIXED HYPERLIPIDEMIA 04/24/2020 CAMILA, STEPHEN S TRUCK ENGINE ASSEMBLER Ot I1 0 ESSENTIAL (PRIMARY) HYPERTENSION 04/24/2020 MARIA D PADILLA MD Ot C77.2 SECONDARY AND UNSP MALIGNANT NEOPLASM OF 04/24/2020 MARIA D PADILLA MD Ot 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 04/24/2020 MARIA D PADILLA MD Ot I25.10 ATHSCL HEART DISEASE OF [place] CORONARY 04/24/2020 MARIA D PADILLA MD Ot N28.1 CYST OF KIDNEY, ACQUIRED 04/24/2020 O'DELL, NAVEED K TRUCK ENGINE ASSEMBLER Ot M54 .9 DORSALGIA, UNSPECIFIED 04/24/2020 O'DELL, NAVEED K TRUCK ENGINE ASSEMBLER Ot R06.02 SHORTNESS OF BREATH 04/24/2020 O'DELL, [...] FOR ANTINEOPLASTIC CHEMOTHERAP 04/24/2020 CAMILA, STEPHEN S TRUCK ENGINE ASSEMBLER Ot C56.9 MALIGNANT NEOPLASM OF UNSPECIFIED OVARY 04/24/2020 CAMILA, STEPHEN S TRUCK ENGINE ASSEMBLER Ot I1 0 ESSENTIAL (PRIMARY) HYPERTENSION 04/24/2020 CAMILA STEPHEN S TRUCK ENGINE ASSEMBLER Ot K59.00 CONSTIPATION, UNSPECIFIED 04/24/2020 HUY BALLESTEROS Ot C56.9 MALIGNANT NEOPLASM OF UNSPECIFIED OVARY 04/24/2020 CAMILA STEPHEN S TRUCK ENGINE ASSEMBLER Ot C56.9 MALIGNANT NEOPLASM OF UNSPECIFIED OVARY 04/24/2020 CAMILA STEPHEN S TRUCK ENGINE ASSEMBLER Ot E78.2 MIXED HYPERLIPIDEMIA 04/24/2020 CAMILA, STEPHEN S TRUCK ENGINE ASSEMBLER Ot I1 0 ESSENTIAL (PRIMARY) HYPERTENSION 04/24/2020 VALERIE MD, KILLIAN Ot C77.2 SECONDARY AND UNSP MALIGNANT NEOPLASM OF 04/24/2020 MARIA D PADILLA MD Ot 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 04/24/2020 MARIA D PADILLA MD Ot I25.10 ATHSCL HEART DISEASE OF [place] CORONARY 04/24/2020 MARIA D PADILLA MD Ot N28.1 CYST OF KIDNEY, ACQUIRED 04/24/2020 O'DELL, NAVEED K TRUCK ENGINE ASSEMBLER Ot M54 .9 DORSALGIA, UNSPECIFIED 04/24/2020 O'DELL, NAVEED K TRUCK ENGINE ASSEMBLER Ot R06.02 SHORTNESS OF BREATH 04/24/2020 O'DELL, NAVEED K TRUCK ENGINE ASSEMBLER Ot R10 .9 UNSPECIFIED ABDOMINAL PAIN 04/24/2020 [...] FOR ANTINEOPLASTIC CHEMOTHERAP 04/24/2020 CAMILA STEPHEN S TRUCK ENGINE ASSEMBLER Ot C56.9 MALIGNANT NEOPLASM OF UNSPECIFIED OV[place] 04/24/2020 CAMILA, STEPHEN S TRUCK ENGINE ASSEMBLER Ot I1 0 ESSENTIAL (PRIMARY) HYPERTENSION 04/25/2020 CAMILA STEPHEN S TRUCK ENGINE ASSEMBLER Ot K59.00 CONSTIPATION, UNSPECIFIED 04/25/2020 HUY BALLESTEROS Ot C56.9 MALIGNANT NEOPLASM OF UNSPECIFIED OVARY 04/25/2020 CAMILA, STEPHEN S TRUCK ENGINE ASSEMBLER Ot C56.9 MALIGNANT NEOPLASM OF UNSPECIFIED OVARY 04/25/2020 CAMILA, STEPHEN S TRUCK ENGINE ASSEMBLER Ot E78.2 MIXED HYPERLIPIDEMIA 04/25/2020 CAMILA, STEPHEN S TRUCK ENGINE 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 Ot I1 0 ESSENTIAL (PRIMARY) HYPERTENSION 04/25/2020 MARIA D PADILLA MD, Ot C77.2 SECONDARY AND UNSP MALIGNANT NEOPLASM OF 04/25/2020 MARIA D PADILLA MD, Ot 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 04/25/2020 MARIA D PADILLA MD Ot I25.10 ATHSCL HEART DISEASE OF [place] CORONARY 04/25/2020 MARIA D PADILLA MD Ot [...] EDEMA 04/26/2020 STEPHANIE NORRIS MD, Ot Z79.01 [facility] (CURRENT) USE OF ANTICOAGULANT 04/26/2020 STEPHANIE NORRIS MD, Ot Z79.82 M[facility] (CURRENT) USE OF ASPIRIN 04/26/2020 STEPHANIE NORRIS [...] ADULT 04/29/2020 CORINNE RODAS MD, Ot Z79.01 MCC (CURRENT) USE OF ANTICOAGULANT 04/29/2020 CORINNE RODAS MD, Ot Z79.82 MCC (CURRENT) USE OF ASPIRIN 04/29/2020 CORINNE RODAS MD, Ot Z79.89 9 OTHER M[facility] (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 THERAPY 04/29/2020 CORINNE RODAS MD, [...] 7-25 CREATININE 0.58 mg/dL 0.60-0.93 eGFR NON-AFR. BRUNEIAN 90 mL/min/1.73m2 > OR = 60 eGFR [...] 7-25 CREATININE 0.64 mg/dL 0.60-0.93 eGFR NON-AFR. BRUNEIAN 87 mL/min/1.73m2 > OR = 60 eGFR [...] Status Pt. Type Provider Facility Loc./Unit Complaint [id number] 05/03/2020 11:00:00 [facility] [id number] 03/01/2020 10:45:00 Document Registration [id number] 02/22/2020 11:20:00 Document Registration [id number] 07/28/2019 11:00:00 Document Registration [id number] 03/23/2019 10:20:00 Document Registration [id number] 02/15/2019 09:00:00 Document Registration [id number] 12/09/2018 10:40:00 Document Registration [id number] 04/26/2020 13:12:00 12:04:00 DIS Inpatient CLARK CASTLE, CORINNE [place] [facility] 4TH ABD PAIN/CHANGE IN ALVIN L HABITS [id number] 04/24/2020 08:44:00 12:40:00 DIS Outpatient STEPHANIE NORRIS MD [facility] ER FEET SWELLING [id number] 04/24/2020 05:30:00 10:20:00 DIS Outpatient CORINNE RODAS MD [facility] PREOP COLONOSCOPY [id number] 04/13/2020 09:59:00 23:59:59 CLS Outpatient OPAL CASTLE, YENIFER [facility] ONC [id number] 04/12/2020 10:11:00 23:59:59 CLS Outpatient STEPHEN JENSEN [employer] [facility] LAB FS CBC AUTOMATED W/ AUTO DIFF,BMP [id number] 02/10/2020 09:49:00 16:15:00 DIS Outpatient MARIA D PADILLA MD [facility] ONC [id number] 02/23/2020 09:58:00 23:59:59 CLS Outpatient MARIA D PADILLA MD [facility] LAB FS CBC BMP [id number] 02/22/2020 11:54:00 23:59:59 CLS Outpatient NAVEED LOZANO [employer] [facility] RAD FS FLANK PAIN,SHORTNESS OF BREATH [id number] 01/26/2020 09:50:00 00:01:00 DIS Outpatient MARIA D PADILLA MD, V [facility] LAB FS CBC BMP [id number] 02/14/2020 12:39:00 23:59:59 CLS Outpatient MARIA D PADILLA MD [facility] RAD PERITONEAL CARCINOMA [id number] 12/08/2019 08:49:00 09:23:00 DIS Outpatient VALERIE CASTLE, MARIA D [place] [facility] ONC [id number] 12/01/2019 09:59:00 23:59:59 CLS Outpatient CAMILASTEPHEN Carcamo S [employer] [facility] LAB FS C56.9 I10 E78.2 [id number] 11/11/2019 08:42:00 14:35:00 DIS Outpatient CORINNE RODAS MD [facility] SDC RECURRENT OVARIAN CANCE R [id number] 11/08/2019 08:50:00 14:04:00 DIS Outpatient CORINNE RODAS MD [facility] PREOP RECURRENT OVARIAN CANCE R [id number] 10/06/2019 14:39:00 23:59:59 CLS Outpatient HUY BALLESTEROS [facility] LAB FS C56.9 [id number] 02/15/2019 09:28:00 23:59:59 CLS Outpatient CAMILASTEPHEN Carcamo [employer] [facility] RAD FS R10.32 [id number] 05/18/2020 10:15:00 P DOROTEO JOSEPH MD, YENIFER [facility] RAD PERITONEAL CARCINOMATOSIS [id number] 05/03/2020 13:20:[address] Emergency JOHNATHON SHAFFER [employer] [facility] ER ABDOMINAL PAIN;BACK PAIN
[2020-05-03 14:38] VITALS: BP 132/66
--- NOTE | 2020-05-03 14:40 | ED Back Pain ---
General Chief Complaint: Back Problems Stated Complaint: ABDOMINAL PAIN;BACK PAIN Nursing Triage Note: TO ED SENT FROM [facility] ETHEL FERRELL. C/O BACK PAIN SINCE AND COLONOSCOPY IN MARCH WAS ADMITTED CON'T TO HAVE PAIN Nursing Sepsis Screen: No Definite Risk Source of Information: Patient Exam Limitations: No Limitations History of Present Illness Date Seen by Provider: May 03, 2020 Time Seen by Provider: 14:38 Initial Comments To ER from [facility] with reports of no bowel movement today and right-sided abdominal pain. On arrival to ER she is pain-free. She's recently had a colonoscopy. Location: Lumbar Spine Timing/Duration: 1-2 Days Severity: Moderate Allergies and Home Medications Allergies Coded Allergies: adhesive tape (Verified Allergy, Mild, BLISTERS, 04/20/20) No Known Allergies (Unverified Allergy, Unknown, 04/20/20) Home Medications Albuterol Sulfate 1 Puff Puff, 2 PUFF IH Q4H PRN for WHEEZING, (Reported) 1 PUFF = 90 MCG Allopurinol 300 Mg Tablet, 300 MG PO DAILY, (Reported) Apixaban 5 Mg Tablet, 5 MG PO BID, (Reported) Aspirin 81 Mg Tablet.dr, 81 MG PO DAILY, (Reported) Cyclobenzaprine HCl 10 Mg Tablet, 10 MG PO DAILY, (Reported) Diltiazem HCl 120 Mg Cap.er.24h, 120 MG PO DAILY, (Reported) Docusate Sodium 100 Mg Capsule, 100 MG PO DAILY, (Reported) Famotidine 20 Mg Tablet, 20 MG PO DAILY, (Reported) Fish Oil/Dha/Epa 1 Each Capsule, 1 EACH PO BID, (Reported) Irbesartan 150 Mg Tablet, 150 MG PO DAILY, (Reported) Multivitamin 1 Each Tablet, 1 EACH PO DAILY, (Reported) Paroxetine HCl 20 Mg Tablet, 20 MG PO DAILY, (Reported) Polyethylene Glycol 3350 119 Gm Powder, 17 GM PO DAILY PRN for CONSTIPATION-1ST LINE, (Reported) Ropinirole HCl 1 Mg Tablet, 1 MG PO TID, (Reported) Simvastatin 40 Mg Tablet, 40 MG PO HS, (Reported) Patient Home Medication List Home Medication List Reviewed: Yes Review of Systems Constitutional: see HPI EENTM: see HPI Respiratory: no symptoms reported Cardiovascular: no symptoms reported Genitourinary: no symptoms reported Musculoskeletal: see HPI Skin: no symptoms reported Psychiatric/Neurological: No Symptoms Reported Past Suiclpc-Dxtank-Lcxbda Hx Patient Social History Alcohol Use: Denies Use Recreational Drug Use: No Smoking Status: Never a Smoker 2nd Hand Smoke Exposure: No Recent Foreign Travel: No Contact w/Someone Who Travel: No Recent Infectious Disease Expo: No Recent Hopitalizations: No Immunizations Up To Date Date of Pneumonia Vaccine: Nov 03, 2009 Date of Influenza Vaccine: Jul 03, 2019 Seasonal Allergies Seasonal Allergies: Yes Past Medical History Surgeries: Yes (HEMORRHOIDECTOMY/FISTULECTOMY, d&c, bilat TKR, breast bx, hernia) Ear Surgery, Gallbladder, Hysterectomy, Joint Replacement, Oophorectomy, Tonsillectomy Respiratory: Yes Sleep Apnea Currently Using CPAP: Yes Cardiac: Yes Atrial Fibrillation, High Cholesterol, Hypertension Neurological: No 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 Sexually Transmitted Disease: No Genitourinary: Yes Kidney Stones Gastrointestinal: Yes Gastroesophageal Reflux, Chronic Constipation Musculoskeletal: Yes Degenerate Disk Disease, Arthritis, Gout Endocrine: No HEENT: Yes (GLASSES) Cataract Loss of Vision: Denies Hearing Impairment: Deaf Cancer: Yes Ovarian Did You Recieve Any Treatments: Yes What Type of Treatment Did You: Chemotherapy, Surgical Intervention Psychosocial: No Integumentary: No Blood Disorders: No Adverse Reaction/Blood Tranf: No (N/A) Family Medical History No Pertinent Family Hx Physical Exam Vital Signs Vital Signs - First Documented 05/03/20 13:40 Pulse 91 Resp 18 B/P (MAP) 118/75 (89) Pulse Ox 94 O2 Delivery Room Air Capillary Refill : Less Than 3 Seconds Height, Weight, BMI Height: '" Weight: lbs. oz. kg; 44.00 BMI Method: General Appearance: No Apparent Distress, WD/WN, Obese HEENT: Normal ENT Inspection, Pharynx Normal Respiratory: No Accessory Muscle Use, No Respiratory Distress Gastrointestinal: Non Tender, Soft, Other (abdomen is round soft and entirely nontender to palpation) Neurologic/Psychiatric: Alert, Oriented x3 Skin: Normal Color, Warm/Dry Progress/Results/Core Measures Results/Orders Lab Results Laboratory Tests Test 05/03/20 14:45 05/03/20 14:55 Range/Units White Blood Count 6.6 4.3-11.0 10^3/uL Red Blood Count 3.27 L 4.35-5.85 10^6/uL Hemoglobin 9.7 L 11.5-16.0 G/DL Hematocrit 31 L 35-52 % Mean Corpuscular Volume 95 80-99 FL Mean Corpuscular Hemoglobin 30 25-34 PG Mean Corpuscular Hemoglobin Concent 31 L 32-36 G/DL Red Cell Distribution Width 18.0 H 10.0-14.5 % Platelet Count 316 130-400 10^3/uL Mean Platelet Volume 8.0 7.4-10.4 FL Neutrophils (%) (Auto) 69 42-75 % Lymphocytes (%) (Auto) 17 12-44 % Monocytes (%) (Auto) 13 H 0-12 % Eosinophils (%) (Auto) 1 0-10 % Basophils (%) (Auto) 0 0-10 % Neutrophils # (Auto) 4.6 1.8-7.8 X 10^3 Lymphocytes # (Auto) 1.2 1.0-4.0 X 10^3 Monocytes # (Auto) 0.9 0.0-1.0 X 10^3 Eosinophils # (Auto) 0.1 0.0-0.3 10^3/uL Basophils # (Auto) 0.0 0.0-0.1 10^3/uL Sodium Level 145 135-145 MMOL/L Potassium Level 3.3 L 3.6-5.0 MMOL/L Chloride Level 106 98-107 MMOL/L Carbon Dioxide Level 24 21-32 MMOL/L Anion Gap 15 H 5-14 MMOL/L Blood Urea Nitrogen 44 H 7-18 MG/DL Creatinine 1.25 0.60-1.30 MG/DL Estimat Glomerular Filtration Rate 42 BUN/Creatinine Ratio 35 Glucose Level 99 70-105 MG/DL Calcium Level 8.6 8.5-10.1 MG/DL Corrected Calcium 9.2 8.5-10.1 MG/DL Total Bilirubin 0.5 0.1-1.0 MG/DL Aspartate Amino Transf (AST/SGOT) 32 5-34 U/L Alanine Aminotransferase (ALT/SGPT) 23 0-55 U/L Alkaline Phosphatase 85 40-136 U/L Total Protein 6.1 L 6.4-8.2 GM/DL Albumin 3.3 3.2-4.5 GM/DL Urine Color YELLOW Urine Clarity CLEAR Urine pH 6.0 5-9 Urine Specific Emmett 1.015 L 1.016-1.022 Urine Protein NEGATIVE NEGATIVE Urine Glucose (UA) NEGATIVE NEGATIVE Urine Ketones NEGATIVE NEGATIVE Urine Nitrite NEGATIVE NEGATIVE Urine Bilirubin NEGATIVE NEGATIVE Urine Urobilinogen 1.0 < = 1.0 MG/DL Urine Leukocyte Esterase TRACE H NEGATIVE Urine RBC (Auto) 3+ H NEGATIVE Urine RBC 10-25 H /HPF Urine WBC 5-10 H /HPF Urine Squamous Epithelial Cells 2-5 /HPF Urine Crystals NONE /LPF Urine Bacteria TRACE /HPF Urine Casts NONE /LPF Urine Mucus NEGATIVE /LPF Urine Culture Indicated YES My Orders Orders - JOHNATHON SHAFFER APRN Cbc With Automated Diff (05/03/20 14:07) Comprehensive Metabolic Panel (05/03/20 14:07) Ct Abd/Pelvis Wo(Kidney Stone) (05/03/20 14:07) Vital Signs/I&O 05/03/20 13:40 Pulse 91 Resp 18 B/P (MAP) 118/75 (89) Pulse Ox 94 O2 Delivery Room Air Blood Pressure Mean: 89 Diagnostic Imaging Diagonstic Imaging: CT Comments NAME: CHUY TRIPATHI [facility] REC#: [id number] PT STATUS: REG ER : 1945 PHYSICIAN: JOHNATHON SHAFFER APRN ADMIT DATE: 05/03/20/ER Draft Date of Exam:05/03/20 CT ABD/PELVIS WO(KIDNEY STONE) PROCEDURE: CT urinary tract, rule out kidney stone. TECHNIQUE: Multiple contiguous axial images were obtained through the abdomen and pelvis without the use of intravenous contrast. Auto Exposure Controls were utilized during the CT exam to meet ALARA standards for radiation dose reduction. INDICATION: Right-sided abdominal pain. COMPARISON: Correlation is made with prior CT from 02/14/2020. FINDINGS: Lung bases demonstrate subsegmental atelectasis or scarring. There are some ill-defined low-density lesions that have developed in the liver since prior exam. A lesion in the anterior dome of the right lobe is approximately 3.7 cm. Gallbladder is surgically absent. Central biliary ducts remain prominent but similar to prior exam. Pancreas is atrophic. Spleen is normal in size. No adrenal mass is detected. Right kidney contains punctate nonobstructing calculi. No definite right-sided ureteral calculi are seen. There are punctate calculi within the left kidney. Left renal pelvis is dilated. Proximal left ureter is somewhat dilated but no definite ureteral calculi are seen. Aorta is calcified but nonaneurysmal. Patient has developed moderate amount of perihepatic and perisplenic ascites. There is some hazy appearance to the omentum in the anterior upper abdomen. No discrete omental mass is identified. There is some thickening and slight nodularity along the lateral conal fascia on the left. Findings are concerning for developing peritoneal carcinomatosis. Bowel loops do not appear to be appreciably dilated. There is marked thickening to the rectum. Uterus appears to be surgically absent. There is some thickening of the sigmoid as well. No well-formed fluid collection or free air is seen. IMPRESSION: 1. Development of ill-defined low-density masses within the liver, concerning for hepatic metastatic disease. 2. Development of upper abdominal ascites as well as some hazy increased density and nodularity to the omentum, suspicious for developing peritoneal carcinomatosis. 3. Bilateral nonobstructing nephrolithiases. There is some prominence to the renal collecting systems bilaterally, particularly the left but no definite ureteral calculi are seen. 4. Significant rectal wall thickening as well as mild thickening of the sigmoid colon. Endoscopy would be useful for further evaluation. Dictated on workstation # [id number] Dict: 05/03/20 1437 Trans: 05/03/20 1450 [id number] Interpreted by: DEMETRA GUTIERREZ MD Electronically signed by: Departure Communication (Admissions) I spoke with Dr. RODAS about the CT findings. Agrees to follow-up in the clinic with the patient. I also spoke with the cancer center but Dr. Chandra is out this week. She already has an appointment to follow up with her on the . Impression Primary Impression: Metastatic cancer to liver Additional Impression: Peritoneal carcinomatosis Disposition: 01 HOME, SELF-CARE Condition: Stable Departure-Patient Inst. Decision time for Depature: 15:20 Referrals: [facility] (PCP) Primary Care Physician STEPHEN JENSEN APRN (Family) Primary Care Physician Patient Instructions: Peritoneal Cancer Add. Discharge Instructions: 1. Keep your appointment with Dr. Joseph. Call Dr. RODAS tomorrow to make an appointment for follow-up. Pain medication as needed in the meantime and antibiotics as directed. All discharge instructions reviewed with patient and/or family. Voiced understanding. Scripts Cefuroxime Axetil (Cefuroxime) 250 Mg Tablet 250 MG PO BID, #10 TAB Prov: JOHNATHON SHAFFER APRN 05/03/20 Copy Copies To 1: CORINNE RODAS MD; YENIFER JOSEPH MD, PETER J APRN May 03, 2020 14:40
--- NOTE | 2020-05-03 14:50 | Diagnostic Imaging Report ---
PROCEDURE: CT urinary tract, rule out kidney stone. TECHNIQUE: Multiple contiguous axial images were obtained through the abdomen and pelvis without the use of intravenous contrast. Auto Exposure Controls were utilized during the CT exam to meet ALARA standards for radiation dose reduction. INDICATION: Right-sided abdominal pain. COMPARISON: Correlation is made with prior CT from 02/14/2020. FINDINGS: Lung bases demonstrate subsegmental atelectasis or scarring. There are some ill-defined low-density lesions that have developed in the liver since prior exam. A lesion in the anterior dome of the right lobe is approximately 3.7 cm. Gallbladder is surgically absent. Central biliary ducts remain prominent but similar to prior exam. Pancreas is atrophic. Spleen is normal in size. No adrenal mass is detected. Right kidney contains punctate nonobstructing calculi. No definite right-sided ureteral calculi are seen. There are punctate calculi within the left kidney. Left renal pelvis is dilated. Proximal left ureter is somewhat dilated but no definite ureteral calculi are seen. Aorta is calcified but nonaneurysmal. Patient has developed moderate amount of perihepatic and perisplenic ascites. There is some hazy appearance to the omentum in the anterior upper abdomen. No discrete omental mass is identified. There is some thickening and slight nodularity along the lateral conal fascia on the left. Findings are concerning for developing peritoneal carcinomatosis. Bowel loops do not appear to be appreciably dilated. There is marked thickening to the rectum. Uterus appears to be surgically absent. There is some thickening of the sigmoid as well. No well-formed fluid collection or free air is seen. IMPRESSION: 1. Development of ill-defined low-density masses within the liver, concerning for hepatic metastatic disease. 2. Development of upper abdominal ascites as well as some hazy increased density and nodularity to the omentum, suspicious for developing peritoneal carcinomatosis. 3. Bilateral nonobstructing nephrolithiases. There is some prominence to the renal collecting systems bilaterally, particularly the left but no definite ureteral calculi are seen. 4. Significant rectal wall thickening as well as mild thickening of the sigmoid colon. Endoscopy would be useful for further evaluation. Dictated by: Dictated on workstation # [id number]
[2020-05-03 14:52] LABS: BASOPHILS % (AUTO) 0 % (0-10); EOSINOPHILS # (AUTO) 0.1 10^3/uL (0.0-0.3); EOSINOPHILS % (AUTO) 1 % (0-10); HEMATOCRIT 31 % (35-52); HEMOGLOBIN 9.7 G/DL (11.5-16.0); LYMPHOCYTES # (AUTO) 1.2 X 10^3 (1.0-4.0); LYMPHOCYTES % (AUTO) 17 % (12-44); MEAN CORPUSCULAR HEMOGLOBIN 30 PG (25-34); MEAN CORPUSCULAR HGB CONC 31 G/DL (32-36); MEAN CORPUSCULAR VOLUME 95 FL (80-99); MONOCYTES # (AUTO) 0.9 X 10^3 (0.0-1.0); MONOCYTES % (AUTO) 13 % (0-12); NEUTROPHILS # (AUTO) 4.6 X 10^3 (1.8-7.8); NEUTROPHILS % (AUTO) 69 % (42-75); PLATELET COUNT 316 10^3/uL (130-400); WHITE BLOOD COUNT 6.6 10^3/uL (4.3-11.0)
[2020-05-03 15:04] LABS: BILIRUBIN,URINE NEGATIVE (NEGATIVE); CLARITY,URINE CLEAR; COLOR,URINE YELLOW; GLUCOSE, URINE (UA) NEGATIVE (NEGATIVE); KETONES,URINE NEGATIVE (NEGATIVE); LEUKOCYTE ESTERASE ,URINE TRACE (NEGATIVE); NITRITE,URINE NEGATIVE (NEGATIVE); PROTEIN,URINE NEGATIVE (NEGATIVE)
[2020-05-03 15:07] LABS: ALBUMIN 3.3 GM/DL (3.2-4.5); BILIRUBIN,TOTAL 0.5 MG/DL (0.1-1.0); CALCIUM 8.6 MG/DL (8.5-10.1); CREATININE SERUM 1.25 MG/DL (0.60-1.30); POTASSIUM 3.3 MMOL/L (3.6-5.0); TOTAL PROTEIN 6.1 GM/DL (6.4-8.2)
[2020-05-03 15:16] LABS: BACTERIA,URINE TRACE /HPF
[2020-05-03] MEDS ORDERED: HYDR-3870 PO (15:21)
[2020-05-03] MEDS ORDERED: CEFU250T80 PO (15:21)
== END 2020-05-03 14:38 | disposition home or self-care (01) ==
LOC: EDUNIT# 13:18 → ER 13:20
DX: C78.7 Secondary malignant neoplasm of liver and intrahepatic bile duct (principal); C80.1 Malignant (primary) neoplasm, unspecified; C78.6 Secondary malignant neoplasm of retroperitoneum and peritoneum; I10 Essential (primary) hypertension; E78.00 Pure hypercholesterolemia, unspecified; I48.91 Unspecified atrial fibrillation; K21.9 Gastro-esophageal reflux disease without esophagitis; K59.09 Other constipation; Z88.8 Allergy status to other drugs, medicaments and biological substances; Z79.01 Long term (current) use of anticoagulants; Z79.82 Long term (current) use of aspirin; Z96.653 Presence of artificial knee joint, bilateral; Z85.43 Personal history of malignant neoplasm of ovary
CPT/HCPCS: 36415; 74176; 80053; 81000; 85025; 87077; 87088; 87186

== ENCOUNTER 2020-05-08 13:18 | Outpatient (RCR) | payer MEDICARE, OTHER ==
[2020-03-02 10:53] LABS: BASOPHILS % (AUTO) 0 % (0-10); EOSINOPHILS % (AUTO) 0 % (0-10); HEMATOCRIT 40 % (35-52); HEMOGLOBIN 12.4 G/DL (11.5-16.0); LYMPHOCYTES # (AUTO) 1.1 X 10^3 (1.0-4.0); LYMPHOCYTES % (AUTO) 13 % (12-44); MEAN CORPUSCULAR HEMOGLOBIN 30 PG (25-34); MEAN CORPUSCULAR HGB CONC 31 G/DL (32-36); MEAN CORPUSCULAR VOLUME 96 FL (80-99); MEAN PLATELET VOLUME 8.3 FL (7.4-10.4); MONOCYTES # (AUTO) 0.1 X 10^3 (0.0-1.0); MONOCYTES % (AUTO) 1 % (0-12); NEUTROPHILS # (AUTO) 7.1 X 10^3 (1.8-7.8); NEUTROPHILS % (AUTO) 86 % (42-75); PLATELET COUNT 248 10^3/uL (130-400); RED CELL DISTRIBUTION WIDTH 18.4 % (10.0-14.5); WHITE BLOOD COUNT 8.2 10^3/uL (4.3-11.0)
[2020-03-02 11:16] LABS: ALANINE AMINOTRANSFERASE 26 U/L (0-55); ALKALINE PHOSPHATASE 91 U/L (40-136); BILIRUBIN,TOTAL 0.7 MG/DL (0.1-1.0); BUN/CREATININE RATIO 32; CALCIUM 9.4 MG/DL (8.5-10.1); CARBON DIOXIDE 25 MMOL/L (21-32); CHLORIDE 107 MMOL/L (98-107); CREATININE SERUM 0.68 MG/DL (0.60-1.30); GFR ESTIMATED > 60; GLUCOSE 142 MG/DL (70-105); MAGNESIUM 1.5 MG/DL (1.6-2.4); POTASSIUM 4.3 MMOL/L (3.6-5.0); SODIUM 142 MMOL/L (135-145); TOTAL PROTEIN 7.3 GM/DL (6.4-8.2)
[2020-03-08 11:07] LABS: BASOPHILS % (AUTO) 0 % (0-10); EOSINOPHILS # (AUTO) 0.1 10^3/uL (0.0-0.3); EOSINOPHILS % (AUTO) 2 % (0-10); HEMATOCRIT 34 % (35-52); HEMOGLOBIN 10.6 G/DL (11.5-16.0); LYMPHOCYTES # (AUTO) 0.9 X 10^3 (1.0-4.0); LYMPHOCYTES % (AUTO) 23 % (12-44); MEAN CORPUSCULAR HEMOGLOBIN 30 PG (25-34); MEAN CORPUSCULAR HGB CONC 31 G/DL (32-36); MEAN CORPUSCULAR VOLUME 96 FL (80-99); MEAN PLATELET VOLUME 9.1 FL (7.4-10.4); MONOCYTES # (AUTO) 0.1 X 10^3 (0.0-1.0); MONOCYTES % (AUTO) 2 % (0-12); NEUTROPHILS # (AUTO) 2.9 X 10^3 (1.8-7.8); NEUTROPHILS % (AUTO) 73 % (42-75); PLATELET COUNT 152 10^3/uL (130-400); RED CELL DISTRIBUTION WIDTH 17.4 % (10.0-14.5)
[2020-03-08 11:27] LABS: BUN/CREATININE RATIO 40; CALCIUM 8.7 MG/DL (8.5-10.1); CARBON DIOXIDE 30 MMOL/L (21-32); CHLORIDE 103 MMOL/L (98-107); CREATININE SERUM 0.58 MG/DL (0.60-1.30); GFR ESTIMATED > 60; GLUCOSE 102 MG/DL (70-105); POTASSIUM 4.6 MMOL/L (3.6-5.0); SODIUM 142 MMOL/L (135-145)
[2020-03-22 10:45] LABS: HEMATOCRIT 32 % (35-52); MEAN CORPUSCULAR HEMOGLOBIN 30 PG (25-34); MEAN CORPUSCULAR HGB CONC 32 G/DL (32-36); MEAN CORPUSCULAR VOLUME 96 FL (80-99); RED CELL DISTRIBUTION WIDTH 18.4 % (10.0-14.5); WHITE BLOOD COUNT 4.2 10^3/uL (4.3-11.0)
[2020-03-22 10:46] LABS: BASOPHILS % (AUTO) 1 % (0-10); EOSINOPHILS # (AUTO) 0.1 10^3/uL (0.0-0.3); EOSINOPHILS % (AUTO) 1 % (0-10); LYMPHOCYTES # (AUTO) 0.8 X 10^3 (1.0-4.0); LYMPHOCYTES % (AUTO) 20 % (12-44); MEAN PLATELET VOLUME 8.7 FL (7.4-10.4); MONOCYTES # (AUTO) 0.5 X 10^3 (0.0-1.0); MONOCYTES % (AUTO) 11 % (0-12); NEUTROPHILS # (AUTO) 2.8 X 10^3 (1.8-7.8); NEUTROPHILS % (AUTO) 67 % (42-75); PLATELET COUNT 234 10^3/uL (130-400)
[2020-03-22 11:19] LABS: BUN/CREATININE RATIO 30; CARBON DIOXIDE 27 MMOL/L (21-32); CHLORIDE 102 MMOL/L (98-107); CREATININE SERUM 0.57 MG/DL (0.60-1.30); GFR ESTIMATED > 60; GLUCOSE 109 MG/DL (70-105); POTASSIUM 4.4 MMOL/L (3.6-5.0); SODIUM 141 MMOL/L (135-145)
[2020-03-23 10:07] LABS: BASOPHILS % (AUTO) 0 % (0-10); EOSINOPHILS % (AUTO) 0 % (0-10); HEMATOCRIT 36 % (35-52); HEMOGLOBIN 11.5 G/DL (11.5-16.0); LYMPHOCYTES # (AUTO) 1.1 X 10^3 (1.0-4.0); LYMPHOCYTES % (AUTO) 17 % (12-44); MEAN CORPUSCULAR HEMOGLOBIN 31 PG (25-34); MEAN CORPUSCULAR HGB CONC 32 G/DL (32-36); MEAN CORPUSCULAR VOLUME 96 FL (80-99); MEAN PLATELET VOLUME 8.2 FL (7.4-10.4); MONOCYTES % (AUTO) 1 % (0-12); NEUTROPHILS # (AUTO) 5.4 X 10^3 (1.8-7.8); NEUTROPHILS % (AUTO) 83 % (42-75); PLATELET COUNT 265 10^3/uL (130-400); RED CELL DISTRIBUTION WIDTH 18.5 % (10.0-14.5); WHITE BLOOD COUNT 6.5 10^3/uL (4.3-11.0)
[2020-03-23 10:25] LABS: ALANINE AMINOTRANSFERASE 26 U/L (0-55); ALBUMIN 3.9 GM/DL (3.2-4.5); ALKALINE PHOSPHATASE 112 U/L (40-136); BILIRUBIN,TOTAL 0.5 MG/DL (0.1-1.0); BUN/CREATININE RATIO 20; CALCIUM 9.5 MG/DL (8.5-10.1); CARBON DIOXIDE 22 MMOL/L (21-32); CHLORIDE 105 MMOL/L (98-107); CREATININE SERUM 0.69 MG/DL (0.60-1.30); GFR ESTIMATED > 60; GLUCOSE 154 MG/DL (70-105); POTASSIUM 3.9 MMOL/L (3.6-5.0); SODIUM 139 MMOL/L (135-145); TOTAL PROTEIN 7.3 GM/DL (6.4-8.2)
[2020-03-23 10:52] LABS: MAGNESIUM 1.6 MG/DL (1.6-2.4)
[2020-03-29 12:25] LABS: POTASSIUM 4.4 MMOL/L (3.6-5.0); SODIUM 139 MMOL/L (135-145)
[2020-03-29 12:26] LABS: BUN/CREATININE RATIO 25; CALCIUM 8.8 MG/DL (8.5-10.1); CARBON DIOXIDE 29 MMOL/L (21-32); CHLORIDE 100 MMOL/L (98-107); CREATININE SERUM 0.56 MG/DL (0.60-1.30); GFR ESTIMATED > 60; GLUCOSE 112 MG/DL (70-105)
[2020-03-29 12:27] LABS: BASOPHILS % (AUTO) 0 % (0-10); EOSINOPHILS % (AUTO) 2 % (0-10); HEMATOCRIT 31 % (35-52); HEMOGLOBIN 9.8 G/DL (11.5-16.0); LYMPHOCYTES # (AUTO) 0.7 X 10^3 (1.0-4.0); LYMPHOCYTES % (AUTO) 12 % (12-44); MEAN CORPUSCULAR HEMOGLOBIN 30 PG (25-34); MEAN CORPUSCULAR HGB CONC 32 G/DL (32-36); MEAN CORPUSCULAR VOLUME 96 FL (80-99); MEAN PLATELET VOLUME 9.5 FL (7.4-10.4); MONOCYTES % (AUTO) 3 % (0-12); NEUTROPHILS # (AUTO) 4.4 X 10^3 (1.8-7.8); NEUTROPHILS % (AUTO) 83 % (42-75); PLATELET COUNT 178 10^3/uL (130-400); RED CELL DISTRIBUTION WIDTH 17.6 % (10.0-14.5); WHITE BLOOD COUNT 5.3 10^3/uL (4.3-11.0)
[2020-03-29 12:28] LABS: EOSINOPHILS # (AUTO) 0.1 10^3/uL (0.0-0.3); MONOCYTES # (AUTO) 0.2 X 10^3 (0.0-1.0)
[2020-04-05 11:11] LABS: POTASSIUM 4.4 MMOL/L (3.6-5.0); SODIUM 141 MMOL/L (135-145)
[2020-04-05 11:12] LABS: BUN/CREATININE RATIO 20; CALCIUM 9.2 MG/DL (8.5-10.1); CARBON DIOXIDE 26 MMOL/L (21-32); CHLORIDE 104 MMOL/L (98-107); CREATININE SERUM 0.55 MG/DL (0.60-1.30); GFR ESTIMATED > 60; GLUCOSE 113 MG/DL (70-105)
[2020-04-05 15:37] LABS: HEMATOCRIT 31 % (35-52); HEMOGLOBIN 9.9 G/DL (11.5-16.0); MEAN CORPUSCULAR HEMOGLOBIN 30 PG (25-34); MEAN CORPUSCULAR HGB CONC 32 G/DL (32-36); MEAN CORPUSCULAR VOLUME 95 FL (80-99); MEAN PLATELET VOLUME 8.9 FL (7.4-10.4); PLATELET COUNT 248 10^3/uL (130-400); RED CELL DISTRIBUTION WIDTH 17.8 % (10.0-14.5); WHITE BLOOD COUNT 2.2 10^3/uL (4.3-11.0)
[2020-04-05 15:38] LABS: BASOPHILS % (AUTO) 1 % (0-10); EOSINOPHILS # (AUTO) 0.1 10^3/uL (0.0-0.3); EOSINOPHILS % (AUTO) 3 % (0-10); LYMPHOCYTES # (AUTO) 0.9 X 10^3 (1.0-4.0); LYMPHOCYTES % (AUTO) 39 % (12-44); MONOCYTES # (AUTO) 0.5 X 10^3 (0.0-1.0); MONOCYTES % (AUTO) 24 % (0-12); NEUTROPHILS # (AUTO) 0.7 X 10^3 (1.8-7.8); NEUTROPHILS % (AUTO) 32 % (42-75)
[2020-04-13 10:32] LABS: BASOPHILS % (AUTO) 0 % (0-10); EOSINOPHILS # (AUTO) 0.1 10^3/uL (0.0-0.3); EOSINOPHILS % (AUTO) 1 % (0-10); HEMATOCRIT 35 % (35-52); HEMOGLOBIN 10.9 G/DL (11.5-16.0); LYMPHOCYTES # (AUTO) 1.6 X 10^3 (1.0-4.0); LYMPHOCYTES % (AUTO) 18 % (12-44); MEAN CORPUSCULAR HEMOGLOBIN 30 PG (25-34); MEAN CORPUSCULAR HGB CONC 31 G/DL (32-36); MEAN CORPUSCULAR VOLUME 96 FL (80-99); MEAN PLATELET VOLUME 8.2 FL (7.4-10.4); MONOCYTES # (AUTO) 0.8 X 10^3 (0.0-1.0); MONOCYTES % (AUTO) 9 % (0-12); NEUTROPHILS # (AUTO) 6.4 X 10^3 (1.8-7.8); NEUTROPHILS % (AUTO) 73 % (42-75); PLATELET COUNT 296 10^3/uL (130-400); RED CELL DISTRIBUTION WIDTH 18.5 % (10.0-14.5); WHITE BLOOD COUNT 8.8 10^3/uL (4.3-11.0)
[2020-04-13 10:55] LABS: ALANINE AMINOTRANSFERASE 16 U/L (0-55); ALBUMIN 3.7 GM/DL (3.2-4.5); ALKALINE PHOSPHATASE 89 U/L (40-136); BILIRUBIN,TOTAL 0.5 MG/DL (0.1-1.0); BUN/CREATININE RATIO 21; CALCIUM 9.5 MG/DL (8.5-10.1); CARBON DIOXIDE 25 MMOL/L (21-32); CHLORIDE 106 MMOL/L (98-107); CREATININE SERUM 0.63 MG/DL (0.60-1.30); GFR ESTIMATED > 60; GLUCOSE 108 MG/DL (70-105); MAGNESIUM 1.5 MG/DL (1.6-2.4); POTASSIUM 3.7 MMOL/L (3.6-5.0); SODIUM 142 MMOL/L (135-145); TOTAL PROTEIN 6.6 GM/DL (6.4-8.2)
[~2020-05-08 13:18] MED LIST changes: +CARBOPLATIN IV SCH; +CEFU250T80 PO; +D5W IV SCH; +FAMOTIDINE 20MG/2ML IV (CANCER CTR) IV SCH; +FOSAPREPITANT (CANCER CENTER) 150 MG in NS (IVPB) CANCER CENTER ONLY 150 ML IV SCH; +HYDR-3870 PO; +MAGNESIUM SULFATE (CANCER CTR) 2 GM in NS (IVPB) CANCER CENTER 100 ML IV SCH; +NORMAL SALINE IV SCH; +NS IV 1000 ML (CANCER CTR) IV SCH; +PACLITAXEL IV SCH; +diphenhydrAMINE 25 MG TAB (BENADRYL) CANCER CENTER PO ONE; +diphenhydrAMINE 50 MG/ML INJ (CANCER CENTER) IV PRN
== END 2020-05-31 | disposition home or self-care (01) ==
LOC: ONC 13:18
PROVIDERS: ATTEND Internal Medicine Hematology & Oncology
DX: Z51.11 Encounter for antineoplastic chemotherapy (principal); C56.1 Malignant neoplasm of right ovary; C77.2 Secondary and unspecified malignant neoplasm of intra-abdominal lymph nodes; C78.6 Secondary malignant neoplasm of retroperitoneum and peritoneum
CPT/HCPCS: 80048 ×2; 80053; 83735; 85025 ×3; 96367; 96368; 96375; 96413; 96415; 96417; G0463; 36591; 86304; 99213